=== PATIENT | male | born 1955 | race Hispanic/Latino ===

== ENCOUNTER 2017-04-09 13:05 | Inpatient (IN) | payer MEDICAID, OTHER ==
[2017-04-09 13:10] VITALS: BMI 38.4
--- NOTE | 2017-04-09 13:34 | ED PDOC ---
Arrival/HPI - General Chief Complaint: Lower Extremity Problem/Injury Time Seen by Provider: 04/09/17 13:18 Historian: Patient - History of Present Illness Narrative History of Present Illness (Text): 04/09/17 13:20 Blayne Nguyen is a 62 year old male who presents to emergency department complaining of bilateral swelling of lower extremities for a couple of weeks. Patient reports recent significant weight gain. Patient has not seen had any medical evaluation for symptoms due to lack of insurance. Patient denies any fever, chest pain, or shortness of breath. Time/Duration: < month Symptom Onset: Gradual Symptom Course: Worsening Activities at Onset: Light Associated Symptoms (Text): none Past Medical History - Provider Review Nursing Documentation Reviewed: Yes - Infectious Disease Hx of Infectious Diseases: None - Cardiac Hx Hypertension: Yes Hx Peripheral Edema: Yes Hx Peripheral Vascular Disease: Yes - Psychiatric Hx Substance Use: No - Anesthesia Hx Anesthesia: No Family/Social History - Physician Review Nursing Documentation Reviewed: Yes Family/Social History: No Known Family HX Smoking Status: Never Smoked Hx Alcohol Use: No Hx Substance Use: No Allergies/Home Meds Allergies/Adverse Reactions: Allergies No Known Allergies Allergy (Verified 04/09/17 13:10) Home Medications: Home Meds Medication Instructions Recorded Confirmed Furosemide [Lasix] 1 tab PO DAILY 04/09/17 04/09/17 Lisinopril/Hydrochlorothiazide 1 tab PO DAILY 04/09/17 04/09/17 [Lisinopril-Hctz 10-12.5 mg Tab] Review of Systems - Physician Review All systems were reviewed & negative as marked: Yes - Review of Systems Constitutional: Weight Change. absent: Fevers, Night Sweats Eyes: absent: Vision Changes ENT: absent: Hearing Changes Respiratory: absent: SOB, Cough Cardiovascular: Edema. absent: Chest Pain Gastrointestinal: absent: Abdominal Pain, Constipation, Diarrhea, Nausea, Vomiting Genitourinary Male: absent: Dysuria Musculoskeletal: absent: Arthralgias Skin: Other (Bilateral LE swelling) Neurological: absent: Headache, Dizziness Endocrine: absent: Diaphoresis Hemo/Lymphatic: absent: Adenopathy Psychiatric: absent: Anxiety Physical Exam Vital Signs Reviewed: Yes Vital Signs Temp Pulse Resp BP Pulse Ox 04/09/17 15:30 126/76 04/09/17 15:05 102 H 18 113/78 95 04/09/17 13:13 98.8 F 113 H 18 111/75 95 Temperature: Afebrile Blood Pressure: Normal Pulse: Tachycardic Respiratory Rate: Normal Appearance: Positive for: Unkept Pain Distress: None Mental Status: Positive for: Alert and Oriented X 3 - Systems Exam Head: Present: Atraumatic, Normocephalic Pupils: Present: PERRL Extroacular Muscles: Present: EOMI Conjunctiva: Present: Normal Neck: Present: Normal Range of Motion Respiratory/Chest: Present: Clear to Auscultation, Good Air Exchange. No: Respiratory Distress, Accessory Muscle Use Cardiovascular: Present: Regular Rate and Rhythm, Normal S1, S2. No: Murmurs Abdomen: No: Tenderness, Distention, Rebound, Guarding Upper Extremity: Present: Normal Inspection. No: Cyanosis, Edema Lower Extremity: Present: Edema, NORMAL PULSES, Normal ROM, Swelling ( significant lower extremity swelling b/l extending to knees. Erythema b/l. Open wounds to RLE with necrotic tissue.) Neurological: Present: Gait Normal Skin: No: Rashes Psychiatric: Present: Alert, Oriented x 3, Normal Insight, Normal Concentration Medical Decision Making ED Course and Treatment: 04/09/17 13:20 Impression: 62 year old male complaining of bilateral swelling to LE for a few weeks Differential Diagnosis included but are not limited to: Plan: -- Chest X-ray -- VBG and Blood Culture --u/s -- Labs -- Reassess and disposition Prior Visits: Notes and results from previous visits were reviewed. Patient last seen in the ED on Progress Notes: 04/09/17 14:52 LE ultrasound negative for DVT. EKG shows sinus tachycardia at 117bpm with non- specific st changes. Trop x1 negative. BNP WNL. CBC shows anemia. and CMP grossly normal. Cxray negative. Paged Dr. Huitron for admission for significant lower extremity swelling with surrounding cellulitis requiring IV antibiotics. - Lab Interpretations Lab Results: 04/09/17 14:00 04/09/17 14:00 Lab Results 04/09/17 14:00: Sodium 143, Chloride 103, Potassium 4.0, Carbon Dioxide 29, Anion Gap 15, BUN 14, Creatinine 0.9, Est GFR ( Amer) > 60, Est GFR (Non- Af Amer) > 60, Random Glucose 93, Calcium 10.1, Phosphorus 3.4, Magnesium 1.8, Total Bilirubin 0.7, AST 54, ALT 55, Alkaline Phosphatase 110, Total Creatine Kinase 53, Troponin I < 0.01, NT-Pro-B Natriuret Pep 210, Total Protein 8.5 H, Albumin 4.0, Globulin 4.4, Albumin/Globulin Ratio 0.9 L 04/09/17 14:00: pO2 45, VBG pH 7.34, VBG pCO2 49.0, VBG HCO3 26.4, VBG Total CO2 27.9, VBG O2 Sat (Calc) 85.2 H, VBG Base Excess 0.0, VBG Potassium 4.4, Sodium 154.0 H, Chloride 95.0 L, Glucose 96, Lactate 1.7, FiO2 21.0, Venous Blood Potassium 4.4 04/09/17 14:00: WBC 10.5, RBC 4.03, Hgb 12.7 L, Hct 37.3 L, MCV 92.6, MCH 31.5, MCHC 34.0, RDW 15.5 H, Plt Count 298, MPV 8.1, Gran % 79.7 H, Lymph % (Auto) 13.6 L, [place] % (Auto) 5.4, Eos % (Auto) 1.1 L, Baso % (Auto) 0.2, Gran # 8.33 H , Lymph # 1.4, [place] # 0.6, Eos # 0.1, Baso # 0.02 I have reviewed the lab results: Yes - RAD Interpretation Radiology Orders: 04/09/17 13:34 CHEST ONE VIEW [RAD] Stat 04/09/17 13:43 DUPLEX LOWER EXTRM VEIN BILAT [US] Stat - Medication Orders Current Medication Orders: Discontinued Medications Furosemide (Lasix) 40 mg IVP STAT STA Stop: 04/09/17 15:09 Last Admin: 04/09/17 15:30 Dose: 40 mg Vancomycin HCl (Vancomycin 1gm) 1 gm in 250 mls @ 167 mls/hr IVPB STAT [facility] PRN Reason: Protocol Stop: 04/09/17 15:12 Last Admin: 04/09/17 15:30 Dose: 167 mls/hr - Scribe Statement The provider has reviewed the documentation as recorded by the Ben Dhaliwal Provider Scribe Attestation: All medical record entries made by the Scribe were at my direction and personally dictated by me. I have reviewed the chart and agree that the record accurately reflects my personal performance of the history, physical exam, medical decision making, and the department course for this patient. I have also personally directed, reviewed, and agree with the discharge instructions and disposition. Disposition/Present on Arrival - Present on Arrival Any Indicators Present on Arrival: No History of DVT/PE: No History of Uncontrolled Diabetes: No Urinary Catheter: No History of Decub. Ulcer: No History Surgical Site Infection Following: None - Disposition Have Diagnosis and Disposition been Completed?: Yes Diagnosis: Lower extremity edema, Cellulitis Disposition: HOSPITALIZED Disposition Time: 14:50 Patient Plan: Admission Condition: FAIR Discharge Instructions (ExitCare): Cellulitis (ED) Referrals: PCP,NO [Primary Care Provider] - Follow up with primary Forms: [facility] ([place])
[2017-04-09] MEDS ORDERED: Vancomycin 1gm in NS 250ml 1 GM/250 ML BAG IVPB STA (13:43)
[2017-04-09 14:11] LABS: VENOUS BLOOD GAS PO2 45 mm/Hg (30-55); VENOUS BLOOD PH 7.34 (7.32-7.43)
[2017-04-09 14:14] LABS: BASO # 0.02 K/mm3 (0.0-2.0); BASO % 0.2 % (0.0-3.0); EOS # 0.1 (0.0-0.7); EOS % 1.1 % (1.5-5.0); GRAN # 8.33 (1.4-6.5); GRAN % 79.7 % (50.0-68.0); HEMOGLOBIN 12.7 gm/dL (14.0-18.0); LYMPH # 1.4 (1.2-3.4); LYMPH % 13.6 % (22.0-35.0); MEAN CELL VOLUME 92.6 fL (80.0-105.0); MEAN CORPUSCULAR HEMOGLOBIN 31.5 pg (25.0-35.0); MEAN PLATELET VOLUME 8.1 fl (7.0-11.0); MONO # 0.6 (0.1-0.6); MONO % 5.4 % (1.0-6.0); PLATELET COUNT 298 10^3/uL (120.0-450.0); RBC 4.03 10^6/uL (3.5-6.1); RED CELL DISTRIBUTION WIDTH 15.5 % (11.5-14.5); WHITE BLOOD COUNT 10.5 10^3/ul (4.5-11.0)
[2017-04-09 14:21] LABS: ALB/GLOB RATIO 0.9 (1.1-1.8); ALT/SGPT 55 U/L (7-56); AST/SGOT 54 U/L (15-59); BLOOD UREA NITROGEN 14 mg/dL (7-21); CALCIUM 10.1 mg/dL (8.4-10.5); GFR AFRICAN-AMERICAN > 60; GFR NON-AFRICAN AMERICAN > 60; MAGNESIUM 1.8 mg/dL (1.7-2.2)
[2017-04-09 14:32] LABS: B-TYPE NATRIURETIC PEPTIDE 210 pg/mL (0-450)
[2017-04-09 14:33] LABS: TROPONIN I < 0.01 ng/mL
--- NOTE | 2017-04-09 14:58 | RAD ---
PROCEDURE: CHEST RADIOGRAPH, 1 VIEW HISTORY: lower extremity edema COMPARISON: None available. FINDINGS: LUNGS: Clear. PLEURA: No pneumothorax or pleural fluid seen. CARDIOVASCULAR: Normal. OSSEOUS STRUCTURES: No significant abnormalities. VISUALIZED UPPER ABDOMEN: Normal. OTHER FINDINGS: None. IMPRESSION: No active disease.
--- NOTE | 2017-04-09 15:17 | CARD ---
APPROVED REPORT EKG Measurement Heart [id number] <Conclusion> Sinus tachycardia Possible IMI, age unknown Prolonged QT
--- NOTE | 2017-04-09 15:42 | US ---
HISTORY: Leg pain and swelling. Evaluate for DVT PHYSICIAN(S): Talha Ramirez MD. TECHNIQUE: Duplex sonography and color-flow Doppler with graded compression were used to evaluate the deep venous systems of both lower extremities. The exam is limited by body habitus and edema. The tibial veins are not adequately seen. FINDINGS: The visualized deep venous systems of both lower extremities are sonographically normal and compressible. Normal wave forms and augmentation are seen. There is no sonographic evidence for deep venous thrombosis in the visualized segments of both lower extremities. IMPRESSION: No sonographic evidence for deep venous thrombosis in the visualized segments of both lower extremities. Limited study
[2017-04-09] MEDS: Vancomycin 1gm in NS 250ml 1 GM/250 ML BAG IVPB SCH (16:15)
[2017-04-09 17:31] LABS: URINE BILIRUBIN NEGATIVE (NEGATIVE); URINE BLOOD SMALL (NEGATIVE); URINE GLUCOSE (UA) NEGATIVE (NEGATIVE); URINE LEUKOCYTE ESTERASE NEGATIVE Leu/uL (NEGATIVE); URINE NITRATE NEGATIVE (NEGATIVE); URINE PROTEIN NEGATIVE mg/dL (<30 mg/dL); URINE UROBILINOGEN 0.2 E.U./dL (<1 E.U./dL)
[2017-04-09 17:38] LABS: URINE APPEARANCE CLEAR (CLEAR); URINE COLOR YELLOW (YELLOW)
[2017-04-09 17:39] LABS: URINE WBC 0 - 2 /hpf (0-6)
[2017-04-09] MEDS ORDERED: Piperacillin/Tazobact 3.375 gm 100 ML IVPB SCH (18:00)
--- NOTE | 2017-04-09 19:18 | CP.PCM.HP ---
<Samantha Ontiveros - Last Filed: 04/09/17 20:09> History of Present Illness - History of Present Illness History of Present Illness: 62 yo M with pmhx of HTN presents to the ED for bilateral leg swelling for the past couple of weeks. Patient reports that over the last 5 months he gained 50lbs which has worsened his leg swelling. States that he does not have pain. Per ED documentation, Patient has not seen had any medical evaluation for symptoms due to lack of insurance. Per the patient, cardiac workup in the past was normal. No other complaints at this time. Denies fevers, chills, nausea/ vomitting, headaches, dizziness, visual changes, CP, SOB, abdominal pain, N/T, urinary symptoms. 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 absent: Chills, Fever, Headache, Lethargy - EENT Eyes: absent: Blurred Vision, Change in Vision Ears: absent: Decreased Hearing, Dizziness - Cardiovascular Cardiovascular: Leg Edema. absent: Chest Pain, Chest Pain with Activity, Dyspnea, Lightheadedness, Palpitations, Paroxysmal Nocturnal Dyspnea - Respiratory Respiratory: absent: Cough, Dyspnea, Dyspnea on Exertion, Wheezing - Gastrointestinal Gastrointestinal: absent: Abdominal Pain, Constipation, Diarrhea, Dysphagia, Nausea, Vomiting - Genitourinary Genitourinary: absent: Difficulty Urinating, Dysuria, Urinary Frequency - Neurological Neurological: absent: Abnormal Gait, Dizziness, Numbness, Headaches, Tingling, Weakness - Psychiatric Psychiatric: absent: Anxiety, Depression Past Patient History - Infectious Disease Hx of Infectious Diseases: None - Past Social History Smoking Status: Never Smoked - CARDIAC Hx Hypertension: Yes Hx Peripheral Edema: Yes Hx Peripheral Vascular Disease: Yes - PSYCHIATRIC Hx Substance Use: No - SURGICAL HISTORY Hx Surgeries: No - ANESTHESIA Hx Anesthesia: No Meds Allergies/Adverse Reactions: Allergies Allergy/AdvReac Type Severity Reaction Status Date / Time No Known Allergies Allergy Verified 04/09/17 13:10 Physical Exam - Constitutional Appears: Well, Non-toxic, No Acute Distress, Unkempt - Head Exam Head Exam: ATRAUMATIC, NORMAL INSPECTION - Eye Exam Eye Exam: EOMI, Normal appearance Pupil Exam: PERRL - ENT Exam ENT Exam: Mucous Membranes Moist - Neck Exam Neck exam: Positive for: Full Rom - Respiratory Exam Respiratory Exam: Clear to Auscultation Bilateral, NORMAL BREATHING PATTERN. absent: Rales, Rhonchi, Wheezes - Cardiovascular Exam Cardiovascular Exam: REGULAR RHYTHM, +S1, +S2. absent: Bradycardia, Tachycardia - GI/Abdominal Exam GI & Abdominal Exam: Normal Bowel Sounds, Soft. absent: Distended, Guarding, Rebound, Rigid - Extremities Exam Additional comments: +Edema, pedal pulses intact, Normal ROM, significant lower extremity swelling b/ l extending to knees. Swelling R>L. Erythema noted bilaterally. Open wounds to RLE with necrotic tissue, +venous stasis skin changes - Back Exam Back exam: NORMAL INSPECTION - Neurological Exam Neurological exam: Alert, CN II-XII Intact, Oriented x3 - Psychiatric Exam Psychiatric exam: Normal Affect, Normal Mood - Skin Additional comments: As documented above Results - Vital Signs Recent Vital Signs: Last Vital Signs Temp 98.8 F 04/09/17 13:13 Pulse 116 H 04/09/17 17:49 Resp 18 04/09/17 17:49 BP 117/81 04/09/17 17:49 Pulse Ox 96 04/09/17 17:49 - Labs Result Diagrams: 04/09/17 14:00 04/09/17 14:00 Labs: Laboratory Results - last 24 hr 04/09/17 16:15 Urine Color Yellow Urine Appearance Clear Urine pH 7.0 Ur Specific [place] 1.010 Urine Protein Negative Urine Glucose (UA) Negative Urine Ketones Negative Urine Blood Small H Urine Nitrate Negative Urine Bilirubin Negative Urine Urobilinogen 0.2 Ur Leukocyte Esterase Negative Urine RBC 2 - 5 Urine WBC 0 - 2 Assessment & Plan (1) Lower extremity edema Assessment and Plan: 1. Stable, afebrile 2. Started on Vanco/Zosyn 3. ID consulted, f/u recommendations 4. F/U am labs 5. F/U R LE XRAY, LE dopplers: negative for DVT 6. Lasix 40mg IV daily 7. Hx of HTN, will start on home meds, Lisinopril/HCTZ 10/12.5mg daily 8. Podiatry on consult, f/u recommendations 9. F/U wound cx, blood cx 10. Pain control - tylenol prn 11. Protonix, Heparin 5000U Q12H 12. Plan d/w attending Status: Chronic (2) Cellulitis Assessment and Plan: 1. See plan above Status: Acute <Alexander Huitron - Last Filed: 04/10/17 07:43> Results - Vital Signs Recent Vital Signs: Last Vital Signs Temp 98.8 F 04/09/17 13:13 Pulse 116 H 04/09/17 17:49 Resp 20 04/09/17 20:12 BP 117/81 04/09/17 17:49 Pulse Ox 96 04/09/17 17:49 - Labs Result Diagrams: 04/09/17 14:00 04/09/17 14:00 Labs: Laboratory Results - last 24 hr 04/09/17 16:15 Urine Color Yellow Urine Appearance Clear Urine pH 7.0 Ur Specific [place] 1.010 Urine Protein Negative Urine Glucose (UA) Negative Urine Ketones Negative Urine Blood Small H Urine Nitrate Negative Urine Bilirubin Negative Urine Urobilinogen 0.2 Ur Leukocyte Esterase Negative Urine RBC 2 - 5 Urine WBC 0 - 2 Attending/Attestation - Attestation I have personally seen and examined this patient.: Yes I have fully participated in the care of the patient.: Yes I have reviewed all pertinent clinical information: Yes Notes (Text): 04/09/17 62 year old male with past medical history of hypertension and chronic LE edema who presents with worsening LE edema/erythema. LE dopplers are limited but negative for DVT. RLE xray is also ordered. Will start on iv antibiotics and iv lasix. He states he had negative cardiac workup in the past. Will request for podiatry and ID consultation. Follow up on wound culture and blood culture. Continue with home medications for hypertension. Alexander Huitron MD Hospitalist.
[2017-04-10] MEDS: Pantoprazole 40 mg EC Tab PO SCH (05:03)
[2017-04-10] MEDS: Vancomycin 1gm in NS 250ml 1 GM/250 ML BAG IVPB SCH ×3 (05:03→22:08)
--- NOTE | 2017-04-10 07:51 | CP.PCM.CON ---
<Brianne Hines - Last Filed: 04/10/17 11:32> History of Present Illness - History of Present Illness History of Present Illness: PGY-[address] Dumont ID Consult: b/l LE cellulitis r/o osteomyelitis Mr. Nguyen, 62 M, with PMH of HTN and chronic LE edema, presents to the ED for sudden worsening LE edema/erythema bilaterally x 2 weeks. At baseline, pt always have b/l leg edema. R leg started to "peel and itch" 2 weeks ago. Pt scratched and took the peel off, so it started to drain and bleed. Patient reports that over the last 5 months he gained 50lbs which has worsened his leg swelling, painless. He states he had negative cardiac workup in the past. Denies f/c. Pt requires a cane and chronic heel pain. No N/T or worsening difficulty ambulating. Upon ED arrival, HR 113. T 98.8, 111/75, 95%RA WBC 10.5, lactate 1.7, CMP unremarkable No ESR/CRP U/A negative LE dopplers b/l: negative for DVT RLE (Tib/fib) xray pending ROS- Denies fevers, chills, PEPE, Dizziness, vision changes, CP, SOB, nausea/vomitting , abdominal pain, N/T, urinary symptoms. PMH HTN chronic LE edema Hx mechanical fall PSH denies SH Lives with roommate who is a chronic smoker Pt was formally employed at a [employer] denies alcohol, tobacco, drug use Pt ambulate with cane Allergies: NKDA MEd: Lisinopril/HCTZ 10/12.5mg daily, Lasix 40mg daily PMD: No Podiatry: No Past Patient History - Infectious Disease Hx of Infectious Diseases: None - Past Social History Smoking Status: Former Smoker - CARDIAC Hx Hypertension: Yes - MUSCULOSKELETAL/RHEUMATOLOGICAL Hx Falls: No - PSYCHIATRIC Hx Substance Use: No - SURGICAL HISTORY Hx Surgeries: No - ANESTHESIA Hx Anesthesia: No Meds Allergies/Adverse Reactions: Allergies Allergy/AdvReac Type Severity Reaction Status Date / Time No Known Allergies Allergy Verified 04/09/17 13:10 - Medications Medications: Current Medications Acetaminophen (Tylenol 325mg Tab) 325 mg PO PRN PRN PRN Reason: Pain, Mild (1-3) Furosemide (Lasix) 40 mg IVP DAILY [facility] Heparin Sodium (Porcine) (Heparin) 5,000 units SC Q12 [facility] PRN Reason: Protocol Last Admin: 04/09/17 22:40 Dose: 5,000 units Hydrochlorothiazide (Microzide) 12.5 mg PO DAILY [facility] Vancomycin HCl (Vancomycin 1gm) 1 gm in 250 mls @ 167 mls/hr IVPB Q12H [facility] PRN Reason: Protocol Last Admin: 04/10/17 05:03 Dose: 167 mls/hr Lisinopril (Zestril) 10 mg PO DAILY [facility] Pantoprazole Sodium (Protonix Ec Tab) 40 mg PO 0600 [facility] Last Admin: 04/10/17 05:03 Dose: 40 mg Physical Exam - Constitutional Appears: Unkempt, Chronically Ill - Head Exam Head Exam: ATRAUMATIC, NORMAL INSPECTION, NORMOCEPHALIC - Eye Exam Eye Exam: EOMI, Normal appearance, PERRL. absent: Scleral icterus - ENT Exam ENT Exam: Mucous Membranes Moist - Neck Exam Additional comments: supple - Respiratory Exam Respiratory Exam: Decreased Breath Sounds (all lung field), Clear to Auscultation Bilateral - Cardiovascular Exam Cardiovascular Exam: REGULAR RHYTHM, +S1, +S2 - GI/Abdominal Exam GI & Abdominal Exam: Soft. absent: Distended, Firm, Rigid - Extremities Exam Extremities exam: Positive for: calf tenderness, pedal edema Additional comments: Non-pitting edema, about 12 inch diameter per leg. L leg erythema. R leg erythema with statis demititis, dry skin, dressing with yellow drainage striking through. pedal pulse 2+ no rash sole b/l Results - Vital Signs Recent Vital Signs: Last Vital Signs Temp 98.8 F 04/09/17 13:13 Pulse 116 H 04/09/17 17:49 Resp 20 04/09/17 20:12 BP 117/81 04/09/17 17:49 Pulse Ox 96 04/09/17 17:49 - Labs Result Diagrams: 04/10/17 09:00 04/10/17 09:00 Labs: Laboratory Results - last 24 hr 04/09/17 16:15 Urine Color Yellow Urine Appearance Clear Urine pH 7.0 Ur Specific [place] 1.010 Urine Protein Negative Urine Glucose (UA) Negative Urine Ketones Negative Urine Blood Small H Urine Nitrate Negative Urine Bilirubin Negative Urine Urobilinogen 0.2 Ur Leukocyte Esterase Negative Urine RBC 2 - 5 Urine WBC 0 - 2 Assessment & Plan - Assessment and Plan (Free Text) Plan: 62 M has statis dermitis with bacterial superinfection cellulitis r/o osteomyelitis - Vanco - ? ESR/CRP - LE dopplers b/l: negative for DVT - RLE (Tib/fib) xray pending - Pending wound and blood culture - U/A negative - Date & Time Date: 04/10/17 Time: 10:15 <TimJairovadim Batistaumesh Familia - Last Filed: 04/10/17 11:38> Meds - Medications Medications: Current Medications Acetaminophen (Tylenol 325mg Tab) 325 mg PO PRN PRN PRN Reason: Pain, Mild (1-3) Furosemide (Lasix) 40 mg IVP DAILY [facility] Last Admin: 04/10/17 10:29 Dose: 40 mg Heparin Sodium (Porcine) (Heparin) 5,000 units SC Q12 [facility] PRN Reason: Protocol Last Admin: 04/10/17 10:29 Dose: 5,000 units Hydrochlorothiazide (Microzide) 12.5 mg PO DAILY [facility] Last Admin: 04/10/17 10:28 Dose: 12.5 mg Vancomycin HCl (Vancomycin 1gm) 1 gm in 250 mls @ 167 mls/hr IVPB Q12H [facility] PRN Reason: Protocol Last Admin: 04/10/17 05:03 Dose: 167 mls/hr Lisinopril (Zestril) 10 mg PO DAILY [facility] Last Admin: 04/10/17 10:28 Dose: 10 mg Pantoprazole Sodium (Protonix Ec Tab) 40 mg PO 0600 [facility] Last Admin: 04/10/17 05:03 Dose: 40 mg Results - Vital Signs Recent Vital Signs: Last Vital Signs Temp 99.1 F 04/10/17 08:05 Pulse 107 H 04/10/17 10:28 Resp 20 04/10/17 08:05 BP 104/50 L 04/10/17 10:29 Pulse Ox 93 L 04/10/17 08:05 - Labs Result Diagrams: 04/10/17 09:00 04/10/17 09:00 Labs: Laboratory Results - last 24 hr 04/09/17 04/10/17 04/10/17 16:15 09:00 09:00 WBC 10.1 RBC 4.05 Hgb 12.6 L Hct 37.5 L MCV 92.6 MCH 31.1 MCHC 33.6 RDW 15.8 H Plt Count 255 MPV 8.1 Sodium 139 Potassium 4.3 Chloride 101 Carbon Dioxide 27 Anion Gap 15 BUN 15 Creatinine 0.8 Est GFR ( Amer) > 60 Est GFR (Non-Af Amer) > 60 Random Glucose 111 H Calcium 9.4 Urine Color Yellow Urine Appearance Clear Urine pH 7.0 Ur Specific [place] 1.010 Urine Protein Negative Urine Glucose (UA) Negative Urine Ketones Negative Urine Blood Small H Urine Nitrate Negative Urine Bilirubin Negative Urine Urobilinogen 0.2 Ur Leukocyte Esterase Negative Urine RBC 2 - 5 Urine WBC 0 - 2 Assessment & Plan - Assessment and Plan (Free Text) Plan: Attending attestation: Patient seen and examined, discussed with medical service technician. I have reviewed the patient's HPI, medical history, personal and social history, allergies, physical exam. I agree with the above findings. In addition, we will treat this patient with probable right leg skin and skin structure infection over stasis dermatitis, need to rule out abscess. Follow up MRI of the leg, start Vancomycin , and add Unasyn pending blood and wound cx. Discussed with Dr. Turner.
[2017-04-10 09:49] LABS: HEMOGLOBIN 12.6 gm/dL (14.0-18.0); MEAN CELL VOLUME 92.6 fL (80.0-105.0); MEAN CORPUSCULAR HEMOGLOBIN 31.1 pg (25.0-35.0); MEAN CORPUSCULAR HGB CONC 33.6 g/dl (31.0-37.0); MEAN PLATELET VOLUME 8.1 fl (7.0-11.0); RBC 4.05 10^6/uL (3.5-6.1); RED CELL DISTRIBUTION WIDTH 15.8 % (11.5-14.5); WHITE BLOOD COUNT 10.1 10^3/ul (4.5-11.0)
[2017-04-10 10:01] LABS: BLOOD UREA NITROGEN 15 mg/dL (7-21); CALCIUM 9.4 mg/dL (8.4-10.5); GFR AFRICAN-AMERICAN > 60; GFR NON-AFRICAN AMERICAN > 60
--- NOTE | 2017-04-10 12:34 | RAD ---
PROCEDURE: Radiographs of the right tibia and fibula. HISTORY: Cellulitis COMPARISON: None available. TECHNIQUE: Frontal and lateral views obtained. FINDINGS: BONES: No fracture or destructive lesion. JOINT SPACES: Unremarkable. OTHER FINDINGS: There is severe soft tissue swelling and edema IMPRESSION: Severe soft tissue swelling. No bony abnormalities
--- NOTE | 2017-04-10 13:19 | CON ---
DATE: HISTORY OF PRESENT ILLNESS: A 62-year-old male seen at bedside for consultation, evaluation and management of right lower extremity ulcerations secondary to chronic lower extremity edema. The patient states that his legs have been swollen for many years and have gotten progressively worse. He states that he has gained approximately 50 pounds over the last few months since he stopped working. He notes over the past few weeks that his legs were swollen and became quite itchy where he continued to scratch each leg, but noticed drainage coming out of his right lower leg a few weeks ago. He was quite concerned, so he presented to the emergency room. PAST MEDICAL HISTORY: Significant for morbid obesity, chronic lower extremity edema, essential hypertension and history of . PAST SURGICAL HISTORY: Denies any past surgical history. SOCIAL HISTORY: The patient was a smoker at onetime, has not smoke in many years. Denies alcohol use and denies illicit drug use. He is not and lives with a roommate who is a heavy smoker. ALLERGIES: THE PATIENT HAS NO KNOWN DRUG ALLERGIES. OBJECTIVE: VITAL SIGNS: Reveal temperature of 99.1, pulse rate of 107, blood pressure of 104/50, respiratory rate of 20. EXTREMITIES: Nonpalpable pedal pulses noted bilaterally secondary to +3 nonpitting lower extremity edema. The patient is unable to detect 5.07 g monofilament wire testing on each foot. Right lower extremity presents with 3 ulcerations located anterior and lateral on the lower leg as well as one posteriorly. All the ulcerations have light purulent drainage. There is a malodor noted on the anterior ulceration. The base of each ulceration is a mixture of fibrotic and necrotic tissue. Each ulcer probes greater than 1.5 cm in depth. There is no probing to bone. However, upon manual compression, there is noted to be light purulent discharge. There is noted to be edema and erythema locally, but no signs of ascending cellulitis. LABORATORY FINDINGS: Reveal a white count of 10.1, hemoglobin of 12.6, hematocrit of 37.5 and platelet count of 255. Microbiology report taken yesterday reveals Gram-positive cocci in clusters, Gram-positive cocci in chains, moderate Gram-variable rods and Gram-negative rods heavy growth. Venous Doppler taken yesterday reveals no radiographic evidence of deep venous thrombosis in either lower extremity. ASSESSMENT: Venous stasis ulcerations to the right lower extremity with accompanying cellulitis. PLAN: The patient's leg was examined. Culture was taken and submitted for sensitivities. The patient is currently on vancomycin 1 g. His wounds were flushed with normal sterile saline. Leg was manually compressed and there was noted to be purulent discharge expressed. An application of Acticoat silver gauze was applied to each of the wounds and a dry sterile compressive dressing was applied to the right lower leg. Left lower leg was dressed with a Tubigrip for compression. We will order MRI to ascertain whether there is an underlying abscess formation on his lower leg. The patient's white count still is within normal limits at 10.1, but there may be an underlying abscess formation working, and an MRI would determine this. Infectious Disease note was read and appreciated. was followed daily and await MRI results to ascertain if surgical debridement is warranted. Bhavesh Turner DPM
--- NOTE | 2017-04-10 15:57 | MRI ---
PROCEDURE: MRI of the right lower extremity without contrast HISTORY: right lower leg abscess COMPARISON: TECHNIQUE: MRI of the right lower extremity was performed in multiple planes using multiple pulse sequences. Both extremities were visualized in the coronal plane FINDINGS: There is extensive subcutaneous edema in both lower extremities measuring up to 5.5 cm in thickness. There is no evidence of a discrete abscess. There is no muscular edema or bone marrow edema. Due the symmetric appearance of this edema it is most likely due to passive edema but could be due to bilateral cellulitis. IMPRESSION: Severe bilateral lower extremity edema. There is no evidence of a discrete abscess.
[2017-04-10] MEDS: Ampicillin/Sulbactam 3 GM in Sodium Chloride 0.9% 100 ML IVPB SCH ×2 (17:18→23:50)
--- NOTE | 2017-04-10 23:47 | CP.PCM.PN ---
<Jamar Lyon - Last Filed: 04/10/17 23:52> Subjective - Date & Time of Evaluation Date of Evaluation: 04/10/17 Time of Evaluation: 07:25 - Subjective Subjective: Patient thinks he is fine and wants to go home. He quickly reversed his decision once the grating machine operator/orthopedist saw him. Denies fever, exquisitve pain to the right LE, though admits it is still somewhat painful. Objective - Vital Signs/Intake and Output Vital Signs (last 24 hours): Temp Pulse Resp BP Pulse Ox 99 F 108 H 20 101/74 94 L 04/10/17 18:51 04/10/17 16:00 04/10/17 16:00 04/10/17 16:00 04/10/17 16:00 Intake and Output: 04/10/17 04/11/17 18:59 06:59 Intake Total 0 780 Balance 0 780 - Medications Medications: Current Medications Acetaminophen (Tylenol 325mg Tab) 325 mg PO PRN PRN PRN Reason: Pain, Mild (1-3) Last Admin: 04/10/17 16:09 Dose: 325 mg Furosemide (Lasix) 40 mg IVP DAILY [facility] Last Admin: 04/10/17 10:29 Dose: 40 mg Heparin Sodium (Porcine) (Heparin) 5,000 units SC Q12 [facility] PR[facility] Reason: Protocol Last Admin: 04/10/17 22:09 Dose: 5,000 units Hydrochlorothiazide (Microzide) 12.5 mg PO DAILY [facility] Last Admin: 04/10/17 10:28 Dose: 12.5 mg Ampicillin Sodium/Sulbactam (Sodium 3 gm/ Sodium Chloride) 100 mls @ 200 mls/ hr IVPB Q6 [facility] PRN Reason: Protocol Last Admin: 04/10/17 17:18 Dose: 200 mls/hr Vancomycin HCl (Vancomycin 1gm) 1 gm in 250 mls @ 167 mls/hr IVPB Q12 [facility] PRN Reason: Protocol Last Admin: 04/10/17 22:08 Dose: 167 mls/hr Lisinopril (Zestril) 10 mg PO DAILY [facility] Last Admin: 04/10/17 10:28 Dose: 10 mg Pantoprazole Sodium (Protonix Ec Tab) 40 mg PO 0600 [facility] Last Admin: 04/10/17 05:03 Dose: 40 mg - Labs Labs: 04/10/17 09:00 04/10/17 09:00 - Constitutional Appears: Non-toxic, No Acute Distress, Older Than Stated Age - Head Exam Head Exam: ATRAUMATIC, NORMOCEPHALIC - Eye Exam Eye Exam: EOMI, Normal appearance Pupil Exam: NORMAL ACCOMODATION, PERRL - Neck Exam Neck Exam: Full ROM, Normal Inspection - Respiratory Exam Respiratory Exam: Rales, Wheezes - Cardiovascular Exam Cardiovascular Exam: RRR, +S1, +S2 - GI/Abdominal Exam GI & Abdominal Exam: Soft, Normal Bowel Sounds Additional comments: protuberant - Rectal Exam Rectal Exam: Deferred - Extremities Exam Additional comments: Right LE shows peeling and sloughing of the skin, Left is edematous but no acute changes - Neurological Exam Neurological Exam: Alert, Awake, CN II-XII Intact, Oriented x3 - Psychiatric Exam Psychiatric exam: Normal Affect, Normal Mood - Skin Additional comments: foul smelling Assessment and Plan - Assessment and Plan (Free Text) Assessment: (1) Lower extremity edema Assessment and Plan: 1. Stable, afebrile 2. Started on Vanco/Zosyn, RLE culture show polymicrobial growth; however, deep or superficial wound cultures have shown no benefit in selection of antibiotics for a cellulitis according to new literature; hence, treat empirically and avoid further culture/swabs to the RLE. 3. ID consulted, f/u recommendations antibiotic selection per Dr. Dumont. 4. R LE XRAY showed edema, unsure if there was concern for fracture, or osteomyelitis which plain films are not first line studies. At any rate, LE dopplers: negative for DVT. MRI confirms edema, but no definitive abscess. 5. Lasix 40mg IV daily 6. Hx of HTN, will start on home meds, Lisinopril/HCTZ 10/12.5mg daily 7. Podiatry on consult, f/u recommendations 8. Pain control - tylenol prn 9.. Protonix, Heparin 5000U Q12H 10. Plan d/w attending. Status: Chronic (2) Cellulitis Assessment and Plan: 1. See plan above <Alexander Huitron - Last Filed: 04/11/17 09:14> Objective - Vital Signs/Intake and Output Vital Signs (last 24 hours): Temp Pulse Resp BP Pulse Ox 98.9 F 108 H 20 101/74 94 L 04/11/17 00:00 04/10/17 16:00 04/10/17 16:00 04/10/17 16:00 04/10/17 16:00 Intake and Output: 04/11/17 04/11/17 06:59 18:59 Intake Total 780 Balance 780 - Medications Medications: Current Medications Acetaminophen (Tylenol 325mg Tab) 325 mg PO PRN PRN PRN Reason: Pain, Mild (1-3) Last Admin: 04/10/17 16:09 Dose: 325 mg Furosemide (Lasix) 40 mg IVP DAILY [facility] Last Admin: 04/10/17 10:29 Dose: 40 mg Heparin Sodium (Porcine) (Heparin) 5,000 units SC Q12 [facility] PRN Reason: Protocol Last Admin: 04/10/17 22:09 Dose: 5,000 units Hydrochlorothiazide (Microzide) 12.5 mg PO DAILY [facility] Last Admin: 04/10/17 10:28 Dose: 12.5 mg Ampicillin Sodium/Sulbactam (Sodium 3 gm/ Sodium Chloride) 100 mls @ 200 mls/ hr IVPB Q6 [facility] PRN Reason: Protocol Last Admin: 04/11/17 05:07 Dose: 200 mls/hr Vancomycin HCl (Vancomycin 1gm) 1 gm in 250 mls @ 167 mls/hr IVPB Q12 [facility] PRN Reason: Protocol Last Admin: 04/10/17 22:08 Dose: 167 mls/hr Lisinopril (Zestril) 10 mg PO DAILY [facility] Last Admin: 04/10/17 10:28 Dose: 10 mg Pantoprazole Sodium (Protonix Ec Tab) 40 mg PO 0600 [facility] Last Admin: 04/11/17 05:06 Dose: 40 mg - Labs Labs: 04/11/17 08:40 04/11/17 08:40 Attending/Attestation - Attestation I have personally seen and examined this patient.: Yes I have fully participated in the care of the patient.: Yes I have reviewed all pertinent clinical information, including history, physical exam and plan: Yes Notes (Text): 04/10/17 62 year old male with past medical history of hypertension and chronic LE edema who presented with worsening LE edema/erythema. LE dopplers were limited but negative for DVT. RLE xray and MRI were reviewed which showed edema. ID and podiatry evaluation were appreciated. Will follow up on wound culture and blood culture. Continue with iv antibiotics and iv lasix for diuresis. Continue with home medications for hypertension. Alexander Huitron MD Hospitalist.
[2017-04-11] MEDS: Pantoprazole 40 mg EC Tab PO SCH (05:06)
[2017-04-11] MEDS: Ampicillin/Sulbactam 3 GM in Sodium Chloride 0.9% 100 ML IVPB SCH ×4 (05:07→23:25)
[2017-04-11 08:57] LABS: HEMOGLOBIN 10.9 gm/dL (14.0-18.0); MEAN CELL VOLUME 91.8 fL (80.0-105.0); MEAN CORPUSCULAR HEMOGLOBIN 30.7 pg (25.0-35.0); MEAN CORPUSCULAR HGB CONC 33.4 g/dl (31.0-37.0); MEAN PLATELET VOLUME 7.7 fl (7.0-11.0); RBC 3.55 10^6/uL (3.5-6.1); WHITE BLOOD COUNT 9.5 10^3/ul (4.5-11.0)
[2017-04-11 09:07] LABS: BLOOD UREA NITROGEN 13 mg/dL (7-21); CALCIUM 8.9 mg/dL (8.4-10.5); GFR AFRICAN-AMERICAN > 60; GFR NON-AFRICAN AMERICAN > 60
--- NOTE | 2017-04-11 09:41 | CP.PCM.PN ---
<Brianne Hines - Last Filed: 04/11/17 12:06> Subjective - Date & Time of Evaluation Date of Evaluation: 04/11/17 Time of Evaluation: 09:38 - Subjective Subjective: PGY-[address] Dumont 100.6 last evening Now sitting comfortably by window dressing changed this am no acute complaint Objective - Vital Signs/Intake and Output Vital Signs (last 24 hours): Temp Pulse Resp BP Pulse Ox 98.9 F 108 H 20 101/74 94 L 04/11/17 00:00 04/10/17 16:00 04/10/17 16:00 04/10/17 16:00 04/10/17 16:00 Intake and Output: 04/11/17 04/11/17 06:59 18:59 Intake Total 780 Balance 780 - Medications Medications: Current Medications Acetaminophen (Tylenol 325mg Tab) 325 mg PO PRN PRN PRN Reason: Pain, Mild (1-3) Last Admin: 04/10/17 16:09 Dose: 325 mg Furosemide (Lasix) 40 mg IVP DAILY [facility] Last Admin: 04/10/17 10:29 Dose: 40 mg Heparin Sodium (Porcine) (Heparin) 5,000 units SC Q12 [facility] PRN Reason: Protocol Last Admin: 04/10/17 22:09 Dose: 5,000 units Hydrochlorothiazide (Microzide) 12.5 mg PO DAILY [facility] Last Admin: 04/10/17 10:28 Dose: 12.5 mg Ampicillin Sodium/Sulbactam (Sodium 3 gm/ Sodium Chloride) 100 mls @ 200 mls/ hr IVPB Q6 [facility] PRN Reason: Protocol Last Admin: 04/11/17 05:07 Dose: 200 mls/hr Vancomycin HCl (Vancomycin 1gm) 1 gm in 250 mls @ 167 mls/hr IVPB Q12 [facility] PRN Reason: Protocol Last Admin: 04/10/17 22:08 Dose: 167 mls/hr Lisinopril (Zestril) 10 mg PO DAILY [facility] Last Admin: 04/10/17 10:28 Dose: 10 mg Pantoprazole Sodium (Protonix Ec Tab) 40 mg PO 0600 [facility] Last Admin: 04/11/17 05:06 Dose: 40 mg - Labs Labs: 04/11/17 08:40 04/11/17 08:40 - Constitutional Appears: No Acute Distress - Head Exam Head Exam: ATRAUMATIC, NORMAL INSPECTION, NORMOCEPHALIC - Eye Exam Eye Exam: EOMI, Normal appearance, PERRL. absent: Scleral icterus Pupil Exam: NORMAL ACCOMODATION - ENT Exam ENT Exam: Mucous Membranes Moist - Respiratory Exam Respiratory Exam: Clear to Ausculation Bilateral. absent: Rales, Rhonchi, Wheezes - Cardiovascular Exam Cardiovascular Exam: REGULAR RHYTHM, +S1, +S2 - GI/Abdominal Exam GI & Abdominal Exam: Soft. absent: Distended, Guarding, Rigid, Tenderness - Extremities Exam Extremities Exam: Pedal Edema Additional comments: dressing b/l d/c/i. non-pitting edema with erythema - Back Exam Back Exam: absent: CVA tenderness (L), CVA tenderness (R) - Neurological Exam Neurological Exam: Alert, Awake - Psychiatric Exam Psychiatric exam: Normal Affect, Normal Mood - Skin Skin Exam: Dry, Warm Assessment and Plan - Assessment and Plan (Free Text) Plan: 62 M has statis dermititis with probable right leg skin and skin structure infection cellulitis has ruled out abscess - Vancomycin 1gq12 (day 3) & Unasyn 3g q6(day 2) for cat exposure - LE dopplers b/l: negative for DVT - RLE (Tib/fib) xray: No bony abnormality - MRI of R lower leg: No discrete abscess - wound exudate = gram neg elder - blood culture = no grwth 24 hr - U/A negative - Watch Sx for compartment syndrome s/r/d w Dr. Dumont <Jairo Dumont S - Last Filed: 04/11/17 15:19> Objective - Vital Signs/Intake and Output Vital Signs (last 24 hours): Temp Pulse Resp BP Pulse Ox 98.0 F 96 H 18 121/74 95 04/11/17 06:00 04/11/17 10:56 04/11/17 06:00 04/11/17 10:56 04/11/17 06:00 Intake and Output: 04/11/17 04/11/17 06:59 18:59 Intake Total 780 860 Balance 780 860 - Medications Medications: Current Medications Acetaminophen (Tylenol 325mg Tab) 325 mg PO Q6H PRN PRN Reason: Pain, Mild (1-3) Furosemide (Lasix) 40 mg IVP DAILY [facility] Last Admin: 04/11/17 10:55 Dose: 40 mg Heparin Sodium (Porcine) (Heparin) 5,000 units SC Q12 [facility] PRN Reason: Protocol Last Admin: 04/11/17 10:56 Dose: 5,000 units Hydrochlorothiazide (Microzide) 12.5 mg PO DAILY [facility] Last Admin: 04/11/17 10:55 Dose: 12.5 mg Ampicillin Sodium/Sulbactam (Sodium 3 gm/ Sodium Chloride) 100 mls @ 200 mls/ hr IVPB Q6 [facility] PRN Reason: Protocol Last Admin: 04/11/17 12:38 Dose: 200 mls/hr Vancomycin HCl (Vancomycin 1gm) 1 gm in 250 mls @ 167 mls/hr IVPB Q12 [facility] PRN Reason: Protocol Last Admin: 04/11/17 10:52 Dose: 167 mls/hr Lisinopril (Zestril) 10 mg PO DAILY [facility] Last Admin: 04/11/17 10:56 Dose: 10 mg Oxychlorosene Sodium (Clorpactin [facility]-90) 2 gm TOP Q12 [facility] Last Admin: 04/11/17 10:40 Dose: Not Given Pantoprazole Sodium (Protonix Ec Tab) 40 mg PO 0600 [facility] Last Admin: 04/11/17 05:06 Dose: 40 mg - Labs Labs: 04/11/17 08:40 04/11/17 08:40 Assessment and Plan - Assessment and Plan (Free Text) Plan: Infectious Diseases Attending Physician Attestation Patient seen and examined, discussed with medical officer. Agree with above findings. In addition, patient underwent sharp excisional debridement by Podiatry today - will follow up wound cx and continue Vancomycin and Unasyn for now for this patient with right leg skin and skin structure infection.
[2017-04-11] MEDS: Oxychlorosene Topical 2 gm Packet TOP SCH ×2 (10:40→21:48)
--- NOTE | 2017-04-11 10:49 | CP.PCM.PN ---
<Dave Cunha - Last Filed: 04/11/17 10:43> Subjective - Date & Time of Evaluation Date of Evaluation: 04/11/17 Time of Evaluation: 10:10 - Subjective Subjective: 62 year old male seen at bedside concerning right lower leg celluluts and ulcerations. Pt reports no acute overnight events and has no pedal complaints. Pt denies pain to the right lower leg. Pt denies recent f/c/cp/sob/n/v/d. Objective - Vital Signs/Intake and Output Vital Signs (last 24 hours): Temp Pulse Resp BP Pulse Ox 98.9 F 108 H 20 101/74 94 L 04/11/17 00:00 04/10/17 16:00 04/10/17 16:00 04/10/17 16:00 04/10/17 16:00 Intake and Output: 04/11/17 04/11/17 06:59 18:59 Intake Total 780 Balance 780 - Medications Medications: Current Medications Acetaminophen (Tylenol 325mg Tab) 325 mg PO PRN PRN PRN Reason: Pain, Mild (1-3) Last Admin: 04/10/17 16:09 Dose: 325 mg Furosemide (Lasix) 40 mg IVP DAILY [facility] Last Admin: 04/10/17 10:29 Dose: 40 mg Heparin Sodium (Porcine) (Heparin) 5,000 units SC Q12 [facility] PRN Reason: Protocol Last Admin: 04/10/17 22:09 Dose: 5,000 units Hydrochlorothiazide (Microzide) 12.5 mg PO DAILY [facility] Last Admin: 04/10/17 10:28 Dose: 12.5 mg Ampicillin Sodium/Sulbactam (Sodium 3 gm/ Sodium Chloride) 100 mls @ 200 mls/ hr IVPB Q6 [facility] PRN Reason: Protocol Last Admin: 04/11/17 05:07 Dose: 200 mls/hr Vancomycin HCl (Vancomycin 1gm) 1 gm in 250 mls @ 167 mls/hr IVPB Q12 [facility] PRN Reason: Protocol Last Admin: 04/10/17 22:08 Dose: 167 mls/hr Lisinopril (Zestril) 10 mg PO DAILY [facility] Last Admin: 04/10/17 10:28 Dose: 10 mg Oxychlorosene Sodium (Clorpactin [facility]-90) 2 gm TOP Q12 [facility] Pantoprazole Sodium (Protonix Ec Tab) 40 mg PO 0600 [facility] Last Admin: 04/11/17 05:06 Dose: 40 mg - Labs Labs: 04/11/17 08:40 04/11/17 08:40 - Constitutional Appears: Well, Non-toxic, No Acute Distress - Extremities Exam Additional comments: Right lower extremity focused. Dressing intact with mild drainage noted extending outer dressing. Neuro-vascular status intact to the right lower extremity. CRF<4 seconds. DERM: Serere lymphedema noted to distal 1/2 of lower legs bilaterally with early stage [id number] changes notted at widest circunfrence of edema. Right lower leg shows 5 distinc ulceration sites (2 anterior, 1 media, 2 posterior) all with necro-fibrotic bases. Purulent, mal-odorous drainage noted. Active heavy drainage from posterior distal ulceration. Macerated wound margins. Minor naldo-wound erythema. - Neurological Exam Neurological Exam: Alert, Awake, Oriented x3 - Psychiatric Exam Psychiatric exam: Normal Affect, Normal Mood Assessment and Plan - Assessment and Plan (Free Text) Assessment: 62 year old male with 1) Right leg Bruner Grade 2 ulcerations( total 5) with accompanying cellulits; secondary to lymphedema Plan: Pt seen and evalauted with attending Dr. Turner present. Chart, labs, and vitals reviewed. Afebrile, absent leukocytosis, WBC trending down. Radiographs and MRI results reviewed: negative for abscess, severe soft tissue edema in distal 1/2 of lower legs bilaterally. -Performed aseptic excision sharp bedside wound debridement using iris scissors of all sloughing, loosely adhered, non-viable necro-fibrotic tissue down to level of dermal-subcutaneous junction. Total area of tissue removed is 3cm^2. Cleansed right leg wounds sites with sterile saline. Applied 1/4 inch iodoform packing tinto ulcers. dressed with Maxorb, ABD, DSD, JEZ. ordered chlorpactin. Continue IV abx per ID. Podiatry will continue to follow while inhouse. <Bhavesh Turner - Last Filed: 04/11/17 11:36> Objective - Vital Signs/Intake and Output Vital Signs (last 24 hours): Temp Pulse Resp BP Pulse Ox 98.9 F 96 H 20 121/74 94 L 04/11/17 00:00 04/11/17 10:56 04/10/17 16:00 04/11/17 10:56 04/10/17 16:00 Intake and Output: 04/11/17 04/11/17 06:59 18:59 Intake Total 780 Balance 780 - Medications Medications: Current Medications Acetaminophen (Tylenol 325mg Tab) 325 mg PO Q6H PRN PRN Reason: Pain, Mild (1-3) Furosemide (Lasix) 40 mg IVP DAILY [facility] Last Admin: 04/11/17 10:55 Dose: 40 mg Heparin Sodium (Porcine) (Heparin) 5,000 units SC Q12 [facility] PRN Reason: Protocol Last Admin: 04/11/17 10:56 Dose: 5,000 units Hydrochlorothiazide (Microzide) 12.5 mg PO DAILY [facility] Last Admin: 04/11/17 10:55 Dose: 12.5 mg Ampicillin Sodium/Sulbactam (Sodium 3 gm/ Sodium Chloride) 100 mls @ 200 mls/ hr IVPB Q6 [facility] PRN Reason: Protocol Last Admin: 04/11/17 05:07 Dose: 200 mls/hr Vancomycin HCl (Vancomycin 1gm) 1 gm in 250 mls @ 167 mls/hr IVPB Q12 [facility] PRN Reason: Protocol Last Admin: 04/11/17 10:52 Dose: 167 mls/hr Lisinopril (Zestril) 10 mg PO DAILY [facility] Last Admin: 04/11/17 10:56 Dose: 10 mg Oxychlorosene Sodium (Clorpactin [facility]-90) 2 gm TOP Q12 [facility] Last Admin: 04/11/17 10:40 Dose: Not Given Pantoprazole Sodium (Protonix Ec Tab) 40 mg PO 0600 [facility] Last Admin: 04/11/17 05:06 Dose: 40 mg - Labs Labs: 04/11/17 08:40 04/11/17 08:40 Attending/Attestation - Attestation I have personally seen and examined this patient.: Yes I have reviewed all pertinent clinical information, including history, physical exam and plan: Yes
[2017-04-11] MEDS: Vancomycin 1gm in NS 250ml 1 GM/250 ML BAG IVPB SCH ×2 (10:52→21:47)
[2017-04-11] MEDS ORDERED: Potassium Chloride 20 mEq ER Tab PO STA (11:15)
--- NOTE | 2017-04-11 19:53 | CP.PCM.PN ---
<Jamar Lyon - Last Filed: 04/11/17 21:16> Subjective - Date & Time of Evaluation Date of Evaluation: 04/11/17 Time of Evaluation: 19:53 - Subjective Subjective: Jamar Lyon DO, PGY-1, Hospitalist Team 2 Blayne has no complains. States that "podiatry really did him in for a good one. " Objective - Vital Signs/Intake and Output Vital Signs (last 24 hours): Temp Pulse Resp BP Pulse Ox 98.0 F 96 H 18 121/74 95 04/11/17 06:00 04/11/17 10:56 04/11/17 06:00 04/11/17 10:56 04/11/17 06:00 Intake and Output: 04/11/17 04/12/17 18:59 06:59 Intake Total 860 Balance 860 - Medications Medications: Current Medications Acetaminophen (Tylenol 325mg Tab) 325 mg PO Q6H PRN PRN Reason: Pain, Mild (1-3) Furosemide (Lasix) 40 mg IVP DAILY [facility] Last Admin: 04/11/17 10:55 Dose: 40 mg Heparin Sodium (Porcine) (Heparin) 5,000 units SC Q12 [facility] PRN Reason: Protocol Last Admin: 04/11/17 10:56 Dose: 5,000 units Hydrochlorothiazide (Microzide) 12.5 mg PO DAILY [facility] Last Admin: 04/11/17 10:55 Dose: 12.5 mg Ampicillin Sodium/Sulbactam (Sodium 3 gm/ Sodium Chloride) 100 mls @ 200 mls/ hr IVPB Q6 [facility] PRN Reason: Protocol Last Admin: 04/11/17 18:45 Dose: 200 mls/hr Vancomycin HCl (Vancomycin 1gm) 1 gm in 250 mls @ 167 mls/hr IVPB Q12 [facility] PRN Reason: Protocol Last Admin: 04/11/17 10:52 Dose: 167 mls/hr Lisinopril (Zestril) 10 mg PO DAILY [facility] Last Admin: 04/11/17 10:56 Dose: 10 mg Oxychlorosene Sodium (Clorpactin Wcs-90) 2 gm TOP Q12 [facility] Last Admin: 04/11/17 10:40 Dose: Not Given Pantoprazole Sodium (Protonix Ec Tab) 40 mg PO 0600 [facility] Last Admin: 04/11/17 05:06 Dose: 40 mg - Labs Labs: 04/11/17 08:40 04/11/17 08:40 - Constitutional Appears: Well, No Acute Distress, Older Than Stated Age - Head Exam Head Exam: ATRAUMATIC, NORMOCEPHALIC - Eye Exam Eye Exam: EOMI, Normal appearance, PERRL - ENT Exam ENT Exam: Mucous Membranes Moist, Normal Exam - Respiratory Exam Respiratory Exam: Wheezes - Cardiovascular Exam Cardiovascular Exam: +S1, +S2 - GI/Abdominal Exam Additional comments: protuberant - Rectal Exam Rectal Exam: Deferred - Extremities Exam Additional comments: right leg appears to have less of an exuberant inflammatory response compared to yesterday. - Neurological Exam Neuro motor strength exam: Left Upper Extremity: 5, Right Upper Extremity: 5, Left Lower Extremity: 5, Right Lower Extremity: 5 - Psychiatric Exam Psychiatric exam: Normal Affect, Normal Mood - Skin Skin Exam: Dry, Intact, Normal Color Assessment and Plan - Assessment and Plan (Free Text) Assessment: Right LE cellulitis, on Vancomycin and Ampicillan/Sulfabactam. Plan: as above <Alexander Huitron - Last Filed: 04/12/17 07:14> Objective - Vital Signs/Intake and Output Vital Signs (last 24 hours): Temp Pulse Resp BP Pulse Ox 98.0 F 96 H 18 121/74 95 04/11/17 06:00 04/11/17 10:56 04/11/17 06:00 04/11/17 10:56 04/11/17 06:00 Intake and Output: 04/12/17 04/12/17 06:59 18:59 Intake Total 1400 Balance 1400 - Medications Medications: Current Medications Acetaminophen (Tylenol 325mg Tab) 325 mg PO Q6H PRN PRN Reason: Pain, Mild (1-3) Furosemide (Lasix) 40 mg IVP DAILY [facility] Last Admin: 04/11/17 10:55 Dose: 40 mg Heparin Sodium (Porcine) (Heparin) 5,000 units SC Q12 [facility] PR[facility] Reason: Protocol Last Admin: 04/11/17 21:48 Dose: 5,000 units Hydrochlorothiazide (Microzide) 12.5 mg PO DAILY [facility] Last Admin: 04/11/17 10:55 Dose: 12.5 mg Ampicillin Sodium/Sulbactam (Sodium 3 gm/ Sodium Chloride) 100 mls @ 200 mls/ hr IVPB Q6 [facility] PRN Reason: Protocol Last Admin: 04/12/17 05:37 Dose: 200 mls/hr Vancomycin HCl (Vancomycin 1gm) 1 gm in 250 mls @ 167 mls/hr IVPB Q12 [facility] PRN Reason: Protocol Last Admin: 04/11/17 21:47 Dose: 167 mls/hr Lisinopril (Zestril) 10 mg PO DAILY [facility] Last Admin: 04/11/17 10:56 Dose: 10 mg Oxychlorosene Sodium (Clorpactin Wcs-90) 2 gm TOP Q12 [facility] Last Admin: 04/11/17 21:48 Dose: 2 gm Pantoprazole Sodium (Protonix Ec Tab) 40 mg PO 0600 [facility] Last Admin: 04/12/17 05:40 Dose: 40 mg - Labs Labs: 04/11/17 08:40 04/11/17 08:40 Attending/Attestation - Attestation I have personally seen and examined this patient.: Yes I have fully participated in the care of the patient.: Yes I have reviewed all pertinent clinical information, including history, physical exam and plan: Yes Notes (Text): 04/12/17 07:12 62 year old male with past medical history of hypertension and chronic LE edema who presented with worsening LE edema/erythema. LE dopplers were limited but negative for DVT. RLE xray and MRI were reviewed which showed edema. Wound culture is growing gram negative rods. Blood culture is negative to date. Continue with iv antibiotics as per ID and wound care as per podiatry. Bedside debridement was done today by trial attorney. Continue with iv lasix for diuresis. Continue with home medications for hypertension. Alexander Huitron MD Hospitalist.
[2017-04-12] MEDS: Ampicillin/Sulbactam 3 GM in Sodium Chloride 0.9% 100 ML IVPB SCH ×4 (05:37→23:56)
[2017-04-12] MEDS: Pantoprazole 40 mg EC Tab PO SCH (05:40)
[2017-04-12 07:12] LABS: HEMOGLOBIN 10.9 gm/dL (14.0-18.0); MEAN CELL VOLUME 91.6 fL (80.0-105.0); MEAN CORPUSCULAR HEMOGLOBIN 30.5 pg (25.0-35.0); MEAN CORPUSCULAR HGB CONC 33.3 g/dl (31.0-37.0); MEAN PLATELET VOLUME 8.1 fl (7.0-11.0); RBC 3.57 10^6/uL (3.5-6.1); RED CELL DISTRIBUTION WIDTH 16.1 % (11.5-14.5); WHITE BLOOD COUNT 7.3 10^3/ul (4.5-11.0)
--- NOTE | 2017-04-12 07:30 | CP.PCM.PN ---
<Brianne Hines - Last Filed: 04/12/17 09:01> Subjective - Date & Time of Evaluation Date of Evaluation: 04/12/17 Time of Evaluation: 07:29 - Subjective Subjective: Infectious disease PGY-[address] Tim RAMOS. Fever 2 days ago. Pt refused wearing yellow socks and slippers. underwent sharp excisional debridement by Podiatry yesterday. Burning pain relived after dressing changes. Asked about visitng hours. Objective - Vital Signs/Intake and Output Vital Signs (last 24 hours): Temp Pulse Resp BP Pulse Ox 98.0 F 96 H 18 121/74 95 04/11/17 06:00 04/11/17 10:56 04/11/17 06:00 04/11/17 10:56 04/11/17 06:00 Intake and Output: 04/12/17 04/12/17 06:59 18:59 Intake Total 1400 Balance 1400 - Medications Medications: Current Medications Acetaminophen (Tylenol 325mg Tab) 325 mg PO Q6H PRN PRN Reason: Pain, Mild (1-3) Furosemide (Lasix) 40 mg IVP DAILY [facility] Last Admin: 04/11/17 10:55 Dose: 40 mg Heparin Sodium (Porcine) (Heparin) 5,000 units SC Q12 [facility] PRN Reason: Protocol Last Admin: 04/11/17 21:48 Dose: 5,000 units Hydrochlorothiazide (Microzide) 12.5 mg PO DAILY [facility] Last Admin: 04/11/17 10:55 Dose: 12.5 mg Ampicillin Sodium/Sulbactam (Sodium 3 gm/ Sodium Chloride) 100 mls @ 200 mls/ hr IVPB Q6 [facility] PRN Reason: Protocol Last Admin: 04/12/17 05:37 Dose: 200 mls/hr Vancomycin HCl (Vancomycin 1gm) 1 gm in 250 mls @ 167 mls/hr IVPB Q12 [facility] PRN Reason: Protocol Last Admin: 04/11/17 21:47 Dose: 167 mls/hr Lisinopril (Zestril) 10 mg PO DAILY [facility] Last Admin: 04/11/17 10:56 Dose: 10 mg Oxychlorosene Sodium (Clorpactin Wcs-90) 2 gm TOP Q12 [facility] Last Admin: 04/11/17 21:48 Dose: 2 gm Pantoprazole Sodium (Protonix Ec Tab) 40 mg PO 0600 [facility] Last Admin: 04/12/17 05:40 Dose: 40 mg - Labs Labs: 04/11/17 08:40 04/11/17 08:40 - Constitutional Appears: No Acute Distress - Head Exam Head Exam: ATRAUMATIC, NORMAL INSPECTION, NORMOCEPHALIC - Eye Exam Eye Exam: EOMI, Normal appearance, PERRL. absent: Scleral icterus - ENT Exam ENT Exam: Mucous Membranes Moist - Neck Exam Additional comments: supl - Respiratory Exam Respiratory Exam: Clear to Ausculation Bilateral. absent: Rales, Rhonchi, Wheezes - Cardiovascular Exam Cardiovascular Exam: REGULAR RHYTHM, +S1, +S2. absent: Rubs - GI/Abdominal Exam GI & Abdominal Exam: Soft. absent: Guarding, Rigid, Tenderness - Extremities Exam Extremities Exam: Pedal Edema (Non-pitting, dressing just changed, c/d/i b/l) - Neurological Exam Neurological Exam: Alert, Awake, Oriented x3 - Psychiatric Exam Psychiatric exam: Normal Affect, Normal Mood - Skin Skin Exam: Dry, Warm Assessment and Plan - Assessment and Plan (Free Text) Plan: 62 M has statis dermititis with probable R leg skin and skin structure infection s/p bedside sharp debridement (POD#1) has ruled out abscess - Vancomycin 1gq12 (day 4) & Unasyn 3g q6(day 3) for cat exposure - LE dopplers b/l: negative for DVT - RLE (Tib/fib) xray: No bony abnormality - MRI of R lower leg: No discrete abscess - wound exudate = gram neg elder - blood culture = no grwth x 2 days - U/A negative - Watch Sx for compartment syndrome s/r/d w Dr. Dumont <Jairo Dumont S - Last Filed: 04/12/17 11:55> Objective - Vital Signs/Intake and Output Vital Signs (last 24 hours): Temp Pulse Resp BP Pulse Ox 98.7 F 93 H 20 120/68 97 04/12/17 08:10 04/12/17 09:41 04/12/17 08:10 04/12/17 09:41 04/12/17 08:10 Intake and Output: 04/12/17 04/12/17 06:59 18:59 Intake Total 1400 Balance 1400 - Medications Medications: Current Medications Acetaminophen (Tylenol 325mg Tab) 325 mg PO Q6H PRN PRN Reason: Pain, Mild (1-3) Furosemide (Lasix) 40 mg IVP DAILY [facility] Last Admin: 04/12/17 09:39 Dose: 40 mg Heparin Sodium (Porcine) (Heparin) 5,000 units SC Q12 [facility] PRN Reason: Protocol Last Admin: 04/12/17 09:39 Dose: 5,000 units Hydrochlorothiazide (Microzide) 12.5 mg PO DAILY [facility] Last Admin: 04/12/17 09:40 Dose: 12.5 mg Ampicillin Sodium/Sulbactam (Sodium 3 gm/ Sodium Chloride) 100 mls @ 200 mls/ hr IVPB Q6 [facility] PRN Reason: Protocol Last Admin: 04/12/17 05:37 Dose: 200 mls/hr Lisinopril (Zestril) 10 mg PO DAILY [facility] Last Admin: 04/12/17 09:41 Dose: 10 mg Oxychlorosene Sodium (Clorpactin Wcs-90) 2 gm TOP Q12 [facility] Last Admin: 04/12/17 09:34 Dose: Not Given Pantoprazole Sodium (Protonix Ec Tab) 40 mg PO 0600 [facility] Last Admin: 04/12/17 05:40 Dose: 40 mg - Labs Labs: 04/12/17 06:30 04/12/17 06:30 Assessment and Plan - Assessment and Plan (Free Text) Plan: Infectious diseases Attending Attestation Patient seen and examined, discussed with medical collections specialist. I agree with the above findings. In addition, we will continue this patient on Unasyn for Proteus and beta hemolytic strep right leg skin and skin structure, S/P debridement. Discussed with Dr. Turner that monitoring needs to be continued.
[2017-04-12 07:31] LABS: BLOOD UREA NITROGEN 15 mg/dL (7-21); CALCIUM 8.9 mg/dL (8.4-10.5); GFR AFRICAN-AMERICAN > 60; GFR NON-AFRICAN AMERICAN > 60
[2017-04-12] MEDS: Oxychlorosene Topical 2 gm Packet TOP SCH ×2 (09:34→21:23)
[2017-04-12] MEDS: Vancomycin 1gm in NS 250ml 1 GM/250 ML BAG IVPB SCH (09:40)
--- NOTE | 2017-04-12 11:21 | PN ---
SUBJECTIVE: This 62-year-old male seen at bedside for continued evaluation and management of right lower leg ulcerations with resolving cellulitis. The patient has been afebrile and denies any pain in his right leg. PHYSICAL EXAMINATION: VITAL SIGNS: The patient's vital signs reveals temperature 98.7, pulse rate 93, blood pressure 120/68, and respiratory rate of 20. EXTREMITIES: Nonpalpable pedal pulses bilaterally secondary to lymphedema. Right lower leg presents with edema and erythema, there are noted to be 5 separate ulcerations of the lower leg. All the ulcerations have a mixed fibronecrotic granular base. There is no longer any malodors purulent discharge noted; however, there is heavy drainage. LABORATORY DATA: Reveal white count of 7.3, hemoglobin of 10.9, hematocrit of 32.7, and platelet count of 219. Microbiology taken on 04/10/2017 reveals regrowth of gram-negative rods in his right lower leg wounds. Ultrasound testing has ruled out deep vein thrombosis. MRI taken of the right lower extremity does not reveal any radiographic evidence of abscess formation. Right tib-fib x-rays reveal no radiographic evidence of cortical destruction to suggest osteomyelitis. ASSESSMENT: A 62-year-old male with right leg cellulitis secondary to numerous full thickness ulcerations. PLAN: The patient's wounds were evaluated and all wounds were flushed with Corpak and solution. The packing that was present from yesterday was removed and new packing was applied along with the compressive dressing. The patient has been afebrile and MRI reveals no abscess formation and his white count is within normal limits. However, his leg remains edematous and erythematous with large amount of serous drainage. All laboratory and radiographic tests reveal no abscess formation; however clinically, the wound appears otherwise. Given the severe lymphedema of the lower leg and the fact that the MRI shows no abscess and his white count is within normal and he has remained afebrile, we will continue with local aggressive wound care in lieu of surgical debridement, which may exacerbate his condition given the large size of his leg and the fact that opening his leg would be difficult to close. We will continue with twice daily chlorpactin flushes and packing. Infectious disease note was read and appreciated and we will continue with IV antibiotics as well. The patient was encouraged to get up and walk around, which will aid in draining his lower leg. Bhavesh Turner DPM MTDD
--- NOTE | 2017-04-12 17:24 | CP.PCM.PN ---
<Jamar Lyon - Last Filed: 04/12/17 18:18> Subjective - Date & Time of Evaluation Date of Evaluation: 04/12/17 Time of Evaluation: 08:00 - Subjective Subjective: Jamar Lyon DO, PGY-1, Hospitalist Team 2 Patient seen and examined at bedside. Nurse reports no events overnight. Patient denies fever, chills, or acute pain or loss of sensation in the left lower extremity. Objective - Vital Signs/Intake and Output Vital Signs (last 24 hours): Temp Pulse Resp BP Pulse Ox 98.7 F 93 H 20 120/68 97 04/12/17 08:10 04/12/17 09:41 04/12/17 08:10 04/12/17 09:41 04/12/17 08:10 Intake and Output: 04/12/17 04/12/17 06:59 18:59 Intake Total 1400 Balance 1400 - Medications Medications: Current Medications Acetaminophen (Tylenol 325mg Tab) 325 mg PO Q6H PRN PRN Reason: Pain, Mild (1-3) Furosemide (Lasix) 40 mg IVP DAILY [facility] Last Admin: 04/12/17 09:39 Dose: 40 mg Heparin Sodium (Porcine) (Heparin) 5,000 units SC Q12 [facility] PRN Reason: Protocol Last Admin: 04/12/17 09:39 Dose: 5,000 units Hydrochlorothiazide (Microzide) 12.5 mg PO DAILY [facility] Last Admin: 04/12/17 09:40 Dose: 12.5 mg Ampicillin Sodium/Sulbactam (Sodium 3 gm/ Sodium Chloride) 100 mls @ 200 mls/ hr IVPB Q6 [facility] PRN Reason: Protocol Last Admin: 04/12/17 12:12 Dose: 200 mls/hr Lisinopril (Zestril) 10 mg PO DAILY [facility] Last Admin: 04/12/17 09:41 Dose: 10 mg Oxychlorosene Sodium (Clorpactin Wcs-90) 2 gm TOP Q12 [facility] Last Admin: 04/12/17 09:34 Dose: Not Given Pantoprazole Sodium (Protonix Ec Tab) 40 mg PO 0600 [facility] Last Admin: 04/12/17 05:40 Dose: 40 mg - Labs Labs: 04/12/17 06:30 04/12/17 06:30 - Constitutional Appears: No Acute Distress - Head Exam Head Exam: ATRAUMATIC, NORMOCEPHALIC - Eye Exam Eye Exam: EOMI, Normal appearance Pupil Exam: PERRL - Neck Exam Neck Exam: Full ROM, Normal Inspection - Respiratory Exam Respiratory Exam: Prolonged Expiratory Phase, Wheezes. absent: Accessory Muscle Use - Cardiovascular Exam Cardiovascular Exam: +S1, +S2 - GI/Abdominal Exam GI & Abdominal Exam: Soft, Normal Bowel Sounds - Rectal Exam Rectal Exam: Deferred - Extremities Exam Additional comments: RLE is wrapped. RLE appears erythematous and more swollen compared to left, pulses 2/4 bilaterally. - Neurological Exam Neurological Exam: Alert, CN II-XII Intact, Normal Gait - Psychiatric Exam Psychiatric exam: Normal Affect, Normal Mood - Skin Skin Exam: Dry Assessment and Plan - Assessment and Plan (Free Text) Assessment: 62 year old obese male with chronic lower extremity edema, hypertension, habitual cat exposure presenting with an erythematosus, malodorous right lower extremity with ulcerations. US/MRI/and radiographs of the right lower extremity were negative for any DVT/Abscess/osteomyelitis, respectively. Patient was also febrile with a leukocytosis on admission. Empiric antibiotics were started. Cultures from the right leg grew Pseudomonas aeruginosa, Group B hemolytic Streptococci, and Proteus Mirabilis. ID and Podiatry following. Plan: 1) Complicated left lower extremity cellulitis with ulcerations: Podiatry is performing dressing changes twice daily and debriding the serous draining wounds meticulously. RLE wound cultures positive for group B streptococci, Proteus Mirabilis, and Pseudomonas aeruginosa. ID is following, appreciate recommendations. Currently, patient is on Ampicillin/Sulfabactam for gram negative rods and . Vancomycin has been Leukocytosis has resolved, patient has been afebrile, no pallor, paresthesias, poilkothermia. 2) LE edema: Furosemide 40 mg IVP 3) GI prophylaxis 40 mg qdAY 4) Hypertension: Lisinopril 10 mg and Hydrochlorothiazide 12.5 qday 5) DVT prophylaxis: Heparin 5,000 SC q12 <Alexander Huitron - Last Filed: 04/13/17 07:33> Objective - Vital Signs/Intake and Output Vital Signs (last 24 hours): Temp Pulse Resp BP Pulse Ox 98.8 F 70 20 102/71 99 04/12/17 16:00 04/12/17 16:00 04/12/17 16:00 04/12/17 16:00 04/12/17 16:00 Intake and Output: 04/13/17 04/13/17 06:59 18:59 Intake Total 780 520 Output Total 1500 Balance -720 520 - Medications Medications: Current Medications Acetaminophen (Tylenol 325mg Tab) 325 mg PO Q6H PRN PRN Reason: Pain, Mild (1-3) Furosemide (Lasix) 40 mg IVP DAILY [facility] Last Admin: 04/12/17 09:39 Dose: 40 mg Heparin Sodium (Porcine) (Heparin) 5,000 units SC Q12 [facility] PRN Reason: Protocol Last Admin: 04/12/17 21:23 Dose: 5,000 units Hydrochlorothiazide (Microzide) 12.5 mg PO DAILY [facility] Last Admin: 04/12/17 09:40 Dose: 12.5 mg Cefepime HCl (Maxipime 2gm) 2 gm in 100 mls @ 100 mls/hr IVPB Q8 [facility] PRN Reason: Protocol Stop: 04/18/17 07:16 Lisinopril (Zestril) 10 mg PO DAILY [facility] Last Admin: 04/12/17 09:41 Dose: 10 mg Oxychlorosene Sodium (Clorpactin Wcs-90) 2 gm TOP Q12 [facility] Last Admin: 04/12/17 21:23 Dose: 2 gm Pantoprazole Sodium (Protonix Ec Tab) 40 mg PO 0600 [facility] Last Admin: 04/13/17 06:07 Dose: 40 mg - Labs Labs: 04/13/17 06:30 04/12/17 06:30 Attending/Attestation - Attestation I have personally seen and examined this patient.: Yes I have fully participated in the care of the patient.: Yes I have reviewed all pertinent clinical information, including history, physical exam and plan: Yes Notes (Text): 04/12/17 62 year old male with past medical history of hypertension and chronic LE edema who presented with worsening LE edema/erythema. LE dopplers were limited but negative for DVT. RLE xray and MRI were reviewed which showed edema. Wound culture is Pseudomona Areginosa, Proteus Mirabilis, and beta hemolytic group B strep. Blood culture is negative to date. Continue with iv antibiotics as per ID and wound care as per podiatry. Bedside debridement was done yesterday as well by director of business applications. Continue with iv lasix for diuresis. Continue with home medications for hypertension. Alexander Huitron MD Hospitalist.
[2017-04-13] MEDS: Ampicillin/Sulbactam 3 GM in Sodium Chloride 0.9% 100 ML IVPB SCH (06:04)
[2017-04-13] MEDS: Pantoprazole 40 mg EC Tab PO SCH (06:07)
[2017-04-13 07:09] LABS: HEMOGLOBIN 11.1 gm/dL (14.0-18.0); MEAN CELL VOLUME 91.7 fL (80.0-105.0); MEAN CORPUSCULAR HEMOGLOBIN 30.8 pg (25.0-35.0); MEAN CORPUSCULAR HGB CONC 33.6 g/dl (31.0-37.0); MEAN PLATELET VOLUME 8.2 fl (7.0-11.0); RBC 3.6 10^6/uL (3.5-6.1); RED CELL DISTRIBUTION WIDTH 16.1 % (11.5-14.5)
--- NOTE | 2017-04-13 07:34 | CP.PCM.PN ---
<Brianne Hines - Last Filed: 04/13/17 09:17> Subjective - Date & Time of Evaluation Date of Evaluation: 04/13/17 Time of Evaluation: 07:33 - Subjective Subjective: Infectious disease PGY-[address] Tim RAMOS. Fever 100.6 on 04/10, and remains afebile for past 2 days. Pt refused wearing yellow socks and slippers. underwent sharp excisional debridement by Podiatry 2 days ago. Burning pain relived after dressing changes. Pt lives in jail, followed by social work Objective - Vital Signs/Intake and Output Vital Signs (last 24 hours): Temp Pulse Resp BP Pulse Ox 98.8 F 70 20 102/71 99 04/12/17 16:00 04/12/17 16:00 04/12/17 16:00 04/12/17 16:00 04/12/17 16:00 Intake and Output: 04/13/17 04/13/17 06:59 18:59 Intake Total 780 520 Output Total 1500 Balance -720 520 - Medications Medications: Current Medications Acetaminophen (Tylenol 325mg Tab) 325 mg PO Q6H PRN PRN Reason: Pain, Mild (1-3) Furosemide (Lasix) 40 mg IVP DAILY [facility] Last Admin: 04/12/17 09:39 Dose: 40 mg Heparin Sodium (Porcine) (Heparin) 5,000 units SC Q12 [facility] PRN Reason: Protocol Last Admin: 04/12/17 21:23 Dose: 5,000 units Hydrochlorothiazide (Microzide) 12.5 mg PO DAILY [facility] Last Admin: 04/12/17 09:40 Dose: 12.5 mg Cefepime HCl (Maxipime 2gm) 2 gm in 100 mls @ 100 mls/hr IVPB Q8 [facility] PRN Reason: Protocol Stop: 04/18/17 07:16 Lisinopril (Zestril) 10 mg PO DAILY [facility] Last Admin: 04/12/17 09:41 Dose: 10 mg Oxychlorosene Sodium (Clorpactin Wcs-90) 2 gm TOP Q12 [facility] Last Admin: 04/12/17 21:23 Dose: 2 gm Pantoprazole Sodium (Protonix Ec Tab) 40 mg PO 0600 [facility] Last Admin: 04/13/17 06:07 Dose: 40 mg - Labs Labs: 04/13/17 06:30 04/12/17 06:30 - Constitutional Appears: No Acute Distress - Head Exam Head Exam: ATRAUMATIC, NORMAL INSPECTION, NORMOCEPHALIC - Eye Exam Eye Exam: EOMI, Normal appearance, PERRL. absent: Scleral icterus Pupil Exam: NORMAL ACCOMODATION - ENT Exam ENT Exam: Mucous Membranes Moist - Neck Exam Additional comments: supple - Respiratory Exam Respiratory Exam: Clear to Ausculation Bilateral. absent: Rhonchi, Wheezes, Respiratory Distress - Cardiovascular Exam Cardiovascular Exam: REGULAR RHYTHM. absent: +S1, +S2 - GI/Abdominal Exam GI & Abdominal Exam: Soft, Normal Bowel Sounds. absent: Guarding, Rigid, Tenderness - Extremities Exam Extremities Exam: Pedal Edema Additional comments: dressing just changed, d/c/i - Back Exam Back Exam: absent: CVA tenderness (L), CVA tenderness (R) - Neurological Exam Neurological Exam: Alert, Awake - Psychiatric Exam Psychiatric exam: Normal Affect, Normal Mood - Skin Skin Exam: Dry, Warm Assessment and Plan - Assessment and Plan (Free Text) Plan: 62 M has statis dermititis with probable R leg skin and skin structure infection s/p bedside sharp debridement (POD#1) has ruled out abscess - Finished Vancomycin 1gq12 (day 4) - Continue on Unasyn (Ampicillin and Sulbactam) 3g q6(day 4) for cat exposure - Consider ADDING Cipro for ampicillin resistenat pseudo - when ready to discharge, consider PO amoxcillin and cipro - Not yet confirmed with Dr. Dumont - LE dopplers b/l: negative for DVT - RLE (Tib/fib) xray: No bony abnormality - MRI of R lower leg: No discrete abscess - blood culture = no grwth x 2 days - U/A negative - Watch Sx for compartment syndrome R Leg wound culture - Pseudomonas - Resistant to ampicillin, cefazolin, ceftriazone - B-hemoly Strep B - resistant to clindamycin - Proteus - all sensitive Will s/r/d w Dr. Dumont <Jairo Dumont S - Last Filed: 04/13/17 14:10> Objective - Vital Signs/Intake and Output Vital Signs (last 24 hours): Temp Pulse Resp BP Pulse Ox 98.5 F 75 18 113/65 95 04/13/17 07:55 04/13/17 07:55 08/04/17 07:55 04/13/17 09:15 04/13/17 07:55 Intake and Output: 04/13/17 04/13/17 06:59 18:59 Intake Total 780 520 Output Total 1500 Balance -720 520 - Medications Medications: Current Medications Acetaminophen (Tylenol 325mg Tab) 325 mg PO Q6H PRN PRN Reason: Pain, Mild (1-3) Furosemide (Lasix) 40 mg IVP DAILY [facility] Last Admin: 04/13/17 09:15 Dose: 40 mg Heparin Sodium (Porcine) (Heparin) 5,000 units SC Q12 [facility] PRN Reason: Protocol Last Admin: 04/13/17 09:15 Dose: 5,000 units Hydrochlorothiazide (Microzide) 12.5 mg PO DAILY [facility] Last Admin: 04/13/17 09:15 Dose: 12.5 mg Cefepime HCl (Maxipime 2gm) 2 gm in 100 mls @ 100 mls/hr IVPB Q8 [facility] PRN Reason: Protocol Stop: 04/18/17 07:16 Last Admin: 04/13/17 13:20 Dose: 100 mls/hr Lisinopril (Zestril) 10 mg PO DAILY [facility] Last Admin: 04/13/17 09:15 Dose: 10 mg Oxychlorosene Sodium (Clorpactin Wcs-90) 2 gm TOP Q12 [facility] Last Admin: 04/13/17 09:14 Dose: Not Given Pantoprazole Sodium (Protonix Ec Tab) 40 mg PO 0600 [facility] Last Admin: 04/13/17 06:07 Dose: 40 mg - Labs Labs: 04/13/17 06:30 04/13/17 06:30 Assessment and Plan - Assessment and Plan (Free Text) Plan: Infectious Diseases Attending Physician Attestation Discussed with medical research associate, patient seen and examined. I have reviewed the pertinent clinical information for this patient. I agree with above findings, assessment, plan. In addition, we have changed antibiotics to Cefepime to cover for right leg skin and skin structure infection with Pseudomonas, Group B Strep and Proteus. Will monitor clinically. Discussed with Dr. Turner.
[2017-04-13 08:11] LABS: BLOOD UREA NITROGEN 14 mg/dL (7-21); CALCIUM 9.2 mg/dL (8.4-10.5); GFR AFRICAN-AMERICAN > 60; GFR NON-AFRICAN AMERICAN > 60
[2017-04-13] MEDS: Cefepime IV 2 gm in NS 2 GM/100 ML BAG IVPB SCH ×3 (08:13→21:29)
[2017-04-13] MEDS: Oxychlorosene Topical 2 gm Packet TOP SCH ×2 (09:14→21:30)
--- NOTE | 2017-04-13 15:49 | CP.PCM.PN ---
<Jamar Lyon - Last Filed: 04/13/17 16:49> Subjective - Date & Time of Evaluation Date of Evaluation: 04/13/17 Time of Evaluation: 09:45 - Subjective Subjective: Jamar Lyon D.O. PGY-1, Internal Medicine, Dr. Huitron Service Patient seen and examined at bedside. Patient denies having any fever, LE pain or swelling. Nurse reports no events overnight. Objective - Vital Signs/Intake and Output Vital Signs (last 24 hours): Temp Pulse Resp BP Pulse Ox 98.5 F 75 18 113/65 95 04/13/17 07:55 04/13/17 07:55 04/13/17 07:55 04/13/17 09:15 04/13/17 07:55 Intake and Output: 04/13/17 04/13/17 06:59 18:59 Intake Total 780 1395 Output Total 1500 Balance -720 1395 - Medications Medications: Current Medications Acetaminophen (Tylenol 325mg Tab) 325 mg PO Q6H PRN PRN Reason: Pain, Mild (1-3) Furosemide (Lasix) 40 mg IVP DAILY [facility] Last Admin: 04/13/17 09:15 Dose: 40 mg Heparin Sodium (Porcine) (Heparin) 5,000 units SC Q12 [facility] PRN Reason: Protocol Last Admin: 04/13/17 09:15 Dose: 5,000 units Hydrochlorothiazide (Microzide) 12.5 mg PO DAILY [facility] Last Admin: 04/13/17 09:15 Dose: 12.5 mg Cefepime HCl (Maxipime 2gm) 2 gm in 100 mls @ 100 mls/hr IVPB Q8 [facility] PRN Reason: Protocol Stop: 04/18/17 07:16 Last Admin: 04/13/17 13:20 Dose: 100 mls/hr Lisinopril (Zestril) 10 mg PO DAILY [facility] Last Admin: 04/13/17 09:15 Dose: 10 mg Oxychlorosene Sodium (Clorpactin Wcs-90) 2 gm TOP Q12 [facility] Last Admin: 04/13/17 09:14 Dose: Not Given Pantoprazole Sodium (Protonix Ec Tab) 40 mg PO 0600 [facility] Last Admin: 04/13/17 06:07 Dose: 40 mg - Labs Labs: 04/13/17 06:30 04/13/17 06:30 - Constitutional Appears: Well, No Acute Distress - Head Exam Head Exam: ATRAUMATIC, NORMOCEPHALIC - Eye Exam Eye Exam: EOMI, Normal appearance Pupil Exam: NORMAL ACCOMODATION - ENT Exam ENT Exam: Mucous Membranes Moist, Normal Oropharynx - Neck Exam Neck Exam: Full ROM, Normal Inspection - Respiratory Exam Respiratory Exam: Clear to Ausculation Bilateral. absent: Rales, Rhonchi, Wheezes - Cardiovascular Exam Cardiovascular Exam: RRR, +S1, +S2 - GI/Abdominal Exam GI & Abdominal Exam: Soft, Normal Bowel Sounds - Rectal Exam Rectal Exam: Deferred - Extremities Exam Extremities Exam: Pedal Edema, Tenderness - Neurological Exam Neurological Exam: Alert, CN II-XII Intact, Oriented x3 - Psychiatric Exam Psychiatric exam: Normal Affect, Normal Mood - Skin Skin Exam: Dry, Intact Assessment and Plan - Assessment and Plan (Free Text) Assessment: 62 year old obese male with chronic lower extremity edema, hypertension, habitual cat exposure presenting with an erythematosus, malodorous right lower extremity with ulcerations. US/MRI/and radiographs of the right lower extremity were negative for any DVT/Abscess/osteomyelitis, respectively. Patient was also febrile with a leukocytosis on admission. Empiric antibiotics were started. Cultures from the right leg grew Pseudomonas aeruginosa, Group B hemolytic Streptococci, and Proteus Mirabilis. ID and Podiatry following. Plan: 1) Complicated left lower extremity cellulitis with ulcerations: Podiatry is performing dressing changes twice daily and debriding the serous draining wounds meticulously. RLE wound cultures positive for group B streptococci, Proteus Mirabilis, and Pseudomonas aeruginosa. Cefipime IV was added by ID and no floroquinolone was added orally given the patient already has a prolonged QTc interval of 487. Leukocytosis has resolved, patient has been afebrile, no pallor, paresthesias, pulselessness, etc. 2) LE edema: Furosemide 40 mg IVP 3) GI prophylaxis 40 mg protonix qdAY 4) Hypertension: Lisinopril 10 mg and Hydrochlorothiazide 12.5 qday 5) DVT prophylaxis: Heparin 5,000 SC q12 <Alexander Huitron - Last Filed: 04/13/17 17:57> Objective - Vital Signs/Intake and Output Vital Signs (last 24 hours): Temp Pulse Resp BP Pulse Ox 97.4 F L 84 20 90/60 L 94 L 04/13/17 16:00 04/13/17 16:00 04/13/17 16:00 04/13/17 16:00 04/13/17 16:00 Intake and Output: 04/13/17 04/13/17 06:59 18:59 Intake Total 780 1395 Output Total 1500 Balance -720 1395 - Medications Medications: Current Medications Acetaminophen (Tylenol 325mg Tab) 325 mg PO Q6H PRN PRN Reason: Pain, Mild (1-3) Furosemide (Lasix) 40 mg IVP DAILY [facility] Last Admin: 04/13/17 09:15 Dose: 40 mg Heparin Sodium (Porcine) (Heparin) 5,000 units SC Q12 [facility] PRN Reason: Protocol Last Admin: 04/13/17 09:15 Dose: 5,000 units Hydrochlorothiazide (Microzide) 12.5 mg PO DAILY [facility] Last Admin: 04/13/17 09:15 Dose: 12.5 mg Cefepime HCl (Maxipime 2gm) 2 gm in 100 mls @ 100 mls/hr IVPB Q8 [facility] PRN Reason: Protocol Stop: 04/18/17 07:16 Last Admin: 04/13/17 13:20 Dose: 100 mls/hr Lisinopril (Zestril) 10 mg PO DAILY [facility] Last Admin: 04/13/17 09:15 Dose: 10 mg Oxychlorosene Sodium (Clorpactin Wcs-90) 2 gm TOP Q12 [facility] Last Admin: 04/13/17 09:14 Dose: Not Given Pantoprazole Sodium (Protonix Ec Tab) 40 mg PO 0600 [facility] Last Admin: 04/13/17 06:07 Dose: 40 mg - Labs Labs: 04/13/17 06:30 04/13/17 06:30 Attending/Attestation - Attestation I have personally seen and examined this patient.: Yes I have fully participated in the care of the patient.: Yes I have reviewed all pertinent clinical information, including history, physical exam and plan: Yes Notes (Text): 04/13/17 17:56 62 year old male with past medical history of hypertension and chronic LE edema who presented with worsening LE edema/erythema. LE dopplers were limited but negative for DVT. RLE xray and MRI were reviewed which showed edema. Wound culture is Pseudomona Areginosa, Proteus Mirabilis, and beta hemolytic group B strep. Blood culture is negative to date. Continue with iv antibiotics as per ID and wound care as per podiatry. Bedside debridement was done earlier this week by bit tripoler. Case was discussed with ID and podiatry today; recommended to continue with current management. Continue with iv lasix for diuresis. Continue with home medications for hypertension. Alexander Huitron MD Hospitalist.
--- NOTE | 2017-04-13 22:07 | PN ---
DATE: SUBJECTIVE: A 62-year-old male seen at bedside for continued evaluation and management of right lower leg ulcerations with slowly resolving cellulitis. The patient has been afebrile and denies any pain in his right leg. I spoke with Dr. Dumont at length and we are in a conundrum as to the ongoing treatment of Mr. Nguyen. He is attempting to apply for [facility] [place] care and Medicaid which he currently does not yet have. Unfortunately, it would be difficult to place him on p.o. Levaquin which his infection is sensitive too because of high probability of cardiac issues. Therefore, he would need IV antibiotics in a subacute facility which require some form of insurance. PHYSICAL EXAMINATION VITAL SIGNS: Reveals temperature of 97.4, pulse rate of 84, blood pressure of 90/60, respiratory rate of 20. EXTREMITIES: Nonpalpable pedal pulses noted bilaterally secondary to lymphedema. There is decreasing edema and erythema of the right lower leg. Excessively heavy drainage that was present now as equal to moderate to borderline heavy drainage. There is no purulence emanating from any of the wounds, just serous drainage. There is increased granulation tissue present all of the wounds. The contralateral leg reveals edematous yet void of any open lesions. LABORATORY DATA: Laboratory findings reveal white count of 6.0, hemoglobin of 11.1, hematocrit of 33 and platelet count of 242. Microbiology report reveals pseudomonas aeruginosa, beta hemolytic Strep group B and proteus mirabilis growth. MRI has ruled out the presence of deep tissue abscess and x-rays of the tib-fib revealed no presence of osteomyelitis. ASSESSMENT: A 62-year-old male with right leg cellulitis secondary to venostasis, ulcerations which remains full thickness at this point. PLAN: The patient's wounds were evaluated and all the wounds were flushed with Clorpactin solution and gently packed with iodoform packing. A compressive dressing was then applied. At this point, his wounds are sensitive to fluoroquinolones but cannot tolerate them due to possible cardiac complications. The patient would then require IV antibiotics which entails discharge to a subacute facility. Given the fact that his [facility] [place] care and Medicaid is pending, this causes a sensitive conundrum. We will continue to flush the wound twice daily until insurance issues are resolved. Infectious disease note read and appreciated. Bhavesh Turner DPM MTDViridiana
[2017-04-14] MEDS: Cefepime IV 2 gm in NS 2 GM/100 ML BAG IVPB SCH ×3 (05:25→22:02)
[2017-04-14] MEDS: Pantoprazole 40 mg EC Tab PO SCH (05:25)
[2017-04-14 06:56] LABS: HEMOGLOBIN 11.4 gm/dL (14.0-18.0); MEAN CELL VOLUME 91.9 fL (80.0-105.0); MEAN CORPUSCULAR HEMOGLOBIN 30.7 pg (25.0-35.0); MEAN CORPUSCULAR HGB CONC 33.4 g/dl (31.0-37.0); MEAN PLATELET VOLUME 8.2 fl (7.0-11.0); RBC 3.71 10^6/uL (3.5-6.1); RED CELL DISTRIBUTION WIDTH 16.2 % (11.5-14.5); WHITE BLOOD COUNT 5.4 10^3/ul (4.5-11.0)
[2017-04-14 07:12] LABS: BLOOD UREA NITROGEN 15 mg/dL (7-21); CALCIUM 9.3 mg/dL (8.4-10.5); GFR AFRICAN-AMERICAN > 60; GFR NON-AFRICAN AMERICAN > 60
--- NOTE | 2017-04-14 08:20 | CP.PCM.PN ---
Subjective - Date & Time of Evaluation Date of Evaluation: 04/14/17 Time of Evaluation: 08:20 Objective - Vital Signs/Intake and Output Vital Signs (last 24 hours): Temp Pulse Resp BP Pulse Ox 98.7 F 76 20 104/65 97 04/14/17 06:00 04/14/17 06:00 04/14/17 06:00 04/14/17 06:00 04/14/17 06:00 Intake and Output: 04/14/17 04/14/17 06:59 18:59 Intake Total 1280 Balance 1280 - Medications Medications: Current Medications Acetaminophen (Tylenol 325mg Tab) 325 mg PO Q6H PRN PRN Reason: Pain, Mild (1-3) Furosemide (Lasix) 40 mg IVP DAILY [facility] Last Admin: 04/13/17 09:15 Dose: 40 mg Heparin Sodium (Porcine) (Heparin) 5,000 units SC Q12 [facility] PRN Reason: Protocol Last Admin: 04/13/17 21:29 Dose: 5,000 units Hydrochlorothiazide (Microzide) 12.5 mg PO DAILY [facility] Last Admin: 04/13/17 09:15 Dose: 12.5 mg Cefepime HCl (Maxipime 2gm) 2 gm in 100 mls @ 100 mls/hr IVPB Q8 [facility] PRN Reason: Protocol Stop: 04/18/17 07:16 Last Admin: 04/14/17 05:25 Dose: 100 mls/hr Lisinopril (Zestril) 10 mg PO DAILY [facility] Last Admin: 04/13/17 09:15 Dose: 10 mg Oxychlorosene Sodium (Clorpactin Wcs-90) 2 gm TOP Q12 [facility] Last Admin: 04/13/17 21:30 Dose: 2 gm Pantoprazole Sodium (Protonix Ec Tab) 40 mg PO 0600 [facility] Last Admin: 04/14/17 05:25 Dose: 40 mg - Labs Labs: 04/14/17 06:00 04/14/17 06:00
--- NOTE | 2017-04-14 10:37 | CARD ---
APPROVED REPORT EKG Measurement Heart [id number] <Conclusion> Sinus rhythm with one premature ventricular complex Possible Inferior infarct, age undetermined LVH by voltage Prolonged QTc No change except PVC present now
[2017-04-14] MEDS: Oxychlorosene Topical 2 gm Packet TOP SCH ×2 (10:54→22:36)
--- NOTE | 2017-04-14 12:46 | PN ---
DATE: SUBJECTIVE: This is a 62-year-old male seen at bedside for continued evaluation and management, right lower leg cellulitis secondary to right lower leg ulcerations. The patient is not reporting any pain, has been afebrile. We are trying to determine if he can go home, when we are trying to determine placement for the patient going forward. PHYSICAL EXAMINATION VITAL SIGNS: Temperature 98.7, pulse rate 76, blood pressure 105/65, respiratory rate of 20. EXTREMITIES: Nonpalpable pedal pulses noted bilaterally secondary to lymph edema. Left lower leg presents with no open lesions and decreased edema and erythema. Right lower leg still presents with five ulcerations that are slowly josef. There is much less drainage with each passing day. There is no purulence, there is no malodor. The leg shows slight decrease in edema and erythema as well. LABORATORY DATA: White count of 5.4, hemoglobin 11.4, hematocrit 34.1, platelet count of 261. Most recent microbiology report reveals Pseudomonal beta hemolytic Strep group B and proteus mirabilis growth in his right lower leg wounds. MRI has ruled out abscess formation. No osteomyelitis on radiographic imaging. ASSESSMENT: This is a 62-year-old male with right leg cellulitis secondary to venous stasis ulcerations, which are slowly resolving. PLAN: The patient's wounds were evaluated and all the wounds were flushed with Clorpactin solution and gently packed with iodoform packing and a compressive dressing was then applied. We will discontinue applying packing into his wounds in order to allow them to fully contract and close. However, we will continue flushing his wound twice daily with the Clorpactin solution and dressed with abdominal pads, and dry sterile dressing with compression. Infectious Disease note was read and appreciated. We will continue with IV antibiotics and we will continue to wait for insurance issues to be resolved, so the patient can undergo IV antibiotic therapy as per Infectious Disease. Bhavesh Turner DPM
--- NOTE | 2017-04-14 13:56 | CP.PCM.PN ---
Subjective - Date & Time of Evaluation Date of Evaluation: 04/14/17 Time of Evaluation: 12:15 - Subjective Subjective: Comfortable, less pain in the right leg, no fevers overnight. Objective - Vital Signs/Intake and Output Vital Signs (last 24 hours): Temp Pulse Resp BP Pulse Ox 98.7 F 76 20 104/65 97 04/14/17 06:00 04/14/17 06:00 04/14/17 06:00 04/14/17 06:00 04/14/17 06:00 Intake and Output: 04/14/17 04/14/17 06:59 18:59 Intake Total 1280 Balance 1280 - Medications Medications: Current Medications Acetaminophen (Tylenol 325mg Tab) 325 mg PO Q6H PRN PRN Reason: Pain, Mild (1-3) Furosemide (Lasix) 40 mg IVP DAILY [facility] Last Admin: 04/13/17 09:15 Dose: 40 mg Heparin Sodium (Porcine) (Heparin) 5,000 units SC Q12 [facility] PRN Reason: Protocol Last Admin: 04/13/17 21:29 Dose: 5,000 units Hydrochlorothiazide (Microzide) 12.5 mg PO DAILY [facility] Last Admin: 04/13/17 09:15 Dose: 12.5 mg Cefepime HCl (Maxipime 2gm) 2 gm in 100 mls @ 100 mls/hr IVPB Q8 [facility] PRN Reason: Protocol Stop: 04/18/17 07:16 Last Admin: 04/14/17 05:25 Dose: 100 mls/hr Lisinopril (Zestril) 10 mg PO DAILY [facility] Last Admin: 04/13/17 09:15 Dose: 10 mg Oxychlorosene Sodium (Clorpactin Wcs-90) 2 gm TOP Q12 [facility] Last Admin: 04/13/17 21:30 Dose: 2 gm Pantoprazole Sodium (Protonix Ec Tab) 40 mg PO 0600 [facility] Last Admin: 04/14/17 05:25 Dose: 40 mg - Labs Labs: 04/14/17 06:00 04/14/17 06:00 - Constitutional Appears: Non-toxic, No Acute Distress - Head Exam Head Exam: NORMAL INSPECTION - Neck Exam Neck Exam: absent: Meningismus - Respiratory Exam Respiratory Exam: Decreased Breath Sounds - Cardiovascular Exam Cardiovascular Exam: +S1, +S2 - GI/Abdominal Exam GI & Abdominal Exam: Soft. absent: Tenderness - Extremities Exam Additional comments: right leg with dressings in place Assessment and Plan - Assessment and Plan (Free Text) Plan: Assessment right leg skin and skin structure infection with Pseudomonas, Proteus and Group B Strep, S/P excisional debridement HTN chronic lower extremity edema obesity with BMI 35 Plan Continue Cefepime for this patient and monitor clinically; follow up Podiatry further recommendations - discussed with Dr. Turner previously
--- NOTE | 2017-04-14 20:28 | CP.PCM.PN ---
<Jamar Lyon - Last Filed: 04/15/17 00:40> Subjective - Date & Time of Evaluation Date of Evaluation: 04/14/17 Time of Evaluation: 08:00 - Subjective Subjective: Patient seen and examined at bedside. Had no complaints.Appetite is good. Objective - Vital Signs/Intake and Output Vital Signs (last 24 hours): Temp Pulse Resp BP Pulse Ox 98.7 F 76 20 144/83 97 04/14/17 06:00 04/14/17 06:00 04/14/17 06:00 04/14/17 17:19 04/14/17 06:00 - Medications Medications: Current Medications Acetaminophen (Tylenol 325mg Tab) 325 mg PO Q6H PRN PRN Reason: Pain, Mild (1-3) Furosemide (Lasix) 40 mg IVP DAILY [facility] Last Admin: 04/14/17 09:26 Dose: 40 mg Heparin Sodium (Porcine) (Heparin) 5,000 units SC Q12 [facility] PRN Reason: Protocol Last Admin: 04/14/17 09:27 Dose: 5,000 units Hydrochlorothiazide (Microzide) 12.5 mg PO DAILY [facility] Last Admin: 04/14/17 17:19 Dose: 12.5 mg Cefepime HCl (Maxipime 2gm) 2 gm in 100 mls @ 100 mls/hr IVPB Q8 [facility] PRN Reason: Protocol Stop: 04/18/17 07:16 Last Admin: 04/14/17 14:59 Dose: 100 mls/hr Lisinopril (Zestril) 10 mg PO DAILY [facility] Last Admin: 04/14/17 17:19 Dose: 10 mg Oxychlorosene Sodium (Clorpactin Wcs-90) 2 gm TOP Q12 [facility] Last Admin: 04/14/17 10:54 Dose: Not Given Pantoprazole Sodium (Protonix Ec Tab) 40 mg PO 0600 [facility] Last Admin: 04/14/17 05:25 Dose: 40 mg - Labs Labs: 04/14/17 06:00 04/14/17 06:00 - Constitutional Appears: Well, Non-toxic - Head Exam Head Exam: ATRAUMATIC, NORMOCEPHALIC - Eye Exam Eye Exam: Normal appearance, PERRL - ENT Exam ENT Exam: Mucous Membranes Moist, Normal Oropharynx - Neck Exam Neck Exam: Normal Inspection - Respiratory Exam Respiratory Exam: Clear to Ausculation Bilateral - Cardiovascular Exam Cardiovascular Exam: Irregular Rhythm, RRR, +S1 - GI/Abdominal Exam GI & Abdominal Exam: Soft, Normal Bowel Sounds. absent: Rebound - Extremities Exam Extremities Exam: Normal Inspection. absent: Pedal Edema, Tenderness - Back Exam Back Exam: NORMAL INSPECTION. absent: paraspinal tenderness - Neurological Exam Neurological Exam: Alert, Awake, CN II-XII Intact, Normal Gait, Oriented x3 Neuro motor strength exam: Left Upper Extremity: 5, Right Upper Extremity: 5, Left Lower Extremity: 5, Right Lower Extremity: 5 - Psychiatric Exam Psychiatric exam: Normal Affect, Normal Mood - Skin Skin Exam: Dry, Normal Color, Warm Assessment and Plan - Assessment and Plan (Free Text) Assessment: THALIA georgelinoreen currently on cefipime, tentatively scheduled to stay until 04/18. Hypertension: C/W Lasix 40 and HCTZ. Podiatry continues dressing changes. The DPM told me Patrick is doing much better. Plan: as above <Yara Gibbons - Last Filed: 04/15/17 19:07> Objective - Vital Signs/Intake and Output Vital Signs (last 24 hours): Temp Pulse Resp BP Pulse Ox 99.0 F 89 20 107/61 95 04/15/17 16:03 04/15/17 16:03 04/15/17 16:03 04/15/17 16:03 04/15/17 16:03 - Medications Medications: Current Medications Acetaminophen (Tylenol 325mg Tab) 325 mg PO Q6H PRN PRN Reason: Pain, Mild (1-3) Furosemide (Lasix) 40 mg IVP DAILY [facility] Last Admin: 04/15/17 09:56 Dose: 40 mg Heparin Sodium (Porcine) (Heparin) 5,000 units SC Q12 [facility] PRN Reason: Protocol Last Admin: 04/15/17 09:56 Dose: 5,000 units Hydrochlorothiazide (Microzide) 12.5 mg PO DAILY [facility] Last Admin: 04/15/17 09:55 Dose: 12.5 mg Cefepime HCl (Maxipime 2gm) 2 gm in 100 mls @ 100 mls/hr IVPB Q8 [facility] PRN Reason: Protocol Stop: 04/18/17 07:16 Last Admin: 04/15/17 13:48 Dose: 100 mls/hr Lisinopril (Zestril) 10 mg PO DAILY [facility] Last Admin: 04/15/17 09:56 Dose: 10 mg Oxychlorosene Sodium (Clorpactin Wcs-90) 2 gm TOP Q12 [facility] Last Admin: 04/15/17 14:30 Dose: 2 gm Pantoprazole Sodium (Protonix Ec Tab) 40 mg PO 0600 [facility] Last Admin: 04/15/17 05:34 Dose: 40 mg - Labs Labs: 04/14/17 06:00 04/14/17 06:00 Attending/Attestation - Attestation I have personally seen and examined this patient.: Yes I have fully participated in the care of the patient.: Yes I have reviewed all pertinent clinical information, including history, physical exam and plan: Yes Notes (Text): 04/15/17 19:05 Patient seen and examined at bedside. Sitting in chair in no acute distress, no new complaints. vitals, labs and orders reviewed. Podiatry follow up ongoing, Continue Cefepime per ID, EKG with prolonged QTc, repeat. case discussed with the resident including the plan as documented.
[2017-04-15] MEDS: Pantoprazole 40 mg EC Tab PO SCH (05:34)
[2017-04-15] MEDS: Cefepime IV 2 gm in NS 2 GM/100 ML BAG IVPB SCH ×3 (05:34→21:19)
--- NOTE | 2017-04-15 10:16 | CARD ---
APPROVED REPORT EKG Measurement Heart [id number] <Conclusion> Normal sinus rhythm Cannot rule out Inferior infarct, age undetermined The QTC is normal now.
--- NOTE | 2017-04-15 11:38 | CP.PCM.PN ---
Subjective - Date & Time of Evaluation Date of Evaluation: 04/15/17 Time of Evaluation: 10:30 - Subjective Subjective: Comfortable on a chair, not in distress, afebrile. Objective - Vital Signs/Intake and Output Vital Signs (last 24 hours): Temp Pulse Resp BP Pulse Ox 98.7 F 76 20 144/83 97 04/14/17 06:00 04/14/17 06:00 04/14/17 06:00 04/14/17 17:19 04/14/17 06:00 Intake and Output: 04/14/17 04/15/17 18:59 06:59 Intake Total 540 Output Total 0 Balance 540 - Medications Medications: Current Medications Acetaminophen (Tylenol 325mg Tab) 325 mg PO Q6H PRN PRN Reason: Pain, Mild (1-3) Furosemide (Lasix) 40 mg IVP DAILY [facility] Last Admin: 04/14/17 09:26 Dose: 40 mg Heparin Sodium (Porcine) (Heparin) 5,000 units SC Q12 [facility] PRN Reason: Protocol Last Admin: 04/14/17 22:02 Dose: 5,000 units Hydrochlorothiazide (Microzide) 12.5 mg PO DAILY [facility] Last Admin: 04/14/17 17:19 Dose: 12.5 mg Cefepime HCl (Maxipime 2gm) 2 gm in 100 mls @ 100 mls/hr IVPB Q8 [facility] PRN Reason: Protocol Stop: 04/18/17 07:16 Last Admin: 04/15/17 05:34 Dose: 100 mls/hr Lisinopril (Zestril) 10 mg PO DAILY [facility] Last Admin: 04/14/17 17:19 Dose: 10 mg Oxychlorosene Sodium (Clorpactin Wcs-90) 2 gm TOP Q12 [facility] Last Admin: 04/14/17 22:36 Dose: 2 gm Pantoprazole Sodium (Protonix Ec Tab) 40 mg PO 0600 [facility] Last Admin: 04/15/17 05:34 Dose: 40 mg - Labs Labs: 04/14/17 06:00 04/14/17 06:00 - Constitutional Appears: Non-toxic, No Acute Distress - Head Exam Head Exam: NORMAL INSPECTION - ENT Exam ENT Exam: Mucous Membranes Moist - Neck Exam Neck Exam: absent: Meningismus - Respiratory Exam Respiratory Exam: Decreased Breath Sounds - Cardiovascular Exam Cardiovascular Exam: +S1, +S2 - GI/Abdominal Exam GI & Abdominal Exam: Soft. absent: Tenderness - Extremities Exam Additional comments: right leg with dressings in place Assessment and Plan - Assessment and Plan (Free Text) Plan: Assessment right leg skin and skin structure infection with Pseudomonas, Proteus and Group B Strep, S/P excisional debridement HTN chronic lower extremity edema obesity with BMI 35 Plan Continue Cefepime (day 3) for this patient and monitor clinically; follow up Podiatry further recommendations - discussed with Dr. Turner previously; unable to switch to PO Levaquin because of QT prolongation
--- NOTE | 2017-04-15 12:47 | CP.PCM.PN ---
<Yusuf Gonzalez - Last Filed: 04/15/17 13:10> Subjective - Date & Time of Evaluation Date of Evaluation: 04/15/17 Time of Evaluation: 08:00 - Subjective Subjective: Yusfu Gonzalez D.O. PGY-2, Internal Medicine, Hospitalist Service 62 year old obese male with a PMH of chronic lower extremity edema and HTN who presented with an erythematous, malodorous right lower extremity with ulcerations and found to have cellulitis. Patient was seen and examined at bedside with corporate intern and attending physician. Patient has no complaints at this time and states that his legs are slowly getting better and better. No acute overnight events. Objective - Vital Signs/Intake and Output Vital Signs (last 24 hours): Temp Pulse Resp BP Pulse Ox 98.3 F 76 20 116/65 95 04/15/17 06:00 04/15/17 06:00 04/15/17 06:00 04/15/17 09:56 04/15/17 06:00 Intake and Output: 04/15/17 04/15/17 06:59 18:59 Intake Total 540 Output Total 0 Balance 540 - Medications Medications: Current Medications Acetaminophen (Tylenol 325mg Tab) 325 mg PO Q6H PRN PRN Reason: Pain, Mild (1-3) Furosemide (Lasix) 40 mg IVP DAILY [facility] Last Admin: 04/15/17 09:56 Dose: 40 mg Heparin Sodium (Porcine) (Heparin) 5,000 units SC Q12 [facility] PRN Reason: Protocol Last Admin: 04/15/17 09:56 Dose: 5,000 units Hydrochlorothiazide (Microzide) 12.5 mg PO DAILY [facility] Last Admin: 04/15/17 09:55 Dose: 12.5 mg Cefepime HCl (Maxipime 2gm) 2 gm in 100 mls @ 100 mls/hr IVPB Q8 [facility] PRN Reason: Protocol Stop: 04/18/17 07:16 Last Admin: 04/15/17 05:34 Dose: 100 mls/hr Lisinopril (Zestril) 10 mg PO DAILY [facility] Last Admin: 04/15/17 09:56 Dose: 10 mg Oxychlorosene Sodium (Clorpactin Wcs-90) 2 gm TOP Q12 [facility] Last Admin: 04/14/17 22:36 Dose: 2 gm Pantoprazole Sodium (Protonix Ec Tab) 40 mg PO 0600 [facility] Last Admin: 04/15/17 05:34 Dose: 40 mg - Labs Labs: 04/14/17 06:00 04/14/17 06:00 - Constitutional Appears: Other (obese, pleasant male in NAD) - Head Exam Head Exam: ATRAUMATIC, NORMOCEPHALIC - Eye Exam Eye Exam: EOMI, PERRL - ENT Exam ENT Exam: Mucous Membranes Moist - Respiratory Exam Respiratory Exam: Clear to Ausculation Bilateral. absent: Rales, Rhonchi, Wheezes - Cardiovascular Exam Cardiovascular Exam: RRR, +S1, +S2. absent: Gallop, Rubs, Murmur - GI/Abdominal Exam GI & Abdominal Exam: Soft, Normal Bowel Sounds. absent: Distended, Tenderness - Extremities Exam Additional comments: gross enlargement of both legs distal to knee, R>L, mild erythema and pitting edema noted around current JEZ wrapping BL - Back Exam Back Exam: NORMAL INSPECTION - Neurological Exam Neurological Exam: Alert, Awake, Oriented x3 - Skin Skin Exam: Dry, Erythema (as described in extremities), Warm Assessment and Plan - Assessment and Plan (Free Text) Assessment: 62 year old obese male with a PMH of chronic lower extremity edema and HTN who presented with an erythematous, malodorous right lower extremity with ulcerations and found to have cellulitis. Plan: 1. Chronic LE edema with cellulitis and ulcerations BLE dopplers negative for DVT RLE xray and MRI performed, no osteomyelitis WCx showed GBS, P. mirabilis and P. aeruginosa ID consulted, recs appreciated Continue cefepime D5 Podiatry consulted, recs appreciated, performing daily wound care POD#5 of bedside sharp debridement by podiatry EKG showed QTc prolongation so cannot be switched to PO levaquin, will repeat EKG today No leukocytosis Afebrile Cont lasix 2. HTN - well controlled SBPs 119-144 Continue HCTZ and lisinopril 3. Normocytic normochromic anemia Hemodynamically stable No active bleeding Will order B12, folate, and iron studies for tomorrow AM GI/DVT ppx: protonix/heparin q12 Patient was seen and case was discussed at length with attending physician. <Yara Gibbons - Last Filed: 04/15/17 19:12> Objective - Vital Signs/Intake and Output Vital Signs (last 24 hours): Temp Pulse Resp BP Pulse Ox 99.0 F 89 20 107/61 95 04/15/17 16:03 04/15/17 16:03 04/15/17 16:03 04/15/17 16:03 04/15/17 16:03 - Medications Medications: Current Medications Acetaminophen (Tylenol 325mg Tab) 325 mg PO Q6H PRN PRN Reason: Pain, Mild (1-3) Furosemide (Lasix) 40 mg IVP DAILY [facility] Last Admin: 04/15/17 09:56 Dose: 40 mg Heparin Sodium (Porcine) (Heparin) 5,000 units SC Q12 [facility] PRN Reason: Protocol Last Admin: 04/15/17 09:56 Dose: 5,000 units Hydrochlorothiazide (Microzide) 12.5 mg PO DAILY [facility] Last Admin: 04/15/17 09:55 Dose: 12.5 mg Cefepime HCl (Maxipime 2gm) 2 gm in 100 mls @ 100 mls/hr IVPB Q8 [facility] PRN Reason: Protocol Stop: 04/18/17 07:16 Last Admin: 04/15/17 13:48 Dose: 100 mls/hr Lisinopril (Zestril) 10 mg PO DAILY [facility] Last Admin: 04/15/17 09:56 Dose: 10 mg Oxychlorosene Sodium (Clorpactin Wcs-90) 2 gm TOP Q12 [facility] Last Admin: 04/15/17 14:30 Dose: 2 gm Pantoprazole Sodium (Protonix Ec Tab) 40 mg PO 0600 [facility] Last Admin: 04/15/17 05:34 Dose: 40 mg - Labs Labs: 04/14/17 06:00 04/14/17 06:00 Attending/Attestation - Attestation I have personally seen and examined this patient.: Yes I have fully participated in the care of the patient.: Yes I have reviewed all pertinent clinical information, including history, physical exam and plan: Yes Notes (Text): 04/15/17 19:09 patient seen and examined at bedside. Sitting up in bed, no acute distress. Vitals,labs and notes reviewed. EKG with normal Qtc. Case discussed with ID and patient might be switched to PO antibiotics after 24 hours. Podiatry follow up ongoing. Agree with the plan as outlined by the resident and will repeat another EKG in AM.
[2017-04-15] MEDS: Oxychlorosene Topical 2 gm Packet TOP SCH ×2 (14:30→21:18)
[2017-04-16] MEDS: Pantoprazole 40 mg EC Tab PO SCH (05:37)
[2017-04-16] MEDS: Cefepime IV 2 gm in NS 2 GM/100 ML BAG IVPB SCH ×3 (05:38→21:52)
--- NOTE | 2017-04-16 06:57 | CP.PCM.PN ---
<Brianne Hines - Last Filed: 04/16/17 08:31> Subjective - Date & Time of Evaluation Date of Evaluation: 04/16/17 Time of Evaluation: 06:54 - Subjective Subjective: PGY-[address] Dumont 99F today. but pt denies f/c R leg pain is gone. No acute complaint Objective - Vital Signs/Intake and Output Vital Signs (last 24 hours): Temp Pulse Resp BP Pulse Ox 99.0 F 89 20 107/61 95 04/15/17 16:03 04/15/17 16:03 04/15/17 16:03 04/15/17 16:03 04/15/17 16:03 Intake and Output: 04/15/17 04/16/17 18:59 06:59 Intake Total 420 Balance 420 - Medications Medications: Current Medications Acetaminophen (Tylenol 325mg Tab) 325 mg PO Q6H PRN PRN Reason: Pain, Mild (1-3) Furosemide (Lasix) 40 mg IVP DAILY [facility] Last Admin: 04/15/17 09:56 Dose: 40 mg Heparin Sodium (Porcine) (Heparin) 5,000 units SC Q12 [facility] PRN Reason: Protocol Last Admin: 04/15/17 21:19 Dose: 5,000 units Hydrochlorothiazide (Microzide) 12.5 mg PO DAILY [facility] Last Admin: 04/15/17 09:55 Dose: 12.5 mg Cefepime HCl (Maxipime 2gm) 2 gm in 100 mls @ 100 mls/hr IVPB Q8 [facility] PRN Reason: Protocol Stop: 04/18/17 07:16 Last Admin: 04/16/17 05:38 Dose: 100 mls/hr Lisinopril (Zestril) 10 mg PO DAILY [facility] Last Admin: 04/15/17 09:56 Dose: 10 mg Oxychlorosene Sodium (Clorpactin Wcs-90) 2 gm TOP Q12 [facility] Last Admin: 04/15/17 21:18 Dose: 2 gm Pantoprazole Sodium (Protonix Ec Tab) 40 mg PO 0600 [facility] Last Admin: 04/16/17 05:37 Dose: 40 mg - Labs Labs: 04/14/17 06:00 04/14/17 06:00 - Constitutional Appears: No Acute Distress - Head Exam Head Exam: ATRAUMATIC, NORMAL INSPECTION, NORMOCEPHALIC - Eye Exam Eye Exam: EOMI, Normal appearance, Scleral icterus. absent: PERRL Pupil Exam: NORMAL ACCOMODATION - ENT Exam ENT Exam: Mucous Membranes Moist - Neck Exam Additional comments: supple - Respiratory Exam Respiratory Exam: Clear to Ausculation Bilateral. absent: Rales, Rhonchi, Wheezes - Cardiovascular Exam Cardiovascular Exam: REGULAR RHYTHM, +S1, +S2 - GI/Abdominal Exam GI & Abdominal Exam: Soft, Normal Bowel Sounds. absent: Tenderness - Extremities Exam Extremities Exam: Pedal Edema (Non-pitting edema, d/c/i, no strike through; increased warmth on R ankle). absent: Calf Tenderness - Neurological Exam Neurological Exam: Alert, Awake Neuro motor strength exam: Left Upper Extremity: 5, Right Upper Extremity: 5, Left Lower Extremity: 5, Right Lower Extremity: 5 - Psychiatric Exam Psychiatric exam: Normal Affect, Normal Mood - Skin Skin Exam: Dry, Warm Assessment and Plan - Assessment and Plan (Free Text) Plan: 62 M has statis dermititis with R leg skin and skin structure infection s/p bedside sharp debridement (POD#5, 04/11/17) Complicated SSTI, class 2-3 has ruled out abscess - Continue Cefepime (day 4) - Finished Vancomycin 1gq12 (day 4) - Finished Unasyn (Ampicillin and Sulbactam) 3g q6(day 4) for cat exposure - QTc is 450 (8/6), 487 (8/), 477 (04/09); unable to switch to PO Levaquin because of QT prolongation during the weekend - Consider PO levaquin 750 daily x 7-14d once QTc normalized (not yet round with Dr. Dumont) - monitor clinically; follow up Podiatry further recommendations Imaging - LE dopplers b/l: negative for DVT - RLE (Tib/fib) xray: No bony abnormality - MRI of R lower leg: No discrete abscess Cultures - blood culture = no grwth x 2 days - U/A negative - R Leg wound culture - Pseudomonas - Resistant to ampicillin, cefazolin, ceftriazone - B-hemoly Strep B - resistant to clindamycin - Proteus - all sensitive Will s/r/d w Dr. Dumont <Jairo Dumont - Last Filed: 04/16/17 10:52> Objective - Vital Signs/Intake and Output Vital Signs (last 24 hours): Temp Pulse Resp BP Pulse Ox 99.0 F 89 20 140/91 H 95 04/15/17 16:03 04/15/17 16:03 04/15/17 16:03 04/16/17 09:42 04/15/17 16:03 Intake and Output: 04/16/17 04/16/17 06:59 18:59 Intake Total 420 Balance 420 - Medications Medications: Current Medications Acetaminophen (Tylenol 325mg Tab) 325 mg PO Q6H PRN PRN Reason: Pain, Mild (1-3) Furosemide (Lasix) 40 mg IVP DAILY [facility] Last Admin: 04/16/17 09:42 Dose: 40 mg Heparin Sodium (Porcine) (Heparin) 5,000 units SC Q12 [facility] PRN Reason: Protocol Last Admin: 04/16/17 09:38 Dose: 5,000 units Hydrochlorothiazide (Microzide) 12.5 mg PO DAILY [facility] Last Admin: 04/16/17 09:45 Dose: 12.5 mg Cefepime HCl (Maxipime 2gm) 2 gm in 100 mls @ 100 mls/hr IVPB Q8 [facility] PRN Reason: Protocol Stop: 04/18/17 07:16 Last Admin: 04/16/17 05:38 Dose: 100 mls/hr Lisinopril (Zestril) 10 mg PO DAILY [facility] Last Admin: 04/16/17 09:40 Dose: 10 mg Oxychlorosene Sodium (Clorpactin Wcs-90) 2 gm TOP Q12 [facility] Last Admin: 04/16/17 09:49 Dose: 2 gm Pantoprazole Sodium (Protonix Ec Tab) 40 mg PO 0600 [facility] Last Admin: 04/16/17 05:37 Dose: 40 mg - Labs Labs: 04/16/17 07:15 04/16/17 07:15 Assessment and Plan - Assessment and Plan (Free Text) Plan: Infectious Diseases Attending Physician Attestation Patient seen and examined, discussed with senior medical technologist. I have reviewed the pertinent clinical information for this patient. I agree with the above findings. In addition, his repeat EKG on 04/15/2017 shows normal QTc - we can switch to PO Levaquin 750 mg daily for another 5- or 6 days with outpatient follow up with Podiatry.
[2017-04-16 07:41] LABS: BASO # 0.04 K/mm3 (0.0-2.0); BASO % 0.6 % (0.0-3.0); EOS # 0.3 (0.0-0.7); EOS % 4.6 % (1.5-5.0); GRAN # 4.71 (1.4-6.5); GRAN % 67.6 % (50.0-68.0); HEMOGLOBIN 12.7 gm/dL (14.0-18.0); LYMPH # 1.4 (1.2-3.4); LYMPH % 19.9 % (22.0-35.0); MEAN CELL VOLUME 92.2 fL (80.0-105.0); MEAN CORPUSCULAR HEMOGLOBIN 30.9 pg (25.0-35.0); MEAN CORPUSCULAR HGB CONC 33.5 g/dl (31.0-37.0); MEAN PLATELET VOLUME 8.4 fl (7.0-11.0); MONO # 0.5 (0.1-0.6); MONO % 7.3 % (1.0-6.0); PLATELET COUNT 280 10^3/uL (120.0-450.0); RBC 4.11 10^6/uL (3.5-6.1); RED CELL DISTRIBUTION WIDTH 16.4 % (11.5-14.5)
[2017-04-16 07:57] LABS: BLOOD UREA NITROGEN 15 mg/dL (7-21); CALCIUM 9.7 mg/dL (8.4-10.5); GFR AFRICAN-AMERICAN > 60; GFR NON-AFRICAN AMERICAN > 60
[2017-04-16 08:11] LABS: % IRON SATURATION 37 % (20-55); IRON 97 ug/dL (45-180); TOTAL IRON BINDING CAPACITY 265 ug/dL (261-462)
[2017-04-16] MEDS: Oxychlorosene Topical 2 gm Packet TOP SCH ×2 (09:49→22:00)
--- NOTE | 2017-04-16 11:35 | CP.PCM.PN ---
<Jamar Lyon - Last Filed: 04/16/17 11:51> Subjective - Date & Time of Evaluation Date of Evaluation: 04/16/17 Time of Evaluation: 07:00 - Subjective Subjective: Jamar Lyon DO, PGY-1, Hospitalist Team 2, Dr. Huitron Patient seen and examined at bedside. Patient denies any LE pain. He has been passing BM and urinating fine. He denies any CP, fever, SOB, N/V/D. Objective - Vital Signs/Intake and Output Vital Signs (last 24 hours): Temp Pulse Resp BP Pulse Ox 99.0 F 89 20 140/91 H 95 04/15/17 16:03 04/15/17 16:03 04/15/17 16:03 04/16/17 09:42 04/15/17 16:03 Intake and Output: 04/16/17 04/16/17 06:59 18:59 Intake Total 420 Balance 420 - Medications Medications: Current Medications Acetaminophen (Tylenol 325mg Tab) 325 mg PO Q6H PRN PRN Reason: Pain, Mild (1-3) Furosemide (Lasix) 40 mg IVP DAILY [facility] Last Admin: 04/16/17 09:42 Dose: 40 mg Heparin Sodium (Porcine) (Heparin) 5,000 units SC Q12 [facility] PRN Reason: Protocol Last Admin: 04/16/17 09:38 Dose: 5,000 units Hydrochlorothiazide (Microzide) 12.5 mg PO DAILY [facility] Last Admin: 04/16/17 09:45 Dose: 12.5 mg Cefepime HCl (Maxipime 2gm) 2 gm in 100 mls @ 100 mls/hr IVPB Q8 [facility] PRN Reason: Protocol Stop: 04/18/17 07:16 Last Admin: 04/16/17 05:38 Dose: 100 mls/hr Lisinopril (Zestril) 10 mg PO DAILY [facility] Last Admin: 04/16/17 09:40 Dose: 10 mg Oxychlorosene Sodium (Clorpactin Wcs-90) 2 gm TOP Q12 [facility] Last Admin: 04/16/17 09:49 Dose: 2 gm Pantoprazole Sodium (Protonix Ec Tab) 40 mg PO 0600 [facility] Last Admin: 04/16/17 05:37 Dose: 40 mg - Labs Labs: 04/16/17 07:15 04/16/17 07:15 - Constitutional Appears: Well, Non-toxic - Head Exam Head Exam: ATRAUMATIC, NORMOCEPHALIC - Eye Exam Eye Exam: EOMI, Normal appearance Pupil Exam: NORMAL ACCOMODATION - ENT Exam ENT Exam: Mucous Membranes Moist, Normal Oropharynx - Neck Exam Neck Exam: Normal Inspection. absent: Thyromegaly - Respiratory Exam Respiratory Exam: Clear to Ausculation Bilateral. absent: Rhonchi, Wheezes - Cardiovascular Exam Cardiovascular Exam: RRR, +S1, +S2 - GI/Abdominal Exam GI & Abdominal Exam: Soft, Normal Bowel Sounds - Rectal Exam Rectal Exam: Deferred - Extremities Exam Extremities Exam: Normal Capillary Refill. absent: Tenderness Additional comments: LE bilaterally swollen, right greater than left. - Neurological Exam Neurological Exam: Alert, CN II-XII Intact, Normal Gait, Oriented x3 Neuro motor strength exam: Left Upper Extremity: 5, Right Upper Extremity: 5, Left Lower Extremity: 5, Right Lower Extremity: 5 - Psychiatric Exam Psychiatric exam: Normal Affect, Normal Mood Assessment and Plan - Assessment and Plan (Free Text) Assessment: 62 year old obese male with a PMH of chronic lower extremity edema and HTN who presented with an erythematous, malodorous right lower extremity with ulcerations and found to have cellulitis. Plan: 1. Chronic LE edema with cellulitis and ulcerations BLE dopplers negative for DVT RLE xray and MRI performed, no osteomyelitis WCx showed GBS, P. mirabilis and P. aeruginosa ID consulted, recs appreciated Podiatry consulted, recs appreciated, performing daily wound care POD#6 of bedside sharp debridement by podiatry, now podiatry is changing dressing twice daily Latest EKG showed normal QTc, therefore patient can be switched to PO Levofloxacin No leukocytosis Afebrile PO 40 mg of Lasix will be started tomorrow 2. HTN - well controlled SBPs 119-144 Continue HCTZ and lisinopril 3. Normocytic normochromic anemia Hemodynamically stable No active bleeding TIBC 265 Iron 97 % sat 37 Ferritin, Vitamin B12, Folate pending GI/DVT ppx: protonix/heparin q12 <Alexander Huitron - Last Filed: 04/16/17 13:00> Objective - Vital Signs/Intake and Output Vital Signs (last 24 hours): Temp Pulse Resp BP Pulse Ox 99.0 F 89 20 140/91 H 95 04/15/17 16:03 04/15/17 16:03 04/15/17 16:03 04/16/17 09:42 04/15/17 16:03 Intake and Output: 04/16/17 04/16/17 06:59 18:59 Intake Total 420 Balance 420 - Medications Medications: Current Medications Acetaminophen (Tylenol 325mg Tab) 325 mg PO Q6H PRN PRN Reason: Pain, Mild (1-3) Furosemide (Lasix) 40 mg PO DAILY [facility] Heparin Sodium (Porcine) (Heparin) 5,000 units SC Q12 [facility] PRN Reason: Protocol Last Admin: 04/16/17 09:38 Dose: 5,000 units Hydrochlorothiazide (Microzide) 12.5 mg PO DAILY [facility] Last Admin: 04/16/17 09:45 Dose: 12.5 mg Cefepime HCl (Maxipime 2gm) 2 gm in 100 mls @ 100 mls/hr IVPB Q8 [facility] PRN Reason: Protocol Stop: 04/18/17 07:16 Last Admin: 04/16/17 05:38 Dose: 100 mls/hr Lisinopril (Zestril) 10 mg PO DAILY [facility] Last Admin: 04/16/17 09:40 Dose: 10 mg Oxychlorosene Sodium (Clorpactin Wcs-90) 2 gm TOP Q12 [facility] Last Admin: 04/16/17 09:49 Dose: 2 gm Pantoprazole Sodium (Protonix Ec Tab) 40 mg PO 0600 [facility] Last Admin: 04/16/17 05:37 Dose: 40 mg - Labs Labs: 04/16/17 07:15 04/16/17 07:15 Attending/Attestation - Attestation I have personally seen and examined this patient.: Yes I have fully participated in the care of the patient.: Yes I have reviewed all pertinent clinical information, including history, physical exam and plan: Yes Notes (Text): 04/16/17 12:57 62 year old male with past medical history of hypertension and chronic LE edema who presented with worsening LE edema/erythema. LE dopplers were limited but negative for DVT. RLE xray and MRI were reviewed which showed edema. Wound culture grew Pseudomona Aeruginosa, Proteus Mirabilis, and beta hemolytic group B strep. He is s/p bedside debridement by podiatry last week. Continue with iv antibiotics as per ID and wound care as per podiatry. His QTc has improve; can likely switch to po levaquin soon if okay with ID and podiatry for d/c planning. Continue with home medications for hypertension including lasix for diuresis. Alexander Huitron MD Hospitalist.
--- NOTE | 2017-04-16 16:07 | CP.PCM.PN ---
Subjective - Date & Time of Evaluation Date of Evaluation: 04/16/17 Time of Evaluation: 15:40 - Subjective Subjective: 62 year old male seen at bedside concerning right lower leg ulcerations. Pt reports no acute overnight events and has no pedal complaints. Pt denies pain to the right lower leg. Pt denies recent f/c/cp/sob/n/v/d. Objective - Vital Signs/Intake and Output Vital Signs (last 24 hours): Temp Pulse Resp BP Pulse Ox 99.0 F 89 20 140/91 H 95 04/15/17 16:03 04/15/17 16:03 04/15/17 16:03 04/16/17 09:42 04/15/17 16:03 Intake and Output: 04/16/17 04/16/17 06:59 18:59 Intake Total 420 860 Balance 420 860 - Medications Medications: Current Medications Acetaminophen (Tylenol 325mg Tab) 325 mg PO Q6H PRN PRN Reason: Pain, Mild (1-3) Furosemide (Lasix) 40 mg PO DAILY [facility] Heparin Sodium (Porcine) (Heparin) 5,000 units SC Q12 [facility] PRN Reason: Protocol Last Admin: 04/16/17 09:38 Dose: 5,000 units Hydrochlorothiazide (Microzide) 12.5 mg PO DAILY [facility] Last Admin: 04/16/17 09:45 Dose: 12.5 mg Cefepime HCl (Maxipime 2gm) 2 gm in 100 mls @ 100 mls/hr IVPB Q8 [facility] PRN Reason: Protocol Stop: 04/18/17 07:16 Last Admin: 04/16/17 13:48 Dose: 100 mls/hr Lisinopril (Zestril) 10 mg PO DAILY [facility] Last Admin: 04/16/17 09:40 Dose: 10 mg Oxychlorosene Sodium (Clorpactin Wcs-90) 2 gm TOP Q12 [facility] Last Admin: 04/16/17 09:49 Dose: 2 gm Pantoprazole Sodium (Protonix Ec Tab) 40 mg PO 0600 [facility] Last Admin: 04/16/17 05:37 Dose: 40 mg - Labs Labs: 04/16/17 07:15 04/16/17 07:15 - Constitutional Appears: Well, Non-toxic, No Acute Distress - Extremities Exam Additional comments: Right lower extremity focused. Dressing intact with mild drainage noted extending outer dressing. Neuro-vascular status intact to the right lower extremity. CRF<4 seconds. DERM: Servere lymphedema noted to distal 1/2 of lower legs bilaterally with early stage [id number] changes noted at widest circumference of edema. Right lower leg shows 6 distinct ulceration sites (3 anterior, 1 medial, 2 posterior) all with fibro-granular bases, with quadrant dependent ulcers showing connecting sinus tract. Purulent drainage expunged from distal 2 anterior and posterior 2 ulcers. Macerated wound margins. Minor naldo-wound erythema. - Neurological Exam Neurological Exam: Alert, Awake, Oriented x3 - Psychiatric Exam Psychiatric exam: Normal Affect, Normal Mood Assessment and Plan - Assessment and Plan (Free Text) Assessment: 62 year old male with 1) Right leg Bruner Grade 2 ulcerations (total 5) with accompanying cellulits; secondary to lymphedema Plan: Pt evaluated and treated with attending Dr. Tobar present. Chart, labs, and vitals reviewed. Afebrile, absent leukocytosis. Flushed right leg wounds sites with chlorpactin-sterile saline mixture. Applied 1/2 inch iodoform packing into ulcers. Dressed with Maxorb, ABD, DSD, tubigrip stocking, and JEZ. Continue IV abx per ID. prior to discharge pt to be placed in modified 4 layer compression dressing. Podiatry will continue to follow while inhouse. Pt to followup [facility] 1 day s/p discharge.
[2017-04-16 17:30] VITALS: O2SAT 97
[2017-04-17] MEDS: Cefepime IV 2 gm in NS 2 GM/100 ML BAG IVPB SCH ×2 (05:41→14:12)
[2017-04-17] MEDS: Pantoprazole 40 mg EC Tab PO SCH (05:41)
--- NOTE | 2017-04-17 06:33 | CP.PCM.PN ---
<Brianne Hines - Last Filed: 04/17/17 08:53> Subjective - Date & Time of Evaluation Date of Evaluation: 04/17/17 Time of Evaluation: 06:31 - Subjective Subjective: PGY-[address] Tim Cespedes x 5 days + BM yesterday. Formed stool No acute complaint Objective - Vital Signs/Intake and Output Vital Signs (last 24 hours): Temp Pulse Resp BP Pulse Ox 98.5 F 54 L 19 116/70 97 04/16/17 16:00 04/16/17 16:00 04/16/17 16:00 04/16/17 16:00 04/16/17 16:00 Intake and Output: 04/16/17 04/17/17 18:59 06:59 Intake Total 860 540 Output Total 2 Balance 860 538 - Medications Medications: Current Medications Acetaminophen (Tylenol 325mg Tab) 325 mg PO Q6H PRN PRN Reason: Pain, Mild (1-3) Furosemide (Lasix) 40 mg PO DAILY [facility] Heparin Sodium (Porcine) (Heparin) 5,000 units SC Q12 [facility] PRN Reason: Protocol Last Admin: 04/16/17 21:52 Dose: 5,000 units Hydrochlorothiazide (Microzide) 12.5 mg PO DAILY [facility] Last Admin: 04/16/17 09:45 Dose: 12.5 mg Cefepime HCl (Maxipime 2gm) 2 gm in 100 mls @ 100 mls/hr IVPB Q8 [facility] PRN Reason: Protocol Stop: 04/18/17 07:16 Last Admin: 04/17/17 05:41 Dose: 100 mls/hr Lisinopril (Zestril) 10 mg PO DAILY [facility] Last Admin: 04/16/17 09:40 Dose: 10 mg Oxychlorosene Sodium (Clorpactin Wcs-90) 2 gm TOP Q12 [facility] Last Admin: 04/16/17 22:00 Dose: 2 gm Pantoprazole Sodium (Protonix Ec Tab) 40 mg PO 0600 [facility] Last Admin: 04/17/17 05:41 Dose: 40 mg - Labs Labs: 04/16/17 07:15 04/16/17 07:15 - Constitutional Appears: No Acute Distress - Head Exam Head Exam: ATRAUMATIC, NORMAL INSPECTION, NORMOCEPHALIC - Eye Exam Eye Exam: EOMI, Normal appearance, PERRL. absent: Scleral icterus Pupil Exam: NORMAL ACCOMODATION - ENT Exam ENT Exam: Mucous Membranes Moist - Neck Exam Additional comments: supple - Respiratory Exam Respiratory Exam: Clear to Ausculation Bilateral. absent: Rales, Rhonchi, Wheezes - Cardiovascular Exam Cardiovascular Exam: REGULAR RHYTHM, +S1, +S2 - GI/Abdominal Exam GI & Abdominal Exam: Soft. absent: Rigid, Tenderness - Extremities Exam Extremities Exam: Pedal Edema Additional comments: R dressing d/c/i. Eerythema and non-pitting edema R improves. L erythema and edema improves. No draiange on L - Neurological Exam Neurological Exam: Alert, Awake - Psychiatric Exam Psychiatric exam: Normal Affect, Normal Mood - Skin Skin Exam: Dry, Warm Assessment and Plan - Assessment and Plan (Free Text) Plan: 62 M has statis dermititis with R leg skin and skin structure infection s/p bedside sharp debridement (POD#5, 04/11/17) Complicated SSTI, moderate has ruled out abscess - Continue Cefepime (day 5) - Finished Vancomycin 1gq12 (day 4) - Finished Unasyn (Ampicillin and Sulbactam) 3g q6(day 4) for cat exposure - QTc is 450 (8/6), 487 (04/13), 477 (04/09); unable to switch to PO Levaquin because of QT prolongation during the weekend - When ready to discharge, can switch to PO levaquin 750 daily for another 4- or 5 days with outpatient follow up with podiatry - monitor clinically; follow up Podiatry further recommendations Imaging - LE dopplers b/l: negative for DVT - RLE (Tib/fib) xray: No bony abnormality - MRI of R lower leg: No discrete abscess Cultures - blood culture = no grwth x 2 days - U/A negative - R Leg wound culture - Pseudomonas - Resistant to ampicillin, cefazolin, ceftriazone - B-hemoly Strep B - resistant to clindamycin - Proteus - all sensitive Will s/r/d w Dr. Dumont <Jairo Dumont - Last Filed: 04/17/17 10:33> Objective - Vital Signs/Intake and Output Vital Signs (last 24 hours): Temp Pulse Resp BP Pulse Ox 98.1 F 82 20 128/77 97 04/17/17 06:00 04/17/17 09:30 04/17/17 06:00 04/17/17 09:30 04/17/17 06:00 Intake and Output: 04/17/17 04/17/17 06:59 18:59 Intake Total 540 240 Output Total 2 Balance 538 240 - Medications Medications: Current Medications Acetaminophen (Tylenol 325mg Tab) 325 mg PO Q6H PRN PRN Reason: Pain, Mild (1-3) Furosemide (Lasix) 40 mg PO DAILY [facility] Last Admin: 04/17/17 09:30 Dose: 40 mg Heparin Sodium (Porcine) (Heparin) 5,000 units SC Q12 [facility] PRN Reason: Protocol Last Admin: 04/17/17 09:31 Dose: 5,000 units Hydrochlorothiazide (Microzide) 12.5 mg PO DAILY [facility] Last Admin: 04/17/17 09:30 Dose: 12.5 mg Cefepime HCl (Maxipime 2gm) 2 gm in 100 mls @ 100 mls/hr IVPB Q8 [facility] PRN Reason: Protocol Stop: 04/18/17 07:16 Last Admin: 04/17/17 05:41 Dose: 100 mls/hr Lisinopril (Zestril) 10 mg PO DAILY [facility] Last Admin: 04/17/17 09:30 Dose: 10 mg Oxychlorosene Sodium (Clorpactin Wcs-90) 2 gm TOP Q12 [facility] Last Admin: 04/16/17 22:00 Dose: 2 gm Pantoprazole Sodium (Protonix Ec Tab) 40 mg PO 0600 [facility] Last Admin: 04/17/17 05:41 Dose: 40 mg - Labs Labs: 04/17/17 07:00 04/16/17 07:15 Assessment and Plan - Assessment and Plan (Free Text) Plan: Infectious diseases Attending Physician attestation Patient seen and examined, discussed with medical equipment repair technician. I have reviewed the pertinent clinical information for this patient. I agree with the above findings , assessment and plan. In addition, we will continue Cefepime for this patient with right lower extremity cellulitis with Pseudomonas, Group B Strep and Proteus. Repeat EKG shows QTc not prolonged anymore - can be switched to PO Levaquin when ready for discharge.
--- NOTE | 2017-04-17 06:51 | CP.PCM.PN ---
Subjective - Date & Time of Evaluation Date of Evaluation: 04/17/17 Time of Evaluation: 07:05 - Subjective Subjective: Jamar Lyon Do, PGY-1, Hospitalist Service Dr. Tomy Cerda Objective - Vital Signs/Intake and Output Vital Signs (last 24 hours): Temp Pulse Resp BP Pulse Ox 98.5 F 54 L 19 116/70 97 04/16/17 16:00 04/16/17 16:00 04/16/17 16:00 04/16/17 16:00 04/16/17 16:00 Intake and Output: 04/16/17 04/17/17 18:59 06:59 Intake Total 860 540 Output Total 2 Balance 860 538 - Medications Medications: Current Medications Acetaminophen (Tylenol 325mg Tab) 325 mg PO Q6H PRN PRN Reason: Pain, Mild (1-3) Furosemide (Lasix) 40 mg PO DAILY [facility] Heparin Sodium (Porcine) (Heparin) 5,000 units SC Q12 [facility] PRN Reason: Protocol Last Admin: 04/16/17 21:52 Dose: 5,000 units Hydrochlorothiazide (Microzide) 12.5 mg PO DAILY [facility] Last Admin: 04/16/17 09:45 Dose: 12.5 mg Cefepime HCl (Maxipime 2gm) 2 gm in 100 mls @ 100 mls/hr IVPB Q8 [facility] PRN Reason: Protocol Stop: 04/18/17 07:16 Last Admin: 04/17/17 05:41 Dose: 100 mls/hr Lisinopril (Zestril) 10 mg PO DAILY [facility] Last Admin: 04/16/17 09:40 Dose: 10 mg Oxychlorosene Sodium (Clorpactin Wcs-90) 2 gm TOP Q12 [facility] Last Admin: 04/16/17 22:00 Dose: 2 gm Pantoprazole Sodium (Protonix Ec Tab) 40 mg PO 0600 [facility] Last Admin: 04/17/17 05:41 Dose: 40 mg - Labs Labs: 04/16/17 07:15 04/16/17 07:15
[2017-04-17 07:26] LABS: BASO # 0.04 K/mm3 (0.0-2.0); BASO % 0.7 % (0.0-3.0); EOS # 0.3 (0.0-0.7); EOS % 5.8 % (1.5-5.0); GRAN # 3.62 (1.4-6.5); GRAN % 63.9 % (50.0-68.0); HEMOGLOBIN 11.7 g/dL (14.0-18.0); LYMPH # 1.2 (1.2-3.4); LYMPH % 21.5 % (22.0-35.0); MEAN CELL VOLUME 92.6 fl (80.0-105.0); MEAN CORPUSCULAR HGB CONC 33.4 g/dl (31.0-37.0); MEAN PLATELET VOLUME 8.4 fl (7.0-11.0); MONO # 0.5 (0.1-0.6); MONO % 8.1 % (1.0-6.0); PLATELET COUNT 245 10^3/uL (120.0-450.0); RBC 3.78 10^6/uL (3.5-6.1); RED CELL DISTRIBUTION WIDTH 16.4 % (11.5-14.5); WHITE BLOOD COUNT 5.7 10^3/ul (4.5-11.0)
[2017-04-17 07:37] VITALS: BP 128/77; PULSE 82; RESP 20; TEMP 98.1
[2017-04-17] MEDS: Oxychlorosene Topical 2 gm Packet TOP SCH (13:03)
--- NOTE | 2017-04-17 13:40 | CP.PCM.PN ---
<Dave Cunha - Last Filed: 04/17/17 13:31> Subjective - Date & Time of Evaluation Date of Evaluation: 04/17/17 Time of Evaluation: 12:31 - Subjective Subjective: 62 year old male seen at bedside concerning right lower leg ulcerations, w/ attending Dr. Turner present. Pt reports no acute overnight events and has no pedal complaints. Pt denies pain to the right lower leg. Pt denies recent f/c/cp /sob/n/v/d. Objective - Vital Signs/Intake and Output Vital Signs (last 24 hours): Temp Pulse Resp BP Pulse Ox 98.1 F 82 20 128/77 97 04/17/17 06:00 04/17/17 09:30 04/17/17 06:00 04/17/17 09:30 04/17/17 06:00 Intake and Output: 04/17/17 04/17/17 06:59 18:59 Intake Total 540 240 Output Total 2 Balance 538 240 - Medications Medications: Current Medications Acetaminophen (Tylenol 325mg Tab) 325 mg PO Q6H PRN PRN Reason: Pain, Mild (1-3) Furosemide (Lasix) 40 mg PO DAILY [facility] Last Admin: 04/17/17 09:30 Dose: 40 mg Heparin Sodium (Porcine) (Heparin) 5,000 units SC Q12 [facility] PRN Reason: Protocol Last Admin: 04/17/17 09:31 Dose: 5,000 units Hydrochlorothiazide (Microzide) 12.5 mg PO DAILY [facility] Last Admin: 04/17/17 09:30 Dose: 12.5 mg Cefepime HCl (Maxipime 2gm) 2 gm in 100 mls @ 100 mls/hr IVPB Q8 [facility] PRN Reason: Protocol Stop: 04/18/17 07:16 Last Admin: 04/17/17 05:41 Dose: 100 mls/hr Lisinopril (Zestril) 10 mg PO DAILY [facility] Last Admin: 04/17/17 09:30 Dose: 10 mg Oxychlorosene Sodium (Clorpactin Wcs-90) 2 gm TOP Q12 [facility] Last Admin: 04/17/17 13:03 Dose: 2 gm Pantoprazole Sodium (Protonix Ec Tab) 40 mg PO 0600 [facility] Last Admin: 04/17/17 05:41 Dose: 40 mg - Labs Labs: 04/17/17 07:00 04/16/17 07:15 - Constitutional Appears: Well, Non-toxic, No Acute Distress - Extremities Exam Additional comments: Right lower extremity focused. Dressing intact with mild drainage noted extending outer dressing. Neuro-vascular status intact to the right lower extremity. CRF<4 seconds. DERM: Servere lymphedema noted to distal 1/2 of lower legs bilaterally with early stage [id number] changes noted at widest circumference of edema. Right lower leg shows 6 distinct ulceration sites (3 anterior, 1 medial, 2 posterior) all with fibro-granular bases, with quadrant dependent ulcers showing connecting sinus tract. Purulent drainage expunged from distal 2 anterior and posterior 2 ulcers. Macerated wound margins. Minor naldo-wound erythema. - Neurological Exam Neurological Exam: Alert, Awake, Oriented x3 - Psychiatric Exam Psychiatric exam: Normal Affect, Normal Mood Assessment and Plan - Assessment and Plan (Free Text) Assessment: 62 year old male with 1) Right leg Bruner Grade 2 ulcerations (total 5) with accompanying cellulits; secondary to lymphedema Plan: Pt evaluated and treated with attending Dr. Turner present. Chart, labs, and vitals reviewed. Afebrile, absent leukocytosis. Flushed right leg wounds sites with chlorpactin-sterile saline mixture. Applied 1/2 inch iodoform packing into ulcers. Dressed with Maxorb, ABD, DSD, tubigrip stocking, and JEZ. Continue IV abx per ID. Podiatry will continue to follow while inhouse. Pt to followup in [facility] 1 day s/p discharge. <Bhavesh Turner - Last Filed: 04/17/17 13:49> Objective - Vital Signs/Intake and Output Vital Signs (last 24 hours): Temp Pulse Resp BP Pulse Ox 98.1 F 82 20 128/77 97 04/17/17 06:00 04/17/17 09:30 04/17/17 06:00 04/17/17 09:30 04/17/17 06:00 Intake and Output: 04/17/17 04/17/17 06:59 18:59 Intake Total 540 240 Output Total 2 Balance 538 240 - Medications Medications: Current Medications Acetaminophen (Tylenol 325mg Tab) 325 mg PO Q6H PRN PRN Reason: Pain, Mild (1-3) Furosemide (Lasix) 40 mg PO DAILY [facility] Last Admin: 04/17/17 09:30 Dose: 40 mg Heparin Sodium (Porcine) (Heparin) 5,000 units SC Q12 [facility] PRN Reason: Protocol Last Admin: 04/17/17 09:31 Dose: 5,000 units Hydrochlorothiazide (Microzide) 12.5 mg PO DAILY [facility] Last Admin: 04/17/17 09:30 Dose: 12.5 mg Cefepime HCl (Maxipime 2gm) 2 gm in 100 mls @ 100 mls/hr IVPB Q8 [facility] PRN Reason: Protocol Stop: 04/18/17 07:16 Last Admin: 04/17/17 05:41 Dose: 100 mls/hr Lisinopril (Zestril) 10 mg PO DAILY [facility] Last Admin: 04/17/17 09:30 Dose: 10 mg Oxychlorosene Sodium (Clorpactin Wcs-90) 2 gm TOP Q12 [facility] Last Admin: 04/17/17 13:03 Dose: 2 gm Pantoprazole Sodium (Protonix Ec Tab) 40 mg PO 0600 [facility] Last Admin: 04/17/17 05:41 Dose: 40 mg - Labs Labs: 04/17/17 07:00 04/16/17 07:15 Attending/Attestation - Attestation I have personally seen and examined this patient.: Yes I have fully participated in the care of the patient.: Yes I have reviewed all pertinent clinical information, including history, physical exam and plan: Yes
[2017-04-17 15:05] LABS: FOLATE 17.1 ng/mL
--- NOTE | 2017-04-17 22:02 | CP.PCM.DIS ---
<Jamar Lyon - Last Filed: 04/17/17 21:55> Provider - Provider Date of Admission: 04/09/17 15:13 Attending physician: Alexander Huitron MD Primary care physician: NO PRIMARY CARE PROVIDER Consults: Dr. Turner podiatry Dr. Dumont Time Spent in preparation of Discharge (in minutes): 39 Hospital Course - Lab Results Lab Results: Micro Results 04/10/17 12:00 Leg - Right Gram Stain - Final 04/10/17 12:00 Leg - Right Wound Culture - Final Pseudomonas Aeruginosa Beta Hemolytic Strep Group B Proteus Mirabilis 04/09/17 16:11 Leg - Right Gram Stain - Final 04/09/17 16:11 Leg - Right Wound Culture - Final Proteus Mirabilis Beta Hemolytic Strep Group B Pseudomonas Aeruginosa Most Recent Lab Values WBC 5.7 10^3/ul (4.5-11.0) 04/17/17 07:00 RBC 3.78 10^6/uL (3.5-6.1) 04/17/17 07:00 Hgb 11.7 g/dL (14.0-18.0) L 04/17/17 07:00 Hct 35.0 % (42.0-52.0) L 04/17/17 07:00 MCV 92.6 fl (80.0-105.0) 04/17/17 07:00 MCH 31.0 pg (25.0-35.0) 04/17/17 07:00 MCHC 33.4 g/dl (31.0-37.0) 04/17/17 07:00 RDW 16.4 % (11.5-14.5) H 04/17/17 07:00 Plt Count 245 10^3/uL (120.0-450.0) 04/17/17 07:00 MPV 8.4 fl (7.0-11.0) 04/17/17 07:00 Gran % 63.9 % (50.0-68.0) 04/17/17 07:00 Lymph % (Auto) 21.5 % (22.0-35.0) L 04/17/17 07:00 [place] % (Auto) 8.1 % (1.0-6.0) H 04/17/17 07:00 Eos % (Auto) 5.8 % (1.5-5.0) H 04/17/17 07:00 Baso % (Auto) 0.7 % (0.0-3.0) 04/17/17 07:00 Gran # 3.62 (1.4-6.5) 04/17/17 07:00 Lymph # 1.2 (1.2-3.4) 04/17/17 07:00 Rowan # 0.5 (0.1-0.6) 04/17/17 07:00 Eos # 0.3 (0.0-0.7) 04/17/17 07:00 Baso # 0.04 K/mm3 (0.0-2.0) 04/17/17 07:00 pO2 45 mm/Hg (30-55) 04/09/17 14:00 VBG pH 7.34 (7.32-7.43) 04/09/17 14:00 VBG pCO2 49.0 (40-60) 04/09/17 14:00 VBG HCO3 26.4 mmol/l (21-28) 04/09/17 14:00 VBG Total CO2 27.9 mmol.L (22-28) 04/09/17 14:00 VBG O2 Sat (Calc) 85.2 % (40-65) H 04/09/17 14:00 VBG Base Excess 0.0 mmol/L (0.0-2.0) 04/09/17 14:00 VBG Potassium 4.4 mmol/L (3.6-5.2) 04/09/17 14:00 Sodium 154.0 mmol/L (132-148) H 04/09/17 14:00 Chloride 95.0 mmol/L (98-107) L 04/09/17 14:00 Glucose 96 mg/dl (75-110) 04/09/17 14:00 Lactate 1.7 mmol/L (0.7-2.1) 04/09/17 14:00 FiO2 21.0 % 04/09/17 14:00 Sodium 138 mmol/L (132-148) 04/16/17 07:15 Potassium 3.9 mmol/L (3.6-5.0) 04/16/17 07:15 Chloride 101 mmol/L (98-107) 04/16/17 07:15 Carbon Dioxide 26 mmol/L (21-33) 04/16/17 07:15 Anion Gap 15 (10-20) 04/16/17 07:15 BUN 15 mg/dL (7-21) 04/16/17 07:15 Creatinine 0.8 mg/dL (0.5-1.4) 04/16/17 07:15 Est GFR ( Amer) > 60 04/16/17 07:15 Est GFR (Non-Af Amer) > 60 04/16/17 07:15 Random Glucose 93 mg/dL (70-110) 04/16/17 07:15 Calcium 9.7 mg/dL (8.4-10.5) 04/16/17 07:15 Phosphorus 3.4 mg/dL (2.5-4.5) 04/09/17 14:00 Magnesium 1.8 mg/dL (1.7-2.2) 04/09/17 14:00 Iron 97 ug/dL (45-180) 04/16/17 07:15 TIBC 265 ug/dL (261-462) 04/16/17 07:15 % Saturation 37 % (20-55) 04/16/17 07:15 Ferritin 253.0 ng/mL 04/16/17 07:15 Total Bilirubin 0.7 mg/dL (0.2-1.3) 04/09/17 14:00 AST 54 U/L (15-59) 04/09/17 14:00 ALT 55 U/L (7-56) 04/09/17 14:00 Alkaline Phosphatase 110 U/L (38-133) 04/09/17 14:00 Total Creatine Kinase 53 U/L (35-230) 04/09/17 14:00 Troponin I < 0.01 ng/mL 04/09/17 14:00 NT-Pro-B Natriuret Pep 210 pg/mL (0-450) 04/09/17 14:00 Total Protein 8.5 g/dL (5.8-8.3) H 04/09/17 14:00 Albumin 4.0 g/dL (3.0-4.8) 04/09/17 14:00 Globulin 4.4 gm/dL 04/09/17 14:00 Albumin/Globulin Ratio 0.9 (1.1-1.8) L 04/09/17 14:00 Vitamin B12 546 pg/mL (239-931) 04/16/17 07:15 Folate 17.1 ng/mL 04/16/17 07:15 Venous Blood Potassium 4.4 mmol/L (3.6-5.2) 04/09/17 14:00 Urine Color Yellow (YELLOW) 04/09/17 16:15 Urine Appearance Clear (CLEAR) 04/09/17 16:15 Urine pH 7.0 (4.7-8.0) 04/09/17 16:15 Ur Specific [place] 1.010 (1.005-1.035) 04/09/17 16:15 Urine Protein Negative mg/dL (<30 mg/dL) 04/09/17 16:15 Urine Glucose (UA) Negative mg/dL (NEGATIVE) 04/09/17 16:15 Urine Ketones Negative mg/dL (NEGATIVE) 04/09/17 16:15 Urine Blood Small (NEGATIVE) H 04/09/17 16:15 Urine Nitrate Negative (NEGATIVE) 04/09/17 16:15 Urine Bilirubin Negative (NEGATIVE) 04/09/17 16:15 Urine Urobilinogen 0.2 E.U./dL (<1 E.U./dL) 04/09/17 16:15 Ur Leukocyte Esterase Negative Hari/uL (NEGATIVE) 04/09/17 16:15 Urine RBC 2 - 5 /hpf (0-2) 04/09/17 16:15 Urine WBC 0 - 2 /hpf (0-6) 04/09/17 16:15 - Hospital Course Hospital Course: 62 year old obese male with chronic left lower extremity presents with complicated right lower extremity cellulitis with ulcerations/wound cultures positive for Pseudomonas Aeruginosa, Proteus Mirabilis, group _ hemolytic strep , which were susceptible to cefipime, and ciproflocaxin. Levofloxacin at the time of cultures sensitivity was not on the table given the patient had a prolonged QTc interval based on an EKG performed. The QTc later normalized and the patient was amenable to outpatient wound care. Patient was discharged with PO Levofloxacin, Lasix, hydrochlorothiazide, Lasix. - Date & Time of H&P Date of H&P: 04/17/17 Time of H&P: 15:30 Discharge Exam - Head Exam Head Exam: ATRAUMATIC, NORMAL INSPECTION, NORMOCEPHALIC - Eye Exam Eye Exam: EOMI, Normal appearance, PERRL Pupil Exam: NORMAL ACCOMODATION, PERRL - ENT Exam ENT Exam: Mucous Membranes Moist, Normal Oropharynx - Neck Exam Neck exam: Normal Inspection - Respiratory Exam Respiratory Exam: Clear to PA & Lateral, NORMAL BREATHING PATTERN, UNREMARKABLE. absent: Respiratory Distress, Stridor - Cardiovascular Exam Cardiovascular Exam: RRR, +S1, +S2 - GI/Abdominal Exam GI & Abdominal Exam: Normal Bowel Sounds, Soft. absent: Distended, Rebound - Rectal Exam Rectal Exam: Deferred - Extremities Exam Additional comments: bilateral LE edema - Neurological Exam Neurological exam: Alert, CN II-XII Intact, Normal Gait, Oriented x3 - Psychiatric Exam Psychiatric exam: Normal Affect, Normal Mood Discharge Plan - Discharge Medications Prescriptions: Furosemide 40 mg PO DAILY #30 tablet levoFLOXacin [Levaquin] 750 mg PO DAILY #5 tab Lisinopril/Hydrochlorothiazide [Lisinopril-Hctz 10-12.5 mg Tab] 1 each PO DAILY #30 tablet - Follow Up Plan Condition: FAIR Disposition: HOME/ ROUTINE Instructions: Cellulitis (DC), Cellulitis (GEN), Edema (DC) Additional Instructions: 1. Follow up with Dr. Turner/podiatry shwetha 04/18/17 at [facility] 2. Continue abx as written. 3. Maintain hydration. 4. Avoid high salt intake. 5. Continue lasix, lisinopril-HCTZ. 6. Keep legs elevated when possible. Referrals: [facility] [Outside] PCP,NO [Primary Care Provider] - <Alexander Huitron - Last Filed: 04/18/17 13:22> Provider - Provider Date of Admission: 04/09/17 15:13 Attending physician: Alexander Huitron MD Primary care physician: NO PRIMARY CARE PROVIDER Hospital Course - Lab Results Lab Results: Micro Results 04/10/17 12:00 Leg - Right Gram Stain - Final 04/10/17 12:00 Leg - Right Wound Culture - Final Pseudomonas Aeruginosa Beta Hemolytic Strep Group B Proteus Mirabilis 04/09/17 16:11 Leg - Right Gram Stain - Final 04/09/17 16:11 Leg - Right Wound Culture - Final Proteus Mirabilis Beta Hemolytic Strep Group B Pseudomonas Aeruginosa Most Recent Lab Values WBC 5.7 10^3/ul (4.5-11.0) 04/17/17 07:00 RBC 3.78 10^6/uL (3.5-6.1) 04/17/17 07:00 Hgb 11.7 g/dL (14.0-18.0) L 04/17/17 07:00 Hct 35.0 % (42.0-52.0) L 04/17/17 07:00 MCV 92.6 fl (80.0-105.0) 04/17/17 07:00 MCH 31.0 pg (25.0-35.0) 04/17/17 07:00 MCHC 33.4 g/dl (31.0-37.0) 04/17/17 07:00 RDW 16.4 % (11.5-14.5) H 04/17/17 07:00 Plt Count 245 10^3/uL (120.0-450.0) 04/17/17 07:00 MPV 8.4 fl (7.0-11.0) 04/17/17 07:00 Gran % 63.9 % (50.0-68.0) 04/17/17 07:00 Lymph % (Auto) 21.5 % (22.0-35.0) L 04/17/17 07:00 Rowan % (Auto) 8.1 % (1.0-6.0) H 04/17/17 07:00 Eos % (Auto) 5.8 % (1.5-5.0) H 04/17/17 07:00 Baso % (Auto) 0.7 % (0.0-3.0) 04/17/17 07:00 Gran # 3.62 (1.4-6.5) 04/17/17 07:00 Lymph # 1.2 (1.2-3.4) 04/17/17 07:00 Rowan # 0.5 (0.1-0.6) 04/17/17 07:00 Eos # 0.3 (0.0-0.7) 04/17/17 07:00 Baso # 0.04 K/mm3 (0.0-2.0) 04/17/17 07:00 pO2 45 mm/Hg (30-55) 04/09/17 14:00 VBG pH 7.34 (7.32-7.43) 04/09/17 14:00 VBG pCO2 49.0 (40-60) 04/09/17 14:00 VBG HCO3 26.4 mmol/l (21-28) 04/09/17 14:00 VBG Total CO2 27.9 mmol.L (22-28) 04/09/17 14:00 VBG O2 Sat (Calc) 85.2 % (40-65) H 04/09/17 14:00 VBG Base Excess 0.0 mmol/L (0.0-2.0) 04/09/17 14:00 VBG Potassium 4.4 mmol/L (3.6-5.2) 04/09/17 14:00 Sodium 154.0 mmol/L (132-148) H 04/09/17 14:00 Chloride 95.0 mmol/L (98-107) L 04/09/17 14:00 Glucose 96 mg/dl (75-110) 04/09/17 14:00 Lactate 1.7 mmol/L (0.7-2.1) 04/09/17 14:00 FiO2 21.0 % 04/09/17 14:00 Sodium 138 mmol/L (132-148) 04/16/17 07:15 Potassium 3.9 mmol/L (3.6-5.0) 04/16/17 07:15 Chloride 101 mmol/L (98-107) 04/16/17 07:15 Carbon Dioxide 26 mmol/L (21-33) 04/16/17 07:15 Anion Gap 15 (10-20) 04/16/17 07:15 BUN 15 mg/dL (7-21) 04/16/17 07:15 Creatinine 0.8 mg/dL (0.5-1.4) 04/16/17 07:15 Est GFR ( Amer) > 60 04/16/17 07:15 Est GFR (Non-Af Amer) > 60 04/16/17 07:15 Random Glucose 93 mg/dL (70-110) 04/16/17 07:15 Calcium 9.7 mg/dL (8.4-10.5) 04/16/17 07:15 Phosphorus 3.4 mg/dL (2.5-4.5) 04/09/17 14:00 Magnesium 1.8 mg/dL (1.7-2.2) 04/09/17 14:00 Iron 97 ug/dL (45-180) 04/16/17 07:15 TIBC 265 ug/dL (261-462) 04/16/17 07:15 % Saturation 37 % (20-55) 04/16/17 07:15 Ferritin 253.0 ng/mL 04/16/17 07:15 Total Bilirubin 0.7 mg/dL (0.2-1.3) 04/09/17 14:00 AST 54 U/L (15-59) 04/09/17 14:00 ALT 55 U/L (7-56) 04/09/17 14:00 Alkaline Phosphatase 110 U/L (38-133) 04/09/17 14:00 Total Creatine Kinase 53 U/L (35-230) 04/09/17 14:00 Troponin I < 0.01 ng/mL 04/09/17 14:00 NT-Pro-B Natriuret Pep 210 pg/mL (0-450) 04/09/17 14:00 Total Protein 8.5 g/dL (5.8-8.3) H 04/09/17 14:00 Albumin 4.0 g/dL (3.0-4.8) 04/09/17 14:00 Globulin 4.4 gm/dL 04/09/17 14:00 Albumin/Globulin Ratio 0.9 (1.1-1.8) L 04/09/17 14:00 Vitamin B12 546 pg/mL (239-931) 04/16/17 07:15 Folate 17.1 ng/mL 04/16/17 07:15 Venous Blood Potassium 4.4 mmol/L (3.6-5.2) 04/09/17 14:00 Urine Color Yellow (YELLOW) 04/09/17 16:15 Urine Appearance Clear (CLEAR) 04/09/17 16:15 Urine pH 7.0 (4.7-8.0) 04/09/17 16:15 Ur Specific [place] 1.010 (1.005-1.035) 04/09/17 16:15 Urine Protein Negative mg/dL (<30 mg/dL) 04/09/17 16:15 Urine Glucose (UA) Negative mg/dL (NEGATIVE) 04/09/17 16:15 Urine Ketones Negative mg/dL (NEGATIVE) 04/09/17 16:15 Urine Blood Small (NEGATIVE) H 04/09/17 16:15 Urine Nitrate Negative (NEGATIVE) 04/09/17 16:15 Urine Bilirubin Negative (NEGATIVE) 04/09/17 16:15 Urine Urobilinogen 0.2 E.U./dL (<1 E.U./dL) 04/09/17 16:15 Ur Leukocyte Esterase Negative Hari/uL (NEGATIVE) 04/09/17 16:15 Urine RBC 2 - 5 /hpf (0-2) 04/09/17 16:15 Urine WBC 0 - 2 /hpf (0-6) 04/09/17 16:15 Attending/Attestation - Attestation I have personally seen and examined this patient.: Yes I have fully participated in the care of the patient.: Yes I have reviewed all pertinent clinical information, including history, physical exam and plan: Yes Notes (Text): 04/17/17 62 year old male with past medical history of hypertension and chronic LE edema who presented with worsening LE edema/erythema. LE dopplers were limited but negative for DVT. RLE xray and MRI were reviewed which showed edema. Wound culture grew Pseudomona Aeruginosa, Proteus Mirabilis, and beta hemolytic group B strep. He is s/p bedside debridement by podiatry last week. Patient's symptoms improved with iv antibiotics. He is discharged home on po levaquin. Follow up with pmd or [facility]. Follow up with podiatry/wound care. Alexander Huitron MD Hospitalist.
== END 2017-04-17 15:34 | disposition home or self-care (01) | DRG 571 ==
LOC: ED 13:05 → ERH 15:13 → 3RNO 19:00
PROVIDERS: ADMIT Internal Medicine; ATTEND Internal Medicine
PROC: 0HBKXZZ Excision of Right Lower Leg Skin, External Approach (ICD-10-PCS; principal; 2017-04-11)
DX: L03.115 Cellulitis of right lower limb (principal); L97.919 Non-pressure chronic ulcer of unspecified part of right lower leg with unspecified severity; I10 Essential (primary) hypertension; B96.4 Proteus (mirabilis) (morganii) as the cause of diseases classified elsewhere; B95.1 Streptococcus, group B, as the cause of diseases classified elsewhere; B96.5 Pseudomonas (aeruginosa) (mallei) (pseudomallei) as the cause of diseases classified elsewhere; I89.0 Lymphedema, not elsewhere classified; I87.8 Other specified disorders of veins; D64.9 Anemia, unspecified; I45.81 Long QT syndrome; E66.01 Morbid (severe) obesity due to excess calories; Z68.38 Body mass index [BMI] 38.0-38.9, adult; Z87.891 Personal history of nicotine dependence

== ENCOUNTER 2017-04-24 12:52 | Inpatient (IN) | payer MEDICAID, OTHER ==
[2017-04-24 12:52] VITALS: BMI 37.6
[2017-04-24] MEDS ORDERED: Vancomycin 1gm in NS 250ml 1 GM/250 ML BAG IVPB STA (13:36)
[2017-04-24] MEDS ORDERED: Ampicillin/Sulbactam 3 GM in Sodium Chloride 0.9% 100 ML IVPB STA (13:38)
--- NOTE | 2017-04-24 13:53 | ED PDOC ---
Arrival/HPI - General Historian: Patient <Richmond Good - Last Filed: 04/24/17 15:41> - History of Present Illness Time/Duration: > month Symptom Onset: Gradual Symptom Course: Unchanged Quality: Fullness Severity Level: 1 Activities at Onset: Rest Context: Sitting <Blake Mcclain - Last Filed: 04/24/17 16:04> - General Chief Complaint: Abnormal Skin Integrity Time Seen by Provider: 04/24/17 12:59 - History of Present Illness Narrative History of Present Illness (Text): 04/24/17 13:50 This is a 62 yr old male with a past medical history of hypertension who comes into [facility] with worsening skin ulcers. Per the patient he was seen in the [facility] to get his dressing changed today where he was instructed to come the Emergency Department for the worsening ulcers on his right lower extremity. He denies any fever, chills, nausea, vomiting, chest pain, shortness of breath, or any other complaints. (Blake Mcclain) Past Medical History - Provider Review Nursing Documentation Reviewed: Yes - Infectious Disease Hx of Infectious Diseases: None - Cardiac Hx Hypertension: Yes - Pulmonary Hx Respiratory Disorders: No - Neurological Hx Neurological Disorder: No - HEENT Hx HEENT Disorder: No - Renal Hx Renal Disorder: No - Endocrine/Metabolic Hx Endocrine Disorders: No - Hematological/Oncological Hx Blood Disorders: No - Integumentary Hx Cellulitis: Yes (right leg) - Musculoskeletal/Rheumatological Hx Falls: No - Gastrointestinal Hx Gastrointestinal Disorders: No - Genitourinary/Gynecological Hx Genitourinary Disorders: No - Psychiatric Hx Psychophysiologic Disorder: No Hx Substance Use: No - Anesthesia Hx Anesthesia: No <Blake Mcclain - Last Filed: 04/24/17 16:04> Family/Social History - Physician Review Nursing Documentation Reviewed: Yes Family/Social History: No Known Family HX Smoking Status: Former Smoker Hx Alcohol Use: No Hx Substance Use: No <Blake Mcclain - Last Filed: 04/24/17 16:04> Allergies/Home Meds <Richmond Good - Last Filed: 04/24/17 15:41> <Blake Mcclain - Last Filed: 04/24/17 16:04> Allergies/Adverse Reactions: Allergies No Known Allergies Allergy (Verified 04/09/17 13:10) Review of Systems - Physician Review All systems were reviewed & negative as marked: Yes <Richmond Good - Last Filed: 04/24/17 15:41> - Review of Systems Constitutional: Normal, Weight Change. absent: Fevers, Night Sweats Eyes: Normal. absent: Photophobia, Eye Pain ENT: Normal. absent: Sore Throat, Rhinorrhea, Epistaxis Respiratory: Normal. absent: Cough, Sputum, Wheezing Cardiovascular: Normal. absent: Chest Pain, Palpitations, Syncope Gastrointestinal: Normal. absent: Abdominal Pain, Constipation, Diarrhea, Nausea, Vomiting, Hematochezia Genitourinary Male: Normal. absent: Dysuria, Hematuria Musculoskeletal: Normal. absent: Back Pain Skin: Other (Right leg ulcers.). absent: Skin Lesions, Laceration Neurological: absent: Headache, Dizziness Endocrine: absent: Polyuria, Polydipsia Hemo/Lymphatic: absent: Easy Bleeding, Easy Bruising Psychiatric: Normal <Blake Mcclain - Last Filed: 04/24/17 16:04> Physical Exam Vital Signs Reviewed: Yes Temperature: Afebrile Blood Pressure: Normal Pulse: Tachycardic Respiratory Rate: Normal Appearance: Positive for: Well-Appearing, Non-Toxic, Comfortable Pain Distress: None Mental Status: Positive for: Alert and Oriented X 3 - Systems Exam Head: Present: Atraumatic, Normocephalic Pupils: Present: PERRL Extroacular Muscles: Present: EOMI Conjunctiva: Present: Normal. No: Icteric Mouth: Present: Moist Mucous Membranes. No: Dry Neck: Present: Normal Range of Motion. No: JVD, Lymphadenopathy Respiratory/Chest: Present: Clear to Auscultation, Good Air Exchange. No: Respiratory Distress, Accessory Muscle Use, Wheezes Cardiovascular: Present: Regular Rate and Rhythm, Normal S1, S2. No: Murmurs, Bradycardic Abdomen: Present: Tenderness, Normal Bowel Sounds. No: Distention, Rebound, Guarding Upper Extremity: Present: Normal Inspection. No: Cyanosis, Edema Lower Extremity: Present: Edema (bilateral lower 3+ pitting leg edema. Right leg recently wrapped by Podiatry for ulcers. Did not take down dressings because of this.) Neurological: Present: CN II-XII Intact Skin: Present: Dry. No: Warm, Rashes, Normal Color Psychiatric: Present: Alert, Oriented x 3, Normal Insight, Normal Concentration <Blake Mcclain - Last Filed: 04/24/17 16:04> Vital Signs Temp Pulse Resp BP Pulse Ox 04/24/17 15:31 89 18 113/75 98 04/24/17 12:56 98.4 F 94 H 18 111/71 98 Medical Decision Making <Richmond Good - Last Filed: 04/24/17 15:41> - RAD Interpretation Retort Operator: Radiologist <Blake Mcclain - Last Filed: 04/24/17 16:04> ED Course and Treatment: 04/24/17 15:03 Patient Seen With Resident: In agreement with resident note which contains more details about the patient. Patient was seen and evaluated with resident. Came up with plan and treatment together. 04/24/17 15:34 Dr. Turner had evaluated the patient's wounds today - it was already redressed by him prior to coming to the emergency department, so will not take it down again. He will need readmission for iv antibiotics, having failed outpatient therapy. Discussed with Dr. Gann. (Richmond Good) 04/24/17 14:03 Patient came to [facility] after going upstairs to the Wound Care clinic to get his dressing changed. Patient was advised by Podiatry to come to the Emergency Department for further workup. Labs were ordered including u/a, cbc, cmp, blood cx, chest x ray, lipase, doppler u/s le. Patient will be reevaluated after lab work returns. Patient LE u/s is negative for any clots. Patient is to be admitted for IV antibiotics due to ulcers not improving on the right LE. (Blake Mcclain) - Lab Interpretations Lab Results: 04/24/17 13:50 04/24/17 13:50 Lab Results 04/24/17 13:50: Sodium 136, Potassium 4.8, Chloride 100, Carbon Dioxide 27, Anion Gap 14, BUN 37 H, Creatinine 1.6 H, Est GFR ( Amer) 53, Est GFR ( Non-Af Amer) 44, Random Glucose 94, Calcium 9.6, Total Bilirubin 0.7, AST 34, ALT 34, Alkaline Phosphatase 77, NT-Pro-B Natriuret Pep 58.5, Total Protein 7.6 , Albumin 3.8, Globulin 3.8, Albumin/Globulin Ratio 1.0 L, Lipase 61 04/24/17 13:50: WBC 8.5 D, RBC 3.73, Hgb 11.7 L, Hct 34.6 L, MCV 92.8, MCH 31.4 , MCHC 33.8, RDW 16.7 H, Plt Count 314, MPV 8.0, Gran % 66.7, Lymph % (Auto) 19.7 L, [place] % (Auto) 8.3 H, Eos % (Auto) 4.7, Baso % (Auto) 0.6, Gran # 5.66, Lymph # 1.7, [place] # 0.7 H, Eos # 0.4, Baso # 0.05 - RAD Interpretation Radiology Orders: 04/24/17 13:32 DUPLEX LOWER EXTRM VEIN RIGHT [US] Stat 04/24/17 13:34 CHEST TWO VIEWS (PA/LAT) [RAD] Stat - Medication Orders Current Medication Orders: Furosemide (Lasix) 40 mg PO DAILY [facility] Sodium Chloride (Sodium Chloride 0.9%) 1,000 mls @ 100 mls/hr IV .Q10H STA Stop: 04/24/17 23:54 Last Admin: 04/24/17 14:33 Dose: 100 mls/hr Ampicillin Sodium/Sulbactam (Sodium 3 gm/ Sodium Chloride) 100 mls @ 200 mls/ hr IVPB Q6 W[facility] PRN Reason: Protocol Vancomycin HCl (Vancomycin 500mg In Ns) 500 mg in 100 mls @ 200 mls/hr IVPB Q12 [facility] PRN Reason: Protocol Lisinopril (Zestril) 10 mg PO DAILY [facility] Pantoprazole Sodium (Protonix Inj) 40 mg IVP DAILY [facility] Discontinued Medications Ampicillin Sodium/Sulbactam (Sodium 3 gm/ Sodium Chloride) 100 mls @ 100 mls/ hr IVPB STAT STA PRN Reason: Protocol Stop: 04/24/17 14:37 Last Admin: 04/24/17 14:33 Dose: 100 mls/hr Vancomycin HCl (Vancomycin 1gm) 1 gm in 250 mls @ 167 mls/hr IVPB STAT STA PRN Reason: Protocol Stop: 04/24/17 15:05 Last Admin: 04/24/17 15:24 Dose: 167 mls/hr - PA / FINANCIAL PLANNING ADVISOR / Resident Statement MD/DO has reviewed & agrees with the documentation as recorded. MD/DO has examined the patient and agrees with the treatment plan. - Scribe Statement The provider has reviewed the documentation as recorded by the Scribe <Richmond Good - Last Filed: 04/24/17 15:41> <Blake Mcclain - Last Filed: 04/24/17 16:04> - Scribe Statement Joyce Bazzi Provider Scribe Attestation: All medical record entries made by the Scribe were at my direction and personally dictated by me. I have reviewed the chart and agree that the record accurately reflects my personal performance of the history, physical exam, medical decision making, and the department course for this patient. I have also personally directed, reviewed, and agree with the discharge instructions and disposition. (Richmond Good) Disposition/Present on Arrival <Richmond Good - Last Filed: 04/24/17 15:41> - Present on Arrival Any Indicators Present on Arrival: No History of DVT/PE: No History of Uncontrolled Diabetes: No Urinary Catheter: No History of Decub. Ulcer: No History Surgical Site Infection Following: None - Disposition Have Diagnosis and Disposition been Completed?: Yes Disposition Time: 15:35 Patient Plan: Admission <Blake Mcclain - Last Filed: 04/24/17 16:04> - Disposition Diagnosis: Lower extremity edema, Cellulitis Disposition: Transfer [facility] Patient Problems: Current Active Problems Problem Status Onset Cellulitis Acute Lower extremity edema Chronic Condition: FAIR
[2017-04-24] MEDS ORDERED: Sodium Chloride 0.9% 1,000 ML IV STA (13:55)
[2017-04-24 14:48] LABS: ADD MANUAL DIFF? NO
[2017-04-24 14:53] LABS: BASO # 0.05 K/mm3 (0.0-2.0); BASO % 0.6 % (0.0-3.0); EOS # 0.4 (0.0-0.7); EOS % 4.7 % (1.5-5.0); GRAN # 5.66 (1.4-6.5); GRAN % 66.7 % (50.0-68.0); HEMATOCRIT 34.6 % (42.0-52.0); LYMPH # 1.7 (1.2-3.4); LYMPH % 19.7 % (22.0-35.0); MEAN CELL VOLUME 92.8 fl (80.0-105.0); MEAN CORPUSCULAR HEMOGLOBIN 31.4 pg (25.0-35.0); MEAN CORPUSCULAR HGB CONC 33.8 g/dl (31.0-37.0); MONO # 0.7 (0.1-0.6); MONO % 8.3 % (1.0-6.0); PLATELET COUNT 314 10^3/uL (120.0-450.0); RED CELL DISTRIBUTION WIDTH 16.7 % (11.5-14.5); WHITE BLOOD COUNT 8.5 10^3/ul (4.5-11.0)
[2017-04-24 15:02] LABS: BILIRUBIN,TOTAL 0.7 mg/dL (0.2-1.3); CALCIUM 9.6 mg/dL (8.4-10.5); POTASSIUM 4.8 mmol/L (3.6-5.0); TOTAL PROTEIN 7.6 g/dL (5.8-8.3)
--- NOTE | 2017-04-24 17:13 | RAD ---
HISTORY: COMPARISON: 04/09/2017 TECHNIQUE: Chest PA and lateral FINDINGS: LINES AND TUBES: None. LUNG AND PLEURA: The lungs are are well inflated and clear. HEART AND MEDIASTINUM: The heart is not enlarged. The hilar and mediastinal contours are within normal limits. 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 VISUALIZED UPPER ABDOMEN: Normal. OTHER FINDINGS: None. IMPRESSION: No active pulmonary disease.
--- NOTE | 2017-04-24 17:32 | US ---
PROCEDURE: Right lower extremity venous US HISTORY: Leg pain and swelling. Evaluate for DVT. PHYSICIAN(S): Talha Ramirez M.D. TECHNIQUE: Duplex sonography and color-flow Doppler with graded compression were used to evaluate the deep venous system of the right lower extremity. The exam is limited by edema and bandages. The tibial veins are not evaluated. FINDINGS: The visualized deep venous system of the right lower extremity is sonographically normal and compressible. Normal waveforms and augmentation are seen. There is no sonographic evidence for deep venous thrombosis in the visualized segments of the right lower extremity. Enlarged lymph nodes are noted in the right groin. IMPRESSION: 1. No sonographic evidence for deep venous thrombosis in the visualized segments of the right lower extremity. 2. Minute study
[2017-04-24] MEDS ORDERED: Ampicillin/Sulbactam 3 GM in Sodium Chloride 0.9% 100 ML IVPB SCH (18:00)
[2017-04-24 19:23] LABS: URINE BILIRUBIN NEGATIVE (NEGATIVE); URINE BLOOD MODERATE (NEGATIVE); URINE GLUCOSE (UA) NEGATIVE (NEGATIVE); URINE KETONE NEGATIVE (NEGATIVE); URINE LEUKOCYTE ESTERASE NEGATIVE Leu/uL (NEGATIVE); URINE PROTEIN TRACE mg/dL (<30 mg/dL); URINE UROBILINOGEN 0.2 E.U./dL (<1 E.U./dL)
[2017-04-24 19:33] LABS: URINE COLOR YELLOW (YELLOW)
[2017-04-24 19:34] LABS: URINE APPEARANCE SL CLOUDY (CLEAR)
[2017-04-24 20:01] LABS: URINE WBC 0 - 2 /hpf (0-6)
--- NOTE | 2017-04-24 21:28 | CP.PCM.HP ---
<KELLYKRYSTAL - Last Filed: 04/24/17 21:18> History of Present Illness - History of Present Illness History of Present Illness: CC: RLE Cellulitis HPI: Mr. Nguyen is a 62 year old male with a past medical history significant for HTN and RLE cellulitis who presented to the ED with worsening of his RLE cellulitis. Patient was being seen at Dr. Turner's office today for follow up treatment of his RLE cellulitis and was then sent to the ED because his cellulitis looked more severe than at previous visits. Several weeks ago, patient began "picking at scabs" on his legs and he developed cellulitis shortly there after. He was previously seen at [facility] two weeks ago for his initial episode of cellulitis, where his cultures grew Pseudomonas Aeruginosa, Beta Hemolytic Strep Group B, and Proteus Mirabilis. He was sent home on PO Levaquin and told to follow up with Dr. Turner, which patient has been compliant with. Currently, patient reports that outside of his chief complaint he is asymptomatic. He denies headache, dizziness, fever, chills, weight loss, chest pain, palpitations, shortness of breath, cough, abdominal pain, N/V, diarrhea, constipation or any urinary symptoms. PMH: HTN, and RLE cellulitis PSH: denies Family: denies Social: Denies tobacco, alcohol and illicit drug use; lives with roommate Allergies: NKDA Home Medications: Lisinopril/HCTZ 10/12.5mg daily, Lasix 40mg daily Present on Admission - Present on Admission Any Indicators Present on Admission: No Review of Systems - Review of Systems Review of Systems: Please refer to HPI Past Patient History - Infectious Disease Hx of Infectious Diseases: None - Past Social History Smoking Status: Former Smoker - CARDIAC Hx Hypertension: Yes - PULMONARY Hx Respiratory Disorders: No - NEUROLOGICAL Hx Neurological Disorder: No - HEENT Hx HEENT Problems: No - RENAL Hx Chronic Kidney Disease: No - ENDOCRINE/METABOLIC Hx Endocrine Disorders: No - HEMATOLOGICAL/ONCOLOGICAL Hx Blood Disorders: No - INTEGUMENTARY Hx Cellulitis: Yes (right leg) - MUSCULOSKELETAL/RHEUMATOLOGICAL Hx Falls: No - GASTROINTESTINAL Hx Gastrointestinal Disorders: No - GENITOURINARY/GYNECOLOGICAL Hx Genitourinary Disorders: No - PSYCHIATRIC Hx Psychophysiologic Disorder: No Hx Substance Use: No - SURGICAL HISTORY Hx Surgeries: No - ANESTHESIA Hx Anesthesia: No Meds Allergies/Adverse Reactions: Allergies Allergy/AdvReac Type Severity Reaction Status Date / Time No Known Allergies Allergy Verified 04/09/17 13:10 Physical Exam - Constitutional Appears: Non-toxic, No Acute Distress - Head Exam Head Exam: ATRAUMATIC, NORMOCEPHALIC - Eye Exam Eye Exam: EOMI, Normal appearance, PERRL. absent: Conjunctival injection, Periorbital swelling - ENT Exam ENT Exam: Mucous Membranes Moist, Normal Exam - Neck Exam Neck exam: Positive for: Full Rom. Negative for: Lymphadenopathy - Respiratory Exam Respiratory Exam: Clear to Auscultation Bilateral, NORMAL BREATHING PATTERN. absent: Rales, Rhonchi, Wheezes, Respiratory Distress - Cardiovascular Exam Cardiovascular Exam: REGULAR RHYTHM, RRR, +S1, +S2. absent: Tachycardia, Systolic Murmur - GI/Abdominal Exam GI & Abdominal Exam: Normal Bowel Sounds, Soft. absent: Distended, Firm, Guarding, Tenderness - Exam Exam: absent: Bladder Distension - Extremities Exam Extremities exam: Positive for: calf tenderness, pedal edema, pedal pulses present Additional comments: bilateral lower 3+ pitting leg edema. RLE recently wrapped by Podiatry for ulcers. Dressing clean, dry and intact - Neurological Exam Neurological exam: Alert, Oriented x3 - Psychiatric Exam Psychiatric exam: Normal Affect, Normal Mood - Skin Skin Exam: Dry, Intact, Normal Color, Warm Results - Vital Signs Recent Vital Signs: Last Vital Signs Temp 98.4 F 04/24/17 12:56 Pulse 89 04/24/17 15:31 Resp 18 04/24/17 15:31 BP 113/75 04/24/17 15:31 Pulse Ox 98 04/24/17 15:31 - Labs Result Diagrams: 04/24/17 13:50 04/24/17 13:50 Labs: Laboratory Results - last 24 hr 04/24/17 19:05 Urine Color Yellow Urine Appearance Sl cloudy Urine pH 6.0 Ur Specific [place] 1.025 Urine Protein Trace H Urine Glucose (UA) Negative Urine Ketones Negative Urine Blood Moderate H Urine Nitrate Negative Urine Bilirubin Negative Urine Urobilinogen 0.2 Ur Leukocyte Esterase Negative Urine RBC 2 - 5 Urine WBC 0 - 2 Assessment & Plan - Assessment and Plan (Free Text) Assessment: 62 year old male with a past medical history significant for HTN and RLE cellulitis who presented to the ED with worsening of his RLE cellulitis Plan: 1. RLE Cellulitis Refractory to Outpatient Treatment -wound dressing recently applied in Dr. Turner's office on 04/24 -recently discharged with PO Levaquin for Proteus, Group B Strep and Pseudomonas coverage -given one dose of Unasyn and Vanc in ED -started on Cefepime 1gm IVPB Q12H -blood and wound cultures pending -podiatry and ID consulted, all recommendations appreciated -cont to monitor for leukocytosis with daily CBC 2. CHRIS -BUN/Cr 37/1.6, previously within normal limits last week -IVF: NS at 100mls/hr -discontinue lisinopril -urine creatinine, sodium and culture pending -cont to monitor with daily CMP 3. GI Prophylaxis -Protonix Patient seen and case discussed with attending, Dr. Ron Packer. - Date & Time Date: 04/24/17 Time: 15:00 Decision To Admit - Pt Status Changed To: Hospital Disposition Of: Inpatient Admission - Admit Certification Admit to Inpatient:: After my assessment, the patient will require hospitalization for at least two midnights. This is because of the severity of symptoms shown, intensity of services needed, and/or the medical risk in this patient being treated as an outpatient. - . Bed Request Type: Med/Surg <Ron Packer - Last Filed: 04/26/17 19:54> Results - Vital Signs Recent Vital Signs: Last Vital Signs Temp 98.3 F 04/26/17 17:06 Pulse 80 04/26/17 17:06 Resp 19 04/26/17 17:06 BP 123/69 04/26/17 17:06 Pulse Ox 95 04/26/17 17:06 - Labs Result Diagrams: 04/26/17 06:30 04/26/17 06:30 Labs: Laboratory Results - last 24 hr 04/26/17 04/26/17 06:30 06:30 WBC 5.4 RBC 3.55 Hgb 10.8 L Hct 32.9 L MCV 92.7 MCH 30.4 MCHC 32.8 RDW 16.5 H Plt Count 276 MPV 8.1 Gran % 64.3 Lymph % (Auto) 18.6 L [place] % (Auto) 9.2 H Eos % (Auto) 7.0 H Baso % (Auto) 0.9 Gran # 3.48 Lymph # 1.0 L [place] # 0.5 Eos # 0.4 Baso # 0.05 Sodium 137 Potassium 4.5 Chloride 105 Carbon Dioxide 25 Anion Gap 12 BUN 19 Creatinine 0.9 Est GFR ( Amer) > 60 Est GFR (Non-Af Amer) > 60 Random Glucose 88 Calcium 9.0 Total Bilirubin 0.5 AST 31 ALT 37 Alkaline Phosphatase 62 Total Protein 6.6 Albumin 3.2 Globulin 3.4 Albumin/Globulin Ratio 0.9 L Attending/Attestation - Attestation I have personally seen and examined this patient.: Yes I have fully participated in the care of the patient.: Yes I have reviewed all pertinent clinical information: Yes Notes (Text): I have seen and examined patient at bedside with the resident. Agree with the above note with the following additions/ exceptions: Briefly this is 62 year old male with history of HTN and RLE cellulitis who was recently discharged for the same reason and was sent by nurse advisor for management of worsening of RLE cellulitis. Will start patient on cefepime. He also has CHRIS. Will hold diuretics and will give him IVF. Upon discharge patient will follow up with Dr Marie. Dr Ron Packer
[2017-04-24] MEDS: Cefepime 1gm in NS 100ml 1 GM/100 ML BAG IVPB SCH (21:32)
--- NOTE | 2017-04-24 21:39 | CARD ---
APPROVED REPORT EKG Measurement Heart [id number] CT [id number] <Conclusion> Normal sinus rhythm Q in 3, Very Small Q in AVF-Probably Non Significant.
[2017-04-24] MEDS ORDERED: Vancomycin 500mg in NS 500 MG/100 ML BAG IVPB SCH (22:00)
[2017-04-25] MEDS: Linezolid 600 mg in D5W 300 ml 600 MG/300 ML BAG IVPB SCH ×2 (00:23→21:34)
[2017-04-25] MEDS: Sodium Chloride 0.9% 1,000 ML IV SCH ×2 (03:45→17:49)
[2017-04-25 07:37] LABS: ADD MANUAL DIFF? NO
[2017-04-25 07:40] LABS: BASO # 0.06 K/mm3 (0.0-2.0); EOS # 0.5 (0.0-0.7); EOS % 8.2 % (1.5-5.0); GRAN % 61.6 % (50.0-68.0); HEMATOCRIT 33.7 % (42.0-52.0); LYMPH # 1.2 (1.2-3.4); LYMPH % 20.7 % (22.0-35.0); MEAN CELL VOLUME 93.1 fl (80.0-105.0); MEAN CORPUSCULAR HEMOGLOBIN 30.4 pg (25.0-35.0); MEAN CORPUSCULAR HGB CONC 32.6 g/dl (31.0-37.0); MEAN PLATELET VOLUME 7.9 fl (7.0-11.0); MONO # 0.5 (0.1-0.6); MONO % 8.5 % (1.0-6.0); PLATELET COUNT 274 10^3/uL (120.0-450.0); RED CELL DISTRIBUTION WIDTH 16.5 % (11.5-14.5); WHITE BLOOD COUNT 5.9 10^3/ul (4.5-11.0)
[2017-04-25 07:57] LABS: ALKALINE PHOSPHATASE 73 U/L (38-133); ALT/SGPT 38 U/L (7-56); AST/SGOT 37 U/L (15-59); BILIRUBIN,TOTAL 0.6 mg/dL (0.2-1.3); BLOOD UREA NITROGEN 26 mg/dL (7-21); CALCIUM 9.2 mg/dL (8.4-10.5); CARBON DIOXIDE 26 mmol/L (21-33); CHLORIDE 102 mmol/L (95-110); GFR AFRICAN-AMERICAN > 60; GLUCOSE,RANDOM 92 mg/dL (70-110); POTASSIUM 4.8 mmol/L (3.6-5.0); SODIUM 137 mmol/L (132-148)
[2017-04-25] MEDS: Cefepime 1gm in NS 100ml 1 GM/100 ML BAG IVPB SCH (09:46)
--- NOTE | 2017-04-25 10:18 | CP.PCM.PN ---
<AlphonseMarie wilsonrj - Last Filed: 04/25/17 14:01> Subjective - Date & Time of Evaluation Date of Evaluation: 04/25/17 Time of Evaluation: 11:00 - Subjective Subjective: 62 year old male seen at bedside concerning right lower leg ulcerations, w/ attending Dr. Tobar for the above stated issue on oral Levaquin. However on followup in [place] [facility] [place] continued purulent discharge in office shows continue clinical evidence of deep space abscess not drained. Pt reports no acute overnight events and has no pedal complaints. Pt denies pain to the right lower leg. Pt denies recent f/c/cp/sob/n/v/d. Objective - Vital Signs/Intake and Output Vital Signs (last 24 hours): Temp Pulse Resp BP Pulse Ox 98.0 F 94 H 18 118/75 99 04/25/17 06:00 04/25/17 06:00 04/25/17 06:00 04/25/17 06:00 04/25/17 06:00 Intake and Output: 04/25/17 04/25/17 06:59 18:59 Intake Total 1860 Output Total 200 Balance 1660 - Medications Medications: Current Medications Sodium Chloride (Sodium Chloride 0.9%) 1,000 mls @ 100 mls/hr IV .Q10H [facility] Last Admin: 04/25/17 03:45 Dose: 100 mls/hr Cefepime HCl (Maxipime 1gm) 1 gm in 100 mls @ 100 mls/hr IVPB Q12 [facility] PRN Reason: Protocol Last Admin: 04/25/17 09:46 Dose: 100 mls/hr Linezolid (Zyvox 600mg/300ml D5w) 600 mg in 300 mls @ 200 mls/hr IVPB Q12 [facility] PRN Reason: Protocol Stop: 05/01/17 23:46 Last Admin: 04/25/17 00:23 Dose: 200 mls/hr Pantoprazole Sodium (Protonix Inj) 40 mg IVP DAILY [facility] Last Admin: 04/25/17 09:46 Dose: 40 mg - Labs Labs: 04/25/17 07:00 04/25/17 07:00 - Constitutional Appears: Well, Non-toxic, No Acute Distress - Extremities Exam Additional comments: Right lower extremity focused. Dressing intact with mild drainage noted extending outer dressing. Neuro-vascular status intact to the right lower extremity. CRF<4 seconds. DERM: Severe lymphedema noted to distal 1/2 of lower legs bilaterally with noted at widest circumference of edema. Right lower leg shows 7 distinct ulceration sites (3 anterior, 1 medial, 3 posterior) all with 30% fibrotic to 70 % granular bases, with quadrant dependent ulcers showing connecting sinus tract. Purulent drainage expunged from posterior 2 most superior ulcers. Anterior lateral skin is under great tension surrounding ulceration sites. Macerated wound margins. Minor naldo-wound erythema. - Neurological Exam Neurological Exam: Alert, Awake, Oriented x3 - Psychiatric Exam Psychiatric exam: Normal Affect, Normal Mood Assessment and Plan - Assessment and Plan (Free Text) Assessment: 62 year old male with 1) Right leg deep space abscess 2) Right leg Bruner Grade 2 ulcerations (total 7); secondary to lymphedema Plan: Pt evaluated and treated with attending Dr. Tobar present. Chart, labs, and vitals reviewed. Afebrile, absent leukocytosis. DSD and tubigrip stocking applied to right lower extremity. Pt to go to OR tomorrow morning for right leg debridement of deep abscess. - Requesting medical clearance Continue IV abx per ID. Podiatry will continue to follow while inhouse. <Jocelyne Tobar - Last Filed: 05/13/17 16:28> Objective - Vital Signs/Intake and Output Vital Signs (last 24 hours): Temp Pulse Resp BP Pulse Ox 98.8 F 72 20 131/87 96 05/08/17 08:11 05/08/17 08:11 05/08/17 08:11 05/08/17 10:11 05/08/17 08:11 - Labs Labs: 05/07/17 05:20 05/07/17 05:20 Attending/Attestation - Attestation I have personally seen and examined this patient.: Yes I have fully participated in the care of the patient.: Yes I have reviewed all pertinent clinical information, including history, physical exam and plan: Yes
--- NOTE | 2017-04-25 13:09 | CP.PCM.PN ---
<KRYSTAL MENDOZA - Last Filed: 04/25/17 13:05> Subjective - Date & Time of Evaluation Date of Evaluation: 04/25/17 Time of Evaluation: 07:00 - Subjective Subjective: MEDICINE PROGRESS NOTE: Pt seen and assessed at bedside. Pt had no new complaints at this time. Pt denies any headache, dizziness, fever, chills, abdominal pain, N/V, diarrhea or any urinary symptoms. Objective - Vital Signs/Intake and Output Vital Signs (last 24 hours): Temp Pulse Resp BP Pulse Ox 98.0 F 94 H 18 118/75 99 04/25/17 06:00 04/25/17 06:00 04/25/17 06:00 04/25/17 06:00 04/25/17 06:00 Intake and Output: 04/25/17 04/25/17 06:59 18:59 Intake Total 1860 Output Total 200 Balance 1660 - Medications Medications: Current Medications Sodium Chloride (Sodium Chloride 0.9%) 1,000 mls @ 100 mls/hr IV .Q10H [facility] Last Admin: 04/25/17 03:45 Dose: 100 mls/hr Cefepime HCl (Maxipime 1gm) 1 gm in 100 mls @ 100 mls/hr IVPB Q12 [facility] PRN Reason: Protocol Last Admin: 04/25/17 09:46 Dose: 100 mls/hr Linezolid (Zyvox 600mg/300ml D5w) 600 mg in 300 mls @ 200 mls/hr IVPB Q12 [facility] PRN Reason: Protocol Stop: 05/01/17 23:46 Last Admin: 04/25/17 00:23 Dose: 200 mls/hr Pantoprazole Sodium (Protonix Inj) 40 mg IVP DAILY [facility] Last Admin: 04/25/17 09:46 Dose: 40 mg - Labs Labs: 04/25/17 07:00 04/25/17 07:00 - Constitutional Appears: Non-toxic, No Acute Distress - Head Exam Head Exam: ATRAUMATIC, NORMOCEPHALIC - Eye Exam Eye Exam: EOMI, Normal appearance, PERRL - ENT Exam ENT Exam: Mucous Membranes Moist, Normal Exam - Neck Exam Neck Exam: Full ROM. absent: Lymphadenopathy - Respiratory Exam Respiratory Exam: Clear to Ausculation Bilateral, NORMAL BREATHING PATTERN. absent: Rales, Rhonchi, Wheezes, Respiratory Distress, Stridor - Cardiovascular Exam Cardiovascular Exam: REGULAR RHYTHM, RRR, +S1, +S2. absent: Tachycardia, Murmur - GI/Abdominal Exam GI & Abdominal Exam: Soft, Normal Bowel Sounds. absent: Distended, Firm, Guarding, Tenderness - Exam Exam: absent: Bladder Distension - Extremities Exam Extremities Exam: Pedal Edema Additional comments: 3+ pitting edema to bilateral lower extremities extending to knee; RLE wound dressing clean, dry and intact - Neurological Exam Neurological Exam: Alert, Awake, Oriented x3 - Psychiatric Exam Psychiatric exam: Normal Affect, Normal Mood - Skin Skin Exam: Dry, Intact, Normal Color, Warm Assessment and Plan - Assessment and Plan (Free Text) Assessment: 62 year old male with a past medical history significant for HTN and RLE cellulitis who presented to the ED with worsening of his RLE cellulitis Plan: 1. RLE Cellulitis Refractory to Outpatient Treatment -recently discharged with PO Levaquin for Proteus, Group B Strep and Pseudomonas coverage -continue Zyvox and Cefepime -blood and wound cultures pending -podiatry and ID consulted, all recommendations appreciated -cont to monitor for leukocytosis with daily CBC 2. CHRIS -BUN/Cr: 26/1.1, downtrending -IVF: NS at 100mls/hr -discontinue lisinopril -urine creatinine, sodium and culture pending -cont to monitor with daily CMP 3. Lower Extremity Edema -holding lisinopril for CHRIS -ECHO pending to rule out CHF 4. GI Prophylaxis -Protonix Patient seen and case discussed with attending, Dr. Ron Packer. <Ron Packer - Last Filed: 04/26/17 19:59> Objective - Vital Signs/Intake and Output Vital Signs (last 24 hours): Temp Pulse Resp BP Pulse Ox 98.3 F 80 19 123/69 95 04/26/17 17:06 04/26/17 17:06 04/26/17 17:06 04/26/17 17:06 04/26/17 17:06 Intake and Output: 04/26/17 04/27/17 18:59 06:59 Intake Total 75 Balance 75 - Medications Medications: Current Medications Acetaminophen (Tylenol 325mg Tab) 650 mg PO Q4H PRN PRN Reason: Pain, Mild (1-3) Linezolid (Zyvox 600mg/300ml D5w) 600 mg in 300 mls @ 200 mls/hr IVPB Q12 [facility] PRN Reason: Protocol Stop: 05/01/17 23:46 Last Admin: 04/25/17 21:34 Dose: 200 mls/hr Cefepime HCl (Maxipime 2gm) 2 gm in 100 mls @ 100 mls/hr IVPB Q8 [facility] PRN Reason: Protocol Stop: 04/30/17 22:01 Last Admin: 04/26/17 05:37 Dose: 100 mls/hr Morphine Sulfate (Morphine) 2 mg IVP Q15M PRN PRN Reason: Pain, moderate (4-7) Oxycodone/Acetaminophen (Percocet 5/325 Mg Tab) 1 tab PO Q4H PRN PRN Reason: Pain, moderate (4-7) Stop: 04/29/17 08:59 Oxycodone/Acetaminophen (Percocet 5/325 Mg Tab) 2 tab PO Q6H PRN PRN Reason: Pain, severe (8-10) Stop: 04/29/17 08:59 Pantoprazole Sodium (Protonix Inj) 40 mg IVP DAILY [facility] Last Admin: 04/25/17 09:46 Dose: 40 mg - Labs Labs: 04/26/17 06:30 04/26/17 06:30 Attending/Attestation - Attestation I have personally seen and examined this patient.: Yes I have fully participated in the care of the patient.: Yes I have reviewed all pertinent clinical information, including history, physical exam and plan: Yes Notes (Text): I have seen and examined patient at bedside with the resident. Agree with the above note with the following additions/ exceptions: Briefly this is 62 year old male with history of HTN and RLE cellulitis who was sent by board certified arts therapist for management of worsening of RLE cellulitis. Continue cefepime and zyvox. CHRIS has resolved. Will stop IVF. Will check echo to evaluate LVEF. Upon discharge patient will follow up with Dr Marie. Dr Ron Packer
--- NOTE | 2017-04-25 15:57 | CP.PCM.CON ---
History of Present Illness - History of Present Illness History of Present Illness: 62 year old male with PMH of HTN, obesity was recently admitted in [facility] for right lower extremity stasis dermatitis and infection of the right leg. He grew Pseudomonas, Proteus and Group B Strep. Sharp excisional debridement was done on that admission about 2 weeks ago. He comes back after following up with Podiatry because of continued swelling and pain on his right leg. He denies soaking his feet and legs in water, has pet cats at home, has not walked barefoot on soil. He also denies fever or chills, no nausea or vomiting, no chest pain, no headache or dizziness, no nausea or vomiting, no abdominal pain, no diarrhea, no dysuria. Infectious Diseases consult is requested to further evaluate and manage. Review of Systems - Review of Systems All systems: reviewed and no additional remarkable complaints except (as per HPI ) Past Patient History - Infectious Disease Hx of Infectious Diseases: None - Past Social History Smoking Status: Never Smoked - CARDIAC Hx Cardiac Disorders: Yes Hx Hypertension: Yes Hx Peripheral Edema: Yes Hx Peripheral Vascular Disease: Yes - PULMONARY Hx Respiratory Disorders: No - NEUROLOGICAL Hx Neurological Disorder: No - HEENT Hx HEENT Problems: No - RENAL Hx Chronic Kidney Disease: No - ENDOCRINE/METABOLIC Hx Endocrine Disorders: No - HEMATOLOGICAL/ONCOLOGICAL Hx Blood Disorders: No - INTEGUMENTARY Hx Dermatological Problems: No - MUSCULOSKELETAL/RHEUMATOLOGICAL Hx Falls: No - GASTROINTESTINAL Hx Gastrointestinal Disorders: No - GENITOURINARY/GYNECOLOGICAL Hx Genitourinary Disorders: No - PSYCHIATRIC Hx Psychophysiologic Disorder: No - SURGICAL HISTORY Hx Surgeries: No - ANESTHESIA Hx Anesthesia: No Meds Allergies/Adverse Reactions: Allergies Allergy/AdvReac Type Severity Reaction Status Date / Time No Known Allergies Allergy Verified 04/09/17 13:10 - Medications Medications: Current Medications Sodium Chloride (Sodium Chloride 0.9%) 1,000 mls @ 100 mls/hr IV .Q10H [facility] Stop: 04/24/17 23:54 Last Admin: 04/24/17 14:33 Dose: 100 mls/hr Sodium Chloride (Sodium Chloride 0.9%) 1,000 mls @ 100 mls/hr IV .Q10H [facility] Cefepime HCl (Maxipime 1gm) 1 gm in 100 mls @ 100 mls/hr IVPB Q12 [facility] PRN Reason: Protocol Last Admin: 04/24/17 21:32 Dose: 100 mls/hr Pantoprazole Sodium (Protonix Inj) 40 mg IVP DAILY [facility] Physical Exam - Constitutional Appears: Non-toxic, No Acute Distress - Head Exam Head Exam: NORMAL INSPECTION - ENT Exam ENT Exam: Mucous Membranes Moist - Neck Exam Neck exam: Negative for: Meningismus - Respiratory Exam Respiratory Exam: Decreased Breath Sounds - Cardiovascular Exam Cardiovascular Exam: +S1, +S2 - GI/Abdominal Exam GI & Abdominal Exam: Soft. absent: Tenderness - Extremities Exam Additional comments: right leg with dry dressings in place Results - Vital Signs Recent Vital Signs: Last Vital Signs Temp 98.4 F 04/24/17 12:56 Pulse 89 04/24/17 15:31 Resp 18 04/24/17 23:02 BP 113/75 04/24/17 15:31 Pulse Ox 98 04/24/17 15:31 - Labs Result Diagrams: 04/25/17 07:00 04/25/17 07:00 Labs: Laboratory Results - last 24 hr 04/24/17 19:05 Urine Color Yellow Urine Appearance Sl cloudy Urine pH 6.0 Ur Specific [place] 1.025 Urine Protein Trace H Urine Glucose (UA) Negative Urine Ketones Negative Urine Blood Moderate H Urine Nitrate Negative Urine Bilirubin Negative Urine Urobilinogen 0.2 Ur Leukocyte Esterase Negative Urine RBC 2 - 5 Urine WBC 0 - 2 Assessment & Plan - Assessment and Plan (Free Text) Plan: Assessment right leg skin and skin structure infection, previously growing Pseudomonas, Proteus and Group B Strep, S/P excisional debridement 2 weeks ago HTN chronic lower extremity edema obesity with BMI 35 Plan started patient on Vancomycin and Cefepime pending blood and wound cx; follow up Podiatry evaluation will monitor clinically
--- NOTE | 2017-04-25 18:16 | CARD ---
APPROVED REPORT EXAM: Two-dimensional and M-mode echocardiogram with Doppler and color Doppler. INDICATION SEVERE LEG EDEMA 2D DIMENSIONS Left Atrium (2D)4.7 (1.6-4.0cm)IVSd0.8 (0.7-1.1cm) LVDd5.4 (3.9-5.9cm)PWd1.0 (0.7-1.1cm) LVDs3.7 (2.5-4.0cm)FS (%) 32.0 % LVEF (%)59.8 (>50%) M-Mode DIMENSIONS Aortic Root3.50 (2.2-3.7cm)Aortic Cusp Exc.2.20 (1.5-2.0cm) Aortic Valve AoV Peak Ynseuhqd400.0cm/Josiane Peak GR.9mmHg Mitral Valve MV E Buepycld57.9cm/sMV A Vzlulshn009.0cm/sE/A ratio0.7 TDI Lateral E' Peak V12.10cm/sMedial E' Peak V9.16cm/sE/Lateral E'6.9 E/Medial E'9.2 Pulmonary Valve PV Peak Fcfpnwjr07.1cm/sPV Peak Grad.2mmHg Tricuspid Valve TR Peak Fpkfqyda029nx/sRAP [id number] Peak Gr.15mmHg [id number] LEFT VENTRICLE The left ventricle is normal size. There is normal left ventricular wall thickness. The left ventricular function is normal.EF-55-60% There is normal LV segmental wall motion. Transmitral Doppler flow pattern is Grade III-reversible restrictive diastolic dysfunction. No left ventricle thrombus noted on this study. There is no ventricular septal defect visualized. There is no left ventricular aneurysm. There is no mass noted in the left ventricle. RIGHT VENTRICLE The right ventricle is normal size. There is normal right ventricular wall thickness. The right ventricular systolic function is normal. ATRIA The left atrium is mildly dilated. The right atrium is mildly dilated. The interatrial septum is intact with no evidence for an atrial septal defect. AORTIC VALVE The aortic valve is thickened but opens well. The aortic valve is mildly sclerotic. There is trace aortic regurgitation. There is no aortic valvular stenosis. There is no aortic valvular vegetation. MITRAL VALVE The mitral valve is thickened but opens well. Mitral regurgitation is mild. There is no mitral valve stenosis. There is no evidence of mitral valve prolapse. TRICUSPID VALVE The tricuspid valve leaflets are thickened , but open well. There is trace tricuspid regurgitation.RVSP-25 mmof hg. There is no tricuspid valve stenosis. There is no tricuspid valve prolapse or vegetation. PULMONIC VALVE The pulmonary valve is normal in structure. There is trace pulmonic valvular regurgitation. There is no pulmonic valvular stenosis. GREAT VESSELS The aortic root is normal in size. The ascending aorta is normal in size. The pulmonary artery is normal. The IVC is normal in size and collapses >50% with inspiration. PERICARDIAL EFFUSION There is no pleural effusion. There is no pericardial effusion. <Conclusion> The left ventricle is normal size. There is normal left ventricular wall thickness. The left ventricular function is normal.EF-55-60% Mitral regurgitation is mild. There is trace tricuspid regurgitation.RVSP-25 mmof hg. The IVC is normal in size and collapses >50% with inspiration. There is no pericardial effusion. No Vegetation or thrombus noted.
[2017-04-25] MEDS: Cefepime IV 2 gm in NS 2 GM/100 ML BAG IVPB SCH (21:34)
[2017-04-26] MEDS: Sodium Chloride 0.9% 1,000 ML IV SCH (05:36)
[2017-04-26] MEDS: Cefepime IV 2 gm in NS 2 GM/100 ML BAG IVPB SCH (05:37)
[2017-04-26 06:51] LABS: ADD MANUAL DIFF? NO
[2017-04-26 07:08] LABS: ALB/GLOB RATIO 0.9 (1.1-1.8); ALKALINE PHOSPHATASE 62 U/L (38-133); ALT/SGPT 37 U/L (7-56); AST/SGOT 31 U/L (15-59); BILIRUBIN,TOTAL 0.5 mg/dL (0.2-1.3); BLOOD UREA NITROGEN 19 mg/dL (7-21); CARBON DIOXIDE 25 mmol/L (21-33); CHLORIDE 105 mmol/L (98-107); GFR AFRICAN-AMERICAN > 60; GLUCOSE,RANDOM 88 mg/dL (70-110); POTASSIUM 4.5 mmol/L (3.6-5.0); SODIUM 137 mmol/L (132-148); TOTAL PROTEIN 6.6 g/dL (5.8-8.3)
[2017-04-26 07:10] LABS: BASO # 0.05 K/mm3 (0.0-2.0); BASO % 0.9 % (0.0-3.0); EOS # 0.4 (0.0-0.7); GRAN # 3.48 (1.4-6.5); GRAN % 64.3 % (50.0-68.0); HEMATOCRIT 32.9 % (42.0-52.0); LYMPH % 18.6 % (22.0-35.0); MEAN CELL VOLUME 92.7 fl (80.0-105.0); MEAN CORPUSCULAR HEMOGLOBIN 30.4 pg (25.0-35.0); MEAN CORPUSCULAR HGB CONC 32.8 g/dl (31.0-37.0); MEAN PLATELET VOLUME 8.1 fl (7.0-11.0); MONO # 0.5 (0.1-0.6); MONO % 9.2 % (1.0-6.0); PLATELET COUNT 276 10^3/uL (120.0-450.0); RED CELL DISTRIBUTION WIDTH 16.5 % (11.5-14.5); WHITE BLOOD COUNT 5.4 10^3/ul (4.5-11.0)
--- NOTE | 2017-04-26 07:12 | CP.PCM.PN ---
<BernardJean Pierrerafaelaedward - Last Filed: 04/26/17 07:18> Subjective - Date & Time of Evaluation Date of Evaluation: 04/26/17 Time of Evaluation: 07:09 - Subjective Subjective: 62 y/o male seen at bedside this morning for scheduled surgery of right leg incision and drainage. Patient is resting comfortably without any acute distress. Patient was explained of surgical plan and is consented. Patient chose understanding of the surgical plan and agrees to it. NPO status is confirmed. Patient denies of any F/N/V/C/SOB/CP today. Objective - Vital Signs/Intake and Output Vital Signs (last 24 hours): Temp Pulse Resp BP Pulse Ox 98.5 F 82 20 111/69 99 04/25/17 16:18 04/25/17 16:18 04/25/17 16:18 04/25/17 16:18 04/25/17 16:18 Intake and Output: 04/26/17 04/26/17 06:59 18:59 Intake Total 3180 Balance 3180 - Medications Medications: Current Medications Sodium Chloride (Sodium Chloride 0.9%) 1,000 mls @ 100 mls/hr IV .Q10H [facility] Last Admin: 04/26/17 05:36 Dose: 100 mls/hr Linezolid (Zyvox 600mg/300ml D5w) 600 mg in 300 mls @ 200 mls/hr IVPB Q12 [facility] PRN Reason: Protocol Stop: 05/01/17 23:46 Last Admin: 04/25/17 21:34 Dose: 200 mls/hr Cefepime HCl (Maxipime 2gm) 2 gm in 100 mls @ 100 mls/hr IVPB Q8 [facility] PRN Reason: Protocol Stop: 04/30/17 22:01 Last Admin: 04/26/17 05:37 Dose: 100 mls/hr Pantoprazole Sodium (Protonix Inj) 40 mg IVP DAILY [facility] Last Admin: 04/25/17 09:46 Dose: 40 mg - Labs Labs: 04/25/17 07:00 04/25/17 07:00 - Constitutional Appears: Well, Toxic - Extremities Exam Additional comments: Patient's dressing is clean, dry and intact. no strike through noted. - Neurological Exam Neurological Exam: Alert, Awake, Oriented x3 - Psychiatric Exam Psychiatric exam: Normal Affect, Normal Mood Assessment and Plan - Assessment and Plan (Free Text) Assessment: 62 year old male with 1) Right leg deep space abscess 2) Right leg Bruner Grade 2 ulcerations (total 7); secondary to lymphedema Plan: Patient seen and evaluated at bedside Patient discussed in details with attending Dr. Tobar Labs, vitals and charts reviewed (patient is afebrile, and WBC @ 5.9 as of 04/25 ) Patient to go to the OR today for incision and drainage of the right leg abscess NPO status confirmed with the patient Written consent obtained from the patient - patient made aware of the risks and benefits of the procedure and no guarantee was given Patient agrees for the procedure Patient to go to the OR today at 7:30 am Patient to continue IV abx as per ID Podiatry to follow patient after the procedure while patient is in house <Jocelyne Tobar - Last Filed: 05/13/17 16:30> Objective - Vital Signs/Intake and Output Vital Signs (last 24 hours): Temp Pulse Resp BP Pulse Ox 98.8 F 72 20 131/87 96 05/08/17 08:11 05/08/17 08:11 05/08/17 08:11 05/08/17 10:11 05/08/17 08:11 - Labs Labs: 05/07/17 05:20 05/07/17 05:20 Attending/Attestation - Attestation I have personally seen and examined this patient.: Yes I have fully participated in the care of the patient.: Yes I have reviewed all pertinent clinical information, including history, physical exam and plan: Yes
[2017-04-26] MEDS ORDERED: Lidocaine 2% Inj (20ml) ONE (07:13)
[2017-04-26] MEDS ORDERED: Bupivacaine 0.5% Inj(30mL) ONE (07:13)
[2017-04-26] MEDS ORDERED: Propofol 10 mg/ml Inj (20 ML) ONE ×2 (07:43→07:53)
[2017-04-26] MEDS ORDERED: Midazolam 2 MG/2 ML VIAL ONE (07:44)
[2017-04-26] MEDS ORDERED: Gentamicin 80 mg/2mL Inj. ONE (07:51)
[2017-04-26] MEDS ORDERED: Lidocaine 1% Inj (20ml) ONE (07:57)
[2017-04-26] MEDS ORDERED: Morphine 2 mg/ml ISec IVP PRN (08:29)
[2017-04-26] MEDS ORDERED: Sodium Chloride 0.9% 1,000 ML IV SCH (08:30)
[2017-04-26] MEDS ORDERED: Oxycodone/Acetaminophen 5/325 mg Tab PO PRN ×2 (08:58)
--- NOTE | 2017-04-26 09:05 | PCM.SURG1 ---
Surgeon's Initial Post Op Note - Surgeon's Notes Surgeon: Dr. Jocelyne Tobar DPM Electrocardiograph Repairer: Dr. Jordan Omalley PGY-2, Dr. Robyn Bernard PGY-1 Type of Anesthesia: IV Sedation, Local Anesthesia Administered By: Dr. Birdie TALAVERA Pre-Operative Diagnosis: Right leg deep space abscess and diffuse ulcerations Operative Findings: See dictation. M: 1 inch and 1/4 inch iodoform packing. I : 20 cc of 1:1 mixture of 2% lidocaine plain and 0.5% marcaine plain Post-Operative Diagnosis: Right leg deep space abscess and diffuse ulcerations Operation Performed: Incision and drainage with removal of all non-viable tissue Specimen/Specimens Removed: Deep wound cultures and non-viable soft tissue Estimated Blood Loss: EBL {In ML}: 50 Blood Products Given: N/A Drains Used: No Drains Post-Op Condition: Good Date of Surgery/Procedure: 04/26/17 Time of Surgery/Procedure: 08:55
--- NOTE | 2017-04-26 14:57 | CP.PCM.PN ---
<KRYSTAL MENDOZA - Last Filed: 04/26/17 14:40> Subjective - Date & Time of Evaluation Date of Evaluation: 04/26/17 Time of Evaluation: 10:00 - Subjective Subjective: MEDICINE PROGRESS NOTE: Pt seen and assessed at bedside. Pt had no new complaints at this time and states that he tolerated his procedure well. Currently denies pain in RLE. Pt denies any headache, dizziness, fever, chills, abdominal pain, N/V, diarrhea or any urinary symptoms. Objective - Vital Signs/Intake and Output Vital Signs (last 24 hours): Temp Pulse Resp BP Pulse Ox 97.9 F 91 H 16 122/70 100 04/26/17 09:27 04/26/17 09:27 04/26/17 09:27 04/26/17 09:27 04/26/17 09:27 Intake and Output: 04/26/17 04/26/17 06:59 18:59 Intake Total 3180 75 Balance 3180 75 - Medications Medications: Current Medications Acetaminophen (Tylenol 325mg Tab) 650 mg PO Q4H PRN PRN Reason: Pain, Mild (1-3) Linezolid (Zyvox 600mg/300ml D5w) 600 mg in 300 mls @ 200 mls/hr IVPB Q12 [facility] PRN Reason: Protocol Stop: 05/01/17 23:46 Last Admin: 04/25/17 21:34 Dose: 200 mls/hr Cefepime HCl (Maxipime 2gm) 2 gm in 100 mls @ 100 mls/hr IVPB Q8 [facility] PRN Reason: Protocol Stop: 04/30/17 22:01 Last Admin: 04/26/17 05:37 Dose: 100 mls/hr Morphine Sulfate (Morphine) 2 mg IVP Q15M PRN PRN Reason: Pain, moderate (4-7) Oxycodone/Acetaminophen (Percocet 5/325 Mg Tab) 1 tab PO Q4H PRN PRN Reason: Pain, moderate (4-7) Stop: 04/29/17 08:59 Oxycodone/Acetaminophen (Percocet 5/325 Mg Tab) 2 tab PO Q6H PRN PRN Reason: Pain, severe (8-10) Stop: 04/29/17 08:59 Pantoprazole Sodium (Protonix Inj) 40 mg IVP DAILY [facility] Last Admin: 04/25/17 09:46 Dose: 40 mg - Labs Labs: 04/26/17 06:30 04/26/17 06:30 - Constitutional Appears: Non-toxic, No Acute Distress - Head Exam Head Exam: ATRAUMATIC, NORMOCEPHALIC - Eye Exam Eye Exam: EOMI, Normal appearance, PERRL Pupil Exam: NORMAL ACCOMODATION - ENT Exam ENT Exam: Mucous Membranes Moist, Normal Exam - Neck Exam Neck Exam: Full ROM, Normal Inspection. absent: Lymphadenopathy - Respiratory Exam Respiratory Exam: Clear to Ausculation Bilateral, NORMAL BREATHING PATTERN. absent: Rales, Rhonchi, Wheezes, Respiratory Distress - Cardiovascular Exam Cardiovascular Exam: REGULAR RHYTHM, RRR, +S1, +S2. absent: Tachycardia, Murmur - GI/Abdominal Exam GI & Abdominal Exam: Soft, Normal Bowel Sounds. absent: Distended, Firm, Guarding, Tenderness - Exam Exam: absent: Bladder Distension - Extremities Exam Extremities Exam: Calf Tenderness, Normal Capillary Refill, Pedal Edema Additional comments: RLE wound dressing clean, dry and intact; 3+ pitting edema extending to knees bilaterally - Back Exam Back Exam: absent: CVA tenderness (L), CVA tenderness (R) - Neurological Exam Neurological Exam: Alert, Awake, Oriented x3 - Psychiatric Exam Psychiatric exam: Normal Affect, Normal Mood - Skin Skin Exam: Dry, Intact, Normal Color, Warm Assessment and Plan - Assessment and Plan (Free Text) Assessment: 62 year old male with a past medical history significant for HTN and RLE cellulitis who presented to the ED with worsening of his RLE cellulitis Plan: 1. RLE Cellulitis Refractory to Outpatient Treatment -recently discharged with PO Levaquin for Proteus, Group B Strep and Pseudomonas coverage -patient taken to OR for I&D of RLE today and stable in initial post-op podiatry evaluation -continue IV Zyvox and Cefepime, per ID -blood cultures negative for 24 hours -wound cultures pending -podiatry and ID consulted, all recommendations appreciated -cont to monitor for leukocytosis with daily CBC 2. CHRIS-resolved -BUN/Cr: 19/0.9 -urine cultures negative -urine creatinine, sodium and culture pending -cont to monitor with daily CMP 3. Lower Extremity Edema -patient reports this as a chronic condition -ECHO showed no signs of CHF, normal EF of 55-60% -holding lasix in setting of CHRIS 4. GI Prophylaxis -Protonix Patient seen and case discussed with attending, Dr. Ron Packer. <Ron Packer - Last Filed: 04/28/17 16:26> Objective - Vital Signs/Intake and Output Vital Signs (last 24 hours): Temp Pulse Resp BP Pulse Ox 98.2 F 79 18 114/63 94 L 04/28/17 06:00 04/28/17 06:00 04/28/17 06:00 04/28/17 09:51 04/28/17 06:00 Intake and Output: 04/28/17 04/28/17 06:59 18:59 Intake Total 920 Balance 920 - Medications Medications: Current Medications Acetaminophen (Tylenol 325mg Tab) 650 mg PO Q4H PRN PRN Reason: Pain, Mild (1-3) Furosemide (Lasix) 20 mg PO DAILY [facility] Last Admin: 04/28/17 09:51 Dose: 20 mg Linezolid (Zyvox 600mg/300ml D5w) 600 mg in 300 mls @ 200 mls/hr IVPB Q12 [facility] PRN Reason: Protocol Stop: 05/01/17 23:46 Last Admin: 04/28/17 09:51 Dose: 200 mls/hr Cefepime HCl (Maxipime 2gm) 2 gm in 100 mls @ 100 mls/hr IVPB Q8 [facility] PRN Reason: Protocol Stop: 04/30/17 22:01 Last Admin: 04/28/17 14:18 Dose: 100 mls/hr Morphine Sulfate (Morphine) 2 mg IVP Q15M PRN PRN Reason: Pain, moderate (4-7) Oxycodone/Acetaminophen (Percocet 5/325 Mg Tab) 1 tab PO Q4H PRN PRN Reason: Pain, moderate (4-7) Stop: 04/29/17 08:59 Oxycodone/Acetaminophen (Percocet 5/325 Mg Tab) 2 tab PO Q6H PRN PRN Reason: Pain, severe (8-10) Stop: 04/29/17 08:59 Pantoprazole Sodium (Protonix Ec Tab) 40 mg PO 0600 [facility] - Labs Labs: 04/28/17 06:30 04/28/17 06:30 Attending/Attestation - Attestation I have personally seen and examined this patient.: Yes I have fully participated in the care of the patient.: Yes I have reviewed all pertinent clinical information, including history, physical exam and plan: Yes Notes (Text): I have seen and examined patient at bedside with the resident. Agree with the above note with the following additions/ exceptions: Briefly this is 62 year old male with history of HTN and RLE cellulitis who was sent by green hide inspector for management of worsening of RLE cellulitis. Continue cefepime and zyvox. Patient went to OR today for I&D. He had slight bleeding post op. Cultures sent from OR. Will follow up. CHRIS has resolved. Echo is normal. Upon discharge patient will follow up with Dr Marie. Dr Ron Packer
[2017-04-27 05:33] LABS: ADD MANUAL DIFF? NO
[2017-04-27 05:45] LABS: BASO # 0.04 K/mm3 (0.0-2.0); BASO % 0.6 % (0.0-3.0); EOS # 0.3 (0.0-0.7); EOS % 4.3 % (1.5-5.0); GRAN # 4.93 (1.4-6.5); GRAN % 71.3 % (50.0-68.0); HEMATOCRIT 32.1 % (42.0-52.0); LYMPH % 14.5 % (22.0-35.0); MEAN CELL VOLUME 92.5 fl (80.0-105.0); MEAN CORPUSCULAR HEMOGLOBIN 30.8 pg (25.0-35.0); MEAN CORPUSCULAR HGB CONC 33.3 g/dl (31.0-37.0); MEAN PLATELET VOLUME 8.1 fl (7.0-11.0); MONO # 0.6 (0.1-0.6); MONO % 9.3 % (1.0-6.0); PLATELET COUNT 276 10^3/uL (120.0-450.0); RED CELL DISTRIBUTION WIDTH 16.4 % (11.5-14.5); WHITE BLOOD COUNT 6.9 10^3/ul (4.5-11.0)
[2017-04-27 06:23] LABS: ALKALINE PHOSPHATASE 67 U/L (38-133); ALT/SGPT 34 U/L (7-56); AST/SGOT 31 U/L (15-59); BILIRUBIN,TOTAL 0.5 mg/dL (0.2-1.3); BLOOD UREA NITROGEN 13 mg/dL (7-21); CARBON DIOXIDE 22 mmol/L (21-33); CHLORIDE 105 mmol/L (95-110); GFR AFRICAN-AMERICAN > 60; GLUCOSE,RANDOM 91 mg/dL (70-110); POTASSIUM 4.2 mmol/L (3.6-5.0); SODIUM 137 mmol/L (132-148); TOTAL PROTEIN 6.6 g/dL (5.8-8.3)
[2017-04-27] MEDS: Linezolid 600 mg in D5W 300 ml 600 MG/300 ML BAG IVPB SCH ×2 (10:40→22:49)
--- NOTE | 2017-04-27 11:59 | CP.PCM.PN ---
<Megan Omalley - Last Filed: 04/27/17 11:53> Subjective - Date & Time of Evaluation Date of Evaluation: 04/27/17 Time of Evaluation: 11:53 - Subjective Subjective: 62 year old male patient 1 day s/p right leg incision and drainage of abscess was seen at bedside concerning right lower leg ulcerations. Dressing to right lower extremity appears clean dry and intact. Pt reports no acute overnight events and has no pedal complaints. Patient was advised to keep his leg elevated when resting in bed. Patient denies pain to the right lower leg. Patient denies recent f/c/cp/sob/n/v/d. Objective - Vital Signs/Intake and Output Vital Signs (last 24 hours): Temp Pulse Resp BP Pulse Ox 98.7 F 94 H 18 118/60 95 04/27/17 07:55 04/27/17 07:55 04/27/17 07:55 04/27/17 10:41 04/27/17 07:55 Intake and Output: 04/27/17 04/27/17 06:59 18:59 Intake Total 600 Balance 600 - Medications Medications: Current Medications Acetaminophen (Tylenol 325mg Tab) 650 mg PO Q4H PRN PRN Reason: Pain, Mild (1-3) Furosemide (Lasix) 20 mg PO DAILY [facility] Last Admin: 04/27/17 10:41 Dose: 20 mg Linezolid (Zyvox 600mg/300ml D5w) 600 mg in 300 mls @ 200 mls/hr IVPB Q12 [facility] PRN Reason: Protocol Stop: 05/01/17 23:46 Last Admin: 04/27/17 10:40 Dose: 200 mls/hr Cefepime HCl (Maxipime 2gm) 2 gm in 100 mls @ 100 mls/hr IVPB Q8 [facility] PRN Reason: Protocol Stop: 04/30/17 22:01 Last Admin: 04/26/17 05:37 Dose: 100 mls/hr Morphine Sulfate (Morphine) 2 mg IVP Q15M PRN PRN Reason: Pain, moderate (4-7) Oxycodone/Acetaminophen (Percocet 5/325 Mg Tab) 1 tab PO Q4H PRN PRN Reason: Pain, moderate (4-7) Stop: 04/29/17 08:59 Oxycodone/Acetaminophen (Percocet 5/325 Mg Tab) 2 tab PO Q6H PRN PRN Reason: Pain, severe (8-10) Stop: 04/29/17 08:59 Pantoprazole Sodium (Protonix Inj) 40 mg IVP DAILY [facility] Last Admin: 04/27/17 10:49 Dose: 40 mg - Labs Labs: 04/27/17 04:30 04/27/17 04:30 - Constitutional Appears: Well, Non-toxic, No Acute Distress - Extremities Exam Additional comments: Right lower extremity focused. DERM: Right lower leg shows 7 distinct ulceration sites (3 anterior, 1 medial, 3 posterior) all with 10% fibrotic to 90% granular bases. Slight maceration noted to wound edges around the incision sites. Ulcers show connecting sinus tracts proximally. No purulent drainage is noted form the wounds today. Minor naldo-wound erythema. VASC: Severe lymphedema noted to distal 1/2 of lower legs bilaterally with noted at widest circumference of edema. Neuro-vascular status intact to the right lower extremity. CRF<4 seconds. - Neurological Exam Neurological Exam: Awake, Oriented x3 - Psychiatric Exam Psychiatric exam: Normal Affect, Normal Mood - Skin Skin Exam: Normal Color, Warm Assessment and Plan - Assessment and Plan (Free Text) Assessment: 62 year old male 1 day s/p right leg incision and drainage with packing Plan: Pt evaluated and treated with attending Dr. Turner present. Chart, labs, and vitals reviewed. Afebrile, absent leukocytosis. Right leg dressed with iodoform packing, DSD, ABD pads and Love Compression dressing Continue IV abx per ID. Podiatry will continue to follow while inhouse. <Bhavesh Turner - Last Filed: 04/28/17 08:18> Objective - Vital Signs/Intake and Output Vital Signs (last 24 hours): Temp Pulse Resp BP Pulse Ox 99.6 F 84 19 106/64 95 04/27/17 16:30 04/27/17 16:30 04/27/17 16:30 04/27/17 16:30 04/27/17 16:30 Intake and Output: 04/28/17 04/28/17 06:59 18:59 Intake Total 920 Balance 920 - Medications Medications: Current Medications Acetaminophen (Tylenol 325mg Tab) 650 mg PO Q4H PRN PRN Reason: Pain, Mild (1-3) Furosemide (Lasix) 20 mg PO DAILY [facility] Last Admin: 04/27/17 10:41 Dose: 20 mg Linezolid (Zyvox 600mg/300ml D5w) 600 mg in 300 mls @ 200 mls/hr IVPB Q12 [facility] PRN Reason: Protocol Stop: 05/01/17 23:46 Last Admin: 04/27/17 22:49 Dose: 200 mls/hr Cefepime HCl (Maxipime 2gm) 2 gm in 100 mls @ 100 mls/hr IVPB Q8 [facility] PRN Reason: Protocol Stop: 04/30/17 22:01 Last Admin: 04/28/17 05:32 Dose: 100 mls/hr Morphine Sulfate (Morphine) 2 mg IVP Q15M PRN PRN Reason: Pain, moderate (4-7) Oxycodone/Acetaminophen (Percocet 5/325 Mg Tab) 1 tab PO Q4H PRN PRN Reason: Pain, moderate (4-7) Stop: 04/29/17 08:59 Oxycodone/Acetaminophen (Percocet 5/325 Mg Tab) 2 tab PO Q6H PRN PRN Reason: Pain, severe (8-10) Stop: 04/29/17 08:59 Pantoprazole Sodium (Protonix Ec Tab) 40 mg PO 0600 [facility] - Labs Labs: 04/28/17 06:30 04/28/17 06:30 Attending/Attestation - Attestation I have personally seen and examined this patient.: Yes I have fully participated in the care of the patient.: Yes I have reviewed all pertinent clinical information, including history, physical exam and plan: Yes
[2017-04-27] MEDS: Cefepime IV 2 gm in NS 2 GM/100 ML BAG IVPB SCH ×2 (13:28→21:32)
--- NOTE | 2017-04-27 19:04 | CP.PCM.PN ---
Subjective - Date & Time of Evaluation Date of Evaluation: 04/27/17 Time of Evaluation: 10:05 - Subjective Subjective: Comfortable, not in distress, less pain in the right leg. No fevers overnight. Objective - Vital Signs/Intake and Output Vital Signs (last 24 hours): Temp Pulse Resp BP Pulse Ox 98.3 F 80 19 123/69 95 04/26/17 17:06 04/26/17 17:06 04/26/17 17:06 04/26/17 17:06 04/26/17 17:06 Intake and Output: 04/27/17 04/27/17 06:59 18:59 Intake Total 600 Balance 600 - Medications Medications: Current Medications Acetaminophen (Tylenol 325mg Tab) 650 mg PO Q4H PRN PRN Reason: Pain, Mild (1-3) Furosemide (Lasix) 20 mg PO DAILY [facility] Linezolid (Zyvox 600mg/300ml D5w) 600 mg in 300 mls @ 200 mls/hr IVPB Q12 [facility] PRN Reason: Protocol Stop: 05/01/17 23:46 Last Admin: 04/25/17 21:34 Dose: 200 mls/hr Cefepime HCl (Maxipime 2gm) 2 gm in 100 mls @ 100 mls/hr IVPB Q8 [facility] PRN Reason: Protocol Stop: 04/30/17 22:01 Last Admin: 04/26/17 05:37 Dose: 100 mls/hr Morphine Sulfate (Morphine) 2 mg IVP Q15M PRN PRN Reason: Pain, moderate (4-7) Oxycodone/Acetaminophen (Percocet 5/325 Mg Tab) 1 tab PO Q4H PRN PRN Reason: Pain, moderate (4-7) Stop: 04/29/17 08:59 Oxycodone/Acetaminophen (Percocet 5/325 Mg Tab) 2 tab PO Q6H PRN PRN Reason: Pain, severe (8-10) Stop: 04/29/17 08:59 Pantoprazole Sodium (Protonix Inj) 40 mg IVP DAILY [facility] Last Admin: 04/25/17 09:46 Dose: 40 mg - Labs Labs: 04/27/17 04:30 04/27/17 04:30 - Constitutional Appears: Non-toxic, No Acute Distress - Head Exam Head Exam: NORMAL INSPECTION - ENT Exam ENT Exam: Mucous Membranes Moist - Neck Exam Neck Exam: absent: Lymphadenopathy, Meningismus - Respiratory Exam Respiratory Exam: Decreased Breath Sounds - Cardiovascular Exam Cardiovascular Exam: +S1, +S2 - GI/Abdominal Exam GI & Abdominal Exam: Soft. absent: Tenderness - Extremities Exam Additional comments: right leg with dry dressings in place Assessment and Plan - Assessment and Plan (Free Text) Plan: Assessment right leg skin and skin structure infection, previously growing Pseudomonas, Proteus and Group B Strep, S/P excisional debridement 2 weeks ago; debridement was done again yesterday HTN chronic lower extremity edema obesity with BMI 35 Plan continue Vancomycin and Cefepime day 2 pending blood and wound cx; follow up cultures from the debridement will continue to monitor clinically
--- NOTE | 2017-04-27 22:54 | CP.PCM.PN ---
<KRYSTAL MENDOZA - Last Filed: 04/27/17 22:49> Subjective - Date & Time of Evaluation Date of Evaluation: 04/27/17 Time of Evaluation: 22:49 - Subjective Subjective: MEDICINE PROGRESS NOTE: Pt seen and assessed at bedside. Pt had no new complaints at this time. Pt denies any headache, dizziness, fever, chills, abdominal pain, N/V, diarrhea or any urinary symptoms. Objective - Vital Signs/Intake and Output Vital Signs (last 24 hours): Temp Pulse Resp BP Pulse Ox 99.6 F 84 19 106/64 95 04/27/17 16:30 04/27/17 16:30 04/27/17 16:30 04/27/17 16:30 04/27/17 16:30 Intake and Output: 04/27/17 04/28/17 18:59 06:59 Intake Total 840 Balance 840 - Medications Medications: Current Medications Acetaminophen (Tylenol 325mg Tab) 650 mg PO Q4H PRN PRN Reason: Pain, Mild (1-3) Furosemide (Lasix) 20 mg PO DAILY [facility] Last Admin: 04/27/17 10:41 Dose: 20 mg Linezolid (Zyvox 600mg/300ml D5w) 600 mg in 300 mls @ 200 mls/hr IVPB Q12 [facility] PRN Reason: Protocol Stop: 05/01/17 23:46 Last Admin: 04/27/17 10:40 Dose: 200 mls/hr Cefepime HCl (Maxipime 2gm) 2 gm in 100 mls @ 100 mls/hr IVPB Q8 [facility] PRN Reason: Protocol Stop: 04/30/17 22:01 Last Admin: 04/27/17 21:32 Dose: 100 mls/hr Morphine Sulfate (Morphine) 2 mg IVP Q15M PRN PRN Reason: Pain, moderate (4-7) Oxycodone/Acetaminophen (Percocet 5/325 Mg Tab) 1 tab PO Q4H PRN PRN Reason: Pain, moderate (4-7) Stop: 04/29/17 08:59 Oxycodone/Acetaminophen (Percocet 5/325 Mg Tab) 2 tab PO Q6H PRN PRN Reason: Pain, severe (8-10) Stop: 04/29/17 08:59 Pantoprazole Sodium (Protonix Ec Tab) 40 mg PO 0600 [facility] - Labs Labs: 04/27/17 04:30 04/27/17 04:30 - Constitutional Appears: Non-toxic, No Acute Distress - Head Exam Head Exam: ATRAUMATIC, NORMOCEPHALIC - Eye Exam Eye Exam: EOMI, Normal appearance, PERRL - ENT Exam ENT Exam: Mucous Membranes Moist, Normal Exam - Neck Exam Neck Exam: Full ROM. absent: Lymphadenopathy - Respiratory Exam Respiratory Exam: Clear to Ausculation Bilateral, NORMAL BREATHING PATTERN. absent: Rales, Rhonchi, Wheezes - Cardiovascular Exam Cardiovascular Exam: REGULAR RHYTHM, RRR, +S1, +S2 - GI/Abdominal Exam GI & Abdominal Exam: Soft, Normal Bowel Sounds. absent: Distended, Firm, Guarding, Tenderness - Extremities Exam Extremities Exam: Normal Capillary Refill. absent: Calf Tenderness Additional comments: RLE wound dressing clean, dry and intact; 2+ pitting edema extending to knees bilaterally - Neurological Exam Neurological Exam: Alert, Awake, Oriented x3 - Psychiatric Exam Psychiatric exam: Normal Affect, Normal Mood - Skin Skin Exam: Dry, Intact, Normal Color, Warm Assessment and Plan - Assessment and Plan (Free Text) Assessment: 62 year old male with a past medical history significant for HTN and RLE cellulitis who presented to the ED with worsening of his RLE cellulitis Plan: 1. RLE Cellulitis Refractory to Outpatient Treatment -recently discharged with PO Levaquin for Proteus, Group B Strep and Pseudomonas coverage -continue IV Zyvox and Cefepime (day 3) , per ID -wound cultures negative for 24 hours -blood cultures negative for 72 hours -podiatry and ID consulted, all recommendations appreciated -cont to monitor for leukocytosis with daily CBC 2. CHRIS-resolved -BUN/Cr: 13/0.8 -urine cultures negative -urine creatinine, sodium and culture pending -cont to monitor with daily CMP 3. Lower Extremity Edema -patient reports this as a chronic condition -ECHO showed no signs of CHF, normal EF of 55-60% -holding lasix in setting of CHRIS 4. GI Prophylaxis -Protonix Patient seen and case discussed with attending, Dr. Ron Packer. <Ron Packer - Last Filed: 04/28/17 16:33> Objective - Vital Signs/Intake and Output Vital Signs (last 24 hours): Temp Pulse Resp BP Pulse Ox 98.2 F 79 18 114/63 94 L 04/28/17 06:00 04/28/17 06:00 04/28/17 06:00 04/28/17 09:51 04/28/17 06:00 Intake and Output: 04/28/17 04/28/17 06:59 18:59 Intake Total 920 Balance 920 - Medications Medications: Current Medications Acetaminophen (Tylenol 325mg Tab) 650 mg PO Q4H PRN PRN Reason: Pain, Mild (1-3) Furosemide (Lasix) 20 mg PO DAILY [facility] Last Admin: 04/28/17 09:51 Dose: 20 mg Linezolid (Zyvox 600mg/300ml D5w) 600 mg in 300 mls @ 200 mls/hr IVPB Q12 [facility] PRN Reason: Protocol Stop: 05/01/17 23:46 Last Admin: 04/28/17 09:51 Dose: 200 mls/hr Cefepime HCl (Maxipime 2gm) 2 gm in 100 mls @ 100 mls/hr IVPB Q8 [facility] PRN Reason: Protocol Stop: 04/30/17 22:01 Last Admin: 04/28/17 14:18 Dose: 100 mls/hr Morphine Sulfate (Morphine) 2 mg IVP Q15M PRN PRN Reason: Pain, moderate (4-7) Oxycodone/Acetaminophen (Percocet 5/325 Mg Tab) 1 tab PO Q4H PRN PRN Reason: Pain, moderate (4-7) Stop: 04/29/17 08:59 Oxycodone/Acetaminophen (Percocet 5/325 Mg Tab) 2 tab PO Q6H PRN PRN Reason: Pain, severe (8-10) Stop: 04/29/17 08:59 Pantoprazole Sodium (Protonix Ec Tab) 40 mg PO 0600 [facility] - Labs Labs: 04/28/17 06:30 04/28/17 06:30 Attending/Attestation - Attestation I have personally seen and examined this patient.: Yes I have fully participated in the care of the patient.: Yes I have reviewed all pertinent clinical information, including history, physical exam and plan: Yes Notes (Text): I have seen and examined patient at bedside with the resident. Agree with the above note with the following additions/ exceptions: Briefly this is 62 year old male with history of HTN and RLE cellulitis who was sent by medical laboratory assistant for management of worsening of RLE cellulitis s/p excisional debridement x2. Last one was yesterday. Continue cefepime and vanco. Cultures sent from OR. Will follow up. CHRIS has resolved. Echo is normal. Will monitor patient clinically. Upon discharge patient will follow up with Dr Marie. Dr Ron Packer
--- NOTE | 2017-04-28 03:16 | OP ---
PROCEDURE DATE: 04/26/2017 SURGEON: Dr. Tobar. ASSISTANTS: Dr. Megan Omalley and Dr. Bernard. ANESTHESIOLOGIST: Dr. Packer. ANESTHESIA: IV sedation with local. PREOPERATIVE DIAGNOSIS: Right leg abscess. POSTOPERATIVE DIAGNOSIS: Right leg abscess. NAME OF PROCEDURE: Right leg incision and drainage. INDICATIONS: The patient is a 62-year-old male patient with the above diagnosis. The patient has exhausted conservative treatment at this time and now requests surgical intervention. The patient signed the consent after careful explanation of risks, benefits, complications and alternatives for surgical procedure. No guarantees were given nor implied. N.p.o. status was confirmed prior to taking the patient to the OR. PREPARATION: The patient was brought to the operating room and placed on the operating room table in supine position. After induction of IV sedation, the patient received a total of 20 mL of one-to-one mixture 0.5% Marcaine plain and 1% lidocaine plain in local block fashion to the right leg. Once local anesthesia was achieved, the right lower extremity was then prepped and draped in usual sterile manner and the procedure began. No tourniquet was utilized in this procedure. DESCRIPTION OF PROCEDURE: Attention was then directed to the anterior aspect of the right leg where multiple ulcerations were noted. A curved hemostat was used to open up the surrounding soft tissue and track along the sinus tract proximally and distally from the ulceration. It was noted that all ulcerations to the right anterior leg was connected through the sinus tracking. Utilizing a #15 blade an approximately 4 cm linear longitudinal incision was made over the center of the right anterior leg connecting the two of ulcerations. Right leg was then squeezed from proximal to distal starting from the level of the proximal count. Approximately 4 mL purulent drainage was noted from the anterior aspect of the right leg. Next, utilizing a #15 blade and forceps all nonviable soft tissue was excised and removed from the anterior aspect of the right leg. Next, attention was then redirected to the posterior aspect of the right leg where multiple ulcerations were noted. A curved hemostatic end was used to open up the surrounding soft tissue and track along sinus tract proximally and distally. It was noted that the ulcerations to right posterior leg was connected through sinus tracking. Utilizing a #15 blade, approximately 5 cm longitudinal incision was made over the right anterior leg connecting the two ulcerations. Right leg was then began to squeeze from proximal to distal starting from the level of the proximal calf. Approximately 3 mL of purulent drainage was noted from the posterior aspect of right leg. Next, utilizing a #15 blade and forceps, all nonviable soft tissue was excised and removed from the ulcerations of the posterior aspect of the right leg. Next, the pulse lavage of 1 L of normal saline was used to irrigate the surgical site of right leg. The wound to anterior aspect of the right leg and posterior aspect of the right leg were packed with 1 inch iodoform packing strip and dressed with 4x4 gauze, Kerlix, and JEZ bandage. The attending was present during the entire case. POSTOPERATIVE CONDITION: The patient tolerated the anesthesia and procedure well and was escorted to the recovery room with vital signs stable and neurovascular status intact to the right lower extremity. This patient will go to back to the hospital floor and will be followed by Dr. Tobar while the patient remains in the hospital. Megan Omalley DPM MTDViridiana
[2017-04-28] MEDS: Cefepime IV 2 gm in NS 2 GM/100 ML BAG IVPB SCH ×3 (05:32→21:27)
[2017-04-28 07:21] LABS: ALB/GLOB RATIO 0.9 (1.1-1.8); ALKALINE PHOSPHATASE 61 U/L (38-133); ALT/SGPT 33 U/L (7-56); AST/SGOT 22 U/L (15-59); BILIRUBIN,TOTAL 0.3 mg/dL (0.2-1.3); BLOOD UREA NITROGEN 11 mg/dL (7-21); CALCIUM 8.8 mg/dL (8.4-10.5); CARBON DIOXIDE 24 mmol/L (21-33); CHLORIDE 107 mmol/L (98-107); GFR AFRICAN-AMERICAN > 60; GLUCOSE,RANDOM 92 mg/dL (70-110); SODIUM 139 mmol/L (132-148); TOTAL PROTEIN 6.3 g/dL (5.8-8.3)
[2017-04-28 07:34] LABS: BASO # 0.02 K/mm3 (0.0-2.0); BASO % 0.3 % (0.0-3.0); EOS # 0.3 (0.0-0.7); EOS % 5.1 % (1.5-5.0); GRAN # 3.88 (1.4-6.5); GRAN % 64.1 % (50.0-68.0); HEMATOCRIT 30.5 % (42.0-52.0); LYMPH # 1.1 (1.2-3.4); LYMPH % 17.5 % (22.0-35.0); MEAN CELL VOLUME 91.6 fl (80.0-105.0); MEAN CORPUSCULAR HEMOGLOBIN 30.3 pg (25.0-35.0); MEAN CORPUSCULAR HGB CONC 33.1 g/dl (31.0-37.0); MONO # 0.8 (0.1-0.6); RED CELL DISTRIBUTION WIDTH 16.3 % (11.5-14.5); WHITE BLOOD COUNT 6.1 10^3/ul (4.5-11.0)
[2017-04-28] MEDS: Linezolid 600 mg in D5W 300 ml 600 MG/300 ML BAG IVPB SCH ×2 (09:51→22:51)
--- NOTE | 2017-04-28 10:24 | CP.PCM.PN ---
<KRYSTAL MENDOZA - Last Filed: 04/28/17 10:16> Subjective - Date & Time of Evaluation Date of Evaluation: 04/28/17 Time of Evaluation: 10:16 - Subjective Subjective: MEDICINE PROGRESS NOTE: Pt seen and assessed at bedside. Pt had no new complaints at this evaluation. Pt denies any headache, dizziness, fever, chills, chest pain, shortness of breath, cough, abdominal pain, N/V, diarrhea or any urinary symptoms. Objective - Vital Signs/Intake and Output Vital Signs (last 24 hours): Temp Pulse Resp BP Pulse Ox 98.2 F 79 18 114/63 94 L 04/28/17 06:00 04/28/17 06:00 04/28/17 06:00 04/28/17 09:51 04/28/17 06:00 Intake and Output: 04/28/17 04/28/17 06:59 18:59 Intake Total 920 Balance 920 - Medications Medications: Current Medications Acetaminophen (Tylenol 325mg Tab) 650 mg PO Q4H PRN PRN Reason: Pain, Mild (1-3) Furosemide (Lasix) 20 mg PO DAILY [facility] Last Admin: 04/28/17 09:51 Dose: 20 mg Linezolid (Zyvox 600mg/300ml D5w) 600 mg in 300 mls @ 200 mls/hr IVPB Q12 [facility] PRN Reason: Protocol Stop: 05/01/17 23:46 Last Admin: 04/28/17 09:51 Dose: 200 mls/hr Cefepime HCl (Maxipime 2gm) 2 gm in 100 mls @ 100 mls/hr IVPB Q8 [facility] PRN Reason: Protocol Stop: 04/30/17 22:01 Last Admin: 04/28/17 05:32 Dose: 100 mls/hr Morphine Sulfate (Morphine) 2 mg IVP Q15M PRN PRN Reason: Pain, moderate (4-7) Oxycodone/Acetaminophen (Percocet 5/325 Mg Tab) 1 tab PO Q4H PRN PRN Reason: Pain, moderate (4-7) Stop: 04/29/17 08:59 Oxycodone/Acetaminophen (Percocet 5/325 Mg Tab) 2 tab PO Q6H PRN PRN Reason: Pain, severe (8-10) Stop: 04/29/17 08:59 Pantoprazole Sodium (Protonix Ec Tab) 40 mg PO 0600 [facility] - Labs Labs: 04/28/17 06:30 04/28/17 06:30 - Constitutional Appears: Non-toxic, No Acute Distress - Head Exam Head Exam: ATRAUMATIC, NORMOCEPHALIC - Eye Exam Eye Exam: EOMI, Normal appearance - ENT Exam ENT Exam: Mucous Membranes Moist, Normal Exam - Neck Exam Neck Exam: Full ROM. absent: Lymphadenopathy - Respiratory Exam Respiratory Exam: Clear to Ausculation Bilateral, NORMAL BREATHING PATTERN. absent: Rales, Rhonchi, Wheezes, Respiratory Distress - Cardiovascular Exam Cardiovascular Exam: REGULAR RHYTHM, +S1, +S2. absent: Tachycardia, Murmur - GI/Abdominal Exam GI & Abdominal Exam: Soft, Normal Bowel Sounds. absent: Distended, Firm, Guarding, Tenderness - Exam Exam: absent: Bladder Distension - Extremities Exam Extremities Exam: Calf Tenderness, Joint Swelling, Normal Capillary Refill, Pedal Edema Additional comments: RLE wound dressing clean, dry and intact; 2+ pitting edema extending to knees bilaterally - Back Exam Back Exam: NORMAL INSPECTION. absent: CVA tenderness (L), CVA tenderness (R) - Neurological Exam Neurological Exam: Alert, Awake, Oriented x3 - Psychiatric Exam Psychiatric exam: Normal Affect, Normal Mood - Skin Skin Exam: Dry, Intact, Normal Color, Warm Assessment and Plan - Assessment and Plan (Free Text) Assessment: 62 year old male with a past medical history significant for HTN and RLE cellulitis who presented to the ED with worsening of his RLE cellulitis Plan: 1. RLE Cellulitis Refractory to Outpatient Treatment -recently discharged with PO Levaquin for Proteus, Group B Strep and Pseudomonas coverage -continue IV Zyvox and Cefepime (day 4) , per ID -wound cultures negative for 48 hours; No anaerobes -blood cultures negative for 96 hours -Morphine [id number] IVP and Percocet 5/325 (one tab) for moderate pain -Percocet 5/325 (two tabs) for severe pain -podiatry and ID consulted, all recommendations appreciated -cont PT/OT who recommend home upon discharge -cont to monitor for leukocytosis with daily CBC 2. CHRIS-resolved -BUN/Cr: 11/0.9 -producing urine with multiple voids daily -urine cultures negative -urine creatinine, sodium and culture pending -cont to monitor with daily CMP 3. Lower Extremity Edema -patient reports this as a chronic condition -ECHO showed no signs of CHF, normal EF of 55-60% -Continue Lasix 20mg PO qd 4. GI Prophylaxis -Protonix PO Patient seen and case discussed with attending, Dr. Ron Packer. <Ron Packer - Last Filed: 04/28/17 16:35> Objective - Vital Signs/Intake and Output Vital Signs (last 24 hours): Temp Pulse Resp BP Pulse Ox 98.2 F 79 18 114/63 94 L 04/28/17 06:00 04/28/17 06:00 04/28/17 06:00 04/28/17 09:51 04/28/17 06:00 Intake and Output: 04/28/17 04/28/17 06:59 18:59 Intake Total 920 Balance 920 - Medications Medications: Current Medications Acetaminophen (Tylenol 325mg Tab) 650 mg PO Q4H PRN PRN Reason: Pain, Mild (1-3) Furosemide (Lasix) 20 mg PO DAILY [facility] Last Admin: 04/28/17 09:51 Dose: 20 mg Linezolid (Zyvox 600mg/300ml D5w) 600 mg in 300 mls @ 200 mls/hr IVPB Q12 [facility] PRN Reason: Protocol Stop: 05/01/17 23:46 Last Admin: 04/28/17 09:51 Dose: 200 mls/hr Cefepime HCl (Maxipime 2gm) 2 gm in 100 mls @ 100 mls/hr IVPB Q8 [facility] PRN Reason: Protocol Stop: 04/30/17 22:01 Last Admin: 04/28/17 14:18 Dose: 100 mls/hr Morphine Sulfate (Morphine) 2 mg IVP Q15M PRN PRN Reason: Pain, moderate (4-7) Oxycodone/Acetaminophen (Percocet 5/325 Mg Tab) 1 tab PO Q4H PRN PRN Reason: Pain, moderate (4-7) Stop: 04/29/17 08:59 Oxycodone/Acetaminophen (Percocet 5/325 Mg Tab) 2 tab PO Q6H PRN PRN Reason: Pain, severe (8-10) Stop: 04/29/17 08:59 Pantoprazole Sodium (Protonix Ec Tab) 40 mg PO 0600 [facility] - Labs Labs: 04/28/17 06:30 04/28/17 06:30 Attending/Attestation - Attestation I have personally seen and examined this patient.: Yes I have fully participated in the care of the patient.: Yes I have reviewed all pertinent clinical information, including history, physical exam and plan: Yes Notes (Text): I have seen and examined patient at bedside with the resident. Agree with the above note with the following additions/ exceptions: Briefly this is 62 year old male with history of HTN and RLE cellulitis who was sent by orientation and mobility instructor for management of worsening of RLE cellulitis s/p excisional debridement x2. Last one was on 04/25/2017. Continue cefepime and zyvox. Cultures sent from OR. Will follow up. CHRIS has resolved. Echo is normal. Will monitor patient clinically. Upon discharge patient will follow up with Dr Marie. Dr Ron Packer
--- NOTE | 2017-04-28 14:43 | PN ---
DATE: SUBJECTIVE: This is a 62-year-old male seen at bedside, status post complex right leg incision and drainage of a severe abscess. The patient states his leg is feeling better with much less pain. He has been afebrile. PHYSICAL EXAMINATION: VITAL SIGNS: Reveal temperature of 99.6, pulse rate of 84, blood pressure of 106/64, respiratory rate of 18. OBJECTIVE: There is noted to be severe lymphedema bilaterally. Right lower leg presents with numerous ulcerations that had been opened up during the incision and drainage process. Base of the ulcerations are now primarily granular with some fibrotic tissue dispersed throughout. There is no purulence emanating from any of the wounds, only serous fluid. There is noted to be no malodor and the entire surgical area presents with reduced edema and erythema. LABORATORY FINDINGS: Reveal white count of 6.1, hemoglobin of 10.1, hematocrit 30.5, platelet count of 243. Microbiology report taken in the OR revealed no growth. Surgical pathology revealed a chronic tissue as well as fat necrosis and reactive fibrosis of soft tissue specimen. ASSESSMENT: A 62-year-old male, status post complex right leg incision and drainage secondary to severe abscess formation. PLAN: The patient was examined and all wounds were flushed with copious amounts of normal sterile saline. Sterile Iodoform packing was loosely placed into the wounds along with Maxorb sterile 4x4 abdominal pads and a Love compression dressing. Infectious Disease note was read and appreciated. We will continue with IV antibiotics and the patient will be followed daily while in-house. Bhavesh Turner DPM
--- NOTE | 2017-04-28 18:05 | PN ---
DATE: 04/28/2017 SUBJECTIVE: The patient is in bed, in no acute distress, nontoxic. PHYSICAL EXAMINATION: VITAL SIGNS: Temperature is 99, blood pressure is 114/60, respiratory rate of 18. HEENT: Unremarkable. NECK: Supple. LUNGS: Decreased breath sounds. HEART: Normal S1 and S2. ABDOMEN: Soft, nontender. LABORATORY DATA: Examination reveals a white count of 6.1, hemoglobin of 10, platelets of 243. Chemistries reveals a BUN of 11 and creatinine of 0.9. Urinalysis is noted. Microbiology reveals blood cultures no growth and leg cultures had no growth. Review of orders reveals the patient to be on cefepime and Zyvox. Kemal's progress note from today is reviewed. ASSESSMENT AND PLAN: A 62-year-old with a right leg skin and skin structure infection, previously grown Pseudomonas, Porteus, group B strep, status post incisional debridement two weeks ago and debridement again done day before yesterday and hypertension, currently on vancomycin, cefepime day #3, and thus far, the cultures from no growth, preliminary results no growth, and we will follow closely with you. The overall report is reviewed. Operative note from the states the patient had a postop diagnosis of a right leg abscess and had right leg incision and drainage of the abscess, although thus far, culture results are negative. We will follow closely with you. On Zyvox, cefepime. Dickson Warner MD
[2017-04-29] MEDS: Cefepime IV 2 gm in NS 2 GM/100 ML BAG IVPB SCH ×3 (06:01→22:00)
[2017-04-29] MEDS: Pantoprazole 40 mg EC Tab PO SCH (06:01)
[2017-04-29 07:12] LABS: ALB/GLOB RATIO 0.9 (1.1-1.8); ALKALINE PHOSPHATASE 61 U/L (38-133); ALT/SGPT 31 U/L (7-56); AST/SGOT 31 U/L (15-59); BASO # 0.06 K/mm3 (0.0-2.0); BASO % 1.1 % (0.0-3.0); BILIRUBIN,TOTAL 0.2 mg/dL (0.2-1.3); BLOOD UREA NITROGEN 9 mg/dL (7-21); CARBON DIOXIDE 25 mmol/L (21-33); CHLORIDE 106 mmol/L (98-107); EOS # 0.4 (0.0-0.7); EOS % 6.6 % (1.5-5.0); GFR AFRICAN-AMERICAN > 60; GLUCOSE,RANDOM 91 mg/dL (70-110); GRAN # 3.27 (1.4-6.5); GRAN % 58.6 % (50.0-68.0); HEMATOCRIT 30.7 % (42.0-52.0); LYMPH # 1.4 (1.2-3.4); LYMPH % 24.4 % (22.0-35.0); MEAN CELL VOLUME 91.9 fl (80.0-105.0); MEAN CORPUSCULAR HEMOGLOBIN 30.5 pg (25.0-35.0); MEAN CORPUSCULAR HGB CONC 33.2 g/dl (31.0-37.0); MEAN PLATELET VOLUME 8.2 fl (7.0-11.0); MONO # 0.5 (0.1-0.6); MONO % 9.3 % (1.0-6.0); POTASSIUM 3.8 mmol/L (3.6-5.0); RED CELL DISTRIBUTION WIDTH 16.1 % (11.5-14.5); SODIUM 140 mmol/L (132-148); TOTAL PROTEIN 6.7 g/dL (5.8-8.3); WHITE BLOOD COUNT 5.6 10^3/ul (4.5-11.0)
[2017-04-29] MEDS: Linezolid 600 mg in D5W 300 ml 600 MG/300 ML BAG IVPB SCH ×2 (09:47→21:08)
--- NOTE | 2017-04-29 10:54 | CP.PCM.PN ---
<KRYSTAL MENDOZA - Last Filed: 04/29/17 10:49> Subjective - Date & Time of Evaluation Date of Evaluation: 04/29/17 Time of Evaluation: 10:49 - Subjective Subjective: MEDICINE PROGRESS NOTE: Pt seen and assessed at bedside. Pt had no new complaints at this evaluation but does endorse one episode of pain overnight in his RLE that was completely resolved with pain medications administered. Pt denies any headache, dizziness , fever, chills, chest pain, shortness of breath, cough, abdominal pain, N/V, diarrhea, any urinary symptoms or any LE pain. Objective - Vital Signs/Intake and Output Vital Signs (last 24 hours): Temp Pulse Resp BP Pulse Ox 98.4 F 70 18 111/75 98 04/29/17 06:00 04/29/17 06:00 04/29/17 06:00 04/29/17 09:48 04/29/17 06:00 Intake and Output: 04/29/17 04/29/17 06:59 18:59 Intake Total 1220 Balance 1220 - Medications Medications: Current Medications Acetaminophen (Tylenol 325mg Tab) 650 mg PO Q4H PRN PRN Reason: Pain, Mild (1-3) Furosemide (Lasix) 20 mg PO DAILY [facility] Last Admin: 04/29/17 09:48 Dose: 20 mg Linezolid (Zyvox 600mg/300ml D5w) 600 mg in 300 mls @ 200 mls/hr IVPB Q12 [facility] PRN Reason: Protocol Stop: 05/01/17 23:46 Last Admin: 04/29/17 09:47 Dose: 200 mls/hr Cefepime HCl (Maxipime 2gm) 2 gm in 100 mls @ 100 mls/hr IVPB Q8 [facility] PRN Reason: Protocol Stop: 04/30/17 22:01 Last Admin: 04/29/17 06:01 Dose: 100 mls/hr Morphine Sulfate (Morphine) 2 mg IVP Q15M PRN PRN Reason: Pain, moderate (4-7) Pantoprazole Sodium (Protonix Ec Tab) 40 mg PO 0600 [facility] Last Admin: 04/29/17 06:01 Dose: 40 mg - Labs Labs: 04/29/17 06:30 04/29/17 06:30 - Constitutional Appears: Non-toxic, No Acute Distress - Head Exam Head Exam: ATRAUMATIC, NORMOCEPHALIC - Eye Exam Eye Exam: EOMI, Normal appearance, PERRL - ENT Exam ENT Exam: Mucous Membranes Moist, Normal Exam - Neck Exam Neck Exam: Full ROM, Normal Inspection. absent: Lymphadenopathy - Respiratory Exam Respiratory Exam: Clear to Ausculation Bilateral, NORMAL BREATHING PATTERN. absent: Rales, Rhonchi, Wheezes, Respiratory Distress - Cardiovascular Exam Cardiovascular Exam: REGULAR RHYTHM, RRR, +S1, +S2. absent: Tachycardia, Murmur - GI/Abdominal Exam GI & Abdominal Exam: Soft, Normal Bowel Sounds. absent: Distended, Firm, Guarding, Tenderness - Extremities Exam Extremities Exam: Calf Tenderness, Normal Capillary Refill, Pedal Edema Additional comments: RLE wound dressing clean, dry and intact; 2+ pitting edema extending to mid calf bilaterally - Back Exam Back Exam: NORMAL INSPECTION. absent: CVA tenderness (L), CVA tenderness (R), paraspinal tenderness, rash noted, vertebral tenderness - Neurological Exam Neurological Exam: Alert, Awake, Oriented x3 - Psychiatric Exam Psychiatric exam: Normal Affect, Normal Mood - Skin Skin Exam: Dry, Intact, Normal Color, Warm Assessment and Plan - Assessment and Plan (Free Text) Assessment: 62 year old male with a past medical history significant for HTN and RLE cellulitis who presented to the ED with worsening of his RLE cellulitis Plan: 1. RLE Cellulitis Refractory to Outpatient Treatment -recently discharged with PO Levaquin for Proteus, Group B Strep and Pseudomonas coverage -continue IV Zyvox and Cefepime (day 5) , per ID -wound cultures negative for 3 days; Anaerobic cultures negative -blood cultures negative for 5 days -Morphine [id number] IVP and Percocet 5/325 (one tab) for moderate pain -Percocet 5/325 (two tabs) for severe pain -podiatry and ID consulted, all recommendations appreciated -cont PT/OT who recommend home upon discharge -cont to monitor for leukocytosis with daily CBC's 2. CHRIS-resolved -BUN/Cr: 9/0.8 -producing urine with multiple voids daily -urine cultures negative -urine creatinine, sodium and culture pending -cont to monitor with daily CMP's 3. Lower Extremity Edema -patient reports this as a chronic condition -ECHO showed no signs of CHF, normal EF of 55-60% -Continue Lasix 20mg PO qd 4. GI Prophylaxis -Protonix PO Patient seen and case discussed with attending, Dr. Ron Packer. <Ron Packer - Last Filed: 04/29/17 15:23> Objective - Vital Signs/Intake and Output Vital Signs (last 24 hours): Temp Pulse Resp BP Pulse Ox 98.4 F 70 18 111/75 98 04/29/17 06:00 04/29/17 06:00 04/29/17 06:00 04/29/17 09:48 04/29/17 06:00 Intake and Output: 04/29/17 04/29/17 06:59 18:59 Intake Total 1220 Balance 1220 - Medications Medications: Current Medications Acetaminophen (Tylenol 325mg Tab) 650 mg PO Q4H PRN PRN Reason: Pain, Mild (1-3) Furosemide (Lasix) 20 mg PO DAILY [facility] Last Admin: 04/29/17 09:48 Dose: 20 mg Linezolid (Zyvox 600mg/300ml D5w) 600 mg in 300 mls @ 200 mls/hr IVPB Q12 [facility] PRN Reason: Protocol Stop: 05/01/17 23:46 Last Admin: 04/29/17 09:47 Dose: 200 mls/hr Cefepime HCl (Maxipime 2gm) 2 gm in 100 mls @ 100 mls/hr IVPB Q8 [facility] PRN Reason: Protocol Stop: 04/30/17 22:01 Last Admin: 04/29/17 13:48 Dose: 100 mls/hr Morphine Sulfate (Morphine) 2 mg IVP Q15M PRN PRN Reason: Pain, moderate (4-7) Pantoprazole Sodium (Protonix Ec Tab) 40 mg PO 0600 [facility] Last Admin: 04/29/17 06:01 Dose: 40 mg - Labs Labs: 04/29/17 06:30 04/29/17 06:30 Attending/Attestation - Attestation I have personally seen and examined this patient.: Yes I have fully participated in the care of the patient.: Yes I have reviewed all pertinent clinical information, including history, physical exam and plan: Yes Notes (Text): I have seen and examined patient at bedside with the resident. Agree with the above note with the following additions/ exceptions: Briefly this is 62 year old male with history of HTN and RLE cellulitis who was sent by book packer for management of worsening of RLE cellulitis s/p excisional debridement x2. Last one was on 04/25/2017. Continue cefepime and zyvox. Cultures sent from OR which is negative so far. Path result is still pending. Discussed with Dr Warner. Will follow up. CHRIS has resolved. Echo is normal. Will monitor patient clinically. Upon discharge patient will follow up with Dr Marie. Dr Ron Packer
--- NOTE | 2017-04-29 14:06 | CP.PCM.PN ---
<PatiñoMi - Last Filed: 04/29/17 14:03> Subjective - Date & Time of Evaluation Date of Evaluation: 04/29/17 Time of Evaluation: 14:03 - Subjective Subjective: 62 year old male patient 3 day s/p right leg incision and drainage of abscess was seen at bedside concerning right lower leg ulcerations. Dressing to right lower extremity appears clean dry and intact. Patient denies pain to the right lower leg. Patient denies any n/v/f/c/sob/cp. Objective - Vital Signs/Intake and Output Vital Signs (last 24 hours): Temp Pulse Resp BP Pulse Ox 98.4 F 70 18 111/75 98 04/29/17 06:00 04/29/17 06:00 04/29/17 06:00 04/29/17 09:48 04/29/17 06:00 Intake and Output: 04/29/17 04/29/17 06:59 18:59 Intake Total 1220 Balance 1220 - Medications Medications: Current Medications Acetaminophen (Tylenol 325mg Tab) 650 mg PO Q4H PRN PRN Reason: Pain, Mild (1-3) Furosemide (Lasix) 20 mg PO DAILY [facility] Last Admin: 04/29/17 09:48 Dose: 20 mg Linezolid (Zyvox 600mg/300ml D5w) 600 mg in 300 mls @ 200 mls/hr IVPB Q12 [facility] PRN Reason: Protocol Stop: 05/01/17 23:46 Last Admin: 04/29/17 09:47 Dose: 200 mls/hr Cefepime HCl (Maxipime 2gm) 2 gm in 100 mls @ 100 mls/hr IVPB Q8 [facility] PRN Reason: Protocol Stop: 04/30/17 22:01 Last Admin: 04/29/17 13:48 Dose: 100 mls/hr Morphine Sulfate (Morphine) 2 mg IVP Q15M PRN PRN Reason: Pain, moderate (4-7) Pantoprazole Sodium (Protonix Ec Tab) 40 mg PO 0600 [facility] Last Admin: 04/29/17 06:01 Dose: 40 mg - Labs Labs: 04/29/17 06:30 04/29/17 06:30 - Constitutional Appears: Well, Non-toxic, No Acute Distress - Extremities Exam Additional comments: Right lower extremity focused exam: DERM: Right lower leg shows 7 distinct ulceration sites (3 anterior, 1 medial, 3 posterior) all with 10% fibrotic to 90% granular bases. Slight maceration noted to wound edges around the incision sites. Ulcers show connecting sinus tracts proximally. No purulent drainage noted. Minor naldo-wound erythema. VASC: Severe lymphedema noted to distal 1/2 of lower legs bilaterally with noted at widest circumference of edema. Neuro-vascular status intact to the right lower extremity. CRF<4 seconds. - Neurological Exam Neurological Exam: Alert, Awake, Oriented x3 - Psychiatric Exam Psychiatric exam: Normal Affect, Normal Mood Assessment and Plan - Assessment and Plan (Free Text) Assessment: 62 year old male 3 day s/p right leg incision and drainage Plan: Patient examined evaluated Discussed with attending Dr. Turner present. Chart, labs, and vitals reviewed. Right leg dressed with iodoform packing, DSD, ABD pads and Love Compression dressing Continue IV abx per ID. Discussed with medicine team Podiatry will continue to follow while inhouse. <Bhavesh Turner - Last Filed: 05/01/17 11:53> Objective - Vital Signs/Intake and Output Vital Signs (last 24 hours): Temp Pulse Resp BP Pulse Ox 98.5 F 64 20 120/74 96 05/01/17 08:53 05/01/17 08:53 05/01/17 08:53 05/01/17 09:07 05/01/17 08:53 Intake and Output: 05/01/17 05/01/17 06:59 18:59 Intake Total 1680 Balance 1680 - Medications Medications: Current Medications Acetaminophen (Tylenol 325mg Tab) 650 mg PO Q4H PRN PRN Reason: Pain, Mild (1-3) Furosemide (Lasix) 20 mg PO DAILY [facility] Last Admin: 05/01/17 09:07 Dose: 20 mg Linezolid (Zyvox 600mg/300ml D5w) 600 mg in 300 mls @ 200 mls/hr IVPB Q12 [facility] PRN Reason: Protocol Stop: 05/01/17 23:46 Last Admin: 05/01/17 09:07 Dose: 200 mls/hr Cefepime HCl (Maxipime 2gm) 2 gm in 100 mls @ 100 mls/hr IVPB Q8 [facility] PRN Reason: Protocol Stop: 05/06/17 06:01 Last Admin: 05/01/17 05:52 Dose: 100 mls/hr Pantoprazole Sodium (Protonix Ec Tab) 40 mg PO 0600 [facility] Last Admin: 05/01/17 05:53 Dose: 40 mg - Labs Labs: 05/01/17 06:00 05/01/17 06:00 Attending/Attestation - Attestation I have personally seen and examined this patient.: Yes I have fully participated in the care of the patient.: Yes I have reviewed all pertinent clinical information, including history, physical exam and plan: Yes
--- NOTE | 2017-04-29 14:49 | PN ---
DATE: 04/29/2017 SUBJECTIVE: The patient is in bed, in no acute distress, nontoxic. No fevers and chills. PHYSICAL EXAMINATION: VITAL SIGNS: Temperature is 98, blood pressure is 111/70, respiratory rate of 18, heart rate of 70. HEENT: Unremarkable. NECK: Supple. LUNGS: Decreased breath sounds. HEART: Normal S1 and S2. ABDOMEN: Soft, nontender. LABORATORY DATA: Examination reveals a white count of 5.6, hemoglobin of 10, platelets of 254. BUN of 9 and creatinine of 0.8. Urinalysis is noted. Microbiology reveals the cultures are negative. ASSESSMENT AND PLAN: A 62-year-old, right leg skin and skin structure infection, previously had grown Pseudomonas, Proteus, group B strep, status post incisional debridement two weeks ago and debridement again done two days before yesterday and currently actually on cefepime and Zyvox. Pathology from the is pending. Case discussed with Dr. Packer and Dr. Sommer. Dickson Warner MD
[2017-04-30] MEDS: Cefepime IV 2 gm in NS 2 GM/100 ML BAG IVPB SCH ×3 (06:11→22:55)
[2017-04-30] MEDS: Pantoprazole 40 mg EC Tab PO SCH (06:12)
[2017-04-30] MEDS: Linezolid 600 mg in D5W 300 ml 600 MG/300 ML BAG IVPB SCH ×2 (10:34→21:09)
--- NOTE | 2017-04-30 11:17 | CP.PCM.PN ---
<Megan Omalley - Last Filed: 04/30/17 11:13> Subjective - Date & Time of Evaluation Date of Evaluation: 04/30/17 Time of Evaluation: 11:14 - Subjective Subjective: 62 year old male patient 4 day s/p right leg incision and drainage of abscess was seen at bedside this AM with Dr. Tobar. Dressing to right lower extremity appears clean dry and intact. Patient denies pain to the right lower leg. Patient denies any n/v/f/c/sob/cp. Objective - Vital Signs/Intake and Output Vital Signs (last 24 hours): Temp Pulse Resp BP Pulse Ox 98.4 F 74 18 122/80 98 04/30/17 08:25 04/30/17 08:25 04/30/17 08:25 04/30/17 10:32 04/30/17 08:25 Intake and Output: 04/30/17 04/30/17 06:59 18:59 Intake Total 540 Balance 540 - Medications Medications: Current Medications Acetaminophen (Tylenol 325mg Tab) 650 mg PO Q4H PRN PRN Reason: Pain, Mild (1-3) Furosemide (Lasix) 20 mg PO DAILY [facility] Last Admin: 04/30/17 10:32 Dose: 20 mg Linezolid (Zyvox 600mg/300ml D5w) 600 mg in 300 mls @ 200 mls/hr IVPB Q12 [facility] PRN Reason: Protocol Stop: 05/01/17 23:46 Last Admin: 04/30/17 10:34 Dose: 200 mls/hr Cefepime HCl (Maxipime 2gm) 2 gm in 100 mls @ 100 mls/hr IVPB Q8 [facility] PRN Reason: Protocol Stop: 04/30/17 22:01 Last Admin: 04/30/17 06:11 Dose: 100 mls/hr Pantoprazole Sodium (Protonix Ec Tab) 40 mg PO 0600 [facility] Last Admin: 04/30/17 06:12 Dose: 40 mg - Labs Labs: 04/29/17 06:30 04/29/17 06:30 - Constitutional Appears: Well, Non-toxic, No Acute Distress - Extremities Exam Additional comments: Right lower extremity focused exam: DERM: Right lower leg shows 3 distinct ulceration sites (2 anterior, 1 posterior ) all with 20% fibrotic to 80% granular bases. Slight maceration noted to wound edges around the incision sites. Ulcers show connecting sinus tracts proximally. No purulent drainage noted. Minor naldo-wound erythema. VASC: Severe lymphedema noted to distal 1/2 of lower legs bilaterally with noted at widest circumference of edema. Neuro-vascular status intact to the right lower extremity. CRF<4 seconds. - Neurological Exam Neurological Exam: Alert, Awake, Oriented x3 - Psychiatric Exam Psychiatric exam: Normal Affect, Normal Mood - Skin Skin Exam: Normal Color, Warm Assessment and Plan - Assessment and Plan (Free Text) Assessment: 62 year old male 4 days s/p right leg incision and drainage Plan: Pt evaluated and treated with attending Dr. Tobar present. Chart, labs, and vitals reviewed. Afebrile, absent leukocytosis. Right leg dressed with maxorb, DSD, ABD pads and Modified single layer Love Compression dressing Continue IV abx per ID. Podiatry will continue to follow while inhouse. <Jocelyne Tobar - Last Filed: 05/13/17 19:25> Objective - Vital Signs/Intake and Output Vital Signs (last 24 hours): Temp Pulse Resp BP Pulse Ox 98.8 F 72 20 131/87 96 05/08/17 08:11 05/08/17 08:11 05/08/17 08:11 05/08/17 10:11 05/08/17 08:11 - Labs Labs: 05/07/17 05:20 05/07/17 05:20 Attending/Attestation - Attestation I have personally seen and examined this patient.: Yes I have fully participated in the care of the patient.: Yes I have reviewed all pertinent clinical information, including history, physical exam and plan: Yes
--- NOTE | 2017-04-30 12:45 | CP.PCM.PN ---
Subjective - Date & Time of Evaluation Date of Evaluation: 04/30/17 Time of Evaluation: 10:50 - Subjective Subjective: Saw patient with dr. Tobar - wound still has discharge, wounds are deep, patient complaining of mild pain in the right leg, no fevers. Objective - Vital Signs/Intake and Output Vital Signs (last 24 hours): Temp Pulse Resp BP Pulse Ox 98.4 F 74 18 121/79 98 04/30/17 08:25 04/30/17 08:25 04/30/17 08:25 04/30/17 08:25 04/30/17 08:25 Intake and Output: 04/30/17 04/30/17 06:59 18:59 Intake Total 540 Balance 540 - Medications Medications: Current Medications Acetaminophen (Tylenol 325mg Tab) 650 mg PO Q4H PRN PRN Reason: Pain, Mild (1-3) Furosemide (Lasix) 20 mg PO DAILY [facility] Last Admin: 04/29/17 09:48 Dose: 20 mg Linezolid (Zyvox 600mg/300ml D5w) 600 mg in 300 mls @ 200 mls/hr IVPB Q12 [facility] PRN Reason: Protocol Stop: 05/01/17 23:46 Last Admin: 04/29/17 21:08 Dose: 200 mls/hr Cefepime HCl (Maxipime 2gm) 2 gm in 100 mls @ 100 mls/hr IVPB Q8 [facility] PRN Reason: Protocol Stop: 04/30/17 22:01 Last Admin: 04/30/17 06:11 Dose: 100 mls/hr Pantoprazole Sodium (Protonix Ec Tab) 40 mg PO 0600 [facility] Last Admin: 04/30/17 06:12 Dose: 40 mg - Labs Labs: 04/29/17 06:30 04/29/17 06:30 - Constitutional Appears: Non-toxic, No Acute Distress - Head Exam Head Exam: NORMAL INSPECTION - ENT Exam ENT Exam: Mucous Membranes Moist - Neck Exam Neck Exam: absent: Meningismus - Respiratory Exam Respiratory Exam: Decreased Breath Sounds - Cardiovascular Exam Cardiovascular Exam: +S1, +S2 - GI/Abdominal Exam GI & Abdominal Exam: Soft. absent: Tenderness - Extremities Exam Additional comments: right leg with multiple pockets of exposed soft tissue, still with serosanguinous drainage Assessment and Plan - Assessment and Plan (Free Text) Plan: Assessment right leg skin and skin structure infection, previously growing Pseudomonas, Proteus and Group B Strep, S/P excisional debridement 2 weeks ago; debridement was done again POD #4 HTN chronic lower extremity edema obesity with BMI 35 Plan continue Cefepime and will change IV Vancomycin to Zyvox day 5; wound cx so far negative; patient will need to continue on IV antibiotics will continue to monitor clinically discussed with Dr. Tobar and Dr. Packer
--- NOTE | 2017-04-30 16:28 | CP.PCM.PN ---
<KRYSTAL MENDOZA - Last Filed: 04/30/17 16:24> Subjective - Date & Time of Evaluation Date of Evaluation: 04/30/17 Time of Evaluation: 16:24 - Subjective Subjective: MEDICINE PROGRESS NOTE: Pt seen and assessed at bedside. Pt had no new complaints at this evaluation. Pt denies any headache, dizziness, fever, chills, chest pain, shortness of breath, cough, abdominal pain, N/V, diarrhea, any urinary symptoms or any LE pain. Objective - Vital Signs/Intake and Output Vital Signs (last 24 hours): Temp Pulse Resp BP Pulse Ox 98.4 F 74 18 122/80 98 04/30/17 08:25 04/30/17 08:25 04/30/17 08:25 04/30/17 10:32 04/30/17 08:25 Intake and Output: 04/30/17 04/30/17 06:59 18:59 Intake Total 540 800 Output Total 300 Balance 540 500 - Medications Medications: Current Medications Acetaminophen (Tylenol 325mg Tab) 650 mg PO Q4H PRN PRN Reason: Pain, Mild (1-3) Furosemide (Lasix) 20 mg PO DAILY [facility] Last Admin: 04/30/17 10:32 Dose: 20 mg Linezolid (Zyvox 600mg/300ml D5w) 600 mg in 300 mls @ 200 mls/hr IVPB Q12 [facility] PRN Reason: Protocol Stop: 05/01/17 23:46 Last Admin: 04/30/17 10:34 Dose: 200 mls/hr Cefepime HCl (Maxipime 2gm) 2 gm in 100 mls @ 100 mls/hr IVPB Q8 [facility] PRN Reason: Protocol Stop: 04/30/17 22:01 Last Admin: 04/30/17 13:25 Dose: 100 mls/hr Pantoprazole Sodium (Protonix Ec Tab) 40 mg PO 0600 [facility] Last Admin: 04/30/17 06:12 Dose: 40 mg - Labs Labs: 04/29/17 06:30 04/29/17 06:30 - Constitutional Appears: Non-toxic, No Acute Distress - Head Exam Head Exam: ATRAUMATIC, NORMOCEPHALIC - Eye Exam Eye Exam: EOMI, Normal appearance, PERRL - ENT Exam ENT Exam: Mucous Membranes Moist, Normal Exam, Normal Oropharynx - Neck Exam Neck Exam: Full ROM, Normal Inspection. absent: Lymphadenopathy, Tenderness - Respiratory Exam Respiratory Exam: Clear to Ausculation Bilateral, NORMAL BREATHING PATTERN. absent: Rales, Rhonchi, Wheezes, Respiratory Distress - Cardiovascular Exam Cardiovascular Exam: REGULAR RHYTHM, RRR, +S1, +S2. absent: Tachycardia, Diastolic murmur, Murmur - GI/Abdominal Exam GI & Abdominal Exam: Soft, Normal Bowel Sounds. absent: Distended, Firm, Guarding, Tenderness - Exam Exam: absent: Bladder Distension - Extremities Exam Additional comments: RLE wound dressing clean, dry and intact; 2+ pitting edema extending to mid calf bilaterally - Back Exam Back Exam: absent: CVA tenderness (L), CVA tenderness (R) - Neurological Exam Neurological Exam: Alert, Awake, Oriented x3 - Psychiatric Exam Psychiatric exam: Normal Affect, Normal Mood - Skin Skin Exam: Dry, Intact, Normal Color, Warm Assessment and Plan - Assessment and Plan (Free Text) Assessment: 62 year old male with a past medical history significant for HTN and RLE cellulitis who presented to the ED with worsening of his RLE cellulitis Plan: 1. RLE Cellulitis Refractory to Outpatient Treatment -recently discharged with PO Levaquin for Proteus, Group B Strep and Pseudomonas coverage -continue IV Zyvox and Cefepime (day 6) , per ID -wound cultures negative for 4 days; Anaerobic cultures negative -blood cultures negative for 6 days -continue morphine [id number] IVP and percocet 5/325 (one tab) for moderate pain -continue percocet 5/325 (two tabs) for severe pain -podiatry and ID consulted, all recommendations appreciated -cont PT/OT who recommend home upon discharge -cont to monitor for leukocytosis with daily CBC's 2. CHRIS-resolved -BUN/Cr stable -producing urine with multiple voids daily -urine cultures negative -urine creatinine, sodium and culture pending -cont to monitor with daily CMP's 3. Lower Extremity Edema -patient reports this as a chronic condition -ECHO showed no signs of CHF, normal EF of 55-60% -Continue Lasix 20mg PO qd 4. GI Prophylaxis -Protonix PO Patient seen and case discussed with attending, Dr. Ron Packer. <Ron Packer - Last Filed: 04/30/17 16:52> Objective - Vital Signs/Intake and Output Vital Signs (last 24 hours): Temp Pulse Resp BP Pulse Ox 98.4 F 74 18 122/80 98 04/30/17 08:25 04/30/17 08:25 04/30/17 08:25 04/30/17 10:32 04/30/17 08:25 Intake and Output: 04/30/17 04/30/17 06:59 18:59 Intake Total 540 800 Output Total 300 Balance 540 500 - Medications Medications: Current Medications Acetaminophen (Tylenol 325mg Tab) 650 mg PO Q4H PRN PRN Reason: Pain, Mild (1-3) Furosemide (Lasix) 20 mg PO DAILY [facility] Last Admin: 04/30/17 10:32 Dose: 20 mg Linezolid (Zyvox 600mg/300ml D5w) 600 mg in 300 mls @ 200 mls/hr IVPB Q12 [facility] PRN Reason: Protocol Stop: 05/01/17 23:46 Last Admin: 04/30/17 10:34 Dose: 200 mls/hr Cefepime HCl (Maxipime 2gm) 2 gm in 100 mls @ 100 mls/hr IVPB Q8 [facility] PRN Reason: Protocol Stop: 04/30/17 22:01 Last Admin: 04/30/17 13:25 Dose: 100 mls/hr Pantoprazole Sodium (Protonix Ec Tab) 40 mg PO 0600 [facility] Last Admin: 04/30/17 06:12 Dose: 40 mg - Labs Labs: 04/29/17 06:30 04/29/17 06:30 Attending/Attestation - Attestation I have personally seen and examined this patient.: Yes I have fully participated in the care of the patient.: Yes I have reviewed all pertinent clinical information, including history, physical exam and plan: Yes Notes (Text): I have seen and examined patient at bedside with the resident. Agree with the above note with the following additions/ exceptions: Briefly this is 62 year old male with history of HTN and RLE cellulitis who was sent by baseball inspector for management of worsening of RLE cellulitis s/p excisional debridement x2. Last one was on 04/25/2017. Continue cefepime and zyvox. Cultures sent from OR is negative so far. Path showed necrotic and inflammatory tissue. Discussed with Dr Dumont and Dr Tobar. As patients wound still has discharge and wounds are deep and he failed outpatient Levaquin, we will continue to treat patient in house with IV antibiotics. CHRIS has resolved. Echo is normal. Will monitor patient clinically. Upon discharge patient will follow up with Dr Marie. Dr Ron Packer
[2017-05-01] MEDS: Cefepime IV 2 gm in NS 2 GM/100 ML BAG IVPB SCH ×3 (05:52→21:50)
[2017-05-01] MEDS: Pantoprazole 40 mg EC Tab PO SCH (05:53)
[2017-05-01 07:13] LABS: BASO # 0.05 K/mm3 (0.0-2.0); BASO % 0.9 % (0.0-3.0); EOS # 0.4 (0.0-0.7); EOS % 6.5 % (1.5-5.0); GRAN # 3.38 (1.4-6.5); GRAN % 62.9 % (50.0-68.0); HEMATOCRIT 32.2 % (42.0-52.0); LYMPH # 1.2 (1.2-3.4); LYMPH % 21.9 % (22.0-35.0); MEAN CELL VOLUME 92.3 fl (80.0-105.0); MEAN CORPUSCULAR HEMOGLOBIN 30.9 pg (25.0-35.0); MEAN CORPUSCULAR HGB CONC 33.5 g/dl (31.0-37.0); MEAN PLATELET VOLUME 8.1 fl (7.0-11.0); MONO # 0.4 (0.1-0.6); MONO % 7.8 % (1.0-6.0); RED CELL DISTRIBUTION WIDTH 16.2 % (11.5-14.5); WHITE BLOOD COUNT 5.4 10^3/ul (4.5-11.0)
[2017-05-01 07:17] LABS: BLOOD UREA NITROGEN 9 mg/dL (7-21); CALCIUM 9.3 mg/dL (8.4-10.5); CARBON DIOXIDE 24 mmol/L (21-33); CHLORIDE 107 mmol/L (98-107); GFR AFRICAN-AMERICAN > 60; GLUCOSE,RANDOM 85 mg/dL (70-110); SODIUM 141 mmol/L (132-148)
[2017-05-01] MEDS: Linezolid 600 mg in D5W 300 ml 600 MG/300 ML BAG IVPB SCH ×2 (09:07→22:47)
--- NOTE | 2017-05-01 12:39 | CP.PCM.PN ---
<Megan Omalley - Last Filed: 05/01/17 12:35> Subjective - Date & Time of Evaluation Date of Evaluation: 05/01/17 Time of Evaluation: 12:35 - Subjective Subjective: 62 year old male patient 5 days s/p right leg incision and drainage of abscess was seen at bedside this AM. Dressing to right lower extremity appears clean dry and intact. Patient denies pain to the right lower leg. Patient denies any n /v/f/c/sob/cp. Objective - Vital Signs/Intake and Output Vital Signs (last 24 hours): Temp Pulse Resp BP Pulse Ox 98.5 F 64 20 120/74 96 05/01/17 08:53 05/01/17 08:53 05/01/17 08:53 05/01/17 09:07 05/01/17 08:53 Intake and Output: 05/01/17 05/01/17 06:59 18:59 Intake Total 1680 Balance 1680 - Medications Medications: Current Medications Acetaminophen (Tylenol 325mg Tab) 650 mg PO Q4H PRN PRN Reason: Pain, Mild (1-3) Furosemide (Lasix) 20 mg PO DAILY [facility] Last Admin: 05/01/17 09:07 Dose: 20 mg Linezolid (Zyvox 600mg/300ml D5w) 600 mg in 300 mls @ 200 mls/hr IVPB Q12 [facility] PRN Reason: Protocol Stop: 05/01/17 23:46 Last Admin: 05/01/17 09:07 Dose: 200 mls/hr Cefepime HCl (Maxipime 2gm) 2 gm in 100 mls @ 100 mls/hr IVPB Q8 [facility] PRN Reason: Protocol Stop: 05/06/17 06:01 Last Admin: 05/01/17 05:52 Dose: 100 mls/hr Pantoprazole Sodium (Protonix Ec Tab) 40 mg PO 0600 [facility] Last Admin: 05/01/17 05:53 Dose: 40 mg - Labs Labs: 05/01/17 06:00 05/01/17 06:00 - Constitutional Appears: Well, Non-toxic, No Acute Distress - Extremities Exam Additional comments: Right lower extremity focused exam: DERM: Right lower leg shows 3 large ulceration sites (2 anterior, 1 posterior) all with 20% fibrotic to 80% granular bases. Slight maceration noted to wound edges around the incision sites. Ulcers show connecting sinus tracts proximally. No purulent drainage noted. Minor naldo-wound erythema. VASC: Severe lymphedema noted to distal 1/2 of lower legs bilaterally with noted at widest circumference of edema. Neuro-vascular status intact to the right lower extremity. CRF<4 seconds. - Neurological Exam Neurological Exam: Alert, Awake, Oriented x3 - Psychiatric Exam Psychiatric exam: Normal Affect, Normal Mood - Skin Skin Exam: Normal Color, Warm Assessment and Plan - Assessment and Plan (Free Text) Assessment: 62 year old male 4 days s/p right leg incision and drainage Plan: Pt evaluated and treated at bedside this AM Chart, labs, and vitals reviewed. Afebrile, absent leukocytosis. Right leg dressed with maxorb, DSD, ABD pads and Modified single layer Love Compression dressing Continue IV abx per ID. Podiatry will continue to follow while inhouse. <Bhavesh Turner - Last Filed: 05/04/17 12:04> Objective - Vital Signs/Intake and Output Vital Signs (last 24 hours): Temp Pulse Resp BP Pulse Ox 98.6 F 72 20 134/93 H 98 05/04/17 07:47 05/04/17 07:47 05/04/17 07:47 05/04/17 09:53 05/04/17 07:47 Intake and Output: 05/04/17 05/04/17 06:59 18:59 Intake Total 960 360 Balance 960 360 - Medications Medications: Current Medications Acetaminophen (Tylenol 325mg Tab) 650 mg PO Q4H PRN PRN Reason: Pain, Mild (1-3) Collagenase (Santyl) 0 gm TOP DAILY [facility] Last Admin: 05/04/17 09:54 Dose: Not Given Furosemide (Lasix) 20 mg PO DAILY [facility] Last Admin: 05/04/17 09:53 Dose: 20 mg Linezolid (Zyvox 600mg/300ml D5w) 600 mg in 300 mls @ 200 mls/hr IVPB Q12 [facility] PRN Reason: Protocol Stop: 05/09/17 14:20 Last Admin: 05/04/17 09:53 Dose: 200 mls/hr Cefepime HCl (Maxipime 2gm) 2 gm in 100 mls @ 100 mls/hr IVPB Q8 [facility] PRN Reason: Protocol Stop: 05/08/17 14:01 Last Admin: 05/04/17 05:50 Dose: 100 mls/hr Pantoprazole Sodium (Protonix Ec Tab) 40 mg PO 0600 [facility] Last Admin: 05/04/17 05:52 Dose: 40 mg - Labs Labs: 05/04/17 05:30 05/04/17 05:30 Attending/Attestation - Attestation I have personally seen and examined this patient.: Yes I have fully participated in the care of the patient.: Yes I have reviewed all pertinent clinical information, including history, physical exam and plan: Yes
--- NOTE | 2017-05-01 12:40 | CP.PCM.PN ---
Subjective - Date & Time of Evaluation Date of Evaluation: 05/01/17 Time of Evaluation: 10:20 - Subjective Subjective: Comfortable, no fevers overnight, not in distress. Objective - Vital Signs/Intake and Output Vital Signs (last 24 hours): Temp Pulse Resp BP Pulse Ox 98.5 F 64 20 120/74 96 05/01/17 08:53 05/01/17 08:53 05/01/17 08:53 05/01/17 08:53 05/01/17 08:53 Intake and Output: 05/01/17 05/01/17 06:59 18:59 Intake Total 1680 Balance 1680 - Medications Medications: Current Medications Acetaminophen (Tylenol 325mg Tab) 650 mg PO Q4H PRN PRN Reason: Pain, Mild (1-3) Furosemide (Lasix) 20 mg PO DAILY [facility] Last Admin: 04/30/17 10:32 Dose: 20 mg Linezolid (Zyvox 600mg/300ml D5w) 600 mg in 300 mls @ 200 mls/hr IVPB Q12 [facility] PRN Reason: Protocol Stop: 05/01/17 23:46 Last Admin: 04/30/17 21:09 Dose: 200 mls/hr Cefepime HCl (Maxipime 2gm) 2 gm in 100 mls @ 100 mls/hr IVPB Q8 [facility] PRN Reason: Protocol Stop: 05/06/17 06:01 Last Admin: 05/01/17 05:52 Dose: 100 mls/hr Pantoprazole Sodium (Protonix Ec Tab) 40 mg PO 0600 [facility] Last Admin: 05/01/17 05:53 Dose: 40 mg - Labs Labs: 05/01/17 06:00 05/01/17 06:00 - Constitutional Appears: Non-toxic, No Acute Distress - Head Exam Head Exam: NORMAL INSPECTION - Respiratory Exam Respiratory Exam: Decreased Breath Sounds - Cardiovascular Exam Cardiovascular Exam: +S1, +S2 - GI/Abdominal Exam GI & Abdominal Exam: Soft. absent: Tenderness - Extremities Exam Additional comments: right leg with dressings in place Assessment and Plan - Assessment and Plan (Free Text) Plan: Assessment right leg skin and skin structure infection, previously growing Pseudomonas, Proteus and Group B Strep, S/P excisional debridement 2 weeks ago; debridement was done again POD #5 - now growing MRSA HTN chronic lower extremity edema obesity with BMI 35 Plan continue Cefepime and Zyvox day 6; wound cx so far negative; patient will need to continue on IV antibiotics since the wounds are deep will continue to monitor clinically discussed with Dr. Tobar and Dr. Packer - would recommend at up to 2 weeks of antibiotics
--- NOTE | 2017-05-01 13:47 | CP.PCM.PN ---
Subjective - Date & Time of Evaluation Date of Evaluation: 05/01/17 Time of Evaluation: 13:40 - Subjective Subjective: MEDICINE PROGRESS NOTE: Pt seen and assessed at bedside. Pt had no new complaints at this evaluation and verbalizes understanding that he will be needing multiple weeks of antibiotics. Pt denies any headache, dizziness, changes in his vision, fever, chest pain, shortness of breath, cough, abdominal pain, N/V, diarrhea, any urinary symptoms or any LE pain. Objective - Vital Signs/Intake and Output Vital Signs (last 24 hours): Temp Pulse Resp BP Pulse Ox 98.5 F 64 20 120/74 96 05/01/17 08:53 05/01/17 08:53 05/01/17 08:53 05/01/17 09:07 05/01/17 08:53 Intake and Output: 05/01/17 05/01/17 06:59 18:59 Intake Total 1680 Balance 1680 - Medications Medications: Current Medications Acetaminophen (Tylenol 325mg Tab) 650 mg PO Q4H PRN PRN Reason: Pain, Mild (1-3) Furosemide (Lasix) 20 mg PO DAILY [facility] Last Admin: 05/01/17 09:07 Dose: 20 mg Linezolid (Zyvox 600mg/300ml D5w) 600 mg in 300 mls @ 200 mls/hr IVPB Q12 [facility] PRN Reason: Protocol Stop: 05/01/17 23:46 Last Admin: 05/01/17 09:07 Dose: 200 mls/hr Cefepime HCl (Maxipime 2gm) 2 gm in 100 mls @ 100 mls/hr IVPB Q8 [facility] PRN Reason: Protocol Stop: 05/06/17 06:01 Last Admin: 05/01/17 12:59 Dose: 100 mls/hr Pantoprazole Sodium (Protonix Ec Tab) 40 mg PO 0600 [facility] Last Admin: 05/01/17 05:53 Dose: 40 mg - Labs Labs: 05/01/17 06:00 05/01/17 06:00 - Constitutional Appears: Non-toxic, No Acute Distress - Head Exam Head Exam: ATRAUMATIC, NORMOCEPHALIC - Eye Exam Eye Exam: EOMI, Normal appearance, PERRL - ENT Exam ENT Exam: Mucous Membranes Moist, Normal Exam, Normal Oropharynx - Neck Exam Neck Exam: Full ROM, Normal Inspection. absent: Lymphadenopathy, Tenderness - Respiratory Exam Respiratory Exam: Clear to Ausculation Bilateral, NORMAL BREATHING PATTERN. absent: Rales, Rhonchi, Wheezes, Respiratory Distress - Cardiovascular Exam Cardiovascular Exam: REGULAR RHYTHM, RRR, +S1, +S2. absent: Tachycardia - GI/Abdominal Exam GI & Abdominal Exam: Soft, Normal Bowel Sounds. absent: Distended, Firm, Guarding, Tenderness - Exam Exam: absent: Bladder Distension - Extremities Exam Extremities Exam: Calf Tenderness, Normal Capillary Refill, Pedal Edema, Tenderness Additional comments: Bilateral LE dressings clean, dry and intact - Back Exam Back Exam: absent: CVA tenderness (L), CVA tenderness (R) - Neurological Exam Neurological Exam: Alert, Awake, Oriented x3 - Psychiatric Exam Psychiatric exam: Normal Affect, Normal Mood - Skin Skin Exam: Dry, Warm Assessment and Plan - Assessment and Plan (Free Text) Assessment: 62 year old male with a past medical history significant for HTN and RLE cellulitis who presented to the ED with worsening of his RLE cellulitis Plan: 1. RLE Cellulitis Refractory to Outpatient Treatment -recently discharged with PO Levaquin for Proteus, Group B Strep and Pseudomonas coverage -wound cultures growing methicillin resistant staph aureus with sensitivity report included in results, will await ID recommendations for any change in antibiotics -continue IV Zyvox and Cefepime (day 7) , per ID -blood cultures finalized with no growth -continue Tylenol 650mg Q4H PRN for pain control -podiatry and ID consulted, all recommendations appreciated -cont PT/OT who recommend home upon discharge -cont to monitor for leukocytosis with daily CBC's 2. CHRIS-resolved -BUN/Cr stable -urine cultures finalized with no growth -urine creatinine, sodium and culture pending -cont to monitor with daily CMP's 3. Lower Extremity Edema -patient reports this as a chronic condition -ECHO showed no signs of CHF, normal EF of 55-60% -Continue Lasix 20mg PO qd 4. GI Prophylaxis -Protonix PO Patient seen and case discussed with attending, Dr. Chung.
[2017-05-02] MEDS: Cefepime IV 2 gm in NS 2 GM/100 ML BAG IVPB SCH (05:19)
[2017-05-02] MEDS: Pantoprazole 40 mg EC Tab PO SCH (05:19)
[2017-05-02 05:48] LABS: BASO # 0.03 K/mm3 (0.0-2.0); BASO % 0.6 % (0.0-3.0); EOS # 0.3 (0.0-0.7); EOS % 6.3 % (1.5-5.0); GRAN # 3.21 (1.4-6.5); GRAN % 60.8 % (50.0-68.0); HEMATOCRIT 31.1 % (42.0-52.0); LYMPH # 1.3 (1.2-3.4); LYMPH % 24.9 % (22.0-35.0); MEAN CELL VOLUME 92.3 fl (80.0-105.0); MEAN CORPUSCULAR HEMOGLOBIN 30.9 pg (25.0-35.0); MEAN CORPUSCULAR HGB CONC 33.4 g/dl (31.0-37.0); MEAN PLATELET VOLUME 8.1 fl (7.0-11.0); MONO # 0.4 (0.1-0.6); MONO % 7.4 % (1.0-6.0); WHITE BLOOD COUNT 5.3 10^3/ul (4.5-11.0)
[2017-05-02 06:04] LABS: BLOOD UREA NITROGEN 8 mg/dL (7-21); CALCIUM 8.8 mg/dL (8.4-10.5); CARBON DIOXIDE 24 mmol/L (21-33); CHLORIDE 106 mmol/L (95-110); GFR AFRICAN-AMERICAN > 60; GLUCOSE,RANDOM 85 mg/dL (70-110); POTASSIUM 3.7 mmol/L (3.6-5.0); SODIUM 140 mmol/L (132-148)
--- NOTE | 2017-05-02 13:51 | CP.PCM.PN ---
<Megan Omalley - Last Filed: 05/02/17 13:47> Subjective - Date & Time of Evaluation Date of Evaluation: 05/02/17 Time of Evaluation: 13:47 - Subjective Subjective: 62 year old male patient 6 days s/p right leg incision and drainage of abscess was seen at bedside this afternoon with attending Dr. Tobar. Dressing to right lower extremity appears clean dry and intact. Patient denies pain to the right lower leg. Patient denies any n/v/f/c/sob/cp. Objective - Vital Signs/Intake and Output Vital Signs (last 24 hours): Temp Pulse Resp BP Pulse Ox 98.8 F 68 20 140/80 97 05/02/17 06:00 05/02/17 06:00 05/02/17 06:00 05/02/17 09:04 05/02/17 06:00 Intake and Output: 05/02/17 05/02/17 06:59 18:59 Intake Total 1920 Balance 1920 - Medications Medications: Current Medications Acetaminophen (Tylenol 325mg Tab) 650 mg PO Q4H PRN PRN Reason: Pain, Mild (1-3) Furosemide (Lasix) 20 mg PO DAILY [facility] Last Admin: 05/02/17 09:04 Dose: 20 mg Cefepime HCl (Maxipime 2gm) 2 gm in 100 mls @ 100 mls/hr IVPB Q8 [facility] PRN Reason: Protocol Stop: 05/06/17 06:01 Last Admin: 05/02/17 05:19 Dose: 100 mls/hr Pantoprazole Sodium (Protonix Ec Tab) 40 mg PO 0600 [facility] Last Admin: 05/02/17 05:19 Dose: 40 mg - Labs Labs: 05/02/17 05:10 05/02/17 05:10 - Constitutional Appears: Well, Non-toxic, No Acute Distress - Extremities Exam Additional comments: Right lower extremity focused exam: DERM: Right lower leg shows 3 large ulceration sites (2 anterior, 1 posterior) all with 50% fibrotic base and 50% granular bases. Slight maceration noted to wound edges around the incision sites. Ulcers show connecting sinus tracts proximally. No purulent drainage noted. Minor naldo-wound erythema. Slight discoloration of skin is noted to wound edges of anterior ulceration consistent with ischemic skin changes VASC: Severe lymphedema noted to distal 1/2 of lower legs bilaterally with noted at widest circumference of edema. Neuro-vascular status intact to the right lower extremity. CRF<4 seconds. - Neurological Exam Neurological Exam: Awake, Oriented x3 - Psychiatric Exam Psychiatric exam: Normal Affect, Normal Mood - Skin Skin Exam: Normal Color, Warm Assessment and Plan - Assessment and Plan (Free Text) Assessment: 62 year old male 6 days s/p right leg incision and drainage Plan: Pt evaluated and treated at bedside this afternoon Rounded with attending Dr. Tobar Chart, labs, and vitals reviewed. Afebrile, absent leukocytosis. Right leg dressed with maxorb, DSD, ABD pads and Modified single layer Love Compression dressing 2% Lidocaine ordered Santyl ordered Plans for bedside excisional debridement of a wound edge tomorrow Continue IV abx per ID. Podiatry will continue to follow while inhouse. <Jocelyne Tobar - Last Filed: 05/13/17 19:31> Objective - Vital Signs/Intake and Output Vital Signs (last 24 hours): Temp Pulse Resp BP Pulse Ox 98.8 F 72 20 131/87 96 05/08/17 08:11 05/08/17 08:11 05/08/17 08:11 05/08/17 10:11 05/08/17 08:11 - Labs Labs: 05/07/17 05:20 05/07/17 05:20 Attending/Attestation - Attestation I have personally seen and examined this patient.: Yes I have fully participated in the care of the patient.: Yes I have reviewed all pertinent clinical information, including history, physical exam and plan: Yes
[2017-05-02] MEDS ORDERED: Lidocaine 2% Inj (20ml) IJ STA (13:52)
--- NOTE | 2017-05-02 14:11 | CP.PCM.PN ---
Subjective - Date & Time of Evaluation Date of Evaluation: 05/02/17 Time of Evaluation: 13:59 - Subjective Subjective: MEDICINE PROGRESS NOTE: Pt seen and assessed at bedside. Pt had no new complaints at this evaluation and continues to verbalize understanding that he will be needing multiple weeks of antibiotics. Pt ambulating and subjectively pleasant on exam, discussing horoscopes with medicine team. Pt denies any headache, dizziness, changes in his vision, fever, chest pain, shortness of breath, cough, abdominal pain, N/V, diarrhea, any urinary symptoms or any LE pain. Objective - Vital Signs/Intake and Output Vital Signs (last 24 hours): Temp Pulse Resp BP Pulse Ox 98.8 F 68 20 140/80 97 05/02/17 06:00 05/02/17 06:00 05/02/17 06:00 05/02/17 09:04 05/02/17 06:00 Intake and Output: 05/02/17 05/02/17 06:59 18:59 Intake Total 1920 Balance 1920 - Medications Medications: Current Medications Acetaminophen (Tylenol 325mg Tab) 650 mg PO Q4H PRN PRN Reason: Pain, Mild (1-3) Collagenase (Santyl) 0 gm TOP DAILY [facility] Furosemide (Lasix) 20 mg PO DAILY [facility] Last Admin: 05/02/17 09:04 Dose: 20 mg Cefepime HCl (Maxipime 2gm) 2 gm in 100 mls @ 100 mls/hr IVPB Q8 [facility] PRN Reason: Protocol Stop: 05/06/17 06:01 Last Admin: 05/02/17 05:19 Dose: 100 mls/hr Pantoprazole Sodium (Protonix Ec Tab) 40 mg PO 0600 [facility] Last Admin: 05/02/17 05:19 Dose: 40 mg - Labs Labs: 05/02/17 05:10 05/02/17 05:10 - Constitutional Appears: Non-toxic, No Acute Distress - Head Exam Head Exam: ATRAUMATIC, NORMOCEPHALIC - Eye Exam Eye Exam: EOMI, Normal appearance, PERRL - ENT Exam ENT Exam: Mucous Membranes Moist, Normal Exam, Normal Oropharynx - Neck Exam Neck Exam: Full ROM, Normal Inspection. absent: Lymphadenopathy, Tenderness - Respiratory Exam Respiratory Exam: Clear to Ausculation Bilateral, NORMAL BREATHING PATTERN. absent: Rales, Rhonchi, Wheezes, Respiratory Distress, Stridor - Cardiovascular Exam Cardiovascular Exam: REGULAR RHYTHM, RRR, +S1, +S2. absent: Tachycardia, Diastolic murmur, Murmur - GI/Abdominal Exam GI & Abdominal Exam: Soft, Normal Bowel Sounds. absent: Distended, Firm, Guarding, Tenderness - Exam Exam: absent: Bladder Distension - Extremities Exam Extremities Exam: Calf Tenderness, Joint Swelling, Normal Capillary Refill, Pedal Edema. absent: Normal Inspection Additional comments: Bilateral LE dressings clean, dry and intact - Back Exam Back Exam: absent: CVA tenderness (L), CVA tenderness (R) - Neurological Exam Neurological Exam: Alert, Awake, Oriented x3 - Psychiatric Exam Psychiatric exam: Normal Affect, Normal Mood - Skin Skin Exam: Dry, Intact, Normal Color, Warm Assessment and Plan - Assessment and Plan (Free Text) Assessment: 62 year old male with a past medical history significant for HTN and RLE cellulitis who presented to the ED with worsening of his RLE cellulitis Plan: 1. RLE Cellulitis Refractory to Outpatient Treatment -recently discharged with PO Levaquin for Proteus, Group B Strep and Pseudomonas coverage -Surgical specimen report shows fragments of necrotic markedly acutely inflamed tissue with surrounding inflamed granulation tissue and fat necrosis with reactive fibrosis -blood cultures finalized with no growth -SIRS Criteria: 0/4 (afebrile, normotensive, non-tachycardic and with no leukocytosis) -wound cultures growing methicillin resistant staph aureus with sensitivity report included in results, will await ID recommendations for any change in antibiotics -continue IV Cefepime (day 8), per ID -finished 7-day course of Zyvox -continue Tylenol 650mg Q4H PRN for pain control -podiatry planning bedside excisional debridement of a wound edge on 05/03 -podiatry and ID consulted, all recommendations appreciated -cont PT/OT who recommend home upon discharge -cont to monitor for leukocytosis with daily CBC's -continue isolation precautions for MRSA 2. CHRIS-resolved -BUN/Cr stable -urine cultures finalized with no growth -urine creatinine, sodium and culture pending -cont to monitor with daily CMP's 3. Lower Extremity Edema -patient reports this as a chronic condition -ECHO showed no signs of CHF, normal EF of 55-60% -Continue Lasix 20mg PO qd -LE naresh bandage applied to help reduce swelling 4. GI/DVT Prophylaxis -Protonix PO/Ambulation (patient ambulating well and often seen ambulating in his room) Patient seen and case discussed with attending, Dr. Chung.
--- NOTE | 2017-05-02 14:23 | CP.PCM.PN ---
Subjective - Date & Time of Evaluation Date of Evaluation: 05/02/17 Time of Evaluation: 10:25 - Subjective Subjective: Comfortable in bed, not in distress, afebrile, still with occasional pain in the right leg. Objective - Vital Signs/Intake and Output Vital Signs (last 24 hours): Temp Pulse Resp BP Pulse Ox 98.8 F 89 20 145/88 99 05/01/17 16:00 05/01/17 16:00 05/01/17 16:00 05/01/17 16:00 05/01/17 16:00 Intake and Output: 05/02/17 05/02/17 06:59 18:59 Intake Total 1920 Balance 1920 - Medications Medications: Current Medications Acetaminophen (Tylenol 325mg Tab) 650 mg PO Q4H PRN PRN Reason: Pain, Mild (1-3) Furosemide (Lasix) 20 mg PO DAILY [facility] Last Admin: 05/01/17 09:07 Dose: 20 mg Cefepime HCl (Maxipime 2gm) 2 gm in 100 mls @ 100 mls/hr IVPB Q8 [facility] PRN Reason: Protocol Stop: 05/06/17 06:01 Last Admin: 05/02/17 05:19 Dose: 100 mls/hr Pantoprazole Sodium (Protonix Ec Tab) 40 mg PO 0600 [facility] Last Admin: 05/02/17 05:19 Dose: 40 mg - Labs Labs: 05/02/17 05:10 05/02/17 05:10 - Constitutional Appears: Non-toxic, No Acute Distress - Head Exam Head Exam: NORMAL INSPECTION - ENT Exam ENT Exam: Mucous Membranes Moist - Neck Exam Neck Exam: absent: Meningismus - Respiratory Exam Respiratory Exam: Decreased Breath Sounds - Cardiovascular Exam Cardiovascular Exam: +S1, +S2 - GI/Abdominal Exam GI & Abdominal Exam: Soft. absent: Tenderness - Extremities Exam Additional comments: right leg with dry dressings in place Assessment and Plan - Assessment and Plan (Free Text) Plan: Assessment right leg skin and skin structure infection, previously growing Pseudomonas, Proteus and Group B Strep, S/P excisional debridement 2 weeks ago; debridement was done again POD #6 - now growing MRSA HTN chronic lower extremity edema obesity with BMI 35 Plan continue Zyvox day 7; wound cx so far negative; patient will need to continue on IV antibiotics since the wounds are deep will continue to monitor clinically discussed with Dr. Tobar and Dr. Packer - would recommend up to 2 weeks of antibiotics
[2017-05-02] MEDS: Linezolid 600 mg in D5W 300 ml 600 MG/300 ML BAG IVPB SCH ×2 (14:35→22:29)
[2017-05-02] MEDS: Collagenase 250 Units/gm Ointment(30 gm) TOP SCH (15:34)
[2017-05-03 06:06] LABS: BASO # 0.07 K/mm3 (0.0-2.0); BASO % 1.3 % (0.0-3.0); EOS # 0.4 (0.0-0.7); EOS % 6.9 % (1.5-5.0); GRAN # 3.34 (1.4-6.5); GRAN % 62.8 % (50.0-68.0); HEMATOCRIT 32.3 % (42.0-52.0); LYMPH # 1.2 (1.2-3.4); LYMPH % 22.1 % (22.0-35.0); MEAN CELL VOLUME 92.6 fl (80.0-105.0); MEAN CORPUSCULAR HEMOGLOBIN 30.9 pg (25.0-35.0); MEAN CORPUSCULAR HGB CONC 33.4 g/dl (31.0-37.0); MONO # 0.4 (0.1-0.6); MONO % 6.9 % (1.0-6.0); RED CELL DISTRIBUTION WIDTH 16.1 % (11.5-14.5); WHITE BLOOD COUNT 5.3 10^3/ul (4.5-11.0)
[2017-05-03] MEDS: Pantoprazole 40 mg EC Tab PO SCH (06:06)
[2017-05-03 06:36] LABS: BLOOD UREA NITROGEN 9 mg/dL (7-21); CALCIUM 9.1 mg/dL (8.4-10.5); CARBON DIOXIDE 24 mmol/L (21-33); CHLORIDE 106 mmol/L (98-107); GFR AFRICAN-AMERICAN > 60; GLUCOSE,RANDOM 91 mg/dL (70-110); POTASSIUM 3.7 mmol/L (3.6-5.0); SODIUM 142 mmol/L (132-148)
--- NOTE | 2017-05-03 09:50 | CP.PCM.PN ---
<Megan Omalley - Last Filed: 05/03/17 09:47> Subjective - Date & Time of Evaluation Date of Evaluation: 05/03/17 Time of Evaluation: 09:47 - Subjective Subjective: 62 year old male patient 7 days s/p right leg incision and drainage of abscess was seen at bedside this afternoon with attending Dr. Tobar. Dressing to right lower extremity appears clean dry and intact. Patient denies pain to the right lower leg. Patient denies any n/v/f/c/sob/cp. Podiatry performed bedside excisional debridement of necrotic wound edges of right anterior leg. Please refer to plan for details Objective - Vital Signs/Intake and Output Vital Signs (last 24 hours): Temp Pulse Resp BP Pulse Ox 98.5 F 83 20 118/75 90 L 05/03/17 08:13 05/03/17 08:13 05/03/17 08:13 05/03/17 08:13 05/03/17 08:13 Intake and Output: 05/03/17 05/03/17 06:59 18:59 Intake Total 660 240 Balance 660 240 - Medications Medications: Current Medications Acetaminophen (Tylenol 325mg Tab) 650 mg PO Q4H PRN PRN Reason: Pain, Mild (1-3) Collagenase (Santyl) 0 gm TOP DAILY [facility] Last Admin: 05/02/17 15:34 Dose: Not Given Furosemide (Lasix) 20 mg PO DAILY [facility] Last Admin: 05/02/17 09:04 Dose: 20 mg Linezolid (Zyvox 600mg/300ml D5w) 600 mg in 300 mls @ 200 mls/hr IVPB Q12 [facility] PRN Reason: Protocol Stop: 05/09/17 14:20 Last Admin: 05/02/17 22:29 Dose: 200 mls/hr Pantoprazole Sodium (Protonix Ec Tab) 40 mg PO 0600 [facility] Last Admin: 05/03/17 06:06 Dose: 40 mg - Labs Labs: 05/03/17 05:20 05/03/17 05:20 - Constitutional Appears: Well, Non-toxic, No Acute Distress - Extremities Exam Additional comments: Right lower extremity focused exam: DERM: Right lower leg shows 3 large ulceration sites (2 anterior, 1 posterior) all with 50% fibrotic base and 50% granular bases. Slight maceration noted to wound edges around the incision sites. Ulcers show connecting sinus tracts proximally. No purulent drainage noted. Minor naldo-wound erythema. Slight discoloration of skin is noted to wound edges of anterior ulceration consistent with ischemic / necrotic skin changes VASC: Severe lymphedema noted to distal 1/2 of lower legs bilaterally with noted at widest circumference of edema. Neuro-vascular status intact to the right lower extremity. CRF<4 seconds. - Neurological Exam Neurological Exam: Alert, Awake, Oriented x3 - Psychiatric Exam Psychiatric exam: Normal Affect, Normal Mood - Skin Skin Exam: Normal Color, Warm Assessment and Plan - Assessment and Plan (Free Text) Assessment: 62 year old male 7 days s/p right leg incision and drainage Plan: Pt evaluated and treated at bedside this morning Rounded with attending Dr. Tobar Chart, labs, and vitals reviewed. Afebrile, absent leukocytosis. Right leg bedside excisional debridement -Utilizing sterile equipments, Right leg was cleansed with sterile saline -5cc of 2% Lidocaine plain was injected into the right leg around the necrotic tissue around the ulceration -Utilizing sterile adson/blade, necrotic/non-viable softtissue margins were excised from the right leg anterior aspect -Excised softtissue sent for pathology -Patient tolerated procedure well, no incident Right leg dressed with Santyl, DSD, ABD pads and Love Compression dressing Continue IV abx per ID. Podiatry will continue to follow while inhouse. <Jocelyne Tobar - Last Filed: 05/13/17 19:35> Objective - Vital Signs/Intake and Output Vital Signs (last 24 hours): Temp Pulse Resp BP Pulse Ox 98.8 F 72 20 131/87 96 05/08/17 08:11 05/08/17 08:11 05/08/17 08:11 05/08/17 10:11 05/08/17 08:11 - Labs Labs: 05/07/17 05:20 05/07/17 05:20 Attending/Attestation - Attestation I have personally seen and examined this patient.: Yes I have fully participated in the care of the patient.: Yes I have reviewed all pertinent clinical information, including history, physical exam and plan: Yes
[2017-05-03] MEDS: Linezolid 600 mg in D5W 300 ml 600 MG/300 ML BAG IVPB SCH ×2 (10:56→22:03)
[2017-05-03] MEDS: Collagenase 250 Units/gm Ointment(30 gm) TOP SCH (11:04)
--- NOTE | 2017-05-03 11:30 | CP.PCM.PN ---
Subjective - Date & Time of Evaluation Date of Evaluation: 05/03/17 Time of Evaluation: 09:15 - Subjective Subjective: Less pain in the right leg, no fevers overnight. No nausea, no diarrhea. Objective - Vital Signs/Intake and Output Vital Signs (last 24 hours): Temp Pulse Resp BP Pulse Ox 98.5 F 78 20 123/90 98 05/02/17 16:23 05/02/17 16:23 05/02/17 16:23 05/02/17 16:23 05/02/17 16:23 Intake and Output: 05/02/17 05/03/17 18:59 06:59 Intake Total 480 660 Balance 480 660 - Medications Medications: Current Medications Acetaminophen (Tylenol 325mg Tab) 650 mg PO Q4H PRN PRN Reason: Pain, Mild (1-3) Collagenase (Santyl) 0 gm TOP DAILY [facility] Last Admin: 05/02/17 15:34 Dose: Not Given Furosemide (Lasix) 20 mg PO DAILY [facility] Last Admin: 05/02/17 09:04 Dose: 20 mg Linezolid (Zyvox 600mg/300ml D5w) 600 mg in 300 mls @ 200 mls/hr IVPB Q12 [facility] PRN Reason: Protocol Stop: 05/09/17 14:20 Last Admin: 05/02/17 22:29 Dose: 200 mls/hr Pantoprazole Sodium (Protonix Ec Tab) 40 mg PO 0600 [facility] Last Admin: 05/03/17 06:06 Dose: 40 mg - Labs Labs: 05/03/17 05:20 05/02/17 05:10 - Constitutional Appears: Non-toxic, No Acute Distress - Head Exam Head Exam: NORMAL INSPECTION - ENT Exam ENT Exam: Mucous Membranes Moist - Neck Exam Neck Exam: absent: Meningismus - Respiratory Exam Respiratory Exam: Decreased Breath Sounds - Cardiovascular Exam Cardiovascular Exam: +S1, +S2 - GI/Abdominal Exam GI & Abdominal Exam: Soft. absent: Tenderness - Extremities Exam Additional comments: both legs with bandages in place Assessment and Plan - Assessment and Plan (Free Text) Plan: Assessment right leg skin and skin structure infection, previously growing Pseudomonas, Proteus and Group B Strep, S/P excisional debridement 2 weeks ago; debridement was done again POD #7 - now growing MRSA HTN chronic lower extremity edema obesity with BMI 35 Plan continue Zyvox day 8; wound cx so far negative; patient will need to continue on IV antibiotics since the wounds are deep (and patient is not compliant with follow and meds) will continue to monitor clinically discussed with Dr. Tobar and Dr. Packer
--- NOTE | 2017-05-03 13:51 | CP.PCM.PN ---
<KRYSTAL MENDOZA - Last Filed: 05/03/17 13:42> Subjective - Date & Time of Evaluation Date of Evaluation: 05/03/17 Time of Evaluation: 13:42 - Subjective Subjective: MEDICINE PROGRESS NOTE: Pt seen and assessed at bedside. Pt reports that he has been experiencing diarrhea for "a long time" and is just now letting us know because he has forgotten to mention it. He states that he has this after every meal and that it is not bloody nor does it have an oddly foul smell color or odd color. Pt denies any headache, dizziness, changes in his vision, fever, chest pain, shortness of breath, cough, abdominal pain, N/V, constipation, any urinary symptoms or any LE pain. Objective - Vital Signs/Intake and Output Vital Signs (last 24 hours): Temp Pulse Resp BP Pulse Ox 98.5 F 83 20 118/75 90 L 05/03/17 08:13 05/03/17 08:13 05/03/17 08:13 05/03/17 10:56 05/03/17 08:13 Intake and Output: 05/03/17 05/03/17 06:59 18:59 Intake Total 660 240 Balance 660 240 - Medications Medications: Current Medications Acetaminophen (Tylenol 325mg Tab) 650 mg PO Q4H PRN PRN Reason: Pain, Mild (1-3) Collagenase (Santyl) 0 gm TOP DAILY [facility] Last Admin: 05/03/17 11:04 Dose: Not Given Furosemide (Lasix) 20 mg PO DAILY [facility] Last Admin: 05/03/17 10:56 Dose: 20 mg Linezolid (Zyvox 600mg/300ml D5w) 600 mg in 300 mls @ 200 mls/hr IVPB Q12 [facility] PRN Reason: Protocol Stop: 05/09/17 14:20 Last Admin: 05/03/17 10:56 Dose: 200 mls/hr Pantoprazole Sodium (Protonix Ec Tab) 40 mg PO 0600 [facility] Last Admin: 05/03/17 06:06 Dose: 40 mg - Labs Labs: 05/03/17 05:20 05/03/17 05:20 - Constitutional Appears: Non-toxic, No Acute Distress - Head Exam Head Exam: ATRAUMATIC, NORMOCEPHALIC - Eye Exam Eye Exam: EOMI, Normal appearance, PERRL - ENT Exam ENT Exam: Mucous Membranes Moist, Normal Exam, Normal Oropharynx - Neck Exam Neck Exam: Full ROM, Normal Inspection. absent: Lymphadenopathy, Thyromegaly - Respiratory Exam Respiratory Exam: Clear to Ausculation Bilateral, NORMAL BREATHING PATTERN. absent: Rales, Rhonchi, Wheezes, Respiratory Distress - Cardiovascular Exam Cardiovascular Exam: REGULAR RHYTHM, RRR, +S1, +S2. absent: Tachycardia, Diastolic murmur, Murmur - GI/Abdominal Exam GI & Abdominal Exam: Soft, Normal Bowel Sounds. absent: Distended, Firm, Guarding, Tenderness - Exam Exam: absent: Bladder Distension - Extremities Exam Extremities Exam: Calf Tenderness, Normal Capillary Refill, Pedal Edema, Tenderness. absent: Normal Inspection Additional comments: Bilateral LE dressings clean, dry and intact - Back Exam Back Exam: NORMAL INSPECTION. absent: CVA tenderness (L), CVA tenderness (R), paraspinal tenderness, tenderness, vertebral tenderness - Neurological Exam Neurological Exam: Alert, Awake, Oriented x3 - Psychiatric Exam Psychiatric exam: Normal Affect, Normal Mood - Skin Skin Exam: Dry, Intact, Normal Color, Warm Assessment and Plan - Assessment and Plan (Free Text) Assessment: 62 year old male with a past medical history significant for HTN and RLE cellulitis who presented to the ED with worsening of his RLE cellulitis Plan: 1. RLE Cellulitis Refractory to Outpatient Treatment -recently discharged with PO Levaquin for Proteus, Group B Strep and Pseudomonas coverage -Surgical specimen report shows fragments of necrotic markedly acutely inflamed tissue with surrounding inflamed granulation tissue and fat necrosis with reactive fibrosis -blood cultures finalized with no growth -SIRS Criteria: 0/4 (afebrile, normotensive, non-tachycardic and with no leukocytosis) -wound cultures growing methicillin resistant staph aureus with sensitivity report included in results -continue IV Cefepime and Zyvox (day 9), per ID -continue Tylenol 650mg Q4H PRN for pain control -bedside excisional debridement performed by podiatry, patient tolerated procedure well and specimen was sent to pathology -podiatry and ID consulted, all recommendations appreciated -cont PT/OT who recommend home upon discharge -cont to monitor for leukocytosis with daily CBC's -continue isolation precautions for MRSA 2. CHRIS-resolved -BUN/Cr stable -cont to monitor with daily CMP's 3. Lower Extremity Edema -patient reports this as a chronic condition -ECHO showed no signs of CHF, normal EF of 55-60% -Continue Lasix 20mg PO qd -LE naresh bandage applied to help reduce swelling 4. Diarrhea -chronic issue patient has experienced for years -will obtain C. Diff antigen and toxin -HDS with all labs WNL, so we'll continue to monitor for now and await C. Diff results 5. GI/DVT Prophylaxis -Protonix PO/Ambulation (patient ambulating well and often seen ambulating in his room) Patient seen and case discussed with attending, Dr. Ron Packer. <Ron Packer B - Last Filed: 05/03/17 17:34> Objective - Vital Signs/Intake and Output Vital Signs (last 24 hours): Temp Pulse Resp BP Pulse Ox 98.4 F 68 18 129/72 98 05/03/17 16:03 05/03/17 16:03 05/03/17 16:03 05/03/17 16:03 05/03/17 16:03 Intake and Output: 05/03/17 05/03/17 06:59 18:59 Intake Total 660 240 Balance 660 240 - Medications Medications: Current Medications Acetaminophen (Tylenol 325mg Tab) 650 mg PO Q4H PRN PRN Reason: Pain, Mild (1-3) Collagenase (Santyl) 0 gm TOP DAILY [facility] Last Admin: 05/03/17 11:04 Dose: Not Given Furosemide (Lasix) 20 mg PO DAILY [facility] Last Admin: 05/03/17 10:56 Dose: 20 mg Linezolid (Zyvox 600mg/300ml D5w) 600 mg in 300 mls @ 200 mls/hr IVPB Q12 [facility] PRN Reason: Protocol Stop: 05/09/17 14:20 Last Admin: 05/03/17 10:56 Dose: 200 mls/hr Cefepime HCl (Maxipime 2gm) 2 gm in 100 mls @ 100 mls/hr IVPB Q8 [facility] PRN Reason: Protocol Stop: 05/08/17 14:01 Last Admin: 05/03/17 15:34 Dose: 100 mls/hr Pantoprazole Sodium (Protonix Ec Tab) 40 mg PO 0600 [facility] Last Admin: 05/03/17 06:06 Dose: 40 mg - Labs Labs: 05/03/17 05:20 05/03/17 05:20 Attending/Attestation - Attestation I have personally seen and examined this patient.: Yes I have fully participated in the care of the patient.: Yes I have reviewed all pertinent clinical information, including history, physical exam and plan: Yes Notes (Text): I have seen and examined patient at bedside with the resident. Agree with the above note with the following additions/ exceptions: Briefly this is 62 year old male with history of HTN and RLE cellulitis who was sent by lead database administrator for management of worsening of RLE cellulitis s/p excisional debridement x2. Last one was on 04/25/2017. Continue cefepime and zyvox. Cultures sent from OR is negative so far. Path showed necrotic and inflammatory tissue. As patients wound still has discharge and wounds are deep and he failed outpatient Levaquin , we will continue to treat patient in house with IV antibiotics for 1 more week. CHRIS has resolved. Echo is normal. As patient complained of diarrhea, will send stool for cdiff. Will monitor patient clinically. Upon discharge patient will follow up with Dr Marie. Dr Ron Packer
[2017-05-03] MEDS: Cefepime IV 2 gm in NS 2 GM/100 ML BAG IVPB SCH ×2 (15:34→22:00)
[2017-05-04] MEDS: Cefepime IV 2 gm in NS 2 GM/100 ML BAG IVPB SCH ×3 (05:50→22:52)
[2017-05-04] MEDS: Pantoprazole 40 mg EC Tab PO SCH (05:52)
[2017-05-04 06:04] LABS: BASO # 0.02 K/mm3 (0.0-2.0); BASO % 0.4 % (0.0-3.0); EOS # 0.4 (0.0-0.7); EOS % 7.1 % (1.5-5.0); GRAN # 3.12 (1.4-6.5); GRAN % 59.7 % (50.0-68.0); HEMATOCRIT 32.8 % (42.0-52.0); LYMPH # 1.3 (1.2-3.4); LYMPH % 25.2 % (22.0-35.0); MEAN CELL VOLUME 93.2 fl (80.0-105.0); MEAN CORPUSCULAR HEMOGLOBIN 30.4 pg (25.0-35.0); MEAN CORPUSCULAR HGB CONC 32.6 g/dl (31.0-37.0); MONO # 0.4 (0.1-0.6); MONO % 7.6 % (1.0-6.0); RED CELL DISTRIBUTION WIDTH 16.1 % (11.5-14.5); WHITE BLOOD COUNT 5.2 10^3/ul (4.5-11.0)
[2017-05-04 06:11] LABS: BLOOD UREA NITROGEN 9 mg/dL (7-21); CALCIUM 9.1 mg/dL (8.4-10.5); CARBON DIOXIDE 27 mmol/L (21-33); CHLORIDE 105 mmol/L (95-110); GFR AFRICAN-AMERICAN > 60; GLUCOSE,RANDOM 91 mg/dL (70-110); POTASSIUM 4.3 mmol/L (3.6-5.0); SODIUM 140 mmol/L (132-148)
[2017-05-04] MEDS: Linezolid 600 mg in D5W 300 ml 600 MG/300 ML BAG IVPB SCH ×2 (09:53→21:13)
[2017-05-04] MEDS: Collagenase 250 Units/gm Ointment(30 gm) TOP SCH (09:54)
--- NOTE | 2017-05-04 13:01 | CP.PCM.PN ---
<Megan Omalley - Last Filed: 05/04/17 12:59> Subjective - Date & Time of Evaluation Date of Evaluation: 05/04/17 Time of Evaluation: 10:00 - Subjective Subjective: 62 year old male patient 8 days s/p right leg incision and drainage of abscess was seen at bedside this AM. Dressing to right lower extremity appears clean dry and intact. Patient denies pain to the right lower leg. Patient denies any n /v/f/c/sob/cp. Objective - Vital Signs/Intake and Output Vital Signs (last 24 hours): Temp Pulse Resp BP Pulse Ox 98.6 F 72 20 134/93 H 98 05/04/17 07:47 05/04/17 07:47 05/04/17 07:47 05/04/17 09:53 05/04/17 07:47 Intake and Output: 05/04/17 05/04/17 06:59 18:59 Intake Total 960 360 Balance 960 360 - Medications Medications: Current Medications Acetaminophen (Tylenol 325mg Tab) 650 mg PO Q4H PRN PRN Reason: Pain, Mild (1-3) Collagenase (Santyl) 0 gm TOP DAILY [facility] Last Admin: 05/04/17 09:54 Dose: Not Given Furosemide (Lasix) 20 mg PO DAILY [facility] Last Admin: 05/04/17 09:53 Dose: 20 mg Linezolid (Zyvox 600mg/300ml D5w) 600 mg in 300 mls @ 200 mls/hr IVPB Q12 [facility] PRN Reason: Protocol Stop: 05/09/17 14:20 Last Admin: 05/04/17 09:53 Dose: 200 mls/hr Cefepime HCl (Maxipime 2gm) 2 gm in 100 mls @ 100 mls/hr IVPB Q8 [facility] PRN Reason: Protocol Stop: 05/08/17 14:01 Last Admin: 05/04/17 05:50 Dose: 100 mls/hr Pantoprazole Sodium (Protonix Ec Tab) 40 mg PO 0600 [facility] Last Admin: 05/04/17 05:52 Dose: 40 mg - Labs Labs: 05/04/17 05:30 05/04/17 05:30 - Constitutional Appears: Well, Non-toxic, No Acute Distress - Head Exam Head Exam: ATRAUMATIC - Extremities Exam Additional comments: Right lower extremity focused exam: DERM: Right lower leg shows 3 large ulceration sites (2 anterior, 1 posterior) all with 50% fibrotic base and 50% granular bases. Slight maceration noted to wound edges around the incision sites. Ulcers show connecting sinus tracts proximally. No purulent drainage noted. Minor naldo-wound erythema. Slight discoloration of skin is noted to wound edges of anterior ulceration consistent with ischemic / necrotic skin changes VASC: Severe lymphedema noted to distal 1/2 of lower legs bilaterally with noted at widest circumference of edema. Neuro-vascular status intact to the right lower extremity. CRF<4 seconds. - Neurological Exam Neurological Exam: Alert, Awake, Oriented x3 - Psychiatric Exam Psychiatric exam: Normal Affect, Normal Mood - Skin Skin Exam: Normal Color, Warm Assessment and Plan - Assessment and Plan (Free Text) Assessment: 62 year old male 8 days s/p right leg incision and drainage Plan: Pt evaluated and treated at bedside this morning Discussed in detail wiht attending Dr. Turner Chart, labs, and vitals reviewed. Afebrile, absent leukocytosis. Right leg dressed with Santyl, DSD, ABD pads and Love Compression dressing Continue IV abx per ID. Podiatry will continue to follow while inhouse. <Bhavesh Turner - Last Filed: 05/04/17 16:32> Objective - Vital Signs/Intake and Output Vital Signs (last 24 hours): Temp Pulse Resp BP Pulse Ox 98.6 F 70 20 120/80 99 05/04/17 16:16 05/04/17 16:16 05/04/17 16:16 05/04/17 16:16 05/04/17 16:16 Intake and Output: 05/04/17 05/04/17 06:59 18:59 Intake Total 960 360 Balance 960 360 - Medications Medications: Current Medications Acetaminophen (Tylenol 325mg Tab) 650 mg PO Q4H PRN PRN Reason: Pain, Mild (1-3) Collagenase (Santyl) 0 gm TOP DAILY [facility] Last Admin: 05/04/17 09:54 Dose: Not Given Furosemide (Lasix) 20 mg PO DAILY [facility] Last Admin: 05/04/17 09:53 Dose: 20 mg Linezolid (Zyvox 600mg/300ml D5w) 600 mg in 300 mls @ 200 mls/hr IVPB Q12 [facility] PRN Reason: Protocol Stop: 05/09/17 14:20 Last Admin: 05/04/17 09:53 Dose: 200 mls/hr Cefepime HCl (Maxipime 2gm) 2 gm in 100 mls @ 100 mls/hr IVPB Q8 [facility] PRN Reason: Protocol Stop: 05/08/17 14:01 Last Admin: 05/04/17 14:36 Dose: 100 mls/hr Pantoprazole Sodium (Protonix Ec Tab) 40 mg PO 0600 [facility] Last Admin: 05/04/17 05:52 Dose: 40 mg - Labs Labs: 05/04/17 05:30 05/04/17 05:30 Attending/Attestation - Attestation I have personally seen and examined this patient.: Yes I have fully participated in the care of the patient.: Yes I have reviewed all pertinent clinical information, including history, physical exam and plan: Yes
--- NOTE | 2017-05-04 13:58 | CP.PCM.PN ---
<KRYSTAL MENDOZA - Last Filed: 05/04/17 13:55> Subjective - Date & Time of Evaluation Date of Evaluation: 05/04/17 Time of Evaluation: 13:55 - Subjective Subjective: MEDICINE PROGRESS NOTE: Pt seen and assessed at bedside. Pt reports that his previously reported diarrhea has not changed or resolved but otherwise has no new complaints or any acute events to report. Pt denies any headache, dizziness, changes in his vision , fever, chest pain, shortness of breath, cough, abdominal pain, N/V, constipation, any urinary symptoms or any LE pain. Objective - Vital Signs/Intake and Output Vital Signs (last 24 hours): Temp Pulse Resp BP Pulse Ox 98.6 F 72 20 134/93 H 98 05/04/17 07:47 05/04/17 07:47 05/04/17 07:47 05/04/17 09:53 05/04/17 07:47 Intake and Output: 05/04/17 05/04/17 06:59 18:59 Intake Total 960 360 Balance 960 360 - Medications Medications: Current Medications Acetaminophen (Tylenol 325mg Tab) 650 mg PO Q4H PRN PRN Reason: Pain, Mild (1-3) Collagenase (Santyl) 0 gm TOP DAILY [facility] Last Admin: 05/04/17 09:54 Dose: Not Given Furosemide (Lasix) 20 mg PO DAILY [facility] Last Admin: 05/04/17 09:53 Dose: 20 mg Linezolid (Zyvox 600mg/300ml D5w) 600 mg in 300 mls @ 200 mls/hr IVPB Q12 [facility] PRN Reason: Protocol Stop: 05/09/17 14:20 Last Admin: 05/04/17 09:53 Dose: 200 mls/hr Cefepime HCl (Maxipime 2gm) 2 gm in 100 mls @ 100 mls/hr IVPB Q8 [facility] PRN Reason: Protocol Stop: 05/08/17 14:01 Last Admin: 05/04/17 05:50 Dose: 100 mls/hr Pantoprazole Sodium (Protonix Ec Tab) 40 mg PO 0600 [facility] Last Admin: 05/04/17 05:52 Dose: 40 mg - Labs Labs: 05/04/17 05:30 05/04/17 05:30 - Constitutional Appears: Non-toxic, No Acute Distress - Head Exam Head Exam: ATRAUMATIC, NORMOCEPHALIC - Eye Exam Eye Exam: EOMI, Normal appearance, PERRL Pupil Exam: NORMAL ACCOMODATION - ENT Exam ENT Exam: Mucous Membranes Moist, Normal Exam - Neck Exam Neck Exam: Full ROM. absent: Lymphadenopathy - Respiratory Exam Respiratory Exam: Clear to Ausculation Bilateral, NORMAL BREATHING PATTERN. absent: Rales, Rhonchi, Wheezes - Cardiovascular Exam Cardiovascular Exam: REGULAR RHYTHM, Rubs, +S1, +S2 - GI/Abdominal Exam GI & Abdominal Exam: Soft, Normal Bowel Sounds. absent: Firm, Guarding, Tenderness - Exam Exam: absent: Bladder Distension - Extremities Exam Extremities Exam: Calf Tenderness, Normal Capillary Refill, Pedal Edema, Tenderness. absent: Normal Inspection Additional comments: RLE wound dressing clean dry and intact; LLE with 2+ pitting edema extending to upper calf - Back Exam Back Exam: absent: CVA tenderness (L), CVA tenderness (R), paraspinal tenderness , vertebral tenderness - Neurological Exam Neurological Exam: Alert, Awake, Oriented x3 - Psychiatric Exam Psychiatric exam: Normal Affect, Normal Mood - Skin Skin Exam: Dry, Intact, Normal Color, Warm Assessment and Plan - Assessment and Plan (Free Text) Assessment: 62 year old male with a past medical history significant for HTN and RLE cellulitis who presented to the ED with worsening of his RLE cellulitis Plan: 1. RLE Cellulitis Refractory to Outpatient Treatment -recently discharged with PO Levaquin for Proteus, Group B Strep and Pseudomonas coverage -Surgical specimen report shows fragments of necrotic markedly acutely inflamed tissue with surrounding inflamed granulation tissue and fat necrosis with reactive fibrosis -blood cultures finalized with no growth -wound cultures growing methicillin resistant staph aureus with sensitivity report included in results -SIRS Criteria: 0/4 (afebrile, normotensive, non-tachycardic and with no leukocytosis) -continue IV Cefepime and Zyvox (day 10), per ID -continue Tylenol 650mg Q4H PRN for pain control -surgical pathology specimen from bedside excisional debridement revealed fragments of acutely inflamed, necrotic, hemorrhagic skin and fibrofatty inflamed granulation tissue and reactive fibroblastic proliferation -podiatry and ID consulted, all recommendations appreciated -cont PT/OT who recommend home upon discharge -cont to monitor for leukocytosis with daily CBC's -continue isolation precautions for MRSA 2. CHRIS-resolved -BUN/Cr stable -cont to monitor with daily CMP's 3. Lower Extremity Edema -patient reports this as a chronic condition -ECHO showed no signs of CHF, normal EF of 55-60% -Continue Lasix 20mg PO qd 4. Diarrhea -chronic issue patient has experienced for years -C. Diff antigen and toxin pending -HDS with all labs WNL -continue to monitor for now and await C. Diff results 5. GI/DVT Prophylaxis -Protonix PO/Ambulation (patient ambulating well and often seen ambulating in his room) Patient seen and case discussed with attending, Dr. Ron Packer. <Ron Packer B - Last Filed: 05/05/17 11:43> Objective - Vital Signs/Intake and Output Vital Signs (last 24 hours): Temp Pulse Resp BP Pulse Ox 97.9 F 98 H 20 138/98 H 98 05/05/17 08:40 05/05/17 08:40 05/05/17 08:40 05/05/17 09:48 05/05/17 08:40 Intake and Output: 05/05/17 05/05/17 06:59 18:59 Intake Total 840 Output Total 900 Balance -60 - Medications Medications: Current Medications Acetaminophen (Tylenol 325mg Tab) 650 mg PO Q4H PRN PRN Reason: Pain, Mild (1-3) Collagenase (Santyl) 0 gm TOP DAILY [facility] Last Admin: 05/05/17 10:10 Dose: Not Given Furosemide (Lasix) 20 mg PO DAILY [facility] Last Admin: 05/05/17 09:48 Dose: 20 mg Linezolid (Zyvox 600mg/300ml D5w) 600 mg in 300 mls @ 200 mls/hr IVPB Q12 [facility] PRN Reason: Protocol Stop: 05/09/17 14:20 Last Admin: 05/05/17 10:09 Dose: 200 mls/hr Cefepime HCl (Maxipime 2gm) 2 gm in 100 mls @ 100 mls/hr IVPB Q8 [facility] PRN Reason: Protocol Stop: 05/08/17 14:01 Last Admin: 05/05/17 06:17 Dose: 100 mls/hr Pantoprazole Sodium (Protonix Ec Tab) 40 mg PO 0600 [facility] Last Admin: 05/05/17 06:18 Dose: 40 mg - Labs Labs: 05/05/17 10:10 05/05/17 10:10 Attending/Attestation - Attestation I have personally seen and examined this patient.: Yes I have fully participated in the care of the patient.: Yes I have reviewed all pertinent clinical information, including history, physical exam and plan: Yes Notes (Text): I have seen and examined patient at bedside with the resident. Agree with the above note with the following additions/ exceptions: Briefly this is 62 year old male with history of HTN and RLE cellulitis who was sent by [facility]as[facility] for management of worsening of RLE cellulitis s/p excisional debridement x2. Last one was on 04/25/2017. Continue cefepime and zyvox. Cultures sent from OR is negative so far. Path showed necrotic and inflammatory tissue. As patients wound still has discharge and wounds are deep and he failed outpatient Levaquin , we will continue to treat patient in house with IV antibiotics for 1 more week. CHRIS has resolved. Echo is normal. As patient complained of diarrhea, will send stool for cdiff. Will monitor patient clinically. Upon discharge patient will follow up with Dr Marie. Dr Ron Packer
--- NOTE | 2017-05-05 00:05 | PN ---
DATE: 05/04/2017 SUBJECTIVE: The patient is in bed, in no acute distress, nontoxic. PHYSICAL EXAMINATION VITAL SIGNS: Temperature is 98, blood pressure is 120/70, respiratory rate of 16. HEENT: Unremarkable. NECK: Supple. LUNGS: Decreased breath sounds. HEART: Normal S1 and S2. ABDOMEN: Soft, nontender. LABORATORY DATA: Examination reveals a white count of 5.2, hemoglobin of 10, platelets of 211. Chemistry reveals a BUN of 9 and creatinine of 0.9. Right leg culture, MRSA is noted. Review of orders reveals that the patient to be on linezolid. ASSESSMENT AND PLAN: A 62-year-old male with right leg skin and skin soft tissue infection, previously grown Pseudomonas, Proteus, group B strep, status post excisional debridement two weeks ago and debridement was done again with postprocedure day #8 growing methicillin-resistant Staphylococcus aureus, on Zyvox day #9. We will discuss with PMD. Dickson Warner MD
[2017-05-05] MEDS: Cefepime IV 2 gm in NS 2 GM/100 ML BAG IVPB SCH ×3 (06:17→22:38)
[2017-05-05] MEDS: Pantoprazole 40 mg EC Tab PO SCH (06:18)
--- NOTE | 2017-05-05 08:17 | CP.PCM.PN ---
<Megan Omlaley - Last Filed: 05/05/17 08:15> Subjective - Date & Time of Evaluation Date of Evaluation: 05/05/17 Time of Evaluation: 08:15 - Subjective Subjective: 62 year old male patient 9 days s/p right leg incision and drainage of abscess was seen at bedside this AM. AAO x3. Patient denies of any acute over night distress. Dressing to right lower extremity appears clean dry and intact. Patient denies pain to the right lower leg. Patient denies any n/v/f/c/sob/cp. Objective - Vital Signs/Intake and Output Vital Signs (last 24 hours): Temp Pulse Resp BP Pulse Ox 98.6 F 70 20 120/80 99 05/04/17 16:16 05/04/17 16:16 05/04/17 16:16 05/04/17 16:16 05/04/17 16:16 Intake and Output: 05/05/17 05/05/17 06:59 18:59 Intake Total 840 Output Total 900 Balance -60 - Medications Medications: Current Medications Acetaminophen (Tylenol 325mg Tab) 650 mg PO Q4H PRN PRN Reason: Pain, Mild (1-3) Collagenase (Santyl) 0 gm TOP DAILY [facility] Last Admin: 05/04/17 09:54 Dose: Not Given Furosemide (Lasix) 20 mg PO DAILY [facility] Last Admin: 05/04/17 09:53 Dose: 20 mg Linezolid (Zyvox 600mg/300ml D5w) 600 mg in 300 mls @ 200 mls/hr IVPB Q12 [facility] PRN Reason: Protocol Stop: 05/09/17 14:20 Last Admin: 05/04/17 21:13 Dose: 200 mls/hr Cefepime HCl (Maxipime 2gm) 2 gm in 100 mls @ 100 mls/hr IVPB Q8 [facility] PRN Reason: Protocol Stop: 05/08/17 14:01 Last Admin: 05/05/17 06:17 Dose: 100 mls/hr Pantoprazole Sodium (Protonix Ec Tab) 40 mg PO 0600 [facility] Last Admin: 05/05/17 06:18 Dose: 40 mg - Labs Labs: 05/04/17 05:30 05/04/17 05:30 - Constitutional Appears: Well, Non-toxic, No Acute Distress - Head Exam Head Exam: ATRAUMATIC - Extremities Exam Additional comments: Right lower extremity focused exam: DERM: Right lower leg shows 3 large ulceration sites (2 anterior, 1 posterior) all with 30% fibrotic base and 70% granular bases. Slight maceration noted to wound edges around the incision sites. Ulcers show connecting sinus tracts proximally. No purulent drainage noted. Minor naldo-wound erythema. Slight discoloration of skin is noted to wound edges of anterior ulceration consistent with ischemic / necrotic skin changes VASC: Severe lymphedema noted to distal 1/2 of lower legs bilaterally with noted at widest circumference of edema. Neuro-vascular status intact to the right lower extremity. CRF<4 seconds. - Neurological Exam Neurological Exam: Alert, Awake, Oriented x3 - Psychiatric Exam Psychiatric exam: Normal Affect, Normal Mood - Skin Skin Exam: Normal Color, Warm Assessment and Plan - Assessment and Plan (Free Text) Assessment: 62 year old male 9 days s/p right leg incision and drainage Plan: Pt evaluated and treated at bedside this morning Discussed in detail with attending Dr. Turner Chart, labs, and vitals reviewed. Afebrile, absent leukocytosis. Right leg wound cleansed with normal sterile saline Right leg dressed with Santyl, DSD, ABD pads and Love Compression dressing Continue IV abx per ID. Podiatry will continue to follow while inhouse. <Bhavesh Turner - Last Filed: 05/05/17 09:27> Objective - Vital Signs/Intake and Output Vital Signs (last 24 hours): Temp Pulse Resp BP Pulse Ox 97.9 F 98 H 20 138/98 H 98 05/05/17 08:40 05/05/17 08:40 05/05/17 08:40 05/05/17 08:40 05/05/17 08:40 Intake and Output: 05/05/17 05/05/17 06:59 18:59 Intake Total 840 Output Total 900 Balance -60 - Medications Medications: Current Medications Acetaminophen (Tylenol 325mg Tab) 650 mg PO Q4H PRN PRN Reason: Pain, Mild (1-3) Collagenase (Santyl) 0 gm TOP DAILY [facility] Last Admin: 05/04/17 09:54 Dose: Not Given Furosemide (Lasix) 20 mg PO DAILY [facility] Last Admin: 05/04/17 09:53 Dose: 20 mg Linezolid (Zyvox 600mg/300ml D5w) 600 mg in 300 mls @ 200 mls/hr IVPB Q12 [facility] PRN Reason: Protocol Stop: 05/09/17 14:20 Last Admin: 05/04/17 21:13 Dose: 200 mls/hr Cefepime HCl (Maxipime 2gm) 2 gm in 100 mls @ 100 mls/hr IVPB Q8 [facility] PRN Reason: Protocol Stop: 05/08/17 14:01 Last Admin: 05/05/17 06:17 Dose: 100 mls/hr Pantoprazole Sodium (Protonix Ec Tab) 40 mg PO 0600 [facility] Last Admin: 05/05/17 06:18 Dose: 40 mg - Labs Labs: 05/04/17 05:30 05/04/17 05:30 Attending/Attestation - Attestation I have personally seen and examined this patient.: Yes I have fully participated in the care of the patient.: Yes I have reviewed all pertinent clinical information, including history, physical exam and plan: Yes
[2017-05-05] MEDS: Linezolid 600 mg in D5W 300 ml 600 MG/300 ML BAG IVPB SCH ×2 (10:09→21:03)
[2017-05-05] MEDS: Collagenase 250 Units/gm Ointment(30 gm) TOP SCH (10:10)
[2017-05-05 10:21] LABS: BASO # 0.04 K/mm3 (0.0-2.0); BASO % 0.8 % (0.0-3.0); EOS # 0.3 (0.0-0.7); EOS % 6.5 % (1.5-5.0); GRAN # 3.06 (1.4-6.5); GRAN % 64.5 % (50.0-68.0); HEMATOCRIT 33.1 % (42.0-52.0); LYMPH % 20.6 % (22.0-35.0); MEAN CORPUSCULAR HEMOGLOBIN 31.3 pg (25.0-35.0); MEAN CORPUSCULAR HGB CONC 33.2 g/dl (31.0-37.0); MONO # 0.4 (0.1-0.6); MONO % 7.6 % (1.0-6.0); RED CELL DISTRIBUTION WIDTH 16.3 % (11.5-14.5); WHITE BLOOD COUNT 4.8 10^3/ul (4.5-11.0)
[2017-05-05 10:26] LABS: BLOOD UREA NITROGEN 9 mg/dL (7-21); CALCIUM 9.1 mg/dL (8.4-10.5); CARBON DIOXIDE 26 mmol/L (21-33); CHLORIDE 106 mmol/L (98-107); GFR AFRICAN-AMERICAN > 60; GLUCOSE,RANDOM 90 mg/dL (70-110); SODIUM 142 mmol/L (132-148)
--- NOTE | 2017-05-05 11:15 | CP.PCM.PN ---
<Braeden Chapman - Last Filed: 05/05/17 11:11> Subjective - Date & Time of Evaluation Date of Evaluation: 05/05/17 Time of Evaluation: 09:10 - Subjective Subjective: IM Progress Note, Braeden Chapman PGY-2 Pt seen and examined at bedside. Pt has mild complaints of diarrhea that has improved. No acute or adverse events overnight as per nursing staff. Pt denies any headache, dizziness, changes in his vision, fever, chest pain, shortness of breath, cough, abdominal pain, N/V, constipation, any urinary symptoms or any LE pain. Objective - Vital Signs/Intake and Output Vital Signs (last 24 hours): Temp Pulse Resp BP Pulse Ox 97.9 F 98 H 20 138/98 H 98 05/05/17 08:40 05/05/17 08:40 05/05/17 08:40 05/05/17 09:48 05/05/17 08:40 Intake and Output: 05/05/17 05/05/17 06:59 18:59 Intake Total 840 Output Total 900 Balance -60 - Medications Medications: Current Medications Acetaminophen (Tylenol 325mg Tab) 650 mg PO Q4H PRN PRN Reason: Pain, Mild (1-3) Collagenase (Santyl) 0 gm TOP DAILY [facility] Last Admin: 05/05/17 10:10 Dose: Not Given Furosemide (Lasix) 20 mg PO DAILY [facility] Last Admin: 05/05/17 09:48 Dose: 20 mg Linezolid (Zyvox 600mg/300ml D5w) 600 mg in 300 mls @ 200 mls/hr IVPB Q12 [facility] PRN Reason: Protocol Stop: 05/09/17 14:20 Last Admin: 05/05/17 10:09 Dose: 200 mls/hr Cefepime HCl (Maxipime 2gm) 2 gm in 100 mls @ 100 mls/hr IVPB Q8 [facility] PRN Reason: Protocol Stop: 05/08/17 14:01 Last Admin: 05/05/17 06:17 Dose: 100 mls/hr Pantoprazole Sodium (Protonix Ec Tab) 40 mg PO 0600 [facility] Last Admin: 05/05/17 06:18 Dose: 40 mg - Labs Labs: 05/05/17 10:10 05/05/17 10:10 - Constitutional Appears: No Acute Distress - Head Exam Head Exam: ATRAUMATIC, NORMAL INSPECTION, NORMOCEPHALIC - Eye Exam Eye Exam: EOMI, Normal appearance, PERRL Pupil Exam: NORMAL ACCOMODATION, PERRL - ENT Exam ENT Exam: Mucous Membranes Moist, Normal Exam - Neck Exam Neck Exam: Full ROM, Normal Inspection. absent: Lymphadenopathy - Respiratory Exam Respiratory Exam: Clear to Ausculation Bilateral, NORMAL BREATHING PATTERN - Cardiovascular Exam Cardiovascular Exam: REGULAR RHYTHM, +S1, +S2. absent: Murmur - GI/Abdominal Exam GI & Abdominal Exam: Soft, Normal Bowel Sounds. absent: Tenderness - Neurological Exam Neurological Exam: Alert, Awake, CN II-XII Intact, Normal Gait, Oriented x3 - Psychiatric Exam Psychiatric exam: Normal Affect, Normal Mood - Skin Skin Exam: Dry, Intact, Normal Color, Warm Assessment and Plan - Assessment and Plan (Free Text) Assessment: 62 M with a PMHx of HTN and RLE cellulitis who presented to the ED with worsening of his RLE cellulitis 1. RLE Cellulitis Refractory to Outpatient Treatment -continue IV Cefepime and Zyvox (day 10), per ID -continue Tylenol 650mg Q4H PRN for pain control -surgical pathology specimen from bedside excisional debridement revealed fragments of acutely inflamed, necrotic, hemorrhagic skin and fibrofatty inflamed granulation tissue and reactive fibroblastic proliferation -podiatry and ID consulted, all recommendations appreciated -cont PT/OT who recommend home upon discharge -continue isolation precautions for MRSA 2. CHRIS-resolved -BUN/Cr stable -cont to monitor with daily CMP's 3. Lower Extremity Edema -patient reports this as a chronic condition -ECHO showed no signs of CHF, normal EF of 55-60% -Continue Lasix 20mg PO qd 4. Diarrhea -chronic issue patient has experienced for years -C. Diff antigen and toxin fu -HDS with all labs WNL -continue to monitor for now and await C. Diff results 5. GI/DVT Prophylaxis -Protonix PO/Ambulation (patient ambulating well and often seen ambulating in his room) Patient seen and case discussed with attending <Ron Packer - Last Filed: 05/05/17 14:08> Objective - Vital Signs/Intake and Output Vital Signs (last 24 hours): Temp Pulse Resp BP Pulse Ox 97.9 F 98 H 20 138/98 H 98 05/05/17 08:40 05/05/17 08:40 05/05/17 08:40 05/05/17 09:48 05/05/17 08:40 Intake and Output: 05/05/17 05/05/17 06:59 18:59 Intake Total 840 Output Total 900 Balance -60 - Medications Medications: Current Medications Acetaminophen (Tylenol 325mg Tab) 650 mg PO Q4H PRN PRN Reason: Pain, Mild (1-3) Collagenase (Santyl) 0 gm TOP DAILY [facility] Last Admin: 05/05/17 10:10 Dose: Not Given Furosemide (Lasix) 20 mg PO DAILY [facility] Last Admin: 05/05/17 09:48 Dose: 20 mg Linezolid (Zyvox 600mg/300ml D5w) 600 mg in 300 mls @ 200 mls/hr IVPB Q12 [facility] PRN Reason: Protocol Stop: 05/09/17 14:20 Last Admin: 05/05/17 10:09 Dose: 200 mls/hr Cefepime HCl (Maxipime 2gm) 2 gm in 100 mls @ 100 mls/hr IVPB Q8 [facility] PRN Reason: Protocol Stop: 05/08/17 14:01 Last Admin: 05/05/17 06:17 Dose: 100 mls/hr Pantoprazole Sodium (Protonix Ec Tab) 40 mg PO 0600 [facility] Last Admin: 05/05/17 06:18 Dose: 40 mg - Labs Labs: 05/05/17 10:10 05/05/17 10:10 Attending/Attestation - Attestation I have personally seen and examined this patient.: Yes I have fully participated in the care of the patient.: Yes I have reviewed all pertinent clinical information, including history, physical exam and plan: Yes Notes (Text): I have seen and examined patient at bedside with the resident. Agree with the above note with the following additions/ exceptions: Briefly this is 62 year old male with history of HTN and RLE cellulitis who was sent by [facility] for management of worsening of RLE cellulitis s/p excisional debridement x2. Continue cefepime and zyvox. Cultures sent from OR is negative so far. Path showed necrotic and inflammatory tissue. As patients wound still has discharge and wounds are deep and he failed outpatient Levaquin, we will continue to treat patient in house with IV antibiotics for couple of more days. CHRIS has resolved. Echo is normal. As patient continue to complain of diarrhea, will send stool for cdiff which was not collected yet. Advised the nurse to send the stool sample. Will monitor patient clinically. Upon discharge patient will follow up with Dr Marie. Dr Ron Packer
--- NOTE | 2017-05-05 20:36 | PN ---
DATE: 05/05/2017 SUBJECTIVE: The patient is in bed in no acute distress, nontoxic. PHYSICAL EXAMINATION: VITAL SIGNS: Temperature is 97, blood pressure is 130/80, respiratory rate of 16. HEENT: Unremarkable. NECK: Supple. LUNGS: Decreased breath sounds. HEART: Normal S1 and S2. ABDOMEN: Soft, nontender. LABORATORY DATA: Reveals a white count of 4.8, hemoglobin of 11, platelets of 211. Chemistry reveals a BUN of 9, creatinine of 0.8. Urinalysis is noted. Microbiology is noted with MRSA from the leg and review of orders reveals the patient to be on Zyvox and cefepime. ASSESSMENT AND PLAN: This is a 62-year-old mateusz with a right leg skin and skin soft tissue infection previously growing pseudomonas proteus group B Streptococcus currently growing methicillin-resistant Staphylococcus aureus postprocedure day #9 and on Zyvox and cefepime day #10. Pathology report revealing fragments of acutely inflamed necrotic hemorrhagic skin. We will discuss with podiatry. Further pathology report is still pending. Dickson Warner MD
[2017-05-06] MEDS: Cefepime IV 2 gm in NS 2 GM/100 ML BAG IVPB SCH ×3 (05:50→21:16)
[2017-05-06] MEDS: Pantoprazole 40 mg EC Tab PO SCH (05:50)
[2017-05-06 08:20] LABS: BASO # 0.03 K/mm3 (0.0-2.0); BASO % 0.6 % (0.0-3.0); EOS # 0.4 (0.0-0.7); EOS % 7.1 % (1.5-5.0); GRAN # 3.4 (1.4-6.5); GRAN % 65.6 % (50.0-68.0); HEMATOCRIT 35.6 % (42.0-52.0); LYMPH % 19.8 % (22.0-35.0); MEAN CELL VOLUME 93.2 fl (80.0-105.0); MEAN CORPUSCULAR HEMOGLOBIN 31.2 pg (25.0-35.0); MEAN CORPUSCULAR HGB CONC 33.4 g/dl (31.0-37.0); MEAN PLATELET VOLUME 8.2 fl (7.0-11.0); MONO # 0.4 (0.1-0.6); MONO % 6.9 % (1.0-6.0); RED CELL DISTRIBUTION WIDTH 16.2 % (11.5-14.5); WHITE BLOOD COUNT 5.2 10^3/ul (4.5-11.0)
[2017-05-06 08:39] LABS: BLOOD UREA NITROGEN 8 mg/dL (7-21); CALCIUM 9.4 mg/dL (8.4-10.5); CARBON DIOXIDE 27 mmol/L (21-33); CHLORIDE 105 mmol/L (98-107); GFR AFRICAN-AMERICAN > 60; GLUCOSE,RANDOM 88 mg/dL (70-110); POTASSIUM 4.1 mmol/L (3.6-5.0); SODIUM 142 mmol/L (132-148)
[2017-05-06] MEDS: Linezolid 600 mg in D5W 300 ml 600 MG/300 ML BAG IVPB SCH ×2 (09:33→22:15)
[2017-05-06] MEDS: Collagenase 250 Units/gm Ointment(30 gm) TOP SCH (09:34)
--- NOTE | 2017-05-06 13:21 | CP.PCM.PN ---
<Megan Omalley - Last Filed: 05/06/17 13:20> Subjective - Date & Time of Evaluation Date of Evaluation: 05/06/17 Time of Evaluation: 13:20 - Subjective Subjective: 62 year old male patient 10 days s/p right leg incision and drainage of abscess was seen at bedside this AM. AAO x3. . Dressing to right lower extremity appears cdi. Patient denies of any acute over night distress. Patient denies pain to the right lower leg. Patient denies any N/V/F/C or SOB today Objective - Vital Signs/Intake and Output Vital Signs (last 24 hours): Temp Pulse Resp BP Pulse Ox 98.7 F 65 18 132/84 99 05/06/17 07:24 05/06/17 07:24 05/06/17 07:24 05/06/17 09:34 05/06/17 07:24 Intake and Output: 05/06/17 05/06/17 06:59 18:59 Intake Total 900 Balance 900 - Medications Medications: Current Medications Acetaminophen (Tylenol 325mg Tab) 650 mg PO Q4H PRN PRN Reason: Pain, Mild (1-3) Collagenase (Santyl) 0 gm TOP DAILY [facility] Last Admin: 05/06/17 09:34 Dose: 1 applic Furosemide (Lasix) 20 mg PO DAILY [facility] Last Admin: 05/06/17 09:34 Dose: 20 mg Linezolid (Zyvox 600mg/300ml D5w) 600 mg in 300 mls @ 200 mls/hr IVPB Q12 [facility] PRN Reason: Protocol Stop: 05/09/17 14:20 Last Admin: 05/06/17 09:33 Dose: 200 mls/hr Cefepime HCl (Maxipime 2gm) 2 gm in 100 mls @ 100 mls/hr IVPB Q8 [facility] PRN Reason: Protocol Stop: 05/08/17 14:01 Last Admin: 05/06/17 05:50 Dose: 100 mls/hr Pantoprazole Sodium (Protonix Ec Tab) 40 mg PO 0600 [facility] Last Admin: 05/06/17 05:50 Dose: 40 mg - Labs Labs: 05/06/17 08:10 05/06/17 08:10 - Constitutional Appears: Well, Non-toxic, No Acute Distress - Head Exam Head Exam: ATRAUMATIC - Extremities Exam Additional comments: Right lower extremity focused exam: DERM: Right lower leg shows 3 large ulceration sites (2 anterior, 1 posterior) all with 30% fibrotic base and 70% granular bases. Slight maceration noted to wound edges around the incision sites. Ulcers show connecting sinus tracts proximally. No purulent drainage noted. Minor naldo-wound erythema. Slight discoloration of skin is noted to wound edges of anterior ulceration consistent with ischemic / necrotic skin changes VASC: Severe lymphedema noted to distal 1/2 of lower legs bilaterally with noted at widest circumference of edema. Neuro-vascular status intact to the right lower extremity. CRF<4 seconds. - Neurological Exam Neurological Exam: Alert, Awake, Oriented x3 - Psychiatric Exam Psychiatric exam: Normal Affect, Normal Mood - Skin Skin Exam: Normal Color, Warm Assessment and Plan - Assessment and Plan (Free Text) Assessment: 62 year old male 10 days s/p right leg incision and drainage Plan: Pt evaluated and treated at bedside this morning Discussed in detail with attending Dr. Turner Chart, labs, and vitals reviewed. Afebrile, absent leukocytosis. Right leg wound cleansed with normal sterile saline Right leg dressed with Santyl, DSD, ABD pads and Love Compression dressing Continue IV abx per ID. Podiatry will continue to follow while inhouse. <Bhavesh Turner - Last Filed: 05/08/17 11:26> Objective - Vital Signs/Intake and Output Vital Signs (last 24 hours): Temp Pulse Resp BP Pulse Ox 98.8 F 72 20 131/87 96 05/08/17 08:11 05/08/17 08:11 05/08/17 08:11 05/08/17 10:11 05/08/17 08:11 Intake and Output: 05/08/17 05/08/17 06:59 18:59 Intake Total 120 Balance 120 - Medications Medications: Current Medications Acetaminophen (Tylenol 325mg Tab) 650 mg PO Q4H PRN PRN Reason: Pain, Mild (1-3) Collagenase (Santyl) 0 gm TOP DAILY [facility] Last Admin: 05/08/17 11:23 Dose: Not Given Furosemide (Lasix) 20 mg PO DAILY [facility] Last Admin: 05/08/17 10:11 Dose: 20 mg Linezolid (Zyvox 600mg/300ml D5w) 600 mg in 300 mls @ 200 mls/hr IVPB Q12 [facility] PRN Reason: Protocol Stop: 05/09/17 14:20 Last Admin: 05/08/17 10:10 Dose: 200 mls/hr Cefepime HCl (Maxipime 2gm) 2 gm in 100 mls @ 100 mls/hr IVPB Q8 [facility] PRN Reason: Protocol Stop: 05/08/17 14:01 Last Admin: 05/08/17 05:42 Dose: 100 mls/hr Pantoprazole Sodium (Protonix Ec Tab) 40 mg PO 0600 [facility] Last Admin: 05/08/17 05:42 Dose: 40 mg - Labs Labs: 05/07/17 05:20 05/07/17 05:20 Attending/Attestation - Attestation I have personally seen and examined this patient.: Yes I have fully participated in the care of the patient.: Yes I have reviewed all pertinent clinical information, including history, physical exam and plan: Yes
--- NOTE | 2017-05-06 19:05 | CP.PCM.PN ---
<Shashi Goodwin - Last Filed: 05/06/17 18:58> Subjective - Date & Time of Evaluation Date of Evaluation: 05/06/17 Time of Evaluation: 08:10 - Subjective Subjective: IM Progress Note for Hospitalist Service Pt seen and examined at bedside. No complaint of diarrhea today. No acute or adverse events overnight reported. Denies any acute complaints, including chest pain, shortness of breath, nausea/emesis, constipation, dysuria, or weakness. Objective - Vital Signs/Intake and Output Vital Signs (last 24 hours): Temp Pulse Resp BP Pulse Ox 98.7 F 65 18 132/84 99 05/06/17 07:24 05/06/17 07:24 05/06/17 07:24 05/06/17 09:34 05/06/17 07:24 Intake and Output: 05/06/17 05/06/17 06:59 18:59 Intake Total 900 850 Balance 900 850 - Medications Medications: Current Medications Acetaminophen (Tylenol 325mg Tab) 650 mg PO Q4H PRN PRN Reason: Pain, Mild (1-3) Collagenase (Santyl) 0 gm TOP DAILY [facility] Last Admin: 05/06/17 09:34 Dose: 1 applic Furosemide (Lasix) 20 mg PO DAILY [facility] Last Admin: 05/06/17 09:34 Dose: 20 mg Linezolid (Zyvox 600mg/300ml D5w) 600 mg in 300 mls @ 200 mls/hr IVPB Q12 [facility] PRN Reason: Protocol Stop: 05/09/17 14:20 Last Admin: 05/06/17 09:33 Dose: 200 mls/hr Cefepime HCl (Maxipime 2gm) 2 gm in 100 mls @ 100 mls/hr IVPB Q8 [facility] PRN Reason: Protocol Stop: 05/08/17 14:01 Last Admin: 05/06/17 13:28 Dose: 100 mls/hr Pantoprazole Sodium (Protonix Ec Tab) 40 mg PO 0600 [facility] Last Admin: 05/06/17 05:50 Dose: 40 mg - Labs Labs: 05/06/17 08:10 05/06/17 08:10 - Additional Findings Additional findings: - Constitutional Appears: No Acute Distress, Resting comfortably in bed - Head Exam Head Exam: ATRAUMATIC, NORMAL INSPECTION, NORMOCEPHALIC - Eye Exam Eye Exam: EOMI, Normal appearance. Absent: Scleral icterus, Conjunctival injection. - ENT Exam ENT Exam: Mucous Membranes Moist, Normal Exam - Neck Exam Neck Exam: Full ROM, Normal Inspection - Respiratory Exam Respiratory Exam: Clear to Ausculation Bilateral, NORMAL BREATHING PATTERN. Absent: Wheezes/Rales/Ronchi, Tachypnea, Scooby Cyanosis - Cardiovascular Exam Cardiovascular Exam: RRR, +S1, +S2. absent: Murmur, Bradycardia, Tachycardia - GI/Abdominal Exam GI & Abdominal Exam: Soft, Normal Bowel Sounds. absent: Tenderness, Rigid, Firm - Extremities Exam Extremities Exam: Bandaging along RLE covering multiple ulceration sites, no erythema/edematous/cellulitic-appearing discoloration extending beyond bandaging , no gross edema of bilateral LE, no active bleeding/oozing/discharge through bandaging of RLE, no gross cellulitic-appearance or ulcerations of LLE - Neurological Exam Neurological Exam: Alert, Awake, Moving all extremities spontaneously, Follows all commands appropriately - Psychiatric Exam Psychiatric exam: Normal Affect, Normal Mood - Skin Skin Exam: Dry, Intact, Normal Color, Warm Assessment and Plan - Assessment and Plan (Free Text) Assessment: This is a 62 yo M with PMH of HTN and RLE cellulitis who presented to [facility] [place] with worsening of his RLE cellulitis, and was recently worked up for possible C. diff. Plan: 1. RLE Cellulitis Refractory to Outpatient Treatment -continue IV Cefepime and Zyvox (day 11), per ID -continue Tylenol 650mg Q4H PRN for pain control -surgical pathology specimen from bedside excisional debridement revealed fragments of acutely inflamed, necrotic, hemorrhagic skin and fibro-fatty inflamed granulation tissue and reactive fibroblastic proliferation, further path pending as per ID -podiatry and ID consulted, all recommendations appreciated -cont PT/OT, recs home upon discharge -continue isolation precautions for MRSA 2. CHRIS-resolved -BUN/Cr stable -cont to monitor with daily CMP's 3. Lower Extremity Edema: stable -longstanding as per patient -ECHO showed no signs of CHF, normal EF of 55-60% -Continue Lasix 20mg PO daily 4. Diarrhea -chronic issue patient has experienced for years -C. Diff antigen and toxin negative -continue to follow, manage symptomatically; currently stable, no acute intervention required Dispo: Med/Surg, pending final path of cellulitis as per ID, continue IV abx FEN: Heart-healthy Access: Peripheral IV Consults: ID, Podiatry Ppx: Protonix for GI, Ambulation for DVT (avoid SCDs given cellulitis, can consider AC if no pending procedures) Patient seen, reviewed, and discussed with attending, Dr. Ron Packer <Ron Packer - Last Filed: 05/08/17 15:27> Objective - Vital Signs/Intake and Output Vital Signs (last 24 hours): Temp Pulse Resp BP Pulse Ox 98.8 F 72 20 131/87 96 05/08/17 08:11 05/08/17 08:11 05/08/17 08:11 05/08/17 10:11 05/08/17 08:11 Intake and Output: 05/08/17 05/08/17 06:59 18:59 Intake Total 120 Balance 120 - Labs Labs: 05/07/17 05:20 05/07/17 05:20 Attending/Attestation - Attestation I have personally seen and examined this patient.: Yes I have fully participated in the care of the patient.: Yes I have reviewed all pertinent clinical information, including history, physical exam and plan: Yes Notes (Text): I have seen and examined patient at bedside with the resident. 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 Continue cefepime and zyvox. Cultures sent from OR is negative so far. Path showed necrotic and inflammatory tissue. As patients wound still has discharge and wounds are deep and he failed outpatient Levaquin, we will continue to treat patient in house with IV antibiotics for couple of more days. CHRIS has resolved. Echo is normal. Stool for cdiff is negative. Advised the nurse to send the stool sample. Will monitor patient clinically. Upon discharge patient will follow up with Dr Marie. Dr Ron Packer
--- NOTE | 2017-05-07 04:11 | PN ---
DATE: 05/06/2017 SUBJECTIVE: The patient is in bed, in no acute distress, nontoxic. PHYSICAL EXAMINATION: VITAL SIGNS: Temperature is 98, blood pressure is 132/80, respiratory rate of 16. HEENT: Unremarkable. NECK: Supple. LUNGS: Decreased breath sounds. HEART: Normal S1 and S2. ABDOMEN: Soft. LABORATORY DATA: Reveals a white count of 5.2, hemoglobin of 11. BUN of 8, creatinine of 0.8. The patient's leg has MRSA. Review of orders reveals the patient to be on Zyvox and cefepime. ASSESSMENT AND PLAN: This is a 62-year-old male with right leg skin and skin soft tissue infection, previously growing Pseudomonas proteus group B Strep and currently with methicillin-resistant Staphylococcus aureus day #10 on Zyvox and cefepime day #11. and patient is procedure day #10. We will follow with you. Dickson Warner MD
[2017-05-07] MEDS: Pantoprazole 40 mg EC Tab PO SCH (05:19)
[2017-05-07] MEDS: Cefepime IV 2 gm in NS 2 GM/100 ML BAG IVPB SCH ×3 (05:20→22:54)
[2017-05-07 06:13] LABS: BASO # 0.03 K/mm3 (0.0-2.0); BASO % 0.5 % (0.0-3.0); EOS # 0.4 (0.0-0.7); EOS % 6.8 % (1.5-5.0); GRAN # 4.11 (1.4-6.5); GRAN % 68.3 % (50.0-68.0); HEMATOCRIT 33.4 % (42.0-52.0); LYMPH % 17.1 % (22.0-35.0); MEAN CORPUSCULAR HEMOGLOBIN 31.2 pg (25.0-35.0); MEAN CORPUSCULAR HGB CONC 33.5 g/dl (31.0-37.0); MEAN PLATELET VOLUME 8.2 fl (7.0-11.0); MONO # 0.4 (0.1-0.6); MONO % 7.3 % (1.0-6.0); RED CELL DISTRIBUTION WIDTH 16.2 % (11.5-14.5)
[2017-05-07 06:45] LABS: BLOOD UREA NITROGEN 10 mg/dL (7-21); CALCIUM 9.7 mg/dL (8.4-10.5); CARBON DIOXIDE 25 mmol/L (21-33); CHLORIDE 106 mmol/L (95-110); GFR AFRICAN-AMERICAN > 60; GLUCOSE,RANDOM 88 mg/dL (70-110); POTASSIUM 3.9 mmol/L (3.6-5.0); SODIUM 140 mmol/L (132-148)
[2017-05-07] MEDS: Collagenase 250 Units/gm Ointment(30 gm) TOP SCH (10:09)
[2017-05-07] MEDS: Linezolid 600 mg in D5W 300 ml 600 MG/300 ML BAG IVPB SCH ×2 (10:18→22:53)
--- NOTE | 2017-05-07 15:00 | CP.PCM.PN ---
<Megan Omalley - Last Filed: 05/07/17 14:55> Subjective - Date & Time of Evaluation Date of Evaluation: 05/07/17 Time of Evaluation: 14:55 - Subjective Subjective: 62 year old male patient 11 days s/p right leg incision and drainage of abscess was seen at bedside this morning with attending Dr. Tobar. Dressing to right lower extremity appears cdi. Patient denies of any acute over night distress. Patient denies pain to the right lower leg. Patient denies any N/V/F/C or SOB today Patient is scheduled for discharge today from the hospital. Patient is instructed to follow up with Dr. Tobar this Sunday05/11/2017 at the woundcare center. Objective - Vital Signs/Intake and Output Vital Signs (last 24 hours): Temp Pulse Resp BP Pulse Ox 98.3 F 105 H 21 120/62 98 05/07/17 07:56 05/07/17 07:56 05/07/17 07:56 05/07/17 10:18 05/07/17 07:56 Intake and Output: 05/07/17 05/07/17 06:59 18:59 Intake Total 900 1200 Balance 900 1200 - Medications Medications: Current Medications Acetaminophen (Tylenol 325mg Tab) 650 mg PO Q4H PRN PRN Reason: Pain, Mild (1-3) Collagenase (Santyl) 0 gm TOP DAILY [facility] Last Admin: 05/07/17 10:09 Dose: 1 applic Furosemide (Lasix) 20 mg PO DAILY [facility] Last Admin: 05/07/17 10:18 Dose: 20 mg Linezolid (Zyvox 600mg/300ml D5w) 600 mg in 300 mls @ 200 mls/hr IVPB Q12 [facility] PRN Reason: Protocol Stop: 05/09/17 14:20 Last Admin: 05/07/17 10:18 Dose: 200 mls/hr Cefepime HCl (Maxipime 2gm) 2 gm in 100 mls @ 100 mls/hr IVPB Q8 [facility] PRN Reason: Protocol Stop: 05/08/17 14:01 Last Admin: 05/07/17 13:47 Dose: 100 mls/hr Pantoprazole Sodium (Protonix Ec Tab) 40 mg PO 0600 [facility] Last Admin: 05/07/17 05:19 Dose: 40 mg - Labs Labs: 05/07/17 05:20 05/07/17 05:20 - Constitutional Appears: Well, Non-toxic, No Acute Distress - Head Exam Head Exam: ATRAUMATIC - Extremities Exam Additional comments: Right lower extremity focused exam: DERM: Right lower leg shows 3 large open wounds (2 anterior, 1 posterior) all with 30% fibrotic base and 70% granular bases. Slight maceration noted to wound edges around the incision sites. Ulcers show connecting sinus tracts proximally. No purulent drainage noted. Minor naldo-wound erythema. Slight discoloration of skin is noted to wound edges of anterior ulceration consistent with ischemic / necrotic skin changes VASC: Severe lymphedema noted to distal 1/2 of lower legs bilaterally with noted at widest circumference of edema. Neuro-vascular status intact to the right lower extremity. CRF<4 seconds. - Neurological Exam Neurological Exam: Alert, Awake, Oriented x3 - Skin Skin Exam: Normal Color, Warm Assessment and Plan - Assessment and Plan (Free Text) Assessment: 62 year old male 11 days s/p right leg incision and drainage Plan: Pt evaluated and treated at bedside this morning Rounded with Ashleigh Tobar Chart, labs, and vitals reviewed. Afebrile, absent leukocytosis. Right leg wound cleansed with normal sterile saline Right leg dressed with Silvadene, Maxorb, DSD, ABD pads and co-flex; Patient was advised not to take off the Right leg dressing clean, dry and intact until his follow up with Dr. Tobar this Sunday05/11/2017 Continue IV abx per ID Patient is stable from podiatry stand point. <Jocelyne Tobar - Last Filed: 05/13/17 19:56> Objective - Vital Signs/Intake and Output Vital Signs (last 24 hours): Temp Pulse Resp BP Pulse Ox 98.8 F 72 20 131/87 96 05/08/17 08:11 05/08/17 08:11 05/08/17 08:11 05/08/17 10:11 05/08/17 08:11 - Labs Labs: 05/07/17 05:20 05/07/17 05:20 Attending/Attestation - Attestation I have personally seen and examined this patient.: Yes I have fully participated in the care of the patient.: Yes I have reviewed all pertinent clinical information, including history, physical exam and plan: Yes
--- NOTE | 2017-05-07 18:16 | CP.PCM.PN ---
<Jamar Lyon - Last Filed: 05/07/17 18:18> Subjective - Date & Time of Evaluation Date of Evaluation: 05/07/17 Time of Evaluation: 08:35 - Subjective Subjective: Jamar Lyon DO, PGY-1, Hospitalist Services Patient seen and examined at bedside. Patient reports having 6 episodes of diarrhea in the interim. Patient denies any fever. Nurse reports no events overnight. Objective - Vital Signs/Intake and Output Vital Signs (last 24 hours): Temp Pulse Resp BP Pulse Ox 98.8 F 20 L 67 H 132/86 98 05/07/17 16:00 05/07/17 16:00 05/07/17 16:00 05/07/17 16:00 05/07/17 16:00 Intake and Output: 05/07/17 05/07/17 06:59 18:59 Intake Total 900 1200 Balance 900 1200 - Medications Medications: Current Medications Acetaminophen (Tylenol 325mg Tab) 650 mg PO Q4H PRN PRN Reason: Pain, Mild (1-3) Collagenase (Santyl) 0 gm TOP DAILY [facility] Last Admin: 05/07/17 10:09 Dose: 1 applic Furosemide (Lasix) 20 mg PO DAILY [facility] Last Admin: 05/07/17 10:18 Dose: 20 mg Linezolid (Zyvox 600mg/300ml D5w) 600 mg in 300 mls @ 200 mls/hr IVPB Q12 [facility] PRN Reason: Protocol Stop: 05/09/17 14:20 Last Admin: 05/07/17 10:18 Dose: 200 mls/hr Cefepime HCl (Maxipime 2gm) 2 gm in 100 mls @ 100 mls/hr IVPB Q8 [facility] PRN Reason: Protocol Stop: 05/08/17 14:01 Last Admin: 05/07/17 13:47 Dose: 100 mls/hr Pantoprazole Sodium (Protonix Ec Tab) 40 mg PO 0600 [facility] Last Admin: 05/07/17 05:19 Dose: 40 mg - Labs Labs: 05/07/17 05:20 05/07/17 05:20 - Constitutional Appears: Well, No Acute Distress - Head Exam Head Exam: ATRAUMATIC, NORMOCEPHALIC - Eye Exam Eye Exam: EOMI, Normal appearance, PERRL - ENT Exam ENT Exam: Mucous Membranes Moist, Normal Oropharynx - Neck Exam Neck Exam: Normal Inspection - Respiratory Exam Respiratory Exam: Clear to Ausculation Bilateral, NORMAL BREATHING PATTERN - Cardiovascular Exam Cardiovascular Exam: RRR, +S1, +S2 - GI/Abdominal Exam GI & Abdominal Exam: Soft, Normal Bowel Sounds. absent: Organomegaly, Rebound - Extremities Exam Extremities Exam: Pedal Edema Additional comments: LE edema, both LE wrapped. - Back Exam Back Exam: NORMAL INSPECTION. absent: CVA tenderness (L), CVA tenderness (R) - Neurological Exam Neurological Exam: Alert, Awake, CN II-XII Intact, Oriented x3 - Psychiatric Exam Psychiatric exam: Normal Affect, Normal Mood - Skin Skin Exam: Dry, Intact, Normal Color, Warm Assessment and Plan - Assessment and Plan (Free Text) Assessment: This is a 62 yo M with PMH of HTN and RLE cellulitis who presented to [facility] [place] with worsening of his RLE cellulitis, and was recently worked up for possible C. diff. Plan: 1. RLE Cellulitis Refractory to Outpatient Treatment -continue IV Cefepime and Zyvox (day 12), per ID -continue Tylenol 650mg Q4H PRN for pain control -surgical pathology specimen from bedside excisional debridement revealed fragments of acutely inflamed, necrotic, hemorrhagic skin and fibro-fatty inflamed granulation tissue and reactive fibroblastic proliferation, further path pending as per ID -podiatry and ID consulted, all recommendations appreciated -cont PT/OT, recs home upon discharge -continue isolation precautions for MRSA 2. Lower Extremity Edema: stable -longstanding as per patient -ECHO showed no signs of CHF, normal EF of 55-60% -Continue Lasix 20mg PO daily 3. Diarrhea -chronic issue patient has experienced for years -C. Diff antigen and toxin negative -continue to follow, manage symptomatically; currently stable, no acute intervention required Dispo: Med/Surg, pending final path of cellulitis as per ID, continue IV abx FEN: Heart-healthy Access: Peripheral IV Consults: ID, Podiatry Ppx: Protonix for GI, Ambulation for DVT (avoid SCDs given cellulitis, can consider AC if no pending procedures) Patient seen, reviewed, and discussed with attending. <Ron Packer - Last Filed: 05/08/17 15:29> Objective - Vital Signs/Intake and Output Vital Signs (last 24 hours): Temp Pulse Resp BP Pulse Ox 98.8 F 72 20 131/87 96 05/08/17 08:11 05/08/17 08:11 05/08/17 08:11 05/08/17 10:11 05/08/17 08:11 Intake and Output: 05/08/17 05/08/17 06:59 18:59 Intake Total 120 Balance 120 - Labs Labs: 05/07/17 05:20 05/07/17 05:20 Attending/Attestation - Attestation I have personally seen and examined this patient.: Yes I have fully participated in the care of the patient.: Yes I have reviewed all pertinent clinical information, including history, physical exam and plan: Yes Notes (Text): I have seen and examined patient at bedside with the resident. 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 Continue cefepime and zyvox. Cultures sent from OR is negative so far. Path showed necrotic and inflammatory tissue. CHRIS has resolved. Echo is normal. Stool for cdiff is negative. Will monitor patient clinically. Upon discharge patient will follow up with Dr Marie. Dr Ron Packer
--- NOTE | 2017-05-07 21:31 | PN ---
DATE: 05/07/2017 SUBJECTIVE: The patient is in bed; in no acute distress, nontoxic. PHYSICAL EXAMINATION VITAL SIGNS: Temperature is 98, blood pressure is 119/80, respiratory rate of 21, heart rate of 101. HEENT: Unremarkable. NECK: Supple. LUNGS: Decreased breath sounds. HEART: Normal S1 and S2. ABDOMEN: Soft, nontender. LABORATORY DATA: Reveals white count of 6, hemoglobin of 11, platelets of 161. Chemistry reveals BUN of 10, creatinine of 0.8. Urinalysis is unremarkable. Microbiology reveals blood cultures no growth. Stool C. diff is negative and right leg culture is MRSA, sensitive to doxycycline. ASSESSMENT AND PLAN: A 62-year-old male with right leg skin infection, previously growing pseudomonas proteus group B Streptococcus, currently completed the Zyvox therapy postprocedure day #11 with pathology. No evidence of osteomyelitis was noted. Dr. Omalley's note is reviewed status post right incision and drainage of abscess at bedside this morning with Dr. Tobar. Recommending continue intravenous antibiotics. Dr. Shashi Goodwin's note is reviewed. He states that the patient has right leg cellulitis. Assessment and plan is continue with the current antibiotics through outpatient, we will discuss. Currently on Zyvox and cefepime. Must rule out underlying osteomyelitis and imaging and/or tissue biopsy. We will follow with you. Dickson Warner MD
[2017-05-08 01:14] VITALS: PULSE 72
[2017-05-08] MEDS: Pantoprazole 40 mg EC Tab PO SCH (05:42)
[2017-05-08] MEDS: Cefepime IV 2 gm in NS 2 GM/100 ML BAG IVPB SCH (05:42)
[2017-05-08 07:49] VITALS: BP 131/87; RESP 20; TEMP 98.8; O2SAT 96
[2017-05-08] MEDS: Linezolid 600 mg in D5W 300 ml 600 MG/300 ML BAG IVPB SCH (10:10)
[2017-05-08] MEDS: Collagenase 250 Units/gm Ointment(30 gm) TOP SCH (11:23)
--- NOTE | 2017-05-08 12:49 | CP.PCM.PN ---
<Megan Omalley - Last Filed: 05/08/17 12:46> Subjective - Date & Time of Evaluation Date of Evaluation: 05/08/17 Time of Evaluation: 12:46 - Subjective Subjective: 62 year old male patient 12 days s/p right leg incision and drainage of abscess was seen at bedside this morning. Dressing to right lower extremity appears cdi. Patient denies of any acute over night distress. Patient denies pain to the right lower leg. Patient denies any N/V/F/C or SOB today Patient is instructed to follow up with Dr. Tobar this Sunday05/11/2017 at the woundcare center. Objective - Vital Signs/Intake and Output Vital Signs (last 24 hours): Temp Pulse Resp BP Pulse Ox 98.8 F 72 20 131/87 96 05/08/17 08:11 05/08/17 08:11 05/08/17 08:11 05/08/17 10:11 05/08/17 08:11 Intake and Output: 05/08/17 05/08/17 06:59 18:59 Intake Total 120 Balance 120 - Medications Medications: Current Medications Acetaminophen (Tylenol 325mg Tab) 650 mg PO Q4H PRN PRN Reason: Pain, Mild (1-3) Collagenase (Santyl) 0 gm TOP DAILY [facility] Last Admin: 05/08/17 11:23 Dose: Not Given Furosemide (Lasix) 20 mg PO DAILY [facility] Last Admin: 05/08/17 10:11 Dose: 20 mg Linezolid (Zyvox 600mg/300ml D5w) 600 mg in 300 mls @ 200 mls/hr IVPB Q12 [facility] PRN Reason: Protocol Stop: 05/09/17 14:20 Last Admin: 05/08/17 10:10 Dose: 200 mls/hr Cefepime HCl (Maxipime 2gm) 2 gm in 100 mls @ 100 mls/hr IVPB Q8 [facility] PRN Reason: Protocol Stop: 05/08/17 14:01 Last Admin: 05/08/17 05:42 Dose: 100 mls/hr Pantoprazole Sodium (Protonix Ec Tab) 40 mg PO 0600 [facility] Last Admin: 05/08/17 05:42 Dose: 40 mg - Labs Labs: 05/07/17 05:20 05/07/17 05:20 - Constitutional Appears: Well, Non-toxic, No Acute Distress - Head Exam Head Exam: ATRAUMATIC - Extremities Exam Additional comments: Right lower extremity focused exam: DERM: Right lower leg shows 3 large open wounds (2 anterior, 1 posterior) all with 30% fibrotic base and 70% granular bases. Slight maceration noted to wound edges around the incision sites. Ulcers show connecting sinus tracts proximally. No purulent drainage noted. Minor naldo-wound erythema. Slight discoloration of skin is noted to wound edges of anterior ulceration consistent with ischemic / necrotic skin changes VASC: Severe lymphedema noted to distal 1/2 of lower legs bilaterally with noted at widest circumference of edema. Neuro-vascular status intact to the right lower extremity. CRF<4 seconds. - Neurological Exam Neurological Exam: Alert, Awake, Oriented x3 - Psychiatric Exam Psychiatric exam: Normal Affect, Normal Mood - Skin Skin Exam: Normal Color, Warm Assessment and Plan - Assessment and Plan (Free Text) Assessment: 62 year old male 12 days s/p right leg incision and drainage Plan: Pt evaluated and treated at bedside this morning Chart, labs, and vitals reviewed. Afebrile, absent leukocytosis. Right leg dressing kelp intact. Consisted of Silvadene, Maxorb, DSD, ABD pads and co-flex; Patient was advised not to take off the Right leg dressing clean, dry and intact until his follow up with Dr. Tobar this Sunday05/11/2017 Patient is stable from podiatry stand point. <Bhavesh Turner - Last Filed: 05/10/17 08:01> Objective - Vital Signs/Intake and Output Vital Signs (last 24 hours): Temp Pulse Resp BP Pulse Ox 98.8 F 72 20 131/87 96 05/08/17 08:11 05/08/17 08:11 05/08/17 08:11 05/08/17 10:11 05/08/17 08:11 - Labs Labs: 05/07/17 05:20 05/07/17 05:20 Attending/Attestation - Attestation I have personally seen and examined this patient.: Yes I have fully participated in the care of the patient.: Yes I have reviewed all pertinent clinical information, including history, physical exam and plan: Yes
--- NOTE | 2017-05-08 21:11 | CP.PCM.DIS ---
<Jamar Lyon - Last Filed: 05/09/17 10:04> Provider - Provider Date of Admission: 04/24/17 14:30 Attending physician: Ron Packer MD Primary care physician: Abhay Cruz DO Consults: Dr. Dumont and (Dr. Warner) ID Dr. Turner podiatry Time Spent in preparation of Discharge (in minutes): 34 Hospital Course - Lab Results Lab Results: Micro Results 05/05/17 15:30 Stool C. difficile Antigen & Toxin A,B (M - Final 04/26/17 10:30 Leg - Right Gram Stain - Final 04/26/17 10:30 Leg - Right Anaerobic Culture - Final NO ANAEROBES ISOLATED. 04/26/17 10:30 Leg - Right Wound Culture - Final Methicillin Resistant S Aureus 04/26/17 10:30 Leg - Right Gram Stain - Final 04/26/17 10:30 Leg - Right Anaerobic Culture - Final NO ANAEROBES ISOLATED. 04/26/17 10:30 Leg - Right Wound Culture - Final No growth. 04/24/17 23:00 Urine Urine Culture - Final No Growth (<1,000 CFU/ML) Most Recent Lab Values WBC 6.0 10^3/ul (4.5-11.0) 05/07/17 05:20 RBC 3.59 10^6/uL (3.5-6.1) 05/07/17 05:20 Hgb 11.2 g/dL (14.0-18.0) L 05/07/17 05:20 Hct 33.4 % (42.0-52.0) L 05/07/17 05:20 MCV 93.0 fl (80.0-105.0) 05/07/17 05:20 MCH 31.2 pg (25.0-35.0) 05/07/17 05:20 MCHC 33.5 g/dl (31.0-37.0) 05/07/17 05:20 RDW 16.2 % (11.5-14.5) H 05/07/17 05:20 Plt Count 206 10^3/uL (120.0-450.0) 05/07/17 05:20 MPV 8.2 fl (7.0-11.0) 05/07/17 05:20 Gran % 68.3 % (50.0-68.0) H 05/07/17 05:20 Lymph % (Auto) 17.1 % (22.0-35.0) L 05/07/17 05:20 [place] % (Auto) 7.3 % (1.0-6.0) H 05/07/17 05:20 Eos % (Auto) 6.8 % (1.5-5.0) H 05/07/17 05:20 Baso % (Auto) 0.5 % (0.0-3.0) 05/07/17 05:20 Gran # 4.11 (1.4-6.5) 05/07/17 05:20 Lymph # 1.0 (1.2-3.4) L 05/07/17 05:20 [place] # 0.4 (0.1-0.6) 05/07/17 05:20 Eos # 0.4 (0.0-0.7) 05/07/17 05:20 Baso # 0.03 K/mm3 (0.0-2.0) 05/07/17 05:20 Corrected WBC (Man) Cancelled 05/01/17 06:00 Neutrophils % (Manual) Cancelled 05/01/17 06:00 Band Neutrophils % Cancelled 05/01/17 06:00 Lymphocytes % (Manual) Cancelled 05/01/17 06:00 Atypical Lymphs % Cancelled 05/01/17 06:00 Monocytes % (Manual) Cancelled 05/01/17 06:00 Eosinophils % (Manual) Cancelled 05/01/17 06:00 Basophils % (Manual) Cancelled 05/01/17 06:00 Metamyelocytes % Cancelled 05/01/17 06:00 Myelocytes % Cancelled 05/01/17 06:00 Promyelocytes % Cancelled 05/01/17 06:00 Nucleated RBC % Cancelled 05/01/17 06:00 Hypersegmented Polys Cancelled 05/01/17 06:00 Immature Lymphocytes Cancelled 05/01/17 06:00 Blast Cells Cancelled 05/01/17 06:00 Smudge Cells Cancelled 05/01/17 06:00 Toxic Granulation Cancelled 05/01/17 06:00 Dohle Bodies Cancelled 05/01/17 06:00 Jennifer Rods Cancelled 05/01/17 06:00 Platelet Evaluation Cancelled 05/01/17 06:00 Plt Clumps, EDTA Cancelled 05/01/17 06:00 Large Platelets Cancelled 05/01/17 06:00 Giant Platelets Cancelled 05/01/17 06:00 Polychromasia Cancelled 05/01/17 06:00 Hypochromasia Cancelled 05/01/17 06:00 Hyperchromasia Cancelled 05/01/17 06:00 Poikilocytosis (manual Cancelled 05/01/17 06:00 Basophilic Stippling Cancelled 05/01/17 06:00 Anisocytosis (manual) Cancelled 05/01/17 06:00 Microcytosis (manual) Cancelled 05/01/17 06:00 Macrocytosis (manual) Cancelled 05/01/17 06:00 Spherocytes Cancelled 05/01/17 06:00 Sickle Cells Cancelled 05/01/17 06:00 Target Cells Cancelled 05/01/17 06:00 Tear Drop Cells Cancelled 05/01/17 06:00 Ovalocytes Cancelled 05/01/17 06:00 Stomatocytes Cancelled 05/01/17 06:00 Helmet Cells Cancelled 05/01/17 06:00 [place] Rings Cancelled 05/01/17 06:00 Madonna Cells Cancelled 05/01/17 06:00 Acanthocytes (Spur) Cancelled 05/01/17 06:00 Rouleaux Cancelled 05/01/17 06:00 Schistocytes Cancelled 05/01/17 06:00 Sodium 140 mmol/L (132-148) 05/07/17 05:20 Potassium 3.9 mmol/L (3.6-5.0) 05/07/17 05:20 Chloride 106 mmol/L (95-110) 05/07/17 05:20 Carbon Dioxide 25 mmol/L (21-33) 05/07/17 05:20 Anion Gap 13 (10-20) 05/07/17 05:20 BUN 10 mg/dL (7-21) 05/07/17 05:20 Creatinine 0.8 mg/dL (0.5-1.4) 05/07/17 05:20 Est GFR ( Amer) > 60 05/07/17 05:20 Est GFR (Non-Af Amer) > 60 05/07/17 05:20 Random Glucose 88 mg/dL (70-110) 05/07/17 05:20 Calcium 9.7 mg/dL (8.4-10.5) 05/07/17 05:20 Total Bilirubin 0.2 mg/dL (0.2-1.3) 04/29/17 06:30 AST 31 U/L (15-59) 04/29/17 06:30 ALT 31 U/L (7-56) 04/29/17 06:30 Alkaline Phosphatase 61 U/L (38-133) 04/29/17 06:30 NT-Pro-B Natriuret Pep 58.5 pg/mL (0-450) 04/24/17 13:50 Total Protein 6.7 g/dL (5.8-8.3) 04/29/17 06:30 Albumin 3.2 g/dL (3.0-4.8) 04/29/17 06:30 Globulin 3.5 gm/dL 04/29/17 06:30 Albumin/Globulin Ratio 0.9 (1.1-1.8) L 04/29/17 06:30 Lipase 61 U/L (23-300) 04/24/17 13:50 Urine Color Yellow (YELLOW) 04/24/17 19:05 Urine Appearance Sl cloudy (CLEAR) 04/24/17 19:05 Urine pH 6.0 (4.7-8.0) 04/24/17 19:05 Ur Specific [place] Level 1.025 (1.005-1.035) 04/24/17 19:05 Urine Protein Trace mg/dL (<30 mg/dL) H 04/24/17 19:05 Urine Glucose (UA) Negative mg/dL (NEGATIVE) 04/24/17 19:05 Urine Ketones Negative mg/dL (NEGATIVE) 04/24/17 19:05 Urine Blood Moderate (NEGATIVE) H 04/24/17 19:05 Urine Nitrate Negative (NEGATIVE) 04/24/17 19:05 Urine Bilirubin Negative (NEGATIVE) 04/24/17 19:05 Urine Urobilinogen 0.2 E.U./dL (<1 E.U./dL) 04/24/17 19:05 Ur Leukocyte Esterase Negative Hari/uL (NEGATIVE) 04/24/17 19:05 Urine RBC 2 - 5 /hpf (0-2) 04/24/17 19:05 Urine WBC 0 - 2 /hpf (0-6) 04/24/17 19:05 - Hospital Course Hospital Course: Jamar Lyon DO, PGY-1, Hospitalist Service 62 year old male with a past medical history of chronic LE edema, hypertenstion , who re-presented with a complicated RLE cellulitis that required in patient admission with IV antibiotics, aggressive wound care, and physical therapy evaluation. Some time after being discharged on PO Levaquin and scheduled wound care, the patient was seen at Dr. Turner's office (podiatry) for follow-up wound care of the RLE cellulitis; however, it became quite obvious that Mr. Hous cellulitis was worsening, refractory to outpatient therapy, and Dr. Turner aptly recommended Mr. Nguyen to go to ED. Previous wound cultures of the affected leg grew P. Aeruginosa, P. Mirabilis, and Group B streptococci. Initial labs and imaging, including but not limited to: blood, urine cultures, extremities US, echocardiogram (estimated EF 55-60%), and were unrevealing. The patient remained afebrile without leukocytosis throughout his stay. Preliminary wound cultures were equivocal; however, a RLE wound culture did grow MRSA. Clinically, it was apparent that Mr. Hous lower extremity cellulits was worsening, and in fact required Incision and Drainage of an abscess in the affected area, with biopsy showing necrotic tissue with an exuberant inflammatory response. Preliminary wound cultures were equivocal; however, there was a RLE wound culture that grew MRSA. At any rate, during his hospital stay IV Cefepime, Linezolid, and Vancomycin were administered. Lastly , the patient had some diarrhea that was worked-up and negative for C. Difficile. Mr. Nguyen was discharged with a five day course of Doxycycline and Linezolid, follow-up with Dr. Tobar (wound care/podiatry) and his PMD, Dr. Marie. - Date & Time of H&P Date of H&P: 05/08/17 Time of H&P: 21:11 Discharge Exam - Head Exam Head Exam: ATRAUMATIC - Eye Exam Eye Exam: EOMI, Normal appearance, PERRL - ENT Exam ENT Exam: Mucous Membranes Moist, Normal Oropharynx - Neck Exam Neck exam: Normal Inspection - Respiratory Exam Respiratory Exam: Clear to PA & Lateral, NORMAL BREATHING PATTERN. absent: Wheezes - Cardiovascular Exam Cardiovascular Exam: RRR, +S1, +S2 - GI/Abdominal Exam GI & Abdominal Exam: Normal Bowel Sounds, Soft. absent: Guarding, Rebound - Extremities Exam Extremities exam: pedal edema (trace) Additional comments: RLE was wrapped, appeared less swollen and red - Back Exam Back exam: NORMAL INSPECTION. absent: CVA tenderness (L), CVA tenderness (R) - Neurological Exam Neurological exam: Alert, CN II-XII Intact, Normal Gait, Oriented x3 - Psychiatric Exam Psychiatric exam: Normal Affect, Normal Mood - Skin Skin Exam: Dry, Normal Color, Warm Discharge Plan - Discharge Medications Prescriptions: Doxycycline Hyclate 100 mg PO Q12H #10 capsule Linezolid [Zyvox] 600 mg PO Q12 #10 tab - Follow Up Plan Condition: FAIR Disposition: HOME/ ROUTINE Instructions: MRSA (Methicillin Resistant Staphylococcus Aureus) (GEN), Cellulitis (ED), Cellulitis (DC), Cellulitis (GEN) Additional Instructions: 1) Take prescribed antibiotic as directed. 2) Follow up with Podiatry as scheduled. 3) Follow-up with Primary Medical Doctor within 1 week. 4) Follow up [facility] May 11, 2017 Referrals: Jocelyne Tobar DPM [Staff Provider] - Abhay Cruz DO [Primary Care Provider] - <Ron Packer - Last Filed: 05/23/17 17:24> Provider - Provider Date of Admission: 04/24/17 14:30 Attending physician: Ron Packer MD Primary care physician: Abhay Cruz DO Hospital Course - Lab Results Lab Results: Micro Results 05/05/17 15:30 Stool C. difficile Antigen & Toxin A,B (M - Final 04/26/17 10:30 Leg - Right Gram Stain - Final 04/26/17 10:30 Leg - Right Anaerobic Culture - Final NO ANAEROBES ISOLATED. 04/26/17 10:30 Leg - Right Wound Culture - Final Methicillin Resistant S Aureus 04/26/17 10:30 Leg - Right Gram Stain - Final 04/26/17 10:30 Leg - Right Anaerobic Culture - Final NO ANAEROBES ISOLATED. 04/26/17 10:30 Leg - Right Wound Culture - Final No growth. 04/24/17 23:00 Urine Urine Culture - Final No Growth (<1,000 CFU/ML) Most Recent Lab Values WBC 6.0 10^3/ul (4.5-11.0) 05/07/17 05:20 RBC 3.59 10^6/uL (3.5-6.1) 05/07/17 05:20 Hgb 11.2 g/dL (14.0-18.0) L 05/07/17 05:20 Hct 33.4 % (42.0-52.0) L 05/07/17 05:20 MCV 93.0 fl (80.0-105.0) 05/07/17 05:20 MCH 31.2 pg (25.0-35.0) 05/07/17 05:20 MCHC 33.5 g/dl (31.0-37.0) 05/07/17 05:20 RDW 16.2 % (11.5-14.5) H 05/07/17 05:20 Plt Count 206 10^3/uL (120.0-450.0) 05/07/17 05:20 MPV 8.2 fl (7.0-11.0) 05/07/17 05:20 Gran % 68.3 % (50.0-68.0) H 05/07/17 05:20 Lymph % (Auto) 17.1 % (22.0-35.0) L 05/07/17 05:20 [place] % (Auto) 7.3 % (1.0-6.0) H 05/07/17 05:20 Eos % (Auto) 6.8 % (1.5-5.0) H 05/07/17 05:20 Baso % (Auto) 0.5 % (0.0-3.0) 05/07/17 05:20 Gran # 4.11 (1.4-6.5) 05/07/17 05:20 Lymph # 1.0 (1.2-3.4) L 05/07/17 05:20 [place] # 0.4 (0.1-0.6) 05/07/17 05:20 Eos # 0.4 (0.0-0.7) 05/07/17 05:20 Baso # 0.03 K/mm3 (0.0-2.0) 05/07/17 05:20 Corrected WBC (Man) Cancelled 05/01/17 06:00 Neutrophils % (Manual) Cancelled 05/01/17 06:00 Band Neutrophils % Cancelled 05/01/17 06:00 Lymphocytes % (Manual) Cancelled 05/01/17 06:00 Atypical Lymphs % Cancelled 05/01/17 06:00 Monocytes % (Manual) Cancelled 05/01/17 06:00 Eosinophils % (Manual) Cancelled 05/01/17 06:00 Basophils % (Manual) Cancelled 05/01/17 06:00 Metamyelocytes % Cancelled 05/01/17 06:00 Myelocytes % Cancelled 05/01/17 06:00 Promyelocytes % Cancelled 05/01/17 06:00 Nucleated RBC % Cancelled 05/01/17 06:00 Hypersegmented Polys Cancelled 05/01/17 06:00 Immature Lymphocytes Cancelled 05/01/17 06:00 Blast Cells Cancelled 05/01/17 06:00 Smudge Cells Cancelled 05/01/17 06:00 Toxic Granulation Cancelled 05/01/17 06:00 Dohle Bodies Cancelled 05/01/17 06:00 Jennifer Rods Cancelled 05/01/17 06:00 Platelet Evaluation Cancelled 05/01/17 06:00 Plt Clumps, EDTA Cancelled 05/01/17 06:00 Large Platelets Cancelled 05/01/17 06:00 Giant Platelets Cancelled 05/01/17 06:00 Polychromasia Cancelled 05/01/17 06:00 Hypochromasia Cancelled 05/01/17 06:00 Hyperchromasia Cancelled 05/01/17 06:00 Poikilocytosis (manual Cancelled 05/01/17 06:00 Basophilic Stippling Cancelled 05/01/17 06:00 Anisocytosis (manual) Cancelled 05/01/17 06:00 Microcytosis (manual) Cancelled 05/01/17 06:00 Macrocytosis (manual) Cancelled 05/01/17 06:00 Spherocytes Cancelled 05/01/17 06:00 Sickle Cells Cancelled 05/01/17 06:00 Target Cells Cancelled 05/01/17 06:00 Tear Drop Cells Cancelled 05/01/17 06:00 Ovalocytes Cancelled 05/01/17 06:00 Stomatocytes Cancelled 05/01/17 06:00 Helmet Cells Cancelled 05/01/17 06:00 [place] Rings Cancelled 05/01/17 06:00 Madonna Cells Cancelled 05/01/17 06:00 Acanthocytes (Spur) Cancelled 05/01/17 06:00 Rouleaux Cancelled 05/01/17 06:00 Schistocytes Cancelled 05/01/17 06:00 Sodium 140 mmol/L (132-148) 05/07/17 05:20 Potassium 3.9 mmol/L (3.6-5.0) 05/07/17 05:20 Chloride 106 mmol/L (95-110) 05/07/17 05:20 Carbon Dioxide 25 mmol/L (21-33) 05/07/17 05:20 Anion Gap 13 (10-20) 05/07/17 05:20 BUN 10 mg/dL (7-21) 05/07/17 05:20 Creatinine 0.8 mg/dL (0.5-1.4) 05/07/17 05:20 Est GFR ( Amer) > 60 05/07/17 05:20 Est GFR (Non-Af Amer) > 60 05/07/17 05:20 Random Glucose 88 mg/dL (70-110) 05/07/17 05:20 Calcium 9.7 mg/dL (8.4-10.5) 05/07/17 05:20 Total Bilirubin 0.2 mg/dL (0.2-1.3) 04/29/17 06:30 AST 31 U/L (15-59) 04/29/17 06:30 ALT 31 U/L (7-56) 04/29/17 06:30 Alkaline Phosphatase 61 U/L (38-133) 04/29/17 06:30 NT-Pro-B Natriuret Pep 58.5 pg/mL (0-450) 04/24/17 13:50 Total Protein 6.7 g/dL (5.8-8.3) 04/29/17 06:30 Albumin 3.2 g/dL (3.0-4.8) 04/29/17 06:30 Globulin 3.5 gm/dL 04/29/17 06:30 Albumin/Globulin Ratio 0.9 (1.1-1.8) L 04/29/17 06:30 Lipase 61 U/L (23-300) 04/24/17 13:50 Urine Color Yellow (YELLOW) 04/24/17 19:05 Urine Appearance Sl cloudy (CLEAR) 04/24/17 19:05 Urine pH 6.0 (4.7-8.0) 04/24/17 19:05 Ur Specific [place] Level 1.025 (1.005-1.035) 04/24/17 19:05 Urine Protein Trace mg/dL (<30 mg/dL) H 04/24/17 19:05 Urine Glucose (UA) Negative mg/dL (NEGATIVE) 04/24/17 19:05 Urine Ketones Negative mg/dL (NEGATIVE) 04/24/17 19:05 Urine Blood Moderate (NEGATIVE) H 04/24/17 19:05 Urine Nitrate Negative (NEGATIVE) 04/24/17 19:05 Urine Bilirubin Negative (NEGATIVE) 04/24/17 19:05 Urine Urobilinogen 0.2 E.U./dL (<1 E.U./dL) 04/24/17 19:05 Ur Leukocyte Esterase Negative Hari/uL (NEGATIVE) 04/24/17 19:05 Urine RBC 2 - 5 /hpf (0-2) 04/24/17 19:05 Urine WBC 0 - 2 /hpf (0-6) 04/24/17 19:05 Attending/Attestation - Attestation I have personally seen and examined this patient.: Yes I have fully participated in the care of the patient.: Yes I have reviewed all pertinent clinical information, including history, physical exam and plan: Yes Notes (Text): I have seen and examined patient at bedside with the resident. Agree with the above note with the following additions/ exceptions: Briefly this is 62 year old male with history of HTN and RLE cellulitis who was sent by legal mediator for management of worsening of RLE cellulitis s/p excisional debridement x2. He was given cefepime and zyvox during hospitalization. Cultures sent from OR is negative so far. Path showed necrotic and inflammatory tissue. He will be discharged on 5 day course of doxy and zyvox. CHRIS has resolved. Echo is normal. Stool for cdiff is negative. Will monitor patient clinically. Upon discharge patient will follow up with Dr Marie and Dr Tobar. Dr Ron Packer
--- NOTE | 2017-05-08 21:36 | PN ---
DATE: 05/08/2017 SUBJECTIVE: The patient is in bed, in no acute distress, nontoxic. PHYSICAL EXAMINATION: VITAL SIGNS: Temperature is 98, blood pressure is 130/70, respiratory rate of 20 and heart rate of 72. HEENT: Unremarkable. NECK: Supple. LUNGS: Decreased breath sounds. HEART: Normal S1 and S2. ABDOMEN: Soft and nontender. LABORATORY DATA: Reveals a white count of 6.0, hemoglobin of 11 and platelets of 206. Chemistry reveals BUN of 10 and creatinine of 0.8. Urinalysis is unremarkable. Stool for C. diff, antigen and toxin are negative. ASSESSMENT AND PLAN: This is a 62-year-old male with a right leg skin and skin soft tissue infection and patient completed antibiotics, currently on Zyvox. No osteo on MRI. Incision and drainage was done. Dr. Packer had spoken to Dr. Tobar who feels that the infection is resolved. No evidence of osteomyelitis, may switch to p.o. doxycycline if unable to get Zyvox as discussed with Dr. Packer this morning for possible discharge today. Dickson Warner MD
== END 2017-05-08 13:56 | disposition home or self-care (01) | DRG 563 ==
LOC: ED 12:52 → ERH 14:30 → 3RNO 16:29
PROVIDERS: ADMIT Internal Medicine; ATTEND Hospitalist
PROC: 3E03328 Introduction of Oxazolidinones into Peripheral Vein, Percutaneous Approach (ICD-10-PCS; 2017-04-25)
PROC: 0Y9H0ZX Drainage of Right Lower Leg, Open Approach, Diagnostic (ICD-10-PCS; 2017-04-26)
PROC: 0JBN0ZX Excision of Right Lower Leg Subcutaneous Tissue and Fascia, Open Approach, Diagnostic (ICD-10-PCS; principal; 2017-04-26 07:30)
PROC: 0JBN0ZX Excision of Right Lower Leg Subcutaneous Tissue and Fascia, Open Approach, Diagnostic (ICD-10-PCS; 2017-05-03)
DX: L03.115 Cellulitis of right lower limb (principal); N17.9 Acute kidney failure, unspecified; L97.819 Non-pressure chronic ulcer of other part of right lower leg with unspecified severity; L02.415 Cutaneous abscess of right lower limb; I89.0 Lymphedema, not elsewhere classified; B95.62 Methicillin resistant Staphylococcus aureus infection as the cause of diseases classified elsewhere; I10 Essential (primary) hypertension; R19.7 Diarrhea, unspecified; E66.9 Obesity, unspecified; Z68.35 Body mass index [BMI] 35.0-35.9, adult